=== PATIENT | male | born 1945 | race Caucasian/White ===

== ENCOUNTER 2019-01-07 19:57 | Inpatient (IN) | payer MEDICARE, OTHER | END 2019-01-10 12:30 | disposition home or self-care (01) | LOC: ER FS 19:57 → 4TH 22:39 | DX: I11.0 Hypertensive heart disease with heart failure (principal); I50.43 Acute on chronic combined systolic (congestive) and diastolic (congestive) heart failure; I21.A1 Myocardial infarction type 2; J96.01 Acute respiratory failure with hypoxia; I35.0 Nonrheumatic aortic (valve) stenosis; E78.00 Pure hypercholesterolemia, unspecified; I73.9 Peripheral vascular disease, unspecified; I87.8 Other specified disorders of veins; N40.0 Benign prostatic hyperplasia without lower urinary tract symptoms; K21.9 Gastro-esophageal reflux disease without esophagitis; M54.9 Dorsalgia, unspecified; H91.93 Unspecified hearing loss, bilateral; M15.9 Polyosteoarthritis, unspecified; Z87.891 Personal history of nicotine dependence; Z90.2 Acquired absence of lung [part of]; Z97.4 Presence of external hearing-aid ==

== ENCOUNTER 2019-01-31 22:01 | Inpatient (IN) | payer MEDICARE, OTHER ==
[~2019-01-31] VITALS: Ht 165.1 cm; Wt 103.0 kg
[~2019-01-31 22:01] MED LIST: ACET-2055 PO; ACET-2429 PO; ACET325T49 PO; AMOX875T2 PO; ASPI-999 PO; BACL10TA PO; BUME1TAB4 PO; CHOL200059 PO; CLOP75TA28 PO; FINA5TAB6 PO; FURO-124 PO; FURO40TA4 PO; HYDR-3820 PO; LOSA25TA41 PO; MELO7.5T46 PO; METO-387 PO; METO2.5T PO; OXYB10TA PO; POTA10CA43 PO; RANI-515 PO; RANI150T90 PO; SIMV40TA4 PO; SIMV80TA21 PO; SPIR25TA5 PO; TAMS0.4C98 PO; TRAZ-222 PO; TRAZ150T72 PO; Trazadone
--- OUTSIDE RECORDS SUMMARY | 2019-01-31 22:08 | XMS REPORT | Continuity of Care Document ---
Author Organization Unknown Address Unknown Allergies Active Description Code Type Severity Reaction Onset Reported/Identified Relationship to Patient Clinical Status Yes No Known Drug Allergies [id number] Drug Allergy Unknown N/A 08/02/2015 Medications There is no data. Problems Date Dx Coded Attending Type Code Diagnosis Diagnosed By 06/25/2015 CHINO MOHAN MD, Ot M50.13 CERVICAL DISC DISORDER W RADICULOPATHY, 06/25/2015 CHINO MOHAN MD Ot M96.1 POSTLAMINECTOMY SYNDROME, NOT ELSEWHERE 06/25/2015 CHINO MOHAN MD Ot Z79.899 OTHER INTERMEDIATE (CURRENT) DRUG THERAPY 07/29/2015 ALLEN DAVIS MD Ot M48.02 07/29/2015 ALLEN DAVIS MD Ot Z01.812 07/29/2015 ALLEN DAVIS MD Ot Z11.2 07/29/2015 ALLEN DAVIS MD Ot M48.02 07/29/2015 ALLEN DAVIS MD Ot Z01.812 07/29/2015 ALLEN DAVIS MD Ot Z11.2 08/03/2015 ALLEN DAVIS MD Ot M47.12 OTHER SPONDYLOSIS WITH MYELOPATHY, CERVI 08/03/2015 ALLEN DAVIS MD Ot M48.02 SPINAL STENOSIS, CERVICAL REGION 08/03/2015 ALLEN DAVIS MD Ot M54.12 RADICULOPATHY, CERVICAL REGION 08/17/2015 ALLEN DAVIS MD Ot M48.02 08/17/2015 ALLEN DAVIS MD Ot Z01.812 08/17/2015 ALLEN DAVIS MD Ot Z11.2 02/07/2016 ALLEN DAVIS MD Ot Z48.89 ENCOUNTER FOR OTHER SPECIFIED SURGICAL A 02/10/2016 ALLEN DAVIS MD Ot Z48.89 ENCOUNTER FOR OTHER SPECIFIED SURGICAL A 02/10/2016 ALLEN DAVIS MD Ot Z98.1 ARTHRODESIS STATUS 02/10/2016 ALLEN DAVIS MD Ot Z48.89 ENCOUNTER FOR OTHER SPECIFIED SURGICAL A 02/10/2016 ALLEN DAVIS MD Ot Z98.1 ARTHRODESIS STATUS 03/01/2016 ALLEN DAVIS MD Ot Z48.89 ENCOUNTER FOR OTHER SPECIFIED SURGICAL A 03/01/2016 ALLEN DAVIS MD Ot Z98.1 ARTHRODESIS STATUS 03/31/2016 ALLEN DAVIS MD Ot Z48.89 ENCOUNTER FOR OTHER SPECIFIED SURGICAL A 03/31/2016 ALLEN DAVIS MD Ot Z98.1 ARTHRODESIS STATUS 12/31/2018 ALLEN DAVIS MD Ot M48.02 SPINAL STENOSIS, CERVICAL REGION 12/31/2018 ALLEN DAVIS MD Ot Z01.812 ENCOUNTER FOR PREPROCEDURAL LABORATORY E 12/31/2018 ALLEN DAVIS MD Ot Z11.2 ENCOUNTER FOR SCREENING FOR OTHER BACTER 12/31/2018 ALLEN DAVIS MD Ot Z48.89 ENCOUNTER FOR OTHER SPECIFIED SURGICAL A 12/31/2018 ALLEN DAVIS MD Ot Z98.1 ARTHRODESIS STATUS 01/03/2019 ALLEN DAVIS MD Ot M48.02 SPINAL STENOSIS, CERVICAL REGION 01/03/2019 ALLEN DAVIS MD Ot Z01.812 ENCOUNTER FOR PREPROCEDURAL LABORATORY E 01/03/2019 ALLEN DAVIS MD Ot Z11.2 ENCOUNTER FOR SCREENING FOR OTHER BACTER 01/03/2019 ALLEN DAVIS MD Ot Z48.89 ENCOUNTER FOR OTHER SPECIFIED SURGICAL A 01/03/2019 ALLEN DAVIS MD Ot Z98.1 ARTHRODESIS STATUS 01/03/2019 ALLEN DAVIS MD Ot M48.02 SPINAL STENOSIS, CERVICAL REGION 01/03/2019 ALLEN DAVIS MD Ot Z01.812 ENCOUNTER FOR PREPROCEDURAL LABORATORY E 01/03/2019 ALLEN DAVIS MD Ot Z11.2 ENCOUNTER FOR SCREENING FOR OTHER BACTER 01/03/2019 ALLEN DAVIS MD Ot Z48.89 ENCOUNTER FOR OTHER SPECIFIED SURGICAL A 01/03/2019 ALLEN DAVIS MD Ot Z98.1 ARTHRODESIS STATUS 01/03/2019 ALLEN DAVIS MD Ot M48.02 SPINAL STENOSIS, CERVICAL REGION 01/03/2019 ALLEN DAVIS MD, Ot Z01.812 ENCOUNTER FOR PREPROCEDURAL LABORATORY E 01/03/2019 ALLEN DAVIS MD Ot Z11.2 ENCOUNTER FOR SCREENING FOR OTHER BACTER 01/03/2019 ALLEN DAVIS MD, Ot Z48.89 ENCOUNTER FOR OTHER SPECIFIED SURGICAL A 01/03/2019 ALLEN DAVIS MD, Ot Z98.1 ARTHRODESIS STATUS 01/07/2019 ALLEN DAVIS MD, Ot M48.02 SPINAL STENOSIS, CERVICAL REGION 01/07/2019 ALLEN DAVIS MD, Ot Z01.812 ENCOUNTER FOR PREPROCEDURAL LABORATORY E 01/07/2019 ALLEN DAVIS MD, Ot Z11.2 ENCOUNTER FOR SCREENING FOR OTHER BACTER 01/07/2019 ALLEN DAVIS MD, Ot Z48.89 ENCOUNTER FOR OTHER SPECIFIED SURGICAL A 01/07/2019 ALLEN DAVIS MD, Ot Z98.1 ARTHRODESIS STATUS 01/10/2019 HERMELINDA WHITLEY MD Ot E78.00 PURE HYPERCHOLESTEROLEMIA, UNSPECIFIED 01/10/2019 HERMELINDA WHITLEY MD Ot H91.93 UNSPECIFIED HEARING LOSS, BILATERAL 01/10/2019 HERMELINDA WHITLEY MD Ot I11.0 HYPERTENSIVE HEART DISEASE WITH HEART FA 01/10/2019 HERMELINDA WHITLEY MD, Ot I21.A1 MYOCARDIAL INFARCTION TYPE 2 01/10/2019 HERMELINDA WHITLEY MD, Ot I35.0 NONRHEUMATIC AORTIC (VALVE) STENOSIS 01/10/2019 HERMELINDA WHITLEY MD Ot I50.43 ACUTE ON CHRONIC COMBINED SYSTOLIC AND D 01/10/2019 HERMELINDA WHITLEY MD Ot I73.9 PERIPHERAL VASCULAR DISEASE, UNSPECIFIED 01/10/2019 HERMELINDA WHITLEY MD Ot I87.8 OTHER SPECIFIED DISORDERS OF VEINS 01/10/2019 HERMELINDA WHITLEY MD Ot J96.01 ACUTE RESPIRATORY FAILURE WITH HYPOXIA 01/10/2019 HERMELINDA WHITLEY MD Ot K21.9 GASTRO-ESOPHAGEAL REFLUX DISEASE WITHOUT 01/10/2019 HERMELINDA WHITLEY MD Ot M15.9 POLYOSTEOARTHRITIS, UNSPECIFIED 01/10/2019 HERMELINDA WHITLEY MD Ot M54.9 DORSALGIA, UNSPECIFIED 01/10/2019 GAULT MD, HERMELINDA R Ot N40.0 BENIGN PROSTATIC HYPERPLASIA WITHOUT LOW 01/10/2019 HERMELINDA WHITLEY MD, Ot Z87.891 PERSONAL HISTORY OF NICOTINE DEPENDENCE 01/10/2019 HERMELINDA WHITLEY MD Ot Z90.2 ACQUIRED ABSENCE OF LUNG [PART OF] 01/10/2019 HERMELINDA WHITLEY MD, Ot Z97.4 PRESENCE OF EXTERNAL HEARING-AID 01/10/2019 HERMELINDA WHITLEY MD Ot E78.00 PURE HYPERCHOLESTEROLEMIA, UNSPECIFIED 01/10/2019 HERMELINDA WHITLEY MD Ot H91.93 UNSPECIFIED HEARING LOSS, BILATERAL 01/10/2019 HERMELINDA WHITLEY MD Ot I11.0 HYPERTENSIVE HEART DISEASE WITH HEART FA 01/10/2019 HERMELINDA WHITLEY MD, Ot I21.A1 MYOCARDIAL INFARCTION TYPE 2 01/10/2019 HERMELINDA WHITLEY MD Ot I35.0 NONRHEUMATIC AORTIC (VALVE) STENOSIS 01/10/2019 HERMELINDA WHITLEY MD Ot I50.43 ACUTE ON CHRONIC COMBINED SYSTOLIC AND D 01/10/2019 HERMELINDA WHITLEY MD Ot I73.9 PERIPHERAL VASCULAR DISEASE, UNSPECIFIED 01/10/2019 HERMELINDA WHITLEY MD Ot I87.8 OTHER SPECIFIED DISORDERS OF VEINS 01/10/2019 HERMELINDA WHITLEY MD Ot J96.01 ACUTE RESPIRATORY FAILURE WITH HYPOXIA 01/10/2019 HERMELINDA WHITLEY MD Ot K21.9 GASTRO-ESOPHAGEAL REFLUX DISEASE WITHOUT 01/10/2019 HERMELINDA WHITLEY MD Ot M15.9 POLYOSTEOARTHRITIS, UNSPECIFIED 01/10/2019 HERMELINDA WHITLEY MD Ot M54.9 DORSALGIA, UNSPECIFIED 01/10/2019 HERMELINDA WHITLEY MD Ot N40.0 BENIGN PROSTATIC HYPERPLASIA WITHOUT LOW 01/10/2019 HERMELINDA WHITLEY MD, Ot Z87.891 PERSONAL HISTORY OF NICOTINE DEPENDENCE 01/10/2019 HERMELINDA WHITLEY MD, Ot Z90.2 ACQUIRED ABSENCE OF LUNG [PART OF] 01/10/2019 HERMELINDA WHITLEY MD Ot Z97.4 PRESENCE OF EXTERNAL HEARING-AID 01/23/2019 AMI SMITH FACBenny, ALI FACP CCDS Ot E66.9 OBESITY, UNSPECIFIED 01/23/2019 AMI SMITH FACBenny, ALI FACP CCDS Ot E78.5 HYPERLIPIDEMIA, UNSPECIFIED 01/23/2019 AMI SMITH FACC, ALI FACP CCDS Ot I10 ESSENTIAL (PRIMARY) HYPERTENSION 01/23/2019 AMI SMITH FACC, ALI FACP CCDS Ot I25.10 ATHSCL HEART DISEASE OF [place] CORONARY 01/23/2019 AMI SMITH FACC, ALI FACP CCDS Ot M79.89 OTHER SPECIFIED SOFT TISSUE DISORDERS 01/23/2019 AMI SMITH FACC, ALI FACP CCDS Ot 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 01/23/2019 AMI SMITH FACC, ALI FACP CCDS Ot Z68.35 BODY MASS INDEX (BMI) 35.0-35.9, ADULT 01/23/2019 AMI SMITH FACC, ALI FACP CCDS Ot Z79.82 TRANSIT WORKER (CURRENT) USE OF ASPIRIN 01/23/2019 AMI SMITH FACC, ALI FACP CCDS Ot Z79.899 OTHER TRANSIT WORKER (CURRENT) DRUG THERAPY 01/23/2019 AMI SMITH FACC, ALI FACP CCDS Ot Z87.891 PERSONAL HISTORY OF NICOTINE DEPENDENCE 01/27/2019 AMI SMITH FACC, ALI FACP CCDS Ot E66.9 OBESITY, UNSPECIFIED 01/27/2019 AMI SMITH FACC, ALI FACP CCDS Ot E78.5 HYPERLIPIDEMIA, UNSPECIFIED 01/27/2019 AMI SMITH FACC, ALI FACP CCDS Ot I10 ESSENTIAL (PRIMARY) HYPERTENSION 01/27/2019 AMI SMITH FACC, ALI FACP CCDS Ot I25.10 ATHSCL HEART DISEASE OF [place] CORONARY 01/27/2019 AMI SMITH FACC, ALI FACP CCDS Ot M79.89 OTHER SPECIFIED SOFT TISSUE DISORDERS 01/27/2019 AMI SMITH FACC, ALI FACP CCDS Ot 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 01/27/2019 AMI SMITH FACC, ALI FACP CCDS Ot Z68.35 BODY MASS INDEX (BMI) 35.0-35.9, ADULT 01/27/2019 AMI SMITH FACC, ALI FACP CCDS Ot Z79.82 TRANSIT WORKER (CURRENT) USE OF ASPIRIN 01/27/2019 AMI SMITH FACC, ALI FACP CCDS Ot Z79.899 OTHER INTERMEDIATE (CURRENT) DRUG THERAPY 01/27/2019 AMI SMITH FACC, ALI FACP CCDS Ot Z87.891 PERSONAL HISTORY OF NICOTINE DEPENDENCE Procedures Code Description Performed By Performed On [id number] EXCISION OF CERVICAL VERTEBRAL DISC, OPE 08/02/2015 [id number] FUSION 2-6 C JT W INTBD FUS DEV, ANT PRINCE 08/02/2015 Results Test Result Range Complete blood count (CBC) with automated white blood cell (WBC) differential - 01/07/19 20:15 Blood leukocytes automated count (number/volume) 6.1 10*3/uL 4.3-11.0 Blood erythrocytes automated count (number/volume) 3.98 10*6/uL 4.35-5.85 Venous blood hemoglobin measurement (mass/volume) 11.3 g/dL 13.3-17.7 Blood hematocrit (volume fraction) 36 % 40-54 Automated erythrocyte mean corpuscular volume 92 [foz_us] 80-99 Automated erythrocyte mean corpuscular hemoglobin (mass per erythrocyte) 28 pg 25-34 Automated erythrocyte mean corpuscular hemoglobin concentration measurement (mass/volume) 31 g/dL 32-36 Automated erythrocyte distribution width ratio 13.5 % 10.0- 14.5 Automated blood platelet count (count/volume) 236 10*3/uL 130-400 Automated blood platelet mean volume measurement 9.9 [foz_us] 7.4-10.4 Automated blood neutrophils/100 leukocytes 65 % 42-75 Automated blood lymphocytes/100 leukocytes 22 % 12-44 Blood monocytes/100 leukocytes 12 % 0-12 Automated blood eosinophils/100 leukocytes 1 % 0-10 Automated blood basophils/100 leukocytes 0 % 0-10 Blood neutrophils automated count (number/volume) 4.0 10*3 1.8-7.8 Blood lymphocytes automated count (number/volume) 1.4 10*3 1.0-4.0 Blood monocytes automated count (number/volume) 0.7 10*3 0.0- 1.0 Automated eosinophil count 0.0 10*3/uL 0.0-0.3 Automated blood basophil count (count/volume) 0.0 10*3/uL 0.0-0.1 Comprehensive metabolic panel - 01/07/19 20:15 Serum or plasma sodium measurement (moles/volume) 143 mmol/L 135-145 Serum or plasma potassium measurement (moles/volume) 4.4 mmol/L 3.6-5.0 Serum or plasma chloride measurement (moles/volume) 105 mmol/L 98-107 Carbon dioxide 20 mmol/L 21-32 Serum or plasma anion gap determination (moles/volume) 18 mmol/L 5-14 Serum or plasma urea nitrogen measurement (mass/volume) 19 mg/dL 7-18 Serum or plasma creatinine measurement (mass/volume) 0.86 mg/dL 0.60-1.30 Serum or plasma urea nitrogen/creatinine mass ratio 22 NRG Serum or plasma creatinine measurement with calculation of estimated glomerular filtration rate > NRG Serum or plasma glucose measurement (mass/volume) 117 mg/dL 70-105 Serum or plasma calcium measurement (mass/volume) 9.5 mg/dL 8.5-10.1 Serum or plasma total bilirubin measurement (mass/volume) 0.4 mg/dL 0.1-1.0 Serum or plasma alkaline phosphatase measurement (enzymatic activity/volume) 79 U/L 40-136 Serum or plasma aspartate aminotransferase measurement (enzymatic activity/volume) 17 U/L 5-34 Serum or plasma alanine aminotransferase measurement (enzymatic activity/volume) 14 U/L 0-55 Serum or plasma protein measurement (mass/volume) 6.9 g/dL 6.4-8.2 Serum or plasma albumin measurement (mass/volume) 4.2 g/dL 3.2-4.5 CALCIUM CORRECTED 9.3 mg/dL 8.5-10.1 Magnesium - 01/07/19 20:15 Magnesium 2.0 mg/dL 1.8-2.4 TROPONIN T - 01/07/19 20:15 TROPONIN T 63 % <=15 PROBNP FS - 01/07/19 20:15 PROBNP FS 1994.0 pg/mL <75.0 Serum or plasma troponin i.cardiac measurement (mass/volume) - 01/08/19 01:00 Serum or plasma troponin i.cardiac measurement (mass/volume) 0.088 ng/mL <0.028 Complete blood count (CBC) with automated white blood cell (WBC) differential - 01/09/19 05:50 Blood leukocytes automated count (number/volume) 6.2 10*3/uL 4.3-11.0 Blood erythrocytes automated count (number/volume) 4.08 10*6/uL 4.35-5.85 Venous blood hemoglobin measurement (mass/volume) 11.4 g/dL 13.3-17.7 Blood hematocrit (volume fraction) 37 % 40-54 Automated erythrocyte mean corpuscular volume 91 [foz_us] 80-99 Automated erythrocyte mean corpuscular hemoglobin (mass per erythrocyte) 28 pg 25-34 Automated erythrocyte mean corpuscular hemoglobin concentration measurement (mass/volume) 31 g/dL 32-36 Automated erythrocyte distribution width ratio 13.9 % 10.0- 14.5 Automated blood platelet count (count/volume) 234 10*3/uL 130-400 Automated blood platelet mean volume measurement 9.5 [foz_us] 7.4-10.4 Automated blood neutrophils/100 leukocytes 65 % 42-75 Automated blood lymphocytes/100 leukocytes 17 % 12-44 Blood monocytes/100 leukocytes 17 % 0-12 Automated blood eosinophils/100 leukocytes 1 % 0-10 Automated blood basophils/100 leukocytes 0 % 0-10 Blood neutrophils automated count (number/volume) 4.1 10*3 1.8-7.8 Blood lymphocytes automated count (number/volume) 1.1 10*3 1.0-4.0 Blood monocytes automated count (number/volume) 1.0 10*3 0.0- 1.0 Automated eosinophil count 0.0 10*3/uL 0.0-0.3 Automated blood basophil count (count/volume) 0.0 10*3/uL 0.0-0.1 Comprehensive metabolic panel - 01/09/19 05:50 Serum or plasma sodium measurement (moles/volume) 140 mmol/L 135-145 Serum or plasma potassium measurement (moles/volume) 4.1 mmol/L 3.6-5.0 Serum or plasma chloride measurement (moles/volume) 104 mmol/L 98-107 Carbon dioxide 25 mmol/L 21-32 Serum or plasma anion gap determination (moles/volume) 11 mmol/L 5-14 Serum or plasma urea nitrogen measurement (mass/volume) 17 mg/dL 7-18 Serum or plasma creatinine measurement (mass/volume) 0.88 mg/dL 0.60-1.30 Serum or plasma urea nitrogen/creatinine mass ratio 19 NRG Serum or plasma creatinine measurement with calculation of estimated glomerular filtration rate > NRG Serum or plasma glucose measurement (mass/volume) 101 mg/dL 70-105 Serum or plasma calcium measurement (mass/volume) 9.7 mg/dL 8.5-10.1 Serum or plasma total bilirubin measurement (mass/volume) 0.8 mg/dL 0.1-1.0 Serum or plasma alkaline phosphatase measurement (enzymatic activity/volume) 68 U/L 40-136 Serum or plasma aspartate aminotransferase measurement (enzymatic activity/volume) 15 U/L 5-34 Serum or plasma alanine aminotransferase measurement (enzymatic activity/volume) 14 U/L 0-55 Serum or plasma protein measurement (mass/volume) 6.4 g/dL 6.4-8.2 Serum or plasma albumin measurement (mass/volume) 4.0 g/dL 3.2-4.5 CALCIUM CORRECTED 9.7 mg/dL 8.5-10.1 Complete blood count (CBC) with automated white blood cell (WBC) differential - 01/10/19 05:29 Blood leukocytes automated count (number/volume) 6.2 10*3/uL 4.3-11.0 Blood erythrocytes automated count (number/volume) 4.19 10*6/uL 4.35-5.85 Venous blood hemoglobin measurement (mass/volume) 11.9 g/dL 13.3-17.7 Blood hematocrit (volume fraction) 38 % 40-54 Automated erythrocyte mean corpuscular volume 90 [foz_us] 80-99 Automated erythrocyte mean corpuscular hemoglobin (mass per erythrocyte) 28 pg 25-34 Automated erythrocyte mean corpuscular hemoglobin concentration measurement (mass/volume) 32 g/dL 32-36 Automated erythrocyte distribution width ratio 14.2 % 10.0- 14.5 Automated blood platelet count (count/volume) 251 10*3/uL 130-400 Automated blood platelet mean volume measurement 9.9 [foz_us] 7.4-10.4 Automated blood neutrophils/100 leukocytes 62 % 42-75 Automated blood lymphocytes/100 leukocytes 23 % 12-44 Blood monocytes/100 leukocytes 14 % 0-12 Automated blood eosinophils/100 leukocytes 1 % 0-10 Automated blood basophils/100 leukocytes 0 % 0-10 Blood neutrophils automated count (number/volume) 3.8 10*3 1.8-7.8 Blood lymphocytes automated count (number/volume) 1.4 10*3 1.0-4.0 Blood monocytes automated count (number/volume) 0.9 10*3 0.0- 1.0 Automated eosinophil count 0.0 10*3/uL 0.0-0.3 Automated blood basophil count (count/volume) 0.0 10*3/uL 0.0-0.1 Comprehensive metabolic panel - 01/10/19 05:29 Serum or plasma sodium measurement (moles/volume) 140 mmol/L 135-145 Serum or plasma potassium measurement (moles/volume) 4.3 mmol/L 3.6-5.0 Serum or plasma chloride measurement (moles/volume) 103 mmol/L 98-107 Carbon dioxide 26 mmol/L 21-32 Serum or plasma anion gap determination (moles/volume) 11 mmol/L 5-14 Serum or plasma urea nitrogen measurement (mass/volume) 20 mg/dL 7-18 Serum or plasma creatinine measurement (mass/volume) 0.89 mg/dL 0.60-1.30 Serum or plasma urea nitrogen/creatinine mass ratio 22 NRG Serum or plasma creatinine measurement with calculation of estimated glomerular filtration rate > NRG Serum or plasma glucose measurement (mass/volume) 97 mg/dL 70-105 Serum or plasma calcium measurement (mass/volume) 9.9 mg/dL 8.5-10.1 Serum or plasma total bilirubin measurement (mass/volume) 0.7 mg/dL 0.1-1.0 Serum or plasma alkaline phosphatase measurement (enzymatic activity/volume) 74 U/L 40-136 Serum or plasma aspartate aminotransferase measurement (enzymatic activity/volume) 17 U/L 5-34 Serum or plasma alanine aminotransferase measurement (enzymatic activity/volume) 13 U/L 0-55 Serum or plasma protein measurement (mass/volume) 6.7 g/dL 6.4-8.2 Serum or plasma albumin measurement (mass/volume) 4.1 g/dL 3.2-4.5 CALCIUM CORRECTED 9.8 mg/dL 8.5-10.1 Automated blood complete blood count (hemogram) panel - 01/21/19 08:00 Blood leukocytes automated count (number/volume) 6.1 10*3/uL 4.3-11.0 Blood erythrocytes automated count (number/volume) 5.16 10*6/uL 4.35-5.85 Venous blood hemoglobin measurement (mass/volume) 14.5 g/dL 13.3-17.7 Blood hematocrit (volume fraction) 44 % 40-54 Automated erythrocyte mean corpuscular volume 86 [foz_us] 80-99 Automated erythrocyte mean corpuscular hemoglobin (mass per erythrocyte) 28 pg 25-34 Automated erythrocyte mean corpuscular hemoglobin concentration measurement (mass/volume) 33 g/dL 32-36 Automated erythrocyte distribution width ratio 13.8 % 10.0- 14.5 Automated blood platelet count (count/volume) 181 10*3/uL 130-400 Automated blood platelet mean volume measurement 10.2 [foz_us] 7.4-10.4 PT panel in platelet poor plasma by coagulation assay - 01/21/19 08:00 Prothrombin time (PT) in platelet poor plasma by coagulation assay 13.8 s 12.2-14.7 INR in platelet poor plasma or blood by coagulation assay 1.0 0.8-1.4 Activated partial thromboplastin time (aPTT) in platelet poor plasma bycoagulation assay - 01/21/19 08:00 Activated partial thromboplastin time (aPTT) in platelet poor plasma bycoagulation assay 28 s 24-35 Comprehensive metabolic panel - 01/21/19 08:00 Serum or plasma sodium measurement (moles/volume) 138 mmol/L 135-145 Serum or plasma potassium measurement (moles/volume) 3.7 mmol/L 3.6-5.0 Serum or plasma chloride measurement (moles/volume) 103 mmol/L 98-107 Carbon dioxide 24 mmol/L 21-32 Serum or plasma anion gap determination (moles/volume) 11 mmol/L 5-14 Serum or plasma urea nitrogen measurement (mass/volume) 45 mg/dL 7-18 Serum or plasma creatinine measurement (mass/volume) 1.37 mg/dL 0.60-1.30 Serum or plasma urea nitrogen/creatinine mass ratio 33 NRG Serum or plasma creatinine measurement with calculation of estimated glomerular filtration rate 51 NRG Serum or plasma glucose measurement (mass/volume) 111 mg/dL 70-105 Serum or plasma calcium measurement (mass/volume) 10.7 mg/dL 8.5-10.1 Serum or plasma total bilirubin measurement (mass/volume) 0.9 mg/dL 0.1-1.0 Serum or plasma alkaline phosphatase measurement (enzymatic activity/volume) 85 U/L 40-136 Serum or plasma aspartate aminotransferase measurement (enzymatic activity/volume) 20 U/L 5-34 Serum or plasma alanine aminotransferase measurement (enzymatic activity/volume) 20 U/L 0-55 Serum or plasma protein measurement (mass/volume) 7.9 g/dL 6.4-8.2 Serum or plasma albumin measurement (mass/volume) 4.8 g/dL 3.2-4.5 Lipid 1996 panel - 01/21/19 08:00 Serum or plasma triglyceride measurement (mass/volume) 129 mg/dL <150 Serum or plasma cholesterol measurement (mass/volume) 152 mg/dL < 200 Serum or plasma cholesterol in HDL measurement (mass/volume) 40 mg/dL 40-60 Cholesterol in LDL [mass/volume] in serum or plasma by direct assay 78 mg/dL 1-129 Serum or plasma cholesterol in VLDL measurement (mass/volume) 26 mg/dL 5-40 Methicillin resistant Staphylococcus aureus (MRSA) screening culture - 01/21/19 08:00 Methicillin resistant Staphylococcus aureus (MRSA) screening culture NEG NRG Encounters ACCT No. Visit Date/Time Discharge Status Pt. Type Provider Facility Loc./Unit Complaint [id number] 01/27/2019 10:15:00 01/27/2019 23:59:59 [facility] [id number] 01/21/2019 08:49:00 01/21/2019 16:15:00 DIS Outpatient AMI SMITH FACC, RAYMUNDO FACP CCDS [facility] [address] CATH CARDIOMYOPATHY,LEG SWELLING [id number] 01/07/2019 22:39:00 01/10/2019 12:30:00 DIS Inpatient HERMELINDA WHITLEY MD [facility] [address] 4TH CHF EXACERBATION [id number] 02/07/2016 10:21:00 02/07/2016 23:59:59 CLS Outpatient ALLEN DAVIS MD [facility] [address] RAD S/P SPINAL FUSION Z48.89, Z98.1 [id number] 08/02/2015 10:37:00 08/03/2015 10:40:00 DIS Inpatient ALLEN DAVIS MD [facility] [address] 4TH STENOSIS [id number] 07/20/2015 09:29:00 07/20/2015 23:59:59 CLS Outpatient ALLEN DAVIS MD [facility] [address] PREOP STENOSIS [id number] 06/25/2015 08:47:00 06/25/2015 10:00:00 DIS Outpatient CHINO MOHAN MD [facility] [address] CARD DISC DISORDER W/RADICULOPATHY
--- NOTE | 2019-01-31 22:15 | ED Psychosocial ---
General Chief Complaint: Psych/Social Disorder Stated Complaint: LIGHT HEADED;DIZZY Source: patient, family, RN notes reviewed, old records Exam Limitations: no limitations History of Present Illness Date Seen by Provider: Jan 31, 2019 Time Seen by Provider: 22:15 Initial Comments Patient presents along c/ his family c/ c/o dizzy/lightheaded as well as continued dyspnea. States it has been going on now for the last 2 month. Hasn't been sleeping well. Afraid if he goes to sleep he isn't going to wake up. Denies any chest pain, or fever. Had recent heart cath @ [facility] by Dr. Santana. Timing/Duration: week (8), getting worse Associated Symptoms: denies symptoms (x/ as noted.), insomnia Allergies and Home Medications Allergies Coded Allergies: No Known Drug Allergies (Unverified , 01/31/19) Home Medications Acetaminophen 650 Mg Tablet.er, 1,300 MG PO BID, (Reported) TAKE 2 (650MG) TABS Aspirin 81 Mg Tab.chew, 81 MG PO DAILY, (Reported) Cholecalciferol (Vitamin D3) 2,000 Unit Tablet, 1,000 UNIT PO DAILY, (Reported) Clopidogrel Bisulfate 75 Mg Tablet, 75 MG PO DAILY Prescribed by: RAYMUNDO SANTANA on 01/21/19 1303 Furosemide 40 Mg Tablet, 40 MG PO DAILY Prescribed by: HERMELINDA WHITLEY on 01/10/19 1041 Losartan Potassium 25 Mg Tablet, 25 MG PO DAILY Prescribed by: HERMELINDA WHITLEY on 01/10/19 1041 Metolazone 2.5 Mg Tablet, 2.5 MG PO DAILY, (Reported) Metoprolol Succinate 25 Mg Tab.er.24h, 25 MG PO DAILY Prescribed by: HERMELINDA WHITLEY on 01/10/19 1041 Potassium Chloride 10 Meq Capsule.er, 10 MEQ PO DAILY, (Reported) Ranitidine HCl 150 Mg Tablet, 150 MG PO BID, (Reported) Simvastatin 80 Mg Tablet, 40 MG PO HS, (Reported) TAKES 1/2 OF A (80 MG) TABLET Spironolactone 25 Mg Tablet, 25 MG PO DAILY Prescribed by: HERMELINDA WHITLEY on 01/10/19 1041 Tamsulosin HCl 0.4 Mg Cap, 0.8 MG PO 1730, (Reported) TAKES 2 (0.4MG) CAPSULES Patient Home Medication List Home Medication List Reviewed: Yes Review of Systems Constitutional: see HPI, dizziness Respiratory: see HPI, dyspnea on exertion, orthopnea, short of breath All Other Systems Reviewed Negative Unless Noted: Yes (Negative excepted noted.) Past Avtkmqx-Tahsci-Nqyjke Hx Patient Social History Type Used: Cigarettes Former Smoker, Quit: Jun 30, 1975 Recent Foreign Travel: No Contact w/Someone Who Travel: No Recent Hopitalizations: No Immunizations Up To Date Tetanus Booster (TDap): Unknown Date of Pneumonia Vaccine: May 27, 2013 Date of Influenza Vaccine: May 27, 2018 Seasonal Allergies Seasonal Allergies: Yes Past Medical History Surgeries: Yes (LEFT LUNG LOBE REMOVED, 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, NECK SX X2, ) Lobectomy, Orthopedic Respiratory: Yes Chronic Bronchitis Cardiac: Yes High Cholesterol, Hypertension, Peripheral Vascular Neurological: Yes Genitourinary: Yes Benign Prostatic Hyperpl, Prostate Problems Gastrointestinal: Yes Gastroesophageal Reflux Musculoskeletal: Yes Degenerate Disk Disease, Arthritis, Chronic Back Pain Endocrine: No HEENT: Yes Hearing Impairment: Bilateral Hearing Aide Cancer: Yes Skin Psychosocial: Yes Anxiety Integumentary: Yes Psoriasis Blood Disorders: No Family Medical History Arthritis 19 FATHER 19 MOTHER G8 BROTHER G8 SISTER Diabetes mellitus 19 FATHER 19 MOTHER G8 BROTHER G8 SISTER Hypertension 19 MOTHER G8 BROTHER G8 SISTER Respiratory disorder 19 FATHER (LUNG CA) G8 SISTER (LUNG CA) Physical Exam Vital Signs - First Documented 01/31/19 22:17 Temp 97.7 Pulse 68 B/P (MAP) 125/64 (84) Pulse Ox 97 O2 Delivery Room Air Capillary Refill : Height, Weight, BMI Height: 5'5.00" Weight: 216lbs. 0.0oz. 97.155106qs; 35.9 BMI Method:Actual General Appearance: WD/WN HEENT: normal ENT inspection Neck: normal inspection Respiratory: crackles Cardiovascular: irregularly irregular Neurologic/Psychiatric: no motor/sensory deficits, alert, oriented x 3, other (seems a little anxious.) Appearance/Memory: appropriate appearance Behavior/Eye Contact: good eye contact Thoughts/Hallucinations: normal thought pattern Skin: warm/dry Progress/Results/Core Measures Results/Orders Lab Results Laboratory Tests Test 01/31/19 22:55 Range/Units White Blood Count 6.4 4.3-11.0 10^3/uL Red Blood Count 4.24 L 4.35-5.85 10^6/uL Hemoglobin 12.1 L 13.3-17.7 G/DL Hematocrit 38 L 40-54 % Mean Corpuscular Volume 90 80-99 FL Mean Corpuscular Hemoglobin 29 25-34 PG Mean Corpuscular Hemoglobin Concent 32 32-36 G/DL Red Cell Distribution Width 13.4 10.0-14.5 % Platelet Count 174 130-400 10^3/uL Mean Platelet Volume 10.1 7.4-10.4 FL Neutrophils (%) (Auto) 59 42-75 % Lymphocytes (%) (Auto) 27 12-44 % Monocytes (%) (Auto) 13 H 0-12 % Eosinophils (%) (Auto) 1 0-10 % Basophils (%) (Auto) 0 0-10 % Neutrophils # (Auto) 3.8 1.8-7.8 X 10^3 Lymphocytes # (Auto) 1.7 1.0-4.0 X 10^3 Monocytes # (Auto) 0.9 0.0-1.0 X 10^3 Eosinophils # (Auto) 0.1 0.0-0.3 10^3/uL Basophils # (Auto) 0.0 0.0-0.1 10^3/uL Sodium Level 139 135-145 MMOL/L Potassium Level 3.3 L 3.6-5.0 MMOL/L Chloride Level 96 L 98-107 MMOL/L Carbon Dioxide Level 25 21-32 MMOL/L Anion Gap 18 H 5-14 MMOL/L Blood Urea Nitrogen 43 H 7-18 MG/DL Creatinine 1.38 H 0.60-1.30 MG/DL Estimat Glomerular Filtration Rate 50 BUN/Creatinine Ratio 31 Glucose Level 143 H 70-105 MG/DL Calcium Level 9.8 8.5-10.1 MG/DL Corrected Calcium 9.6 8.5-10.1 MG/DL Magnesium Level 1.8 1.8-2.4 MG/DL Total Bilirubin 0.3 0.1-1.0 MG/DL Aspartate Amino Transf (AST/SGOT) 20 5-34 U/L Alanine Aminotransferase (ALT/SGPT) 25 0-55 U/L Alkaline Phosphatase 82 40-136 U/L Troponin T 130 *H <=15 NG/L Pro-B-Type Natriuretic Peptide 2347.0 H <75.0 PG/ML Total Protein 7.0 6.4-8.2 GM/DL Albumin 4.3 3.2-4.5 GM/DL My Orders Orders - ISABELLA GILBERT DO Ekg Tracing (01/31/19 22:26) Cbc With Automated Diff (01/31/19 22:26) Comprehensive Metabolic Panel (01/31/19 22:26) Magnesium (01/31/19 22:26) Ua Culture If Indicated (01/31/19 22:26) Probnp Fs (01/31/19 22:26) Chest 1 View Ap/Pa Only (01/31/19 22:26) Troponin T (01/31/19 23:38) Potassium Chloride (Tablet) (K Dur Table (02/01/19 00:00) Furosemide Injection (Lasix Injection) (02/01/19 00:15) Vital Signs/I&O 01/31/19 22:17 Temp 97.7 Pulse 68 B/P (MAP) 125/64 (84) Pulse Ox 97 O2 Delivery Room Air Initial ECG Rhythm: A Fib/Flutter Initial ECG Impression: Atrial Fibrillation Initial ECG Comparisson: Changed Diagnostic Imaging Diagonstic Imaging: Xray Plain Films/CT/US/NM/MRI: chest Departure Impression Primary Impression: Acute on chronic combined systolic (congestive) and diastolic (congestive) heart failure Additional Impressions: Elevated troponin Elevated brain natriuretic peptide (BNP) level Hypokalemia Suspected anxiety Disposition: XF [facility] Condition: Stable Admissions Decision to Admit Reason: Admit from ER (General) Decision to Admit/Date: Feb 01, 2019 Time/Decision to Admit Time: 00:09 Transfer Time Spoke to Accepting Phy: 00:09 Transfer Progress Notes Discussed the patient c/ both Dr. Carter and Dr. Samaniego, who has accepted the patient for transfer and admission. Transfer Facility: [facility] Method of Transfer: EMS Departure-Patient Inst. Referrals: NO,LOCAL PHYSICIAN (PCP/Family) Primary Care Physician ISABELLA GILBERT DO Jan 31, 2019 22:15
[2019-01-31 23:04] LABS: BASOPHILS % (AUTO) 0 % (0-10); EOSINOPHILS # (AUTO) 0.1 10^3/uL (0.0-0.3); EOSINOPHILS % (AUTO) 1 % (0-10); HEMATOCRIT 38 % (40-54); HEMOGLOBIN 12.1 G/DL (13.3-17.7); LYMPHOCYTES # (AUTO) 1.7 X 10^3 (1.0-4.0); LYMPHOCYTES % (AUTO) 27 % (12-44); MEAN CORPUSCULAR HEMOGLOBIN 29 PG (25-34); MEAN CORPUSCULAR HGB CONC 32 G/DL (32-36); MEAN CORPUSCULAR VOLUME 90 FL (80-99); MEAN PLATELET VOLUME 10.1 FL (7.4-10.4); MONOCYTES # (AUTO) 0.9 X 10^3 (0.0-1.0); MONOCYTES % (AUTO) 13 % (0-12); NEUTROPHILS # (AUTO) 3.8 X 10^3 (1.8-7.8); NEUTROPHILS % (AUTO) 59 % (42-75); PLATELET COUNT 174 10^3/uL (130-400); RED CELL DISTRIBUTION WIDTH 13.4 % (10.0-14.5); WHITE BLOOD COUNT 6.4 10^3/uL (4.3-11.0)
[2019-01-31 23:31] LABS: BILIRUBIN,TOTAL 0.3 MG/DL (0.1-1.0); CALCIUM 9.8 MG/DL (8.5-10.1); CREATININE SERUM 1.38 MG/DL (0.60-1.30); MAGNESIUM 1.8 MG/DL (1.8-2.4); POTASSIUM 3.3 MMOL/L (3.6-5.0)
[2019-01-31 23:32] LABS: ALBUMIN 4.3 GM/DL (3.2-4.5)
[2019-02-01] VITALS (21 sets, daily range): BP systolic 76–169; BP diastolic 40–99
[2019-02-01] MEDS ORDERED: FUROSEMIDE 40 MG/4 ML INJ (LASIX) IVP ONE (00:15)
[2019-02-01] MEDS ORDERED: FUROSEMIDE 40 MG/4 ML INJ (LASIX) ONE (00:25)
[2019-02-01] MEDS ORDERED: KCL 20 MEQ TAB (K-DUR) PO ONE ×2 (00:25)
[2019-02-01 04:20] LABS: BASOPHILS % (AUTO) 0 % (0-10); EOSINOPHILS # (AUTO) 0.1 10^3/uL (0.0-0.3); EOSINOPHILS % (AUTO) 1 % (0-10); HEMATOCRIT 39 % (40-54); HEMOGLOBIN 12.9 G/DL (13.3-17.7); LYMPHOCYTES # (AUTO) 1.6 X 10^3 (1.0-4.0); LYMPHOCYTES % (AUTO) 25 % (12-44); MEAN CORPUSCULAR HEMOGLOBIN 29 PG (25-34); MEAN CORPUSCULAR HGB CONC 33 G/DL (32-36); MEAN CORPUSCULAR VOLUME 87 FL (80-99); MEAN PLATELET VOLUME 10.4 FL (7.4-10.4); MONOCYTES # (AUTO) 0.9 X 10^3 (0.0-1.0); MONOCYTES % (AUTO) 14 % (0-12); NEUTROPHILS # (AUTO) 3.9 X 10^3 (1.8-7.8); NEUTROPHILS % (AUTO) 60 % (42-75); PLATELET COUNT 171 10^3/uL (130-400); RED CELL DISTRIBUTION WIDTH 13.5 % (10.0-14.5); WHITE BLOOD COUNT 6.4 10^3/uL (4.3-11.0)
[2019-02-01 04:46] LABS: ALBUMIN 4.5 GM/DL (3.2-4.5); BILIRUBIN,TOTAL 0.3 MG/DL (0.1-1.0); CALCIUM 10.6 MG/DL (8.5-10.1); CREATININE SERUM 1.33 MG/DL (0.60-1.30); POTASSIUM 3.2 MMOL/L (3.6-5.0); TOTAL PROTEIN 7.6 GM/DL (6.4-8.2)
[2019-02-01 07:06] LABS: BACTERIA,URINE NEGATIVE /HPF; BILIRUBIN,URINE NEGATIVE (NEGATIVE); CLARITY,URINE CLEAR; COLOR,URINE YELLOW; GLUCOSE, URINE (UA) NEGATIVE (NEGATIVE); KETONES,URINE NEGATIVE (NEGATIVE); LEUKOCYTE ESTERASE ,URINE NEGATIVE (NEGATIVE); NITRITE,URINE NEGATIVE (NEGATIVE); PH,URINE 5 (5-9); PROTEIN,URINE NEGATIVE (NEGATIVE); UROBILINOGEN,URINE NORMAL (NORMAL)
[2019-02-01 07:07] LABS: HYALINE CASTS, URINE RARE /LPF
--- NOTE | 2019-02-01 07:20 | Diagnostic Imaging Report ---
INDICATION: Shortness of breath. Comparison made with prior examination from 01/07/2019. FINDINGS: There is cardiomegaly. There is some venous congestion. There are patchy bibasal trace. There is a small left pleural effusion. There is no pneumothorax. The mediastinum is unremarkable. IMPRESSION: Patchy bibasilar infiltrates with a left pleural effusion. Cardiomegaly and mild central pulmonary venous congestion. Dictated by: Dictated on workstation # [id number]
--- NOTE | 2019-02-01 07:51 | Consultation-Cardiology ---
HPI-Cardiology Cardiology Consultation Date of Consultation 02/01/19 Date of Admission Time Seen by Provider: 07:45 Indication: atrial fibrillation HPI 73 years old gentleman with history of coronary artery disease had a cardiac catheterization December 2018 and reported to have significant disease in the small diagonal branch, mild to moderate disease otherwise. Has been anxious, afraid that if he follows sleep he will not wake up. Brought by ambulance to the emergency room in [place] and transferred for admission, has been having mild dyspnea, denied any chest pain, noted to have elevated BNP, noted to be in atrial fibrillation of unknown duration. Denied any palpitation, no syncope or near syncopal episodes. No claudications. Home Medications & Allergies Allergies: Coded Allergies: No Known Drug Allergies (Unverified , 01/31/19) Home Medication List Reviewed: Yes DZH-Bxvjfz-Psqroj Hx Patient Social History Marital Status: Employed/Student: retired Alcohol Use: Denies Use Recreational Drug Use: No Former smoker/When Quit: Apr 27, 1975 Type Used: Cigarettes Recent Foreign Travel: No Recent Infectious Disease Expo: No Recent Hopitalizations: No Immunizations Up To Date Tetanus Booster (TDap): Unknown Date of Pneumonia Vaccine: May 27, 2013 Date of Influenza Vaccine: May 27, 2018 Past Medical History noncontributory Family Medical History Family History: Arthritis 19 FATHER 19 MOTHER G8 BROTHER G8 SISTER Diabetes mellitus 19 FATHER 19 MOTHER G8 BROTHER G8 SISTER Hypertension 19 MOTHER G8 BROTHER G8 SISTER Respiratory disorder 19 FATHER (LUNG CA) G8 SISTER (LUNG CA) Review of Systems-General Review of Systems Constitutional: see HPI, dizziness, malaise, weakness EENTM: see HPI, no symptoms reported Respiratory: see HPI; No cough; dyspnea on exertion; No hemoptysis; orthopnea; No phlegm; short of breath; No stridor, No wheezing, No other Cardiovascular: see HPI; No chest pain; edema; No Hx of Intervention, No palpitations, No syncope, No vascular heart diseas, No other Gastrointestinal: no symptoms reported, see HPI Genitourinary: no symptoms reported, see HPI Musculoskeletal: no symptoms reported, see HPI Skin: no symptoms reported, see HPI Psychiatric/Neurological: See HPI, Anxiety All Other Systems Reviewed Negative Unless Noted: Yes (Negative excepted noted.) Reviewed Test Results Reviewed Test Results Lab Laboratory Tests Test 01/31/19 22:55 02/01/19 04:07 02/01/19 06:45 Range/Units White Blood Count 6.4 6.4 4.3-11.0 10^3/uL Red Blood Count 4.24 L 4.52 4.35-5.85 10^6/uL Hemoglobin 12.1 L 12.9 L 13.3-17.7 G/DL Hematocrit 38 L 39 L 40-54 % Mean Corpuscular Volume 90 87 80-99 FL Mean Corpuscular Hemoglobin 29 29 25-34 PG Mean Corpuscular Hemoglobin Concent 32 33 32-36 G/DL Red Cell Distribution Width 13.4 13.5 10.0-14.5 % Platelet Count 174 171 130-400 10^3/uL Mean Platelet Volume 10.1 10.4 7.4-10.4 FL Neutrophils (%) (Auto) 59 60 42-75 % Lymphocytes (%) (Auto) 27 25 12-44 % Monocytes (%) (Auto) 13 H 14 H 0-12 % Eosinophils (%) (Auto) 1 1 0-10 % Basophils (%) (Auto) 0 0 0-10 % Neutrophils # (Auto) 3.8 3.9 1.8-7.8 X 10^3 Lymphocytes # (Auto) 1.7 1.6 1.0-4.0 X 10^3 Monocytes # (Auto) 0.9 0.9 0.0-1.0 X 10^3 Eosinophils # (Auto) 0.1 0.1 0.0-0.3 10^3/uL Basophils # (Auto) 0.0 0.0 0.0-0.1 10^3/uL Sodium Level 139 139 135-145 MMOL/L Potassium Level 3.3 L 3.2 L 3.6-5.0 MMOL/L Chloride Level 96 L 96 L 98-107 MMOL/L Carbon Dioxide Level 25 27 21-32 MMOL/L Anion Gap 18 H 16 H 5-14 MMOL/L Blood Urea Nitrogen 43 H 44 H 7-18 MG/DL Creatinine 1.38 H 1.33 H 0.60-1.30 MG/DL Estimat Glomerular Filtration Rate 50 52 BUN/Creatinine Ratio 31 33 Glucose Level 143 H 128 H 70-105 MG/DL Calcium Level 9.8 10.6 H 8.5-10.1 MG/DL Corrected Calcium 9.6 10.2 H 8.5-10.1 MG/DL Magnesium Level 1.8 1.8-2.4 MG/DL Total Bilirubin 0.3 0.3 0.1-1.0 MG/DL Aspartate Amino Transf (AST/SGOT) 20 21 5-34 U/L Alanine Aminotransferase (ALT/SGPT) 25 30 0-55 U/L Alkaline Phosphatase 82 85 40-136 U/L Troponin T 130 *H <=15 NG/L Pro-B-Type Natriuretic Peptide 2347.0 H <75.0 PG/ML Total Protein 7.0 7.6 6.4-8.2 GM/DL Albumin 4.3 4.5 3.2-4.5 GM/DL Troponin I 0.224 H <0.028 NG/ML B-Type Natriuretic Peptide 438.3 H <100.0 PG/ML Urine Color YELLOW Urine Clarity CLEAR Urine pH 5 5-9 Urine Specific [place] 1.010 L 1.016-1.022 Urine Protein NEGATIVE NEGATIVE Urine Glucose (UA) NEGATIVE NEGATIVE Urine Ketones NEGATIVE NEGATIVE Urine Nitrite NEGATIVE NEGATIVE Urine Bilirubin NEGATIVE NEGATIVE Urine Urobilinogen NORMAL NORMAL MG/DL Urine Leukocyte Esterase NEGATIVE NEGATIVE Urine RBC (Auto) NEGATIVE NEGATIVE Urine RBC NONE /HPF Urine WBC NONE /HPF Urine Squamous Epithelial Cells NONE /HPF Urine Crystals NONE /LPF Urine Bacteria NEGATIVE /HPF Urine Casts PRESENT /LPF Urine Hyaline Casts RARE /LPF Urine Mucus NEGATIVE /LPF Urine Culture Indicated NO Physical Exam Physical Exam Vital Signs Vital Signs - First Documented 01/31/19 02/01/19 22:17 00:36 Temp 97.7 Pulse 68 Resp 18 B/P (MAP) 125/64 (84) Pulse Ox 97 O2 Delivery Room Air Capillary Refill : Less Than 3 Seconds Height, Weight, BMI Height: 5'5.00" Weight: 227lbs. 0.0oz. 102.987155po; 38.8 BMI Method:Stated General Appearance: No Apparent Distress, WD/WN Eyes: Bilateral Eye Normal Inspection, Bilateral Eye PERRL, Bilateral Eye EOMI HEENT: PERRL/EOMI, TMs Normal, Normal ENT Inspection, Pharynx Normal, Moist Mucous Membranes Neck: Full Range of Motion, Normal Inspection, Non Tender, Supple, Carotid Bruit Respiratory: Chest Non Tender, Normal Breath Sounds, No Accessory Muscle Use, No Respiratory Distress Cardiovascular: No Gallop, No JVD, Normal Peripheral Pulses, Systolic Murmur, Irregularly Irregular Gastrointestinal: Normal Bowel Sounds, No Organomegaly, No Pulsatile Mass, Non Tender, Soft Back: Normal Inspection, No CVA Tenderness, No Vertebral Tenderness Extremity: Normal Capillary Refill, Normal Inspection, Normal Range of Motion, Non Tender, No Calf Tenderness, Pedal Edema Neurologic/Psychiatric: Alert, Oriented x3, No Motor/Sensory Deficits, Normal Mood/Affect Skin: Normal Color, Warm/Dry Lymphatic: No Adenopathy A/P-Cardiology Admission Diagnosis Paroxysmal atrial fibrillation Type II AK Coronary artery disease Shortness of breath Assessment/Plan Paroxysmal atrial fibrillation, appear to be new onset, unknown duration. Unknown underlying cause. 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 Santana on January 21, 2019. Continue with medical therapy. Congestive heart failure, acute on chronic left ventricular diastolic dysfunction, history of mild left ventricular systolic dysfunction with ejection fraction 45-50 percent, chronic pedal edema, started on diuretics. Continue to monitor. Dyspnea on exertion, has been progressive for the past 2 months. High risk for sleep apnea. Will need pulmonary evaluation High risk for sleep apnea, significant anxiety, would benefit from sleep study evaluation. Hypertension, monitor blood pressure Hyperlipidemia. Monitor lipids. Clinical Quality Measures DVT/VTE Risk/Contraindication: Risk Factor Score Per Nursin RFS Level Per Nursing on Admit: 4+=Very High EDDIE MCHUGH MD Feb 01, 2019 07:51
--- NOTE | 2019-02-01 07:51 | Cardiac Procedure Note-CS/ASA ---
Pre-Procedure Note Pre-Op Procedure Note H&P Reviewed The H&P was reviewed, patient examined and no changes noted. Date H&P Reviewed: Feb 01, 2019 Time H&P Reviewed: 07:51 Conscious Sedation Pre-Proced Time 07:51 ASA Score 3 For ASA 3 and 4: Consider anesthesia and medical clearance. Also, for patients with a history of failed moderate sedation consider anesthesia. Airway Lungs Heart ASA score ASA 1: a normal healthy patient ASA 2: a patient with a mild systemic disease (mid diabetes, controlled hypertension, obesity x ASA 3: a patient with a severe systemic disease that limits activity (angina, COPD, prior Myocardial infarction) ASA 4: a patient with an incapacitating disease that is a constant threat to life (CHF, renal failure) ASA 5: a moribund patient not expected to survive 24 hrs. (ruptured aneurysm) ASA 6: a declared brain- patient whose organs are being harvested. For emergent operations, add the letter E after the classification Mallampati Classification Grade 3 Sedation Plan Analgesia, Amnesia, Plan communicated to team members, Discussed options with patient/fam, Discussed risks with patient/fam The patient is an appropriate candidate to undergo the planned procedure, sedation, and anesthesia. The patient immediately re-assessed prior to indication. EDDIE MCHUGH MD Feb 01, 2019 07:51
[2019-02-01] MEDS ORDERED: NS IV 500 ML 500 ML ONE (07:55)
[2019-02-01] MEDS ORDERED: ENOXAPARIN 100 MG/1 ML (LOVENOX) SYR SC SCH (08:00)
[2019-02-01] MEDS ORDERED: MIDAZOLAM 2 MG/2 ML (VERSED) VIAL ONE (08:22)
[2019-02-01] MEDS ORDERED: AMIODARONE (OMNICELL DRIP KIT) 150 MG/3 ML IV ONE (08:46)
--- NOTE | 2019-02-01 08:59 | Anesthesia-Procedure Note ---
Procedures/Interventions Procedure Start/Stop/Diagnosis Date of Procedure: Feb 01, 2019 Start Time: 08:35 Referring Physician: Emma Brief History CHF, AFib/flutter Stop Time: 08:57 Postprocedural Diagnosis: NSR EVGENY/Cardioversion Anesthesia Type: MAC ASA Class: 3 Medications Propofol 50mg and Versed 2mg IV total Monitors and Equipment: BP Cuff - Right, Continuous EKG, End Tidal CO2, IV (22g Left AC), Pulse Oximeter, V Lead EKG MARY LANDRY CRNA Feb 01, 2019 08:59
--- NOTE | 2019-02-01 08:59 | Cardioversion ---
Cardioversion PROCEDURE PHYSICIAN: Eddie Carter DATE OF PROCEDURE: 02/01/19 DIRECT EXTERNAL ELECTRICAL CARDIOVERSION: Indications: Atrial Fibrillation Preoperative diagnoses: Atrial Fibrillation Postoperative diagnosis: Sinus rhythm, Successful Electrical Cardioversion Anesthesia: By Anesthesia services Complications: None Specimen: None Contrast: 0 Flouroscopy: none Procedure Details: The patient was brought the cardiac catheterization technologist after informed consent was taken, all the risks and complications were explained including the risk of stroke. Electrical cardioversion was carried out with anesthesia support with propofol. 200 joules of synchronized shock was delivered through external patches which promptly res tored sinus rhythm. The patient tolerated the procedure well. Conclusions: Successful electrical cardioversion in terminating atrial fibrillation EDDIE CARTER MD Feb 01, 2019 08:58
[2019-02-01] MEDS ORDERED: ASPIRIN E.C. 81 MG (ECOTRIN) TAB PO SCH (09:00)
[2019-02-01] MEDS: AMIODARONE 200 MG (CORDARONE) TAB PO SCH ×2 (09:43→21:47)
[2019-02-01] MEDS ORDERED: PATIENT MAY USE OWN MEDS, ALL MC SCH (11:30)
--- NOTE | 2019-02-01 12:31 | History & Physical-Hospitalist ---
History of Present Illness HPI/Chief Complaint This is a 71-year-old white male who presents the emergency room in [place] with complaints of shortness of breath and being frightened of being going to sleep. He said he's felt bad for several months. He doesn't really describe any specific complaints but admits to being short of breath. Denies having chest pain. He says he feels better this morning that he did when he was presented the emergency room last night. He underwent cardioversion secondary to atrial fibrillation by Dr. Ordonez. Currently he is in sinus rhythm. Source: patient, old records Exam Limitations: no limitations Date Seen 02/01/19 Time Seen by a Provider: 12:00 Attending Physician Bethany Samaniego DO PCP No,Local Physician Referring Physician Date of Admission Feb 01, 2019 at 00:12 Home Medications & Allergies Home Medications Reviewed patient Home Medication Reconciliation performed by pharmacy medication reconciliations urinalysis technician and/or nursing. Patients Allergies have been reviewed. Allergies Allergies Coded Allergies No Known Drug Allergies (Unverified01/31/19) Past Zoqwseg-Weupwu-Bntdql Hx Past Med/Social Hx: Reviewed Nursing Past Med/Soc Hx Patient Social History Marrital Status: Employed/Student: retired Alcohol Use: Denies Use Recreational Drug Use: No Former Smoker, Quit: Jun 30, 1975 Type Used: Cigarettes Recent Foreign Travel: No Contact w/other who traveled: No Recent Hopitalizations: No Recent Infectious Disease Expo: No Immunizations Up To Date Tetanus Booster (TDap): Unknown Date of Pneumonia Vaccine: May 27, 2013 Date of Influenza Vaccine: May 27, 2018 Seasonal Allergies Seasonal Allergies: Yes Past Medical History Surgeries: Lobectomy, Orthopedic Cardiac: High Cholesterol, Hypertension, Peripheral Vascular Genitourinary: Benign Prostatic Hyperpl, Prostate Problems Gastrointestinal: Gastroesophageal Reflux Musculoskeletal: Degenerate Disk Disease, Arthritis, Chronic Back Pain Hearing Impairment: Bilateral Hearing Aide Cancer: Skin Psychosocial: Anxiety Skin/Integumentary: Psoriasis History of Blood Disorders: No Family History Reviewed Nursing Family Hx Arthritis 19 FATHER 19 MOTHER G8 BROTHER G8 SISTER Diabetes mellitus 19 FATHER 19 MOTHER G8 BROTHER G8 SISTER Hypertension 19 MOTHER G8 BROTHER G8 SISTER Respiratory disorder 19 FATHER (LUNG CA) G8 SISTER (LUNG CA) Review of Systems Constitutional: see HPI, weakness EENTM: hearing loss Respiratory: dyspnea on exertion Cardiovascular: no symptoms reported Gastrointestinal: no symptoms reported Genitourinary: no symptoms reported Musculoskeletal: no symptoms reported Skin: no symptoms reported Physical Exam Physical Exam Vital Signs Vital Signs - First Documented 01/31/19 02/01/19 22:17 00:36 Temp 97.7 Pulse 68 Resp 18 B/P (MAP) 125/64 (84) Pulse Ox 97 O2 Delivery Room Air Capillary Refill : Less Than 3 Seconds Height, Weight, BMI Height: 5'5.00" Weight: 227lbs. 0.0oz. 102.895874ra; 38.8 BMI Method:Stated General Appearance: No Apparent Distress, WD/WN HEENT: Other (Bilateral hearing aids) Neck: Limited Range of Motion Respiratory: Lungs Clear, Normal Breath Sounds, No Accessory Muscle Use, No Respiratory Distress Cardiovascular: Regular Rate, Rhythm, No Gallop, No JVD, No Murmur, Normal Peripheral Pulses Gastrointestinal: Normal Bowel Sounds, Non Tender, Soft Back: Normal Inspection Extremity: No Pedal Edema Neurologic/Psychiatric: Alert, Oriented x3, No Motor/Sensory Deficits, Normal Mood/Affect Results Results/Procedures Labs Laboratory Tests 01/31/19 22:55 02/01/19 04:07 02/02/19 03:10 Patient resulted labs reviewed. Imaging: Reviewed Imaging Report Assessment/Plan Admission Diagnosis Atrial fibrillation. Status post cardioversion-in sinus rhythm Shortness of breath with decompensated diastolic and systolic failure ejection fraction of 45-50 percent most likely secondary to the atrial fibrillation Probable sleep apnea will require outpatient sleep studies. Hypertension Coronary artery disease Hyperlipidemia Hypercalcemia will check a TSH and parathyroid level. Monocytosis of uncertain etiology Renal insufficiency Plan to set up follow-up for sleep apnea. Discharge planning per Dr. Ordonez, medication adjustment. Admission Status: Observation Clinical Quality Measures DVT/VTE Risk/Contraindication: Risk Factor Score Per Nursin RFS Level Per Nursing on Admit: 4+=Very High Copy Copies To 1: ALIDA RIDER MD, KATHLEEN M MD Feb 01, 2019 12:31
[2019-02-01] MEDS ORDERED: TAMSULOSIN 0.4 MG (FLOMAX) CAP PO SCH (17:30)
[2019-02-01] MEDS: TAMSULOSIN 0.4 MG (FLOMAX) CAP PO SCH (17:49)
[2019-02-01] MEDS ORDERED: FAMOTIDINE 20 MG (PEPCID) TABLET PO SCH (21:00)
[2019-02-01] MEDS ORDERED: NON-FORMULARY MEDICATION 1 EA EA (Simvastatin 40 MG) PO SCH (21:00)
[2019-02-01] MEDS ORDERED: ACETAMINOPHEN 1300 MG PO SCH (21:00)
[2019-02-01] MEDS: APIXABAN 5 MG (ELIQUIS) TABLET PO SCH (21:48)
[2019-02-02] VITALS (8 sets, daily range): BP systolic 121–153; BP diastolic 67–99
[2019-02-02 03:25] LABS: BASOPHILS % (AUTO) 0 % (0-10); EOSINOPHILS % (AUTO) 1 % (0-10); HEMATOCRIT 38 % (40-54); HEMOGLOBIN 12.2 G/DL (13.3-17.7); LYMPHOCYTES # (AUTO) 1.4 X 10^3 (1.0-4.0); LYMPHOCYTES % (AUTO) 20 % (12-44); MEAN CORPUSCULAR HEMOGLOBIN 28 PG (25-34); MEAN CORPUSCULAR HGB CONC 32 G/DL (32-36); MEAN CORPUSCULAR VOLUME 89 FL (80-99); MEAN PLATELET VOLUME 10.4 FL (7.4-10.4); MONOCYTES # (AUTO) 0.8 X 10^3 (0.0-1.0); MONOCYTES % (AUTO) 12 % (0-12); NEUTROPHILS # (AUTO) 4.8 X 10^3 (1.8-7.8); NEUTROPHILS % (AUTO) 68 % (42-75); PLATELET COUNT 171 10^3/uL (130-400); RED CELL DISTRIBUTION WIDTH 13.4 % (10.0-14.5)
[2019-02-02 03:45] LABS: ALBUMIN 4.3 GM/DL (3.2-4.5); BILIRUBIN,TOTAL 0.5 MG/DL (0.1-1.0); CREATININE SERUM 1.32 MG/DL (0.60-1.30); POTASSIUM 3.1 MMOL/L (3.6-5.0)
[2019-02-02] MEDS: AMIODARONE 200 MG (CORDARONE) TAB PO SCH ×2 (07:57→21:19)
[2019-02-02] MEDS: ASPIRIN E.C. 81 MG (ECOTRIN) TAB PO SCH (07:58)
[2019-02-02] MEDS: FUROSEMIDE 40 MG (LASIX) TAB PO SCH (07:59)
[2019-02-02] MEDS: KCL 10 MEQ TAB (MICRO K) PO SCH (07:59)
[2019-02-02] MEDS: SPIRONOLACTONE 25 MG (ALDACTONE) TAB PO SCH (07:59)
[2019-02-02] MEDS: LOSARTAN 25 MG (COZAAR) TAB PO SCH (08:00)
[2019-02-02] MEDS: APIXABAN 5 MG (ELIQUIS) TABLET PO SCH ×2 (08:05→21:19)
[2019-02-02] MEDS: ACETAMINOPHEN 500 MG TAB (TYLENOL) PO SCH ×2 (08:07→21:19)
[2019-02-02] MEDS ORDERED: FUROSEMIDE 40 MG (LASIX) TAB PO SCH (09:00)
[2019-02-02] MEDS ORDERED: LOSARTAN 25 MG (COZAAR) TAB PO SCH (09:00)
[2019-02-02] MEDS ORDERED: SPIRONOLACTONE 25 MG (ALDACTONE) TAB PO SCH (09:00)
[2019-02-02] MEDS ORDERED: KCL 10 MEQ TAB (MICRO K) PO SCH (09:00)
--- NOTE | 2019-02-02 09:14 | Cardiology Progress Note ---
Subjective Date Seen by Provider: Feb 02, 2019 Time Seen by Provider: 09:12 Subjective/Events-last exam Patient is in bed, feeling better, sleeping better, no new complaint Review of Systems General: No Chills, No Night Sweats, No Fatigue, No Malaise, No Appetite, No Other HEENT: No Head Aches, No Visual Changes, No Eye Pain, No Ear Pain, No Dysphasia, No Sinus Congestion, No Post Nasal Drip, No Sore Throat, No Other Pulmonary: Dyspnea; No Cough, No Pleuritic Chest Pain, No Other Cardiovascular: Edema; No: Chest Pain, Palpitations, Orthopnea, Paroxysmal Noc. Dyspnea, Lt Headedness, Other Objective-Cardiology Exam Last Set of Vital Signs Vital Signs 02/02/19 02/02/19 02/02/19 02/02/19 04:00 07:00 08:20 08:40 Temp 97.7 Pulse 69 Resp 13 B/P (MAP) 138/70 (92) Pulse Ox 95 O2 Delivery Room Air Capillary Refill : Less Than 3 Seconds I&O Intake and Output 02/02/19 00:00 Intake Total 1050 ml Output Total 3400 ml Balance -2350 ml Intake Oral 1050 ml Output Urine Total 3400 ml Daily Weight Change No General: Alert, Oriented X3, Cooperative HEENT: Atraumatic, PERRLA Neck: Supple, No JVD, No Thyromegaly Lungs: Normal Air Movement, Other (rhonchi) Heart: Regular Rate, Normal S1, Normal S2, No Murmurs Abdomen: Normal Bowel Sounds, Soft, No Tenderness, No Hepatosplenomegaly, No Masses Extremities: No Clubbing, No Cyanosis, No Edema, Normal Pulses, No Tenderness/Swelling Skin: No Rashes, No Breakdown, No Significant Lesion Neuro: Normal Gait, Normal Speech, Strength at 5/5 X4 Ext, Normal Tone, Sensation Intact Psych/Mental Status: Mental Status NL, Mood NL Results Lab Laboratory Tests 02/02/19 03:10 A/P-Cardiology Admission Diagnosis Paroxysmal atrial fibrillation Type II [place] Coronary artery disease Shortness of breath Assessment/Plan Paroxysmal atrial fibrillation, unknown duration underwent EVGENY with electrical cardioversion which has been successful in terminating atrial fibrillation, he is back to sinus rhythm. Having mild bradycardia. Continue on amiodarone. 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 Santana on January 21, 2019. Continue with medical therapy. Congestive heart failure, acute on chronic left ventricular diastolic dysfunction, history of mild left ventricular systolic dysfunction with ejection fraction 45-50 percent, chronic pedal edema, responded well to diuresis. Dyspnea on exertion, has been progressive for the past 2 months. High risk for sleep apnea. Will need pulmonary evaluation High risk for sleep apnea, significant anxiety, would benefit from sleep study evaluation. Hypertension, monitor blood pressure Hyperlipidemia. Monitor lipids. Clinical Quality Measures DVT/VTE Risk/Contraindication: Risk Factor Score Per Nursin RFS Level Per Nursing on Admit: 4+=Very High EDDIE MCHUGH MD Feb 02, 2019 09:14
[2019-02-02] MEDS ORDERED: POTASSIUM CL 10MEQ/50ML IVPB 50 ML IV SCH (09:15)
[2019-02-02] MEDS ORDERED: NS IV 500 ML 500 ML IV SCH (09:45)
--- NOTE | 2019-02-02 09:55 | Progress Note-Hospitalist ---
Subjective HPI/CC On Admission Date Seen by Provider: Feb 02, 2019 Time Seen by Provider: 09:30 This is a 71-year-old white male who presents the emergency room in [place] with complaints of shortness of breath and being frightened of being going to sleep. He said he's felt bad for several months. He doesn't really describe any specific complaints but admits to being short of breath. Denies having chest pain. He says he feels better this morning that he did when he was presented the emergency room last night. He underwent cardioversion secondary to atrial fibrillation by Dr. Ordonez. Currently he is in sinus rhythm. Subjective/Events-last exam Patient is sitting up and feels much better than he did before. He was in sinus rhythm this morning but his potassium is low. After I left he had a short burst of A. fib and Dr. Carter would like to hold him for another 24 hours to increase the amiodarone levels. Review of Systems Cardiovascular: Edema Objective Exam Vital Signs Vital Signs Date Time Temp Pulse Resp B/P (MAP) Pulse Ox O2 Delivery O2 Flow Rate FiO2 02/02/19 08:40 95 Room Air 02/02/19 08:20 97.7 02/02/19 08:15 81 13 153/99 (117) Capillary Refill : Less Than 3 Seconds General Appearance: No Apparent Distress, WD/WN HEENT: Other (Bilateral hearing aids) Neck: Limited Range of Motion Respiratory: Lungs Clear, Normal Breath Sounds, No Accessory Muscle Use, No Respiratory Distress Cardiovascular: Regular Rate, Rhythm, No Gallop, No JVD, No Murmur, Normal Peripheral Pulses Gastrointestinal: Normal Bowel Sounds, Non Tender, Soft Back: Normal Inspection Extremity: No Pedal Edema Neurologic/Psychiatric: Alert, Oriented x3, No Motor/Sensory Deficits, Normal Mood/Affect Skin: Normal Color, Warm/Dry Lymphatic: No Adenopathy Results/Procedures Lab Laboratory Tests 02/02/19 03:10 Patient resulted labs reviewed. Imaging: Reviewed Imaging Report Assessment/Plan Assessment and Plan Assess & Plan/Chief Complaint Paroxysmal atrial fibrillation currently in sinus with good rate control started on amiodarone Hypokalemia being replaced Congestive heart failure improving Probable sleep apnea we'll consult pulmonary in the morning Coronary artery disease status post ME Hypercalcemia improving-parathyroid hormone pending Renal insufficiency-stable Plan to continue monitoring Clinical Quality Measures DVT/VTE Risk/Contraindication: Risk Factor Score Per Nursin RFS Level Per Nursing on Admit: 4+=Very High JESS MALDONADO MD Feb 02, 2019 09:55
[2019-02-02] MEDS ORDERED: KCL 20 MEQ TAB (K-DUR) PO NR (10:00)
[2019-02-02] MEDS: TAMSULOSIN 0.4 MG (FLOMAX) CAP PO SCH (18:27)
[2019-02-03 00:04] VITALS: BP 107/61
[2019-02-03 03:42] LABS: BASOPHILS % (AUTO) 0 % (0-10); EOSINOPHILS # (AUTO) 0.1 10^3/uL (0.0-0.3); EOSINOPHILS % (AUTO) 1 % (0-10); HEMATOCRIT 36 % (40-54); HEMOGLOBIN 11.4 G/DL (13.3-17.7); LYMPHOCYTES # (AUTO) 1.4 X 10^3 (1.0-4.0); LYMPHOCYTES % (AUTO) 23 % (12-44); MEAN CORPUSCULAR HEMOGLOBIN 28 PG (25-34); MEAN CORPUSCULAR HGB CONC 32 G/DL (32-36); MEAN CORPUSCULAR VOLUME 88 FL (80-99); MEAN PLATELET VOLUME 9.8 FL (7.4-10.4); MONOCYTES # (AUTO) 0.8 X 10^3 (0.0-1.0); MONOCYTES % (AUTO) 13 % (0-12); NEUTROPHILS # (AUTO) 4.1 X 10^3 (1.8-7.8); NEUTROPHILS % (AUTO) 64 % (42-75); PLATELET COUNT 176 10^3/uL (130-400); RED CELL DISTRIBUTION WIDTH 13.4 % (10.0-14.5); WHITE BLOOD COUNT 6.3 10^3/uL (4.3-11.0)
[2019-02-03 04:08] LABS: ALBUMIN 4.1 GM/DL (3.2-4.5); BILIRUBIN,TOTAL 0.5 MG/DL (0.1-1.0); CALCIUM 9.7 MG/DL (8.5-10.1); CREATININE SERUM 1.24 MG/DL (0.60-1.30); POTASSIUM 3.2 MMOL/L (3.6-5.0); TOTAL PROTEIN 6.6 GM/DL (6.4-8.2)
[2019-02-03 04:46] VITALS: BP 132/72
--- NOTE | 2019-02-03 06:29 | Pulmonary Consultation ---
History of Present Illness History of Present Illness Date of Consultation 02/03/19 06:23 Time Seen by Provider: 06:23 Date of Admission Reason for Visit: atrial fibrillation History of Present Illness 71yo presented over the weekend from [place] secondary to worsening SOB over the last several months. Denies CP, no N/V. Pt was also found to have Afib and is s/p cardioversion. He is currently sinus. CXR shows bilateral patchy infiltrates with pleural effusion. I am consulted for pulmonary. Allergies and Home Medications Allergies Coded Allergies: No Known Drug Allergies (Unverified , 01/31/19) Home Medications Acetaminophen 650 Mg Tablet.er, 1,300 MG PO BID, (Reported) TAKE 2 (650MG) TABS Aspirin 81 Mg Tab.chew, 81 MG PO DAILY, (Reported) Cholecalciferol (Vitamin D3) 2,000 Unit Tablet, 1,000 UNIT PO DAILY, (Reported) Clopidogrel Bisulfate 75 Mg Tablet, 75 MG PO DAILY Prescribed by: RAYMUNDO MUELLER on 01/21/19 1303 Furosemide 40 Mg Tablet, 40 MG PO DAILY Prescribed by: HERMELINDA WHITLEY on 01/10/19 1041 Losartan Potassium 25 Mg Tablet, 25 MG PO DAILY Prescribed by: HERMELINDA WHITLEY on 01/10/19 1041 Metolazone 2.5 Mg Tablet, 2.5 MG PO DAILY, (Reported) Metoprolol Succinate 25 Mg Tab.er.24h, 25 MG PO DAILY Prescribed by: HERMELINDA WHITLEY on 01/10/19 1041 Potassium Chloride 10 Meq Capsule.er, 10 MEQ PO DAILY, (Reported) Ranitidine HCl 150 Mg Tablet, 150 MG PO BID, (Reported) Simvastatin 80 Mg Tablet, 40 MG PO HS, (Reported) TAKES 1/2 OF A (80 MG) TABLET Spironolactone 25 Mg Tablet, 25 MG PO DAILY Prescribed by: HERMELINDA WHITLEY on 01/10/19 1041 Tamsulosin HCl 0.4 Mg Cap, 0.8 MG PO 1730, (Reported) TAKES 2 (0.4MG) CAPSULES Past Dfdrfhr-Jrpyxk-Jbsktn Hx Past Med/Social Hx: Reviewed Nursing Past Med/Soc Hx Patient Social History Alcohol Use: Denies Use Recreational Drug Use: No Type Used: Cigarettes Former Smoker, Quit: Jun 30, 1975 Recent Foreign Travel: No Contact w/Someone Who Travel: No Recent Infectious Disease Expo: No Recent Hopitalizations: No Physical Abuse: No Sexual Abuse: No Mistreated: No Fear: No Immunizations Up To Date Tetanus Booster (TDap): Unknown Date of Pneumonia Vaccine: May 27, 2013 Date of Influenza Vaccine: May 27, 2018 Seasonal Allergies Seasonal Allergies: Yes Past Medical History Surgeries: Yes (LEFT LUNG LOBE REMOVED, 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, NECK SX X2, ) Lobectomy, Orthopedic Respiratory: Yes Chronic Bronchitis Cardiac: Yes High Cholesterol, Hypertension, Peripheral Vascular Neurological: Yes Genitourinary: Yes Benign Prostatic Hyperpl, Prostate Problems Gastrointestinal: Yes Gastroesophageal Reflux Musculoskeletal: Yes Degenerate Disk Disease, Arthritis, Chronic Back Pain Endocrine: No HEENT: Yes Hearing Impairment: Bilateral Hearing Aide Cancer: Yes Skin Psychosocial: Yes Anxiety Integumentary: Yes Psoriasis Blood Disorders: No Family Medical History Reviewed Nursing Family Hx Arthritis 19 FATHER 19 MOTHER G8 BROTHER G8 SISTER Diabetes mellitus 19 FATHER 19 MOTHER G8 BROTHER G8 SISTER Hypertension 19 MOTHER G8 BROTHER G8 SISTER Respiratory disorder 19 FATHER (LUNG CA) G8 SISTER (LUNG CA) Review of Systems Time Seen by Provider: 06:27 Sepsis Event Evaluation Height, Weight, BMI Height: 5'5.00" Weight: 227lbs. 0.0oz. 102.346066cl; 38.8 BMI Method:Stated Exam Exam Vital Signs Date Time Temp Pulse Resp B/P (MAP) Pulse Ox O2 Delivery O2 Flow Rate FiO2 02/03/19 04:46 97.1 63 17 132/72 (92) 96 Room Air 02/03/19 01:00 60 02/03/19 00:04 97.9 61 18 107/61 (76) 98 Room Air 02/02/19 21:00 98 Room Air 02/02/19 20:00 97.4 67 133/71 (91) 98 Room Air 02/02/19 19:00 68 02/02/19 19:00 97.4 67 17 133/71 (91) 98 Room Air 02/02/19 16:00 97.2 64 16 123/67 (85) 98 Room Air 02/02/19 13:00 76 02/02/19 12:00 98.3 66 21 121/76 (91) 90 Room Air 02/02/19 08:40 95 Room Air 02/02/19 08:20 97.7 02/02/19 08:15 81 13 153/99 (117) 96 Room Air 02/02/19 07:00 69 I & O 02/03/19 07:00 Intake Total 930 ml Output Total 1475 ml Balance -545 ml Height & Weight Height: 5'5.00" Weight: 227lbs. 0.0oz. 102.958781eq; 38.8 BMI Method:Stated General Appearance: No Apparent Distress, WD/WN HEENT: Other (Bilateral hearing aids) Neck: Limited Range of Motion Respiratory: Lungs Clear, Normal Breath Sounds, No Accessory Muscle Use, No Respiratory Distress Cardiovascular: Regular Rate, Rhythm, No Gallop, No JVD, No Murmur, Normal Peripheral Pulses Capillary Refill: Less Than 3 Seconds Extremity: No Pedal Edema Neurologic/Psychiatric: Alert, Oriented x3, No Motor/Sensory Deficits, Normal Mood/Affect Skin: Normal Color, Warm/Dry Lymphatic: No Adenopathy Results Lab Laboratory Tests 02/02/19 03:10 02/03/19 03:35 Assessment/Plan Assessment/Plan Paroxysmal atrial fibrillation currently in sinus Hypokalemia -replace CHFAE -Lasix -Repeat CXR Probable sleep apnea -out pt testing Coronary artery disease Hypercalcemia Renal insufficiency-stable FIONA ZAMORA DO Feb 03, 2019 06:29
--- NOTE | 2019-02-03 07:12 | Diagnostic Imaging Report ---
INDICATION: Infiltrates. COMPARISON: 01/31/2019. FINDINGS: Single view of the chest demonstrate persistent but decreasing infiltrate in the left base. Right lung is clear. The heart is prominent without pulmonary edema. There is no pneumothorax or large effusion. Osseous structures are stable. IMPRESSION: Persistent but decreasing infiltrate left base. Continued followup recommended. Dictated by: Dictated on workstation # [id number]
[2019-02-03 08:00] VITALS: BP 119/82
[2019-02-03] MEDS: AMIODARONE 200 MG (CORDARONE) TAB PO SCH ×3 (08:46→20:30)
[2019-02-03] MEDS: APIXABAN 5 MG (ELIQUIS) TABLET PO SCH ×2 (08:47→20:30)
[2019-02-03] MEDS: ACETAMINOPHEN 500 MG TAB (TYLENOL) PO SCH ×2 (08:47→20:31)
[2019-02-03] MEDS: FUROSEMIDE 40 MG (LASIX) TAB PO SCH (08:48)
[2019-02-03] MEDS: KCL 10 MEQ TAB (MICRO K) PO SCH (08:49)
[2019-02-03] MEDS: SPIRONOLACTONE 25 MG (ALDACTONE) TAB PO SCH (08:51)
[2019-02-03] MEDS: ASPIRIN E.C. 81 MG (ECOTRIN) TAB PO SCH (08:51)
[2019-02-03] MEDS: LOSARTAN 25 MG (COZAAR) TAB PO SCH (08:51)
--- NOTE | 2019-02-03 08:56 | Cardiology Progress Note ---
Subjective Date Seen by Provider: Feb 03, 2019 Time Seen by Provider: 08:54 Subjective/Events-last exam patient is laying down in bed, feeling better, had multiple episode of 221 AV block and short wide complex tachycardia, nonsustained ventricular tachycardia Review of Systems General: No Chills, No Night Sweats, No Fatigue, No Malaise, No Appetite, No Other HEENT: No Head Aches, No Visual Changes, No Eye Pain, No Ear Pain, No Dysphasia, No Sinus Congestion, No Post Nasal Drip, No Sore Throat, No Other Pulmonary: Dyspnea; No Cough, No Pleuritic Chest Pain, No Other Cardiovascular: No: Chest Pain, Palpitations, Orthopnea, Paroxysmal Noc. Dyspnea, Edema, Lt Headedness, Other Objective-Cardiology Exam Last Set of Vital Signs Vital Signs 02/03/19 08:00 Temp 99.5 Pulse 60 Resp 23 B/P (MAP) 119/82 (94) Pulse Ox 95 O2 Delivery Room Air Capillary Refill : Less Than 3 Seconds I&O Intake and Output 02/03/19 00:00 Intake Total 1230 ml Output Total 1800 ml Balance -570 ml Intake Oral 1230 ml Output Urine Total 1800 ml # Voids 1 General: Alert, Oriented X3, Cooperative HEENT: Atraumatic, PERRLA Neck: Supple, No JVD, No Thyromegaly Lungs: Clear to Auscultation, Normal Air Movement Heart: Regular Rate, Normal S1, Normal S2, No Murmurs Abdomen: Normal Bowel Sounds, Soft, No Tenderness, No Hepatosplenomegaly, No Masses Extremities: No Clubbing, No Cyanosis, No Edema, Normal Pulses, No Tenderness /Swelling Skin: No Rashes, No Breakdown, No Significant Lesion Neuro: Normal Gait, Normal Speech, Strength at 5/5 X4 Ext, Normal Tone, Sensation Intact Psych/Mental Status: Mental Status NL, Mood NL Results Lab Laboratory Tests 02/03/19 03:35 A/P-Cardiology Admission Diagnosis Paroxysmal atrial fibrillation Type II [place] Coronary artery disease Shortness of breath Assessment/Plan Paroxysmal atrial fibrillation, unknown duration underwent EVGENY with electrical cardioversion which has been successful in terminating atrial fibrillation, he is back to sinus rhythm, continue on amiodarone with decreasing the dose. Multiple episode of 2-1 AV block, I will decrease amiodarone to 200 mg twice daily and tinea on low-dose beta blockers and monitor, planning to proceed with implantation of loop recorder Transient short wide complex tachycardia, nonsustained ventricular tachycardia, could be secondary to electrolyte abnormality. Hypokalemia is being replaced, planning to proceed with loop recorder implantation. 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 Santana on January 21, 2019. Continue with medical therapy. Congestive heart failure, acute on chronic left ventricular diastolic dysfunction, history of mild left ventricular systolic dysfunction with ejection fraction 45-50 percent, chronic pedal edema, responded well to diuresis. Dyspnea on exertion, has been progressive for the past 2 months. High risk for sleep apnea, Dr. Reyes consulted High risk for sleep apnea, significant anxiety, would benefit from sleep study evaluation. Hypertension, monitor blood pressure Hyperlipidemia. Monitor lipids. Clinical Quality Measures DVT/VTE Risk/Contraindication: Risk Factor Score Per Nursin RFS Level Per Nursing on Admit: 4+=Very High EDDIE MCHUGH MD Feb 03, 2019 08:56
[2019-02-03] MEDS ORDERED: LIDOCAINE 1% INJ 20 ML 20 ML VIAL ONE (08:57)
[2019-02-03] MEDS ORDERED: KCL 20 MEQ TAB (K-DUR) PO NR (09:00)
--- NOTE | 2019-02-03 09:12 | Implantation of Loop Monitor ---
Implant of Loop Monitior IMPLANTATION OF LOOP MONITOR REPORT DATE OF PROCEDURE: 02/03/19 PREOP DIAGNOSIS: paroxysmal atrial fibrillation Ventricular tachycardia 2:1 AV block POSTOP DIAGNOSIS: paroxysmal atrial fibrillation Ventricular tachycardia 2:1 AV block PROCEDURE DETAILS: The patient is a 73 male with history of paroxysmal atrial fibrillation requiring long-term surveillance. Therefore implantable loop recorder was discussed and agreed with the patient. Informed consent was taken. All risks and complications were discussed at length. The patient was draped and prepped in the usual sterile fashion. Local anesthesia was lidocaine, which was given in the substernal area close to the 4th intercostal space. Loop monitor [employer] View serial number [id number] was implanted according to the protocol. Steri-Strips were placed at the end of the procedure. There were no complications and the patient tolerated the procedure well. The device was interrogated with a voltage of. ANESTHESIA: Local anesthesia with lidocaine. COMPLICATIONS: None CONTRAST/FLUOROSCOPY: None CONCLUSION: 1. Successful implantation of loop recorder with no complication EDDIE MCHUGH MD Feb 03, 2019 09:12
[2019-02-03 12:00] VITALS: BP 126/89
[2019-02-03 16:00] VITALS: BP 144/84
--- NOTE | 2019-02-03 18:22 | Progress Note (SOAP) ---
Subjective Subjective/Events-last exam Patient feeling much better. Tolerating PO diet and ambulation Review of Systems Date Seen by Provider: Feb 03, 2019 Time Seen by Provider: 09:55 Pulmonary: Dyspnea, Cough Cardiovascular: No: Chest Pain, Palpitations Objective Exam Last Set of Vital Signs Vital Signs Date Time Temp Pulse Resp B/P (MAP) Pulse Ox O2 Delivery O2 Flow Rate FiO2 02/03/19 16:00 97.6 58 17 144/84 (104) 99 Room Air Capillary Refill : Less Than 3 Seconds I&O Intake and Output 02/03/19 00:00 Intake Total 1230 ml Output Total 1800 ml Balance -570 ml Intake Oral 1230 ml Output Urine Total 1800 ml # Voids 1 General: Alert, Oriented X3, Cooperative, No Acute Distress HEENT: Mucous Memb Moist/[place] Lungs: Clear to Auscultation, Normal Air Movement Heart: Regular Rate, No Murmurs Abdomen: Normal Bowel Sounds, Soft, No Tenderness, No Masses Neuro: Normal Speech, Strength at 5/5 X4 Ext, Cranial Nerves 3-12 NL Psych/Mental Status: Mental Status NL, Mood NL Results/Procedures Lab Laboratory Tests 02/03/19 03:35: White Blood Count 6.3, Red Blood Count 4.02L, Hemoglobin 11.4L, Hematocrit 36L, Mean Corpuscular Volume 88, Mean Corpuscular Hemoglobin 28, Mean Corpuscular Hemoglobin Concent 32, Red Cell Distribution Width 13.4, Platelet Count 176, Mean Platelet Volume 9.8, Neutrophils (%) (Auto) 64, Lymphocytes (%) (Auto) 23, Monocytes (%) (Auto) 13H, Eosinophils (%) (Auto) 1, Basophils (%) (Auto) 0, Neutrophils # (Auto) 4.1, Lymphocytes # (Auto) 1.4, Monocytes # (Auto) 0.8, Eosinophils # (Auto) 0.1, Basophils # (Auto) 0.0, Sodium Level 139, Potassium Level 3.2L, Chloride Level 97L, Carbon Dioxide Level 29, Anion Gap 13, Blood Urea Nitrogen 36H, Creatinine 1.24, Estimat Glomerular Filtration Rate 57, BUN/Creatinine Ratio 29, Glucose Level 114H, Calcium Level 9.7, Corrected Calcium 9.6, Total Bilirubin 0.5, Aspartate Amino Transf (AST/SGOT) 17, Alanine Aminotransferase (ALT/SGPT) 21, Alkaline Phosphatase 70, Troponin I 0.193H, B- Type Natriuretic Peptide 232.5H, Total Protein 6.6, Albumin 4.1 Assessment/Plan Assessment/Plan (1) Arrhythmia Status: Acute Assessment & Plan: 02/03: Loop recorder placed today, Cardiology consulted and decreased Amiodarone 200 mg BID Qualifiers: Qualified Codes: I49.9 - Cardiac arrhythmia, unspecified (2) Acute on chronic combined systolic (congestive) and diastolic (congestive) heart failure Status: Acute (3) Elevated troponin Status: Acute (4) Hypokalemia Status: Acute Assessment & Plan: 02/03: Replace, repeat BMP in AM Clinical Quality Measures DVT/VTE Risk/Contraindication: Risk Factor Score Per Nursin RFS Level Per Nursing on Admit: 4+=Very High HERMELINDA WHITLEY MD Feb 03, 2019 18:22
[2019-02-03] MEDS: TAMSULOSIN 0.4 MG (FLOMAX) CAP PO SCH (19:03)
[2019-02-03 20:00] VITALS: BP 129/72
[2019-02-04 00:53] VITALS: BP 130/64
[2019-02-04 04:03] LABS: BASOPHILS % (AUTO) 0 % (0-10); EOSINOPHILS % (AUTO) 1 % (0-10); HEMATOCRIT 35 % (40-54); HEMOGLOBIN 11.2 G/DL (13.3-17.7); LYMPHOCYTES # (AUTO) 1.4 X 10^3 (1.0-4.0); LYMPHOCYTES % (AUTO) 25 % (12-44); MEAN CORPUSCULAR HEMOGLOBIN 28 PG (25-34); MEAN CORPUSCULAR HGB CONC 32 G/DL (32-36); MEAN CORPUSCULAR VOLUME 89 FL (80-99); MEAN PLATELET VOLUME 10.5 FL (7.4-10.4); MONOCYTES # (AUTO) 0.8 X 10^3 (0.0-1.0); MONOCYTES % (AUTO) 14 % (0-12); NEUTROPHILS # (AUTO) 3.5 X 10^3 (1.8-7.8); NEUTROPHILS % (AUTO) 61 % (42-75); PLATELET COUNT 171 10^3/uL (130-400); RED CELL DISTRIBUTION WIDTH 13.2 % (10.0-14.5); WHITE BLOOD COUNT 5.7 10^3/uL (4.3-11.0)
[2019-02-04 04:08] VITALS: BP 121/67
[2019-02-04 04:22] LABS: BILIRUBIN,TOTAL 0.4 MG/DL (0.1-1.0); CALCIUM 9.8 MG/DL (8.5-10.1); CREATININE SERUM 1.22 MG/DL (0.60-1.30); POTASSIUM 3.5 MMOL/L (3.6-5.0); TOTAL PROTEIN 6.3 GM/DL (6.4-8.2)
--- NOTE | 2019-02-04 07:43 | Cardiology Progress Note ---
Subjective Date Seen by Provider: Feb 04, 2019 Time Seen by Provider: 07:42 Subjective/Events-last exam patient is laying down in bed, feeling better, ready to go home. Denied any chest pain. No palpitation. Review of Systems General: No Chills, No Night Sweats, No Fatigue, No Malaise, No Appetite, No Other HEENT: No Head Aches, No Visual Changes, No Eye Pain, No Ear Pain, No Dysphasia, No Sinus Congestion, No Post Nasal Drip, No Sore Throat, No Other Pulmonary: No Dyspnea, No Cough, No Pleuritic Chest Pain, No Other Cardiovascular: No: Chest Pain, Palpitations, Orthopnea, Paroxysmal Noc. Dyspnea, Edema, Lt Headedness, Other Objective-Cardiology Exam Last Set of Vital Signs Vital Signs 02/04/19 02/04/19 00:53 04:08 Temp 97.3 Pulse 62 Resp 21 B/P (MAP) 121/67 (85) Pulse Ox 97 O2 Delivery Room Air Capillary Refill : Less Than 3 Seconds I&O Intake and Output 02/04/19 00:00 Intake Total 1110 ml Output Total 1200 ml Balance -90 ml Intake Oral 1110 ml Output Urine Total 1200 ml # Voids 2 # Bowel Movements 1 General: Alert, Oriented X3, Cooperative, No Acute Distress HEENT: Atraumatic, Mucous Memb Moist/[place] Neck: Supple, No JVD, No Thyromegaly Lungs: Clear to Auscultation, Normal Air Movement Heart: Regular Rate, Normal S1, Normal S2, No Murmurs Abdomen: Normal Bowel Sounds, Soft, No Tenderness, No Masses Extremities: No Clubbing, No Cyanosis, No Edema, Normal Pulses, No Tende rness/Swelling Skin: No Rashes, No Breakdown, No Significant Lesion Neuro: Normal Speech, Strength at 5/5 X4 Ext, Cranial Nerves 3-12 NL Psych/Mental Status: Mental Status NL, Mood NL Results Lab Laboratory Tests 02/04/19 03:15 A/P-Cardiology Admission Diagnosis Paroxysmal atrial fibrillation Type II [place] Coronary artery disease Shortness of breath Assessment/Plan Paroxysmal atrial fibrillation, underwent EVGENY with electrical cardioversion wh ich has been successful in terminating atrial fibrillation, he is back to sinus rhythm, continue on amiodarone at 200 mg twice daily for 2 weeks then decrease the dose to 200 mg daily Multiple episode of 2-1 AV block, transient [place] 1 AV block, currently back to sinus rhythm. Continue to monitor Transient short wide complex tachycardia, nonsustained ventricular tachycardia, could be secondary to electrolyte abnormality. had a loop recorder implanted. 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 Santana on January 21, 2019. Continue with medical therapy. Congestive heart failure, acute on chronic left ventricular diastolic dysfunction, history of mild left ventricular systolic dysfunction with ejection fraction 45-50 percent, chronic pedal edema, responded well to diuresis. Dyspnea on exertion, has been progressive for the past 2 months. High risk for sleep apnea, Dr. Reyes consulted High risk for sleep apnea, significant anxiety, would benefit from sleep study evaluation. Hypertension, monitor blood pressure Hyperlipidemia. Monitor lipids. Okay for discharge from cardiology standpoint, follow-up with Dr. Santana Clinical Quality Measures DVT/VTE Risk/Contraindication: Risk Factor Score Per Nursin RFS Level Per Nursing on Admit: 4+=Very High EDDIE MCHUGH MD Feb 04, 2019 07:43
[2019-02-04] MEDS ORDERED: METO2.5T PO (07:47)
[2019-02-04] MEDS ORDERED: AMIO200T4 PO (07:47)
[2019-02-04] MEDS ORDERED: APIX5TAB PO (07:47)
[2019-02-04 08:00] VITALS: BP 130/77
--- NOTE | 2019-02-04 08:14 | Diagnostic Imaging Report ---
INDICATION: Infiltrates. COMPARISON: 02/03/2019. TECHNIQUE: Single radiograph of the chest dated 02/04/2019. FINDINGS: Interval placement of a loop recorder overlying the left chest. Postsurgical changes within the spine are again seen. The cardiac silhouette is enlarged, though stable. Central pulmonary vascular congestion is present, similar to the prior examination. Patchy opacities within the left lung base appear stable. No significant right pleural effusion. Tiny left pleural effusion. No pneumothorax. No acute osseous abnormality. IMPRESSION: Interval placement of a loop recorder overlying the left chest. Stable left basilar infiltrate with associated trace left pleural effusion. Stable cardiomegaly with mild central pulmonary vascular congestion. Dictated by: Dictated on workstation # [id number]
[2019-02-04] MEDS: AMIODARONE 200 MG (CORDARONE) TAB PO SCH (08:56)
[2019-02-04] MEDS: APIXABAN 5 MG (ELIQUIS) TABLET PO SCH (08:56)
[2019-02-04] MEDS: SPIRONOLACTONE 25 MG (ALDACTONE) TAB PO SCH (08:57)
[2019-02-04] MEDS: FUROSEMIDE 40 MG (LASIX) TAB PO SCH (08:58)
[2019-02-04] MEDS: LOSARTAN 25 MG (COZAAR) TAB PO SCH (08:58)
[2019-02-04] MEDS: KCL 10 MEQ TAB (MICRO K) PO SCH (08:59)
[2019-02-04] MEDS: ASPIRIN E.C. 81 MG (ECOTRIN) TAB PO SCH (08:59)
--- NOTE | 2019-02-04 10:59 | Discharge Summary ---
Diagnosis/Chief Complaint Date of Admission Feb 01, 2019 at 12:04 Date of Discharge Feb 04, 2019 at 10:30 Admission Diagnosis Admission Diagnosis See problem list Discharge Diagnosis See below Problems/Diagnosis: (1) Arrhythmia Assessment & Plan: 02/03: Loop recorder placed today, Cardiology consulted and decreased Amiodarone 200 mg BID 02/04: Will have f.u with cardiology next week to look at loop Qualifiers: Qualified Codes: I49.9 - Cardiac arrhythmia, unspecified Status: Acute (2) Acute on chronic combined systolic (congestive) and diastolic (congestive) heart failure Status: Acute (3) Elevated troponin Status: Acute (4) Hypokalemia Assessment & Plan: 02/03: Replace, repeat BMP in AM Status: Acute Discharge Summary-Simple/Stand Procedures 02/03: Loop Recorder placed Consultations DR Carter: Cardiology Discharge Physical Examination Allergies: Coded Allergies: No Known Drug Allergies (Unverified , 01/31/19) Vitals & I&Os Vital Sign - Last 12Hours Date Time Temp Pulse Resp B/P (MAP) Pulse Ox O2 Delivery O2 Flow Rate FiO2 02/04/19 08:00 63 23 Room Air 02/04/19 08:00 96 02/04/19 08:00 97.6 Intake and Output 02/04/19 00:00 Intake Total 1110 ml Output Total 900 ml Balance 210 ml General Appearance: Alert, Oriented X3, Cooperative, No Acute Distress HEENT: Mucous Memb Moist/[place] Respiratory: Clear to Auscultation, Normal Air Movement Cardiovascular: Regular Rate, No Murmurs Abdominal: Normal Bowel Sounds, Soft, No Tenderness, No Masses Extremities: Other (1+ pitting edema bilaterally) Skin: No Rashes, No Breakdown Neuro: Normal Speech, Strength at 5/5 X4 Ext, Cranial Nerves 3-12 NL Psych/Mental Status: Mental Status NL, Mood NL Hospital Course Was the Problem List Reviewed?: Yes See final discharge diagnosis. Discussion & Recommendations 73 yo M that presented with weakness and shortness of breath, found to have arrhythmia. Dr Carter consulted and concerned about possible V tach vs Type II AV block episodes. Loop Recorder was placed during admission. If patient is having episodes of V tach will need defibrillator placed. Will have close f.u with Dr Santana. Discharge Condition at discharge stable Instructions to patient/family Please see electronic discharge instructions given to patient. Discharge Medications Reviewed and agree with Discharge Medication list on patient's Discharge Instruction sheet Clinical Quality Measures DVT/VTE Risk/Contraindication: Risk Factor Score Per Nursin RFS Level Per Nursing on Admit: 4+=Very High HERMELINDA WHITLEY MD Feb 04, 2019 10:59
--- OUTSIDE RECORDS SUMMARY | 2019-02-05 10:11 | XMS REPORT | Continuity of Care Document ---
Author Organization Unknown Address Unknown Allergies Active Description Code Type Severity Reaction Onset Reported/Identified Relationship to Patient Clinical Status Yes No Known Drug Allergies [id number] Drug Allergy Unknown N/A 01/31/2019 Medications There is no data. 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 01/21/2019 AMI SMITH FACBenny, ALI FACP CCDS Ot E66.9 OBESITY, UNSPECIFIED 01/21/2019 AMI SMITH FACBenny, ALI FACP CCDS Ot E78.5 HYPERLIPIDEMIA, UNSPECIFIED 01/21/2019 AMI SMITH FACC, ALI FACP CCDS Ot I10 ESSENTIAL (PRIMARY) HYPERTENSION 01/21/2019 AMI SMITH FACC, ALI FACP CCDS Ot I25.10 ATHSCL HEART DISEASE OF [place] CORONARY 01/21/2019 AMI SMITH FACC, ALI FACP CCDS Ot M79.89 OTHER SPECIFIED SOFT TISSUE DISORDERS 01/21/2019 AMI SMITH FACC, ALI FACP CCDS Ot 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 01/21/2019 AMI SMITH FACC, ALI FACP CCDS Ot Z68.35 BODY MASS INDEX (BMI) 35.0-35.9, ADULT 01/21/2019 AMI SMITH FACBenny, ALI FACP CCDS Ot Z79.82 POULTRY HANGER (CURRENT) USE OF ASPIRIN 01/21/2019 AMI SMITH FACC, ALI FACP CCDS Ot Z79.899 OTHER POULTRY HANGER (CURRENT) DRUG THERAPY 01/21/2019 AMI SMITH FACC, ALI FACP CCDS Ot Z87.891 PERSONAL HISTORY OF NICOTINE DEPENDENCE 01/23/2019 AMI SMITH FACC, ALI FACP CCDS Ot E66.9 OBESITY, UNSPECIFIED 01/23/2019 AMI SMITH FACC, ALI FACP CCDS Ot E78.5 HYPERLIPIDEMIA, UNSPECIFIED 01/23/2019 AMI SMITH FACC, ALI FACP CCDS Ot I10 ESSENTIAL (PRIMARY) HYPERTENSION 01/23/2019 AMI SMITH FACC, ALI FACP CCDS Ot I25.10 ATHSCL HEART DISEASE OF [place] CORONARY 01/23/2019 AMI SMITH FACC, ALI FACP CCDS Ot M79.89 OTHER SPECIFIED SOFT TISSUE DISORDERS 01/23/2019 AMI SMITH FACC, ALI FACP CCDS Ot 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 01/23/2019 AMI SMITH FACC, ALI FACP CCDS Ot Z68.35 BODY MASS INDEX (BMI) 35.0-35.9, ADULT 01/23/2019 AMI SMITH FACC, ALI FACP CCDS Ot Z79.82 POULTRY HANGER (CURRENT) USE OF ASPIRIN 01/23/2019 AMI SMITH FACC, ALI FACP CCDS Ot Z79.899 OTHER SNF (CURRENT) DRUG THERAPY 01/23/2019 AMI SMITH FACC, ALI FACP CCDS Ot Z87.891 PERSONAL HISTORY OF NICOTINE DEPENDENCE 01/27/2019 AIM SMITH [facility], ALI FACP CCDS Ot E66.9 OBESITY, UNSPECIFIED 01/27/2019 AMI SMITH [facility], ALI FACP CCDS Ot E78.5 HYPERLIPIDEMIA, UNSPECIFIED 01/27/2019 AMI SMITH [facility], ALI FACP CCDS Ot I10 ESSENTIAL (PRIMARY) HYPERTENSION 01/27/2019 AMI SMITH [facility], ALI FACP CCDS Ot I25.10 ATHSCL HEART DISEASE OF [place] CORONARY 01/27/2019 AMI SMITH [facility], ALI FACP CCDS Ot M79.89 OTHER SPECIFIED SOFT TISSUE DISORDERS 01/27/2019 AMI SMITH [facility], ALI FACP CCDS Ot 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 01/27/2019 AMI CARREON, ALI FACP CCDS Ot Z68.35 BODY MASS INDEX (BMI) 35.0-35.9, ADULT 01/27/2019 AMI CARREON, ALI FACP CCDS Ot Z79.82 SNF (CURRENT) USE OF ASPIRIN 01/27/2019 AMI MSITH [facility], ALI FACP CCDS Ot Z79.899 OTHER SNF (CURRENT) DRUG THERAPY 01/27/2019 AMI SMITH [facility], ALI FACP CCDS Ot Z87.891 PERSONAL HISTORY OF NICOTINE DEPENDENCE 02/01/2019 ALLEN DAVIS MD Ot M48.02 SPINAL STENOSIS, CERVICAL REGION 02/01/2019 ALLEN DAVIS MD Ot Z01.812 ENCOUNTER FOR PREPROCEDURAL LABORATORY E 02/01/2019 ALLEN DAVIS MD Ot Z11.2 ENCOUNTER FOR SCREENING FOR OTHER BACTER 02/01/2019 ALLEN DAVIS MD Ot Z48.89 ENCOUNTER FOR OTHER SPECIFIED SURGICAL A 02/01/2019 ALLEN DAVIS MD Ot Z98.1 ARTHRODESIS STATUS Procedures Code Description Performed By Performed On [id number] EXCISION OF CERVICAL VERTEBRAL DISC, OPE 08/02/2015 [id number] FUSION 2-6 C JT W INTBD FUS [...] resistant Staphylococcus aureus (MRSA) screening culture NEG [facility] Complete blood count (CBC) with automated white blood cell (WBC) differential - 01/31/19 22:55 Blood leukocytes automated count (number/volume) 6.4 10*3/uL 4.3-11.0 Blood erythrocytes automated count (number/volume) 4.24 10*6/uL 4.35-5.85 Venous blood hemoglobin measurement (mass/volume) 12.1 g/dL 13.3-17.7 Blood hematocrit (volume fraction) 38 % 40-54 Automated erythrocyte mean corpuscular volume 90 [foz_us] 80-99 Automated erythrocyte mean corpuscular hemoglobin (mass per erythrocyte) 29 pg 25-34 Automated erythrocyte mean corpuscular hemoglobin concentration measurement (mass/volume) 32 g/dL 32-36 Automated erythrocyte distribution width ratio 13.4 % 10.0- 14.5 Automated blood platelet count (count/volume) 174 10*3/uL 130-400 Automated blood platelet mean volume measurement 10.1 [foz_us] 7.4-10.4 Automated blood neutrophils/100 leukocytes 59 % 42-75 Automated blood lymphocytes/100 leukocytes 27 % 12-44 Blood monocytes/100 leukocytes 13 % 0-12 Automated blood eosinophils/100 leukocytes 1 % 0-10 Automated blood basophils/100 leukocytes 0 % 0-10 Blood neutrophils automated count (number/volume) 3.8 10*3 1.8-7.8 Blood lymphocytes automated count (number/volume) 1.7 10*3 1.0-4.0 Blood monocytes automated count (number/volume) 0.9 10*3 0.0- 1.0 Automated eosinophil count 0.1 10*3/uL 0.0-0.3 Automated blood basophil count (count/volume) 0.0 10*3/uL 0.0-0.1 Comprehensive metabolic panel - 01/31/19 22:55 Serum or plasma sodium measurement (moles/volume) 139 mmol/L 135-145 Serum or plasma potassium measurement (moles/volume) 3.3 mmol/L 3.6-5.0 Serum or plasma chloride measurement (moles/volume) 96 mmol/L 98-107 Carbon dioxide 25 mmol/L 21-32 Serum or plasma anion gap determination (moles/volume) 18 mmol/L 5-14 Serum or plasma urea nitrogen measurement (mass/volume) 43 mg/dL 7-18 Serum or plasma creatinine measurement (mass/volume) 1.38 mg/dL 0.60-1.30 Serum or plasma urea nitrogen/creatinine mass ratio 31 NRG Serum or plasma creatinine measurement with calculation of estimated glomerular filtration rate 50 NRG Serum or plasma glucose measurement (mass/volume) 143 mg/dL 70-105 Serum or plasma calcium measurement (mass/volume) 9.8 mg/dL 8.5-10.1 Serum or plasma total bilirubin measurement (mass/volume) 0.3 mg/dL 0.1-1.0 Serum or plasma alkaline phosphatase measurement (enzymatic activity/volume) 82 U/L 40-136 Serum or plasma aspartate aminotransferase measurement (enzymatic activity/volume) 20 U/L 5-34 Serum or plasma alanine aminotransferase measurement (enzymatic activity/volume) 25 U/L 0-55 Serum or plasma protein measurement (mass/volume) 7.0 g/dL 6.4-8.2 Serum or plasma albumin measurement (mass/volume) 4.3 g/dL 3.2-4.5 CALCIUM CORRECTED 9.6 mg/dL 8.5-10.1 Magnesium - 01/31/19 22:55 Magnesium 1.8 mg/dL 1.8-2.4 PROBNP FS - 01/31/19 22:55 PROBNP FS 2347.0 pg/mL <75.0 TROPONIN T - 01/31/19 22:55 TROPONIN T 130 % <=15 Complete blood count (CBC) with automated white blood cell (WBC) differential - 02/01/19 04:07 Blood leukocytes automated count (number/volume) 6.4 10*3/uL 4.3-11.0 Blood erythrocytes automated count (number/volume) 4.52 10*6/uL 4.35-5.85 Venous blood hemoglobin measurement (mass/volume) 12.9 g/dL 13.3-17.7 Blood hematocrit (volume fraction) 39 % 40-54 Automated erythrocyte mean corpuscular volume 87 [foz_us] 80-99 Automated erythrocyte mean corpuscular hemoglobin (mass per erythrocyte) 29 pg 25-34 Automated erythrocyte mean corpuscular hemoglobin concentration measurement (mass/volume) 33 g/dL 32-36 Automated erythrocyte distribution width ratio 13.5 % 10.0- 14.5 Automated blood platelet count (count/volume) 171 10*3/uL 130-400 Automated blood platelet mean volume measurement 10.4 [foz_us] 7.4-10.4 Automated blood neutrophils/100 leukocytes 60 % 42-75 Automated blood lymphocytes/100 leukocytes 25 % 12-44 Blood monocytes/100 leukocytes 14 % 0-12 Automated blood eosinophils/100 leukocytes 1 % 0-10 Automated blood basophils/100 leukocytes 0 % 0-10 Blood neutrophils automated count (number/volume) 3.9 10*3 1.8-7.8 Blood lymphocytes automated count (number/volume) 1.6 10*3 1.0-4.0 Blood monocytes automated count (number/volume) 0.9 10*3 0.0- 1.0 Automated eosinophil count 0.1 10*3/uL 0.0-0.3 Automated blood basophil count (count/volume) 0.0 10*3/uL 0.0-0.1 Comprehensive metabolic panel - 02/01/19 04:07 Serum or plasma sodium measurement (moles/volume) 139 mmol/L 135-145 Serum or plasma potassium measurement (moles/volume) 3.2 mmol/L 3.6-5.0 Serum or plasma chloride measurement (moles/volume) 96 mmol/L 98-107 Carbon dioxide 27 mmol/L 21-32 Serum or plasma anion gap determination (moles/volume) 16 mmol/L 5-14 Serum or plasma urea nitrogen measurement (mass/volume) 44 mg/dL 7-18 Serum or plasma creatinine measurement (mass/volume) 1.33 mg/dL 0.60-1.30 Serum or plasma urea nitrogen/creatinine mass ratio 33 NRG Serum or plasma creatinine measurement with calculation of estimated glomerular filtration rate 52 NRG Serum or plasma glucose measurement (mass/volume) 128 mg/dL 70-105 Serum or plasma calcium measurement (mass/volume) 10.6 mg/dL 8.5-10.1 Serum or plasma total bilirubin measurement (mass/volume) 0.3 mg/dL 0.1-1.0 Serum or plasma alkaline phosphatase measurement (enzymatic activity/volume) 85 U/L 40-136 Serum or plasma aspartate aminotransferase measurement (enzymatic activity/volume) 21 U/L 5-34 Serum or plasma alanine aminotransferase measurement (enzymatic activity/volume) 30 U/L 0-55 Serum or plasma protein measurement (mass/volume) 7.6 g/dL 6.4-8.2 Serum or plasma albumin measurement (mass/volume) 4.5 g/dL 3.2-4.5 CALCIUM CORRECTED 10.2 mg/dL 8.5-10.1 Serum or plasma lithium measurement (moles/volume) - 02/01/19 04:07 BNP level 438.3 pg/mL <100.0 Serum or plasma troponin i.cardiac measurement (mass/volume) - 02/01/19 04:07 Serum or plasma troponin i.cardiac measurement (mass/volume) 0.224 ng/mL <0.028 THYROID STIMULATING HORMONE - 02/01/19 04:07 THYROID STIMULATING HORMONE 1.55 u[iU]/mL 0.35-4.94 Complete urinalysis with reflex to culture - 02/01/19 06:45 Urine color determination YELLOW NRG Urine clarity determination CLEAR NRG Urine pH measurement by test strip 5 5-9 Specific gravity of urine by test strip 1.010 1.016-1.022 Urine protein assay by test strip, semi-quantitative NEGATIVE NEGATIVE Urine glucose detection by automated test strip NEGATIVE NEGATIVE Erythrocytes detection in urine sediment by light microscopy NEGATIVE NEGATIVE Urine ketones detection by automated test strip NEGATIVE NEGATIVE Urine nitrite detection by test strip NEGATIVE NEGATIVE Urine total bilirubin detection by test strip NEGATIVE NEGATIVE Urine urobilinogen measurement by automated test strip (mass/volume) NORMAL NORMAL Urine leukocyte esterase detection by dipstick NEGATIVE NEGATIVE Automated urine sediment erythrocyte count by microscopy (number/high power field) NONE NRG Automated urine sediment leukocyte count by microscopy (number/high power field) NONE NRG Bacteria detection in urine sediment by light microscopy NEGATIVE NRG Squamous epithelial cells detection in urine sediment by light microscopy NONE NRG Crystals detection in urine sediment by light microscopy NONE NRG Casts detection in urine sediment by light microscopy PRESENT NRG Mucus detection in urine sediment by light microscopy NEGATIVE NRG Complete urinalysis with reflex to culture NO NRG Hyaline casts detection in urine sediment by light microscopy RARE NRG Serum protein electrophoresis - 02/01/19 12:55 Serum or plasma protein measurement (mass/volume) 6.5 % 6.4- 8.1 Serum or plasma intact pararthyroid hormone measurement (mass/volume) - 02/01/19 12:55 Serum or plasma intact parathyroid hormone measurement (mass/volume) 33.4 pg/mL 9.0-77.0 Bio-intact parathyroid hormone (PTH) measurement with calcium 9.8 % 8.5-10.5 Complete blood count (CBC) with automated white blood cell (WBC) differential - 02/02/19 03:10 Blood leukocytes automated count (number/volume) 7.0 10*3/uL 4.3-11.0 Blood erythrocytes automated count (number/volume) 4.32 10*6/uL 4.35-5.85 Venous blood hemoglobin measurement (mass/volume) 12.2 g/dL 13.3-17.7 Blood hematocrit (volume fraction) 38 % 40-54 Automated erythrocyte mean corpuscular volume 89 [foz_us] 80-99 Automated erythrocyte mean corpuscular hemoglobin (mass per erythrocyte) 28 pg 25-34 Automated erythrocyte mean corpuscular hemoglobin concentration measurement (mass/volume) 32 g/dL 32-36 Automated erythrocyte distribution width ratio 13.4 % 10.0- 14.5 Automated blood platelet count (count/volume) 171 10*3/uL 130-400 Automated blood platelet mean volume measurement 10.4 [foz_us] 7.4-10.4 Automated blood neutrophils/100 leukocytes 68 % 42-75 Automated blood lymphocytes/100 leukocytes 20 % 12-44 Blood monocytes/100 leukocytes 12 % 0-12 Automated blood eosinophils/100 leukocytes 1 % 0-10 Automated blood basophils/100 leukocytes 0 % 0-10 Blood neutrophils automated count (number/volume) 4.8 10*3 1.8-7.8 Blood lymphocytes automated count (number/volume) 1.4 10*3 1.0-4.0 Blood monocytes automated count (number/volume) 0.8 10*3 0.0- 1.0 Automated eosinophil count 0.0 10*3/uL 0.0-0.3 Automated blood basophil count (count/volume) 0.0 10*3/uL 0.0-0.1 Comprehensive metabolic panel - 02/02/19 03:10 Serum or plasma sodium measurement (moles/volume) 139 mmol/L 135-145 Serum or plasma potassium measurement (moles/volume) 3.1 mmol/L 3.6-5.0 Serum or plasma chloride measurement (moles/volume) 96 mmol/L 98-107 Carbon dioxide 29 mmol/L 21-32 Serum or plasma anion gap determination (moles/volume) 14 mmol/L 5-14 Serum or plasma urea nitrogen measurement (mass/volume) 40 mg/dL 7-18 Serum or plasma creatinine measurement (mass/volume) 1.32 mg/dL 0.60-1.30 Serum or plasma urea nitrogen/creatinine mass ratio 30 NRG Serum or plasma creatinine measurement with calculation of estimated glomerular filtration rate 53 NRG Serum or plasma glucose measurement (mass/volume) 107 mg/dL 70-105 Serum or plasma calcium measurement (mass/volume) 10.0 mg/dL 8.5-10.1 Serum or plasma total bilirubin measurement (mass/volume) 0.5 mg/dL 0.1-1.0 Serum or plasma alkaline phosphatase measurement (enzymatic activity/volume) 74 U/L 40-136 Serum or plasma aspartate aminotransferase measurement (enzymatic activity/volume) 20 U/L 5-34 Serum or plasma alanine aminotransferase measurement (enzymatic activity/volume) 23 U/L 0-55 Serum or plasma protein measurement (mass/volume) 7.0 g/dL 6.4-8.2 Serum or plasma albumin measurement (mass/volume) 4.3 g/dL 3.2-4.5 CALCIUM CORRECTED 9.8 mg/dL 8.5-10.1 Serum or plasma troponin i.cardiac measurement (mass/volume) - 02/02/19 03:10 Serum or plasma troponin i.cardiac measurement (mass/volume) 0.289 ng/mL <0.028 Serum or plasma lithium measurement (moles/volume) - 02/02/19 03:10 BNP level 230.4 pg/mL <100.0 Complete blood count (CBC) with automated white blood cell (WBC) differential - 02/03/19 03:35 Blood leukocytes automated count (number/volume) 6.3 10*3/uL 4.3-11.0 Blood erythrocytes automated count (number/volume) 4.02 10*6/uL 4.35-5.85 Venous blood hemoglobin measurement (mass/volume) 11.4 g/dL 13.3-17.7 Blood hematocrit (volume fraction) 36 % 40-54 Automated erythrocyte mean corpuscular volume 88 [foz_us] 80-99 Automated erythrocyte mean corpuscular hemoglobin (mass per erythrocyte) 28 pg 25-34 Automated erythrocyte mean corpuscular hemoglobin concentration measurement (mass/volume) 32 g/dL 32-36 Automated erythrocyte distribution width ratio 13.4 % 10.0- 14.5 Automated blood platelet count (count/volume) 176 10*3/uL 130-400 Automated blood platelet mean volume measurement 9.8 [foz_us] 7.4-10.4 Automated blood neutrophils/100 leukocytes 64 % 42-75 Automated blood lymphocytes/100 leukocytes 23 % 12-44 Blood monocytes/100 leukocytes 13 % 0-12 Automated blood eosinophils/100 leukocytes 1 % 0-10 Automated blood basophils/100 leukocytes 0 % 0-10 Blood neutrophils automated count (number/volume) 4.1 10*3 1.8-7.8 Blood lymphocytes automated count (number/volume) 1.4 10*3 1.0-4.0 Blood monocytes automated count (number/volume) 0.8 10*3 0.0- 1.0 Automated eosinophil count 0.1 10*3/uL 0.0-0.3 Automated blood basophil count (count/volume) 0.0 10*3/uL 0.0-0.1 Comprehensive metabolic panel - 02/03/19 03:35 Serum or plasma sodium measurement (moles/volume) 139 mmol/L 135-145 Serum or plasma potassium measurement (moles/volume) 3.2 mmol/L 3.6-5.0 Serum or plasma chloride measurement (moles/volume) 97 mmol/L 98-107 Carbon dioxide 29 mmol/L 21-32 Serum or plasma anion gap determination (moles/volume) 13 mmol/L 5-14 Serum or plasma urea nitrogen measurement (mass/volume) 36 mg/dL 7-18 Serum or plasma creatinine measurement (mass/volume) 1.24 mg/dL 0.60-1.30 Serum or plasma urea nitrogen/creatinine mass ratio 29 NRG Serum or plasma creatinine measurement with calculation of estimated glomerular filtration rate 57 NRG Serum or plasma glucose measurement (mass/volume) 114 mg/dL 70-105 Serum or plasma calcium measurement (mass/volume) 9.7 mg/dL 8.5-10.1 Serum or plasma total bilirubin measurement (mass/volume) 0.5 mg/dL 0.1-1.0 Serum or plasma alkaline phosphatase measurement (enzymatic activity/volume) 70 U/L 40-136 Serum or plasma aspartate aminotransferase measurement (enzymatic activity/volume) 17 U/L 5-34 Serum or plasma alanine aminotransferase measurement (enzymatic activity/volume) 21 U/L 0-55 Serum or plasma protein measurement (mass/volume) 6.6 g/dL 6.4-8.2 Serum or plasma albumin measurement (mass/volume) 4.1 g/dL 3.2-4.5 CALCIUM CORRECTED 9.6 mg/dL 8.5-10.1 Serum or plasma lithium measurement (moles/volume) - 02/03/19 03:35 BNP level 232.5 pg/mL <100.0 Serum or plasma troponin i.cardiac measurement (mass/volume) - 02/03/19 03:35 Serum or plasma troponin i.cardiac measurement (mass/volume) 0.193 ng/mL <0.028 Complete blood count (CBC) with automated white blood cell (WBC) differential - 02/04/19 03:15 Blood leukocytes automated count (number/volume) 5.7 10*3/uL 4.3-11.0 Blood erythrocytes automated count (number/volume) 3.98 10*6/uL 4.35-5.85 Venous blood hemoglobin measurement (mass/volume) 11.2 g/dL 13.3-17.7 Blood hematocrit (volume fraction) 35 % 40-54 Automated erythrocyte mean corpuscular volume 89 [foz_us] 80-99 Automated erythrocyte mean corpuscular hemoglobin (mass per erythrocyte) 28 pg 25-34 Automated erythrocyte mean corpuscular hemoglobin concentration measurement (mass/volume) 32 g/dL 32-36 Automated erythrocyte distribution width ratio 13.2 % 10.0- 14.5 Automated blood platelet count (count/volume) 171 10*3/uL 130-400 Automated blood platelet mean volume measurement 10.5 [foz_us] 7.4-10.4 Automated blood neutrophils/100 leukocytes 61 % 42-75 Automated blood lymphocytes/100 leukocytes 25 % 12-44 Blood monocytes/100 leukocytes 14 % 0-12 Automated blood eosinophils/100 leukocytes 1 % 0-10 Automated blood basophils/100 leukocytes 0 % 0-10 Blood neutrophils automated count (number/volume) 3.5 10*3 1.8-7.8 Blood lymphocytes automated count (number/volume) 1.4 10*3 1.0-4.0 Blood monocytes automated count (number/volume) 0.8 10*3 0.0- 1.0 Automated eosinophil count 0.0 10*3/uL 0.0-0.3 Automated blood basophil count (count/volume) 0.0 10*3/uL 0.0-0.1 Comprehensive metabolic panel - 02/04/19 03:15 Serum or plasma sodium measurement (moles/volume) 140 mmol/L 135-145 Serum or plasma potassium measurement (moles/volume) 3.5 mmol/L 3.6-5.0 Serum or plasma chloride measurement (moles/volume) 100 mmol/L 98-107 Carbon dioxide 27 mmol/L 21-32 Serum or plasma anion gap determination (moles/volume) 13 mmol/L 5-14 Serum or plasma urea nitrogen measurement (mass/volume) 36 mg/dL 7-18 Serum or plasma creatinine measurement (mass/volume) 1.22 mg/dL 0.60-1.30 Serum or plasma urea nitrogen/creatinine mass ratio 30 NRG Serum or plasma creatinine measurement with calculation of estimated glomerular filtration rate 58 NRG Serum or plasma glucose measurement (mass/volume) 102 mg/dL 70-105 Serum or plasma calcium measurement (mass/volume) 9.8 mg/dL 8.5-10.1 Serum or plasma total bilirubin measurement (mass/volume) 0.4 mg/dL 0.1-1.0 Serum or plasma alkaline phosphatase measurement (enzymatic activity/volume) 72 U/L 40-136 Serum or plasma aspartate aminotransferase measurement (enzymatic activity/volume) 18 U/L 5-34 Serum or plasma alanine aminotransferase measurement (enzymatic activity/volume) 18 U/L 0-55 Serum or plasma protein measurement (mass/volume) 6.3 g/dL 6.4-8.2 Serum or plasma albumin measurement (mass/volume) 4.0 g/dL 3.2-4.5 CALCIUM CORRECTED 9.8 mg/dL 8.5-10.1 Magnesium - 02/04/19 03:15 Magnesium 2.0 mg/dL 1.8-2.4 Serum or plasma troponin i.cardiac measurement (mass/volume) - 02/04/19 03:15 Serum or plasma troponin i.cardiac measurement (mass/volume) 0.181 ng/mL <0.028 Serum or plasma lithium measurement (moles/volume) - 02/04/19 03:15 BNP level 257.7 pg/mL <100.0 Encounters ACCT No. Visit Date/Time Discharge Status Pt. Type Provider Facility Loc./Unit Complaint [id number] 01/27/2019 10:15:00 01/27/2019 23:59:59 [facility] [id number] 01/21/2019 08:49:00 01/21/2019 16:15:00 DIS Outpatient AMI SMITH FACC, RAYMUNDO PEREIRA CCDS [facility] CATH CARDIOMYOPATHY,LEG SWELLING [id number] 01/07/2019 22:39:00 01/10/2019 12:30:00 DIS Inpatient HERMELINDA WHITLEY MD [facility] 4TH CHF EXACERBATION [id number] 02/07/2016 10:21:00 02/07/2016 23:59:59 CLS Outpatient ALLEN DAVIS MD [facility] RAD S/P SPINAL FUSION Z48.89, Z98.1 [id number] 08/02/2015 10:37:00 08/03/2015 10:40:00 DIS Inpatient ALLEN DAVIS MD [facility] 4TH STENOSIS [id number] 07/20/2015 09:29:00 07/20/2015 23:59:59 CLS Outpatient ALLEN DAVIS MD [facility] PREOP STENOSIS [id number] 06/25/2015 08:47:00 06/25/2015 10:00:00 DIS Outpatient CHINO MOHAN MD [facility] CARD DISC DISORDER W/RADICULOPATHY [id number] 02/01/2019 00:12:00 ACT Inpatient HERMELINDA WHITLEY MD [facility] ICU CHF;ACUTE EXACERBATION
== END 2019-02-04 10:30 | disposition home or self-care (01) | DRG 260 ==
LOC: EDUNIT# 22:01 → ER FS 22:05 → ICU 22:06 → UNDOADMOB 02-01 00:12 → INTOOBSV 02-01 12:04 → OBSVTOIN 02-01 12:04 → UNDODISIN 02-04 10:30
PROVIDERS: ADMIT Internal Medicine; ATTEND Family Medicine
PROC: 5A2204Z Restoration of Cardiac Rhythm, Single (ICD-10-PCS; 2019-02-01)
PROC: 0JH602Z Insertion of Monitoring Device into Chest Subcutaneous Tissue and Fascia, Open Approach (ICD-10-PCS; principal; 2019-02-03)
DX: I48.0 Paroxysmal atrial fibrillation (principal); I47.2 Ventricular tachycardia; I44.1 Atrioventricular block, second degree; I11.0 Hypertensive heart disease with heart failure; I50.43 Acute on chronic combined systolic (congestive) and diastolic (congestive) heart failure; I21.A1 Myocardial infarction type 2; E87.6 Hypokalemia; I25.10 Atherosclerotic heart disease of native coronary artery without angina pectoris; F41.9 Anxiety disorder, unspecified; E78.5 Hyperlipidemia, unspecified; E78.00 Pure hypercholesterolemia, unspecified; I73.9 Peripheral vascular disease, unspecified; K21.9 Gastro-esophageal reflux disease without esophagitis; L40.9 Psoriasis, unspecified; G47.30 Sleep apnea, unspecified; N28.9 Disorder of kidney and ureter, unspecified; E83.52 Hypercalcemia; D72.821 Monocytosis (symptomatic); G47.00 Insomnia, unspecified; Z87.891 Personal history of nicotine dependence; Z85.828 Personal history of other malignant neoplasm of skin
CPT/HCPCS: 33285; 36415; 71045; 80053; 81000; 83735; 83880; 83970; 84155; 84165; 84443; 84484; 85025; 93005; 96374

== ENCOUNTER 2019-10-12 15:28 | Emergency (ER) | payer MEDICARE, OTHER ==
[~2019-10-12] VITALS: Ht 165.1 cm; Wt 105.0 kg
[~2019-10-12 15:28] MED LIST changes: -ACET-2429 PO; +ACET650T41 PO; +AMIO200T4 PO; +APIX5TAB PO; -BUME1TAB4 PO; +BUME1TAB8 PO; -METO-387 PO; +MTP25TSR PO; -OXYB10TA PO; +OXYB10TA2 PO; -RANI-515 PO; +RANI-609 PO; +SIMV40TA25 PO; -SIMV40TA4 PO; -TAMS0.4C98 PO; +TMSL.4C PO; -TRAZ-222 PO; +TRZ50T PO
[2019-10-12 16:52] LABS: HEMOGLOBIN 10.4 G/DL (13.3-17.7); MEAN CORPUSCULAR HEMOGLOBIN 29 PG (25-34); WHITE BLOOD COUNT 4.6 10^3/uL (4.3-11.0)
[2019-10-12 16:53] LABS: BASOPHILS % (AUTO) 0 % (0-10); EOSINOPHILS % (AUTO) 0 % (0-10); HEMATOCRIT 34 % (40-54); LYMPHOCYTES # (AUTO) 1.2 X 10^3 (1.0-4.0); LYMPHOCYTES % (AUTO) 27 % (12-44); MEAN CORPUSCULAR HGB CONC 31 G/DL (32-36); MEAN CORPUSCULAR VOLUME 93 FL (80-99); MEAN PLATELET VOLUME 10.1 FL (7.4-10.4); MONOCYTES # (AUTO) 0.7 X 10^3 (0.0-1.0); MONOCYTES % (AUTO) 14 % (0-12); NEUTROPHILS # (AUTO) 2.7 X 10^3 (1.8-7.8); NEUTROPHILS % (AUTO) 58 % (42-75); PLATELET COUNT 165 10^3/uL (130-400)
[2019-10-12 17:14] LABS: CHLORIDE 100 MMOL/L (98-107); POTASSIUM 3.6 MMOL/L (3.6-5.0); SODIUM 142 MMOL/L (135-145)
[2019-10-12 17:15] LABS: BUN/CREATININE RATIO 26; CALCIUM 9.3 MG/DL (8.5-10.1); CARBON DIOXIDE 30 MMOL/L (21-32); GFR ESTIMATED 42; GLUCOSE 110 MG/DL (70-105)
[2019-10-12] MEDS ORDERED: morphine INJ 10 MG/ML 1ML (SYR OR VIAL) IVP STA ×2 (18:05→20:12)
--- NOTE | 2019-10-12 18:28 | Diagnostic Imaging Report ---
INDICATION: Nausea and malaise. EXAMINATION: Frontal chest was obtained at 6:13 p.m. COMPARISON: 02/04/2019. FINDINGS: There is cardiomegaly. There is mild central vascular prominence. There is chronic blunting of the left costophrenic angle with chronic left inferior lateral pleural thickening. There is no new infiltrate, pneumothorax or pleural fluid. IMPRESSION: Cardiomegaly and central vascular prominence appear similar to the prior study. There are chronic changes in the left costophrenic angle and left inferior pleural space. There is no new abnormality compared to the previous study. Dictated by: Dictated on workstation # [id number]
--- NOTE | 2019-10-12 19:16 | ED General ---
General Chief Complaint: General Problems/Pain Stated Complaint: VOMITING,BODY ACHES Nursing Triage Note: Patient presents to the ED with c/o nausea and general feeling of malaise. States that his "whole body feels funny" but unable to describe the sensation any differently he also reports feeling nauseated since this morning. Nursing Sepsis Screen: No Definite Risk Source of Information: Patient History of Present Illness Date Seen by Provider: Oct 12, 2019 Time Seen by Provider: 17:30 Initial Comments Patient is a 74-year-old male with past medical history significant for neuropathy and treated with gabapentin. He comes to the ER today complaining of worsening burning and tingling sensation in the upper extremities. He normally has these symptoms primarily in the distal portion of his arms but states today he began having symptoms across both of the upper arms as well. He also has general malaise and myalgias. Patient denies respiratory symptoms. He does have known history of congestive heart failure but he has no worsening orthopnea, lower extremity edema worse than normal. He has not had a fever, chills, cough. He has been eating and drinking normally. He does not complain of chest pain or palpitations. His symptoms are relatively vague but primarily complaining of diffuse myalgias and worsening numbness and tingling symptoms in the upper extremities. He did not have any trauma. Patient was recently started on gabapentin and has not titrated his dose upwards yet. Allergies and Home Medications Allergies Coded Allergies: No Known Drug Allergies (Unverified , 01/31/19) Home Medications Acetaminophen 650 Mg Tablet.er, 1,300 MG PO BID, (Reported) TAKE 2 (650MG) TABS Amiodarone HCl 200 Mg Tablet, 200 MG PO BID take 200 mg twice daily for 2 weeks then take 200 mg daily Prescribed by: EDDIE MCHUGH on 02/04/19 0747 Apixaban 5 Mg Tablet, 5 MG PO BID Prescribed by: EDDIE MCUHGH on 02/04/19 0747 Aspirin 81 Mg Tab.chew, 81 MG PO DAILY, (Reported) Cholecalciferol (Vitamin D3) 2,000 Unit Tablet, 1,000 UNIT PO DAILY, (Reported) Clopidogrel Bisulfate 75 Mg Tablet, 75 MG PO DAILY Prescribed by: RAYMUNDO MUELLER on 01/21/19 1303 Furosemide 40 Mg Tablet, 40 MG PO DAILY Prescribed by: HERMELINDA WHITLEY on 01/10/19 1041 Losartan Potassium 25 Mg Tablet, 25 MG PO DAILY Prescribed by: HERMELINDA WHITLEY on 01/10/19 104 Metolazone 2.5 Mg Tablet, 2.5 MG PO UD take 1 tablet on Sunday, Sunday and Sunday Prescribed by: EDDIE MCHUGH on 02/04/19 0747 Metoprolol Succinate 25 Mg Tab.er.24h, 25 MG PO DAILY Prescribed by: HERMELINDA WHITLEY on 01/10/19 104 Potassium Chloride 10 Meq Capsule.er, 10 MEQ PO DAILY, (Reported) Ranitidine HCl 150 Mg Tablet, 150 MG PO BID, (Reported) Simvastatin 80 Mg Tablet, 40 MG PO HS, (Reported) TAKES 1/2 OF A (80 MG) TABLET Spironolactone 25 Mg Tablet, 25 MG PO DAILY Prescribed by: HERMELINDA WHITLEY on 01/10/19 104 Tamsulosin HCl 0.4 Mg Cap, 0.8 MG PO 1730, (Reported) TAKES 2 (0.4MG) CAPSULES Tramadol HCl 50 Mg Tablet, 50 MG PO BID PRN for PAIN Prescribed by: ALLEN MAHAN on 10/12/192044 Patient Home Medication List Home Medication List Reviewed: Yes Review of Systems Review of Systems Constitutional: see HPI EENTM: no symptoms reported Respiratory: no symptoms reported Cardiovascular: no symptoms reported Gastrointestinal: no symptoms reported Musculoskeletal: see HPI Skin: no symptoms reported Psychiatric/Neurological: See HPI All Other Systems Reviewed Negative Unless Noted: Yes Past Smexhbf-Wnaycq-Jopywg Hx Patient Social History Alcohol Use: Denies Use Recreational Drug Use: No Type Used: Cigarettes Former Smoker, Quit: Jun 30, 1975 Recent Foreign Travel: No Contact w/Someone Who Travel: No Recent Infectious Disease Expo: No Recent Hopitalizations: No Physical Abuse: No Sexual Abuse: No Mistreated: No Fear: No Immunizations Up To Date Tetanus Booster (TDap): Unknown Date of Pneumonia Vaccine: May 27, 2013 Date of Influenza Vaccine: May 27, 2018 Seasonal Allergies Seasonal Allergies: No Past Medical History Surgeries: Yes (LEFT LUNG LOBE REMOVED, 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, NECK SX X2, ) Lobectomy, Orthopedic Respiratory: Yes Chronic Bronchitis Cardiac: Yes High Cholesterol, Hypertension, Peripheral Vascular Neurological: Yes Genitourinary: Yes Benign Prostatic Hyperpl, Prostate Problems Gastrointestinal: Yes Gastroesophageal Reflux Musculoskeletal: Yes Degenerate Disk Disease, Arthritis, Chronic Back Pain Endocrine: No HEENT: Yes Hearing Impairment: Bilateral Hearing Aide Cancer: Yes Skin Psychosocial: Yes Anxiety Integumentary: Yes Psoriasis Blood Disorders: No Family Medical History Arthritis 19 FATHER 19 MOTHER G8 BROTHER G8 SISTER Diabetes mellitus 19 FATHER 19 MOTHER G8 BROTHER G8 SISTER Hypertension 19 MOTHER G8 BROTHER G8 SISTER Respiratory disorder 19 FATHER (LUNG CA) G8 SISTER (LUNG CA) Physical Exam Vital Signs Vital Signs - First Documented 10/12/19 16:30 Temp 36.5 Pulse 68 Resp 20 B/P (MAP) 139/65 (89) Pulse Ox 97 O2 Delivery Room Air Capillary Refill : Less Than 3 Seconds Height, Weight, BMI Height: 5'5.00" Weight: 227lbs. 0.0oz. [id number]; 38.00 BMI Method:Stated General Appearance: No Apparent Distress, WD/WN HEENT: PERRL/EOMI, Normal ENT Inspection Neck: Full Range of Motion, Non Tender Respiratory: Lungs Clear Cardiovascular: Regular Rate, Rhythm Gastrointestinal: Non Tender, Soft Extremity: Normal Capillary Refill, Non Tender, Pedal Edema Neurologic/Psychiatric: Alert, Oriented x3, manager operations research II-XII Norm as Tested Skin: Normal Color, Warm/Dry Progress/Results/Core Measures Suspected Sepsis Recent Fever Within 48 Hours: No Infection Criteria Present: Suspected New Infection New/Unexplained Altered Menta: No Sepsis Screen: No Definite Risk SIRS Temperature: Pulse: 68 Respiratory Rate: 20 Laboratory Tests 10/12/19 16:30: White Blood Count 4.6 Blood Pressure 139 /65 Mean: 89 Laboratory Tests 10/12/19 16:30: Creatinine 1.60H, Platelet Count 165 Results/Orders Lab Results Laboratory Tests Test 10/12/19 16:30 10/12/19 19:40 Range/Units White Blood Count 4.6 4.3-11.0 10^3/uL Red Blood Count 3.61 L 4.35-5.85 10^6/uL Hemoglobin 10.4 L 13.3-17.7 G/DL Hematocrit 34 L 40-54 % Mean Corpuscular Volume 93 80-99 FL Mean Corpuscular Hemoglobin 29 25-34 PG Mean Corpuscular Hemoglobin Concent 31 L 32-36 G/DL Red Cell Distribution Width 13.0 10.0-14.5 % Platelet Count 165 130-400 10^3/uL Mean Platelet Volume 10.1 7.4-10.4 FL Neutrophils (%) (Auto) 58 42-75 % Lymphocytes (%) (Auto) 27 12-44 % Monocytes (%) (Auto) 14 H 0-12 % Eosinophils (%) (Auto) 0 0-10 % Basophils (%) (Auto) 0 0-10 % Neutrophils # (Auto) 2.7 1.8-7.8 X 10^3 Lymphocytes # (Auto) 1.2 1.0-4.0 X 10^3 Monocytes # (Auto) 0.7 0.0-1.0 X 10^3 Eosinophils # (Auto) 0.0 0.0-0.3 10^3/uL Basophils # (Auto) 0.0 0.0-0.1 10^3/uL Sodium Level 142 135-145 MMOL/L Potassium Level 3.6 3.6-5.0 MMOL/L Chloride Level 100 98-107 MMOL/L Carbon Dioxide Level 30 21-32 MMOL/L Anion Gap 12 5-14 MMOL/L Blood Urea Nitrogen 41 H 7-18 MG/DL Creatinine 1.60 H 0.60-1.30 MG/DL Estimat Glomerular Filtration Rate 42 BUN/Creatinine Ratio 26 Glucose Level 110 H 70-105 MG/DL Calcium Level 9.3 8.5-10.1 MG/DL Troponin I < 0.30 < 0.30 <0.30 NG/ML Pro-B-Type Natriuretic Peptide 1230.0 H <75.0 PG/ML Micro Results Microbiology 10/12/19 Influenza Types A,B Antigen ([facility]) - Final, Complete My Orders Orders - ALLEN MAHAN DO Ed Iv/Invasive Line Start (10/12/19 16:15) Cbc With Automated Diff (10/12/19 16:15) Basic Metabolic Panel (10/12/19 16:15) Probnp Fs (10/12/19 16:15) Troponin I Fs (10/12/19 16:15) Ekg Tracing (10/12/19 16:15) Influenza A And B Antigens (10/12/19 16:15) Morphine Injection (Morphine Injection (10/12/19 18:05) Chest 1 View Ap/Pa Only (10/12/19 18:05) Troponin I Fs (10/12/19 19:18) Troponin I Fs (10/12/19 19:39) Morphine Injection (Morphine Injection (10/12/19 20:12) Vital Signs/I&O 10/12/19 16:30 Temp 36.5 Pulse 68 Resp 20 B/P (MAP) 139/65 (89) Pulse Ox 97 O2 Delivery Room Air Capillary Refill : Less Than 3 Seconds Blood Pressure Mean: 89 Progress Note : Progress Note Patient is evaluated shortly after arriving to his room. The patient is a difficult historian. He does not have chest pain or shortness of breath. He does take diuretic pills at home and has been compliant. He does endorse some weight gain. Although he has edema in the bilateral lower extremities, it is not worse compared to baseline. He has no worsening orthopnea. In the ER, we will check labs including influenza and reevaluate. 18:30: Patient complains of ongoing numbness and tingling. His labs are reviewed. His creatinine is mildly elevated. We will give a dose of morphine for his pain symptoms. Plan is to recheck a second troponin. His initial EKG does not reveal any acute findings suspicious for ischemia. 20:45: All results are reviewed and discussed with the patient. Chest x-ray does not reveal worsening fluid overload. He is feeling improved after a dose of morphine. His pain seems most suspicious for neuropathy which he did recently begin gabapentin 4. He is uncertain of the exact dose. I suspect he needs to titrate this medicine up and I recommended he contact his primary care doctor for directions on doing this. His workup this evening did not reveal any acute cause or indication for admission to the hospital. He was given some tramadol to use at home and opiate precautions were discussed. ECG Initial ECG Impression Date: Oct 12, 2019 Initial ECG Impression Time: 16:25 Initial ECG Rate: 65 Initial ECG Rhythm: Normal Sinus Initial ECG Impression: Normal Departure Impression Primary Impression: Neuropathy Disposition: 01 HOME, SELF-CARE Condition: Improved Departure-Patient Inst. Referrals: NO,LOCAL PHYSICIAN (PCP/Family) Primary Care Physician Scripts Tramadol HCl (Tramadol HCl) 50 Mg Tablet 50 MG PO BID PRN for PAIN for 5 Days, #10 TAB 0 Refills Prov: ALLEN MAHAN DO 10/12/19 ALLEN MAHAN DO Oct 12, 2019 19:16
[2019-10-12] MEDS ORDERED: TRM50T PO ×2 (20:45→20:52)
[2019-10-12 20:54] VITALS: BP 142/76
== END 2019-10-12 20:54 | disposition home or self-care (01) ==
LOC: EDUNIT# 15:28 → ER FS 15:29
DX: G62.9 Polyneuropathy, unspecified (principal); I10 Essential (primary) hypertension; E78.00 Pure hypercholesterolemia, unspecified; K21.9 Gastro-esophageal reflux disease without esophagitis; F41.9 Anxiety disorder, unspecified; Z85.828 Personal history of other malignant neoplasm of skin; Z79.01 Long term (current) use of anticoagulants; Z79.82 Long term (current) use of aspirin; Z79.02 Long term (current) use of antithrombotics/antiplatelets; Z87.891 Personal history of nicotine dependence; Z82.49 Family history of ischemic heart disease and other diseases of the circulatory system
CPT/HCPCS: 36415; 71045; 80048; 83880; 84484; 85025; 87804; 93005; 96374; 96376

== ENCOUNTER 2019-11-18 12:25 | Emergency (ER) | payer MEDICARE, OTHER ==
[~2019-11-18] VITALS: Ht 170 cm; Wt 107.2 kg
[~2019-11-18 12:25] MED LIST changes: -ACET-2055 PO; +ACET650T13 PO; +ACHYD1T PO; -HYDR-3820 PO; -OXYB10TA2 PO; +OXYB10TA29 PO; +TRM50T PO
--- NOTE | 2019-11-18 13:03 | ED Chest Pain ---
General Chief Complaint: Respiratory Problems Stated Complaint: SOB Nursing Triage Note: shortness of breath, worsening lately. patient states cough. Nursing Sepsis Screen: No Definite Risk Source: patient Exam Limitations: no limitations History of Present Illness Date Seen by Provider: Nov 18, 2019 Time Seen by Provider: 12:40 Initial Comments The patient is a 74-year-old male presents for evaluation of progressively worsening dyspnea, lower extremity edema, and chest pain. He states that he most recently had chest pain on Sunday, 3 days ago. He takes his medications including aspirin every morning and took his aspirin today. He denies any chest pain currently. He is alert and oriented 4, calm, and appears to be in no distress at this time. He denies fevers or chills, current chest pain, nausea or vomiting, diaphoresis, abdominal or back pain, palpitations, dizziness or syncope. He is alert and oriented 4, calm, and appears to be in no distress at this time. Timing/Duration: 2-3 days Severity/Quality: mild, moderate Location: substernal Radiation: no radiation Activities at Onset: none ASA po SALES AND LEASING AGENT: Yes NTG SL SALES AND LEASING AGENT: No Associated Symptoms: denies symptoms Allergies and Home Medications Allergies Coded Allergies: No Known Drug Allergies (Unverified , 01/31/19) Home Medications Acetaminophen 650 Mg Tablet.er, 1,300 MG PO BID, (Reported) TAKE 2 (650MG) TABS Amiodarone HCl 200 Mg Tablet, 200 MG PO BID take 200 mg twice daily for 2 weeks then take 200 mg daily Prescribed by: EDDIE MCHGUH on 02/04/19 0747 Apixaban 5 Mg Tablet, 5 MG PO BID Prescribed by: EDDIE MCHUGH on 02/04/19 0747 Aspirin 81 Mg Tab.chew, 81 MG PO DAILY, (Reported) Cholecalciferol (Vitamin D3) 2,000 Unit Tablet, 1,000 UNIT PO DAILY, (Reported) Clopidogrel Bisulfate 75 Mg Tablet, 75 MG PO DAILY Prescribed by: RAYMUNDO MUELLER on 01/21/19 1303 Furosemide 40 Mg Tablet, 40 MG PO DAILY Prescribed by: HERMELINDA WHITLEY on 01/10/19 1041 Losartan Potassium 25 Mg Tablet, 25 MG PO DAILY Prescribed by: HERMELINDA WHITLEY on 01/10/19 1041 Metolazone 2.5 Mg Tablet, 2.5 MG PO UD take 1 tablet on Sunday, Sunday and Sunday Prescribed by: EDDIE MCHUGH on 02/04/19 0747 Metoprolol Succinate 25 Mg Tab.er.24h, 25 MG PO DAILY Prescribed by: HERMELINDA WHITLEY on 01/10/19 1041 Potassium Chloride 10 Meq Capsule.er, 10 MEQ PO DAILY, (Reported) Ranitidine HCl 150 Mg Tablet, 150 MG PO BID, (Reported) Simvastatin 80 Mg Tablet, 40 MG PO HS, (Reported) TAKES 1/2 OF A (80 MG) TABLET Spironolactone 25 Mg Tablet, 25 MG PO DAILY Prescribed by: HERMELINDA WHITLEY on 01/10/19 1041 Tamsulosin HCl 0.4 Mg Cap, 0.8 MG PO 1730, (Reported) TAKES 2 (0.4MG) CAPSULES Tramadol HCl 50 Mg Tablet, 50 MG PO BID PRN for PAIN Prescribed by: ALLEN MAHAN on 10/12/192051 Patient Home Medication List Home Medication List Reviewed: Yes Review of Systems Review of Systems Constitutional: no symptoms reported EENTM: No Symptoms Reported Respiratory: Shortness of Air, SOA With Exertion Cardiovascular: Chest Pain Gastrointestinal: No Symptoms Reported Genitourinary: No Symptoms Reported Musculoskeletal: no symptoms reported Skin: no symptoms reported Psychiatric/Neurological: No Symptoms Reported Endocrine: No Symptoms Reported Hematologic/Lymphatic: No Symptoms Reported All Other Systems Reviewed Negative Unless Noted: Yes Past Mpqkpci-Ehacpy-Aytqhd Hx Past Med/Social Hx: Reviewed Nursing Past Med/Soc Hx Patient Social History Alcohol Use: Denies Use Recreational Drug Use: No Smoking Status: Former Smoker Type Used: Cigarettes Former Smoker, Quit: Jun 30, 1975 2nd Hand Smoke Exposure: No Recent Foreign Travel: No Contact w/Someone Who Travel: No Recent Infectious Disease Expo: No Recent Hopitalizations: No Physical Abuse: No Sexual Abuse: No Mistreated: No Fear: No Immunizations Up To Date Tetanus Booster (TDap): Unknown Date of Pneumonia Vaccine: May 27, 2013 Date of Influenza Vaccine: May 27, 2019 Seasonal Allergies Seasonal Allergies: No Past Medical History Surgeries: Yes (LEFT LUNG LOBE REMOVED, 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, NECK SX X2, ) Lobectomy, Orthopedic Respiratory: Yes Chronic Bronchitis Cardiac: Yes High Cholesterol, Hypertension, Peripheral Vascular Neurological: Yes Genitourinary: Yes Benign Prostatic Hyperpl, Prostate Problems Gastrointestinal: Yes Gastroesophageal Reflux Musculoskeletal: Yes Degenerate Disk Disease, Arthritis, Chronic Back Pain Endocrine: No HEENT: Yes Hearing Impairment: Bilateral Hearing Aide Cancer: Yes Skin Psychosocial: Yes Anxiety Integumentary: Yes Psoriasis Blood Disorders: No Family Medical History Arthritis 19 FATHER 19 MOTHER G8 BROTHER G8 SISTER Diabetes mellitus 19 FATHER 19 MOTHER G8 BROTHER G8 SISTER Hypertension 19 MOTHER G8 BROTHER G8 SISTER Respiratory disorder 19 FATHER (LUNG CA) G8 SISTER (LUNG CA) Physical Exam Vital Signs Vital Signs - First Documented 11/18/19 12:37 Temp 37.2 Pulse 75 Resp 22 B/P (MAP) 148/75 (99) Pulse Ox 95 O2 Delivery Room Air Capillary Refill : Less Than 3 Seconds Height, Weight, BMI Height: 5'5.00" Weight: 227lbs. 0.0oz. 102.207790aj; 37.00 BMI Method:Stated General Appearance: No Apparent Distress, WD/WN HEENT: PERRL/EOMI, TMs Normal Neck: Full Range of Motion, Non Tender, Supple Respiratory: Chest Non Tender, Lungs Clear, Normal Breath Sounds, No Accessory Muscle Use, No Respiratory Distress Cardiovascular: Regular Rate, Rhythm, No Murmur, Other (3+ pitting edema b/l) Gastrointestinal: Normal Bowel Sounds, Non Tender, Soft Extremity: Normal Capillary Refill, Non Tender, No Calf Tenderness, Pedal Edema (3+ pitting b/l) Neurologic/Psychiatric: Alert, Oriented x3, No Motor/Sensory Deficits, Normal Mood/Affect Skin: Normal Color, Warm/Dry Progress/Results/Core Measures Results/Orders Lab Results Laboratory Tests Test 11/18/19 13:09 Range/Units White Blood Count 4.9 4.3-11.0 10^3/uL Red Blood Count 3.59 L 4.35-5.85 10^6/uL Hemoglobin 10.3 L 13.3-17.7 G/DL Hematocrit 33 L 40-54 % Mean Corpuscular Volume 92 80-99 FL Mean Corpuscular Hemoglobin 29 25-34 PG Mean Corpuscular Hemoglobin Concent 31 L 32-36 G/DL Red Cell Distribution Width 13.4 10.0-14.5 % Platelet Count 188 130-400 10^3/uL Mean Platelet Volume 9.9 7.4-10.4 FL Neutrophils (%) (Auto) 67 42-75 % Lymphocytes (%) (Auto) 19 12-44 % Monocytes (%) (Auto) 13 H 0-12 % Eosinophils (%) (Auto) 0 0-10 % Basophils (%) (Auto) 0 0-10 % Neutrophils # (Auto) 3.2 1.8-7.8 X 10^3 Lymphocytes # (Auto) 0.9 L 1.0-4.0 X 10^3 Monocytes # (Auto) 0.6 0.0-1.0 X 10^3 Eosinophils # (Auto) 0.0 0.0-0.3 10^3/uL Basophils # (Auto) 0.0 0.0-0.1 10^3/uL Prothrombin Time 17.1 H 12.2-14.7 SEC INR Comment 1.3 0.8-1.4 Activated Partial Thromboplast Time 29 24-35 SEC Sodium Level 142 135-145 MMOL/L Potassium Level 3.9 3.6-5.0 MMOL/L Chloride Level 102 98-107 MMOL/L Carbon Dioxide Level 29 21-32 MMOL/L Anion Gap 11 5-14 MMOL/L Blood Urea Nitrogen 37 H 7-18 MG/DL Creatinine 1.60 H 0.60-1.30 MG/DL Estimat Glomerular Filtration Rate 42 BUN/Creatinine Ratio 23 Glucose Level 108 H 70-105 MG/DL Calcium Level 9.8 8.5-10.1 MG/DL Corrected Calcium 9.6 8.5-10.1 MG/DL Total Bilirubin 0.4 0.1-1.0 MG/DL Aspartate Amino Transf (AST/SGOT) 16 5-34 U/L Alanine Aminotransferase (ALT/SGPT) 12 0-55 U/L Alkaline Phosphatase 70 40-136 U/L Troponin I < 0.30 <0.30 NG/ML Pro-B-Type Natriuretic Peptide 2857.0 H <75.0 PG/ML Total Protein 7.0 6.4-8.2 GM/DL Albumin 4.2 3.2-4.5 GM/DL My Orders Orders - JAI GARCIA DO Cbc With Automated Diff (11/18/19 12:50) Chest 1 View Ap/Pa Only (11/18/19 12:50) Ekg Tracing (11/18/19 12:50) Comprehensive Metabolic Panel (11/18/19 12:50) Protime With Inr (11/18/19 12:50) Partial Thromboplastin Time (11/18/19 12:50) O2 (11/18/19 12:50) Monitor-Rhythm Ecg Trace Only (11/18/19 12:50) Ed Iv/Invasive Line Start (11/18/19 12:50) Troponin I Fs (11/18/19 12:50) Probnp Fs (11/18/19 12:50) Furosemide Injection (Lasix Injection) (11/18/19 14:30) Vital Signs/I&O 11/18/19 12:37 Temp 37.2 Pulse 75 Resp 22 B/P (MAP) 148/75 (99) Pulse Ox 95 O2 Delivery Room Air Blood Pressure Mean: 99 Progress Progress Note : Progress Note @1435 - patient updated on lab and imaging results. Offer to admit the patient however he declines. He states he is now feeling better. He'll be given Lasix prior to discharge. Advised the patient to prop up his legs above the level of his heart, where his compression stockings, continues to decrease the salt in his diet, and to follow-up with his primary care doctor in the next 1-2 days. He expresses verbal understanding and agreement with the plan and is stable for discharge at this time. Comment @1315 - atrial fibrillation, rate of 73, no acute ischemic findings noted, no STEMI, reviewed and interpreted by myself Departure Impression Primary Impression: CHF exacerbation Disposition: 01 HOME, SELF-CARE Condition: Stable Departure-Patient Inst. Decision time for Depature: 14:42 Referrals: SELF,VALORIE SMITH (PCP/Family) Primary Care Physician Patient Instructions: Heart Failure, Adult (DC) Add. Discharge Instructions: Follow-up with your doctor in the next 1-2 days. Return to the emergency Department immediately for new or worsening symptoms. Continue to take your home medications. Continue to limit your salt intake and to keep your legs elevated above the level of her heart at home. JAI GARCIA DO Nov 18, 2019 13:03
--- NOTE | 2019-11-18 13:17 | Diagnostic Imaging Report ---
INDICATION: Shortness of breath. TIME OF EXAMINATION: 1:00 PM. COMPARISON: Correlation is made with the prior chest from 10/12/2019. FINDINGS: The heart is enlarged. There are congestive changes noted. There is central vascularity prominence. Interstitial markings are also prominent, consistent with some mild interstitial edema. No significant effusion is seen. There is no pneumothorax. There are postop changes in the lower cervical spine. IMPRESSION: Findings are consistent with mild congestive failure, increased since the prior examination of 1 month earlier. Dictated by: Dictated on workstation # [id number]
[2019-11-18 13:20] LABS: BASOPHILS % (AUTO) 0 % (0-10); EOSINOPHILS % (AUTO) 0 % (0-10); HEMATOCRIT 33 % (40-54); HEMOGLOBIN 10.3 G/DL (13.3-17.7); LYMPHOCYTES # (AUTO) 0.9 X 10^3 (1.0-4.0); LYMPHOCYTES % (AUTO) 19 % (12-44); MEAN CORPUSCULAR HEMOGLOBIN 29 PG (25-34); MEAN CORPUSCULAR HGB CONC 31 G/DL (32-36); MEAN CORPUSCULAR VOLUME 92 FL (80-99); MEAN PLATELET VOLUME 9.9 FL (7.4-10.4); MONOCYTES # (AUTO) 0.6 X 10^3 (0.0-1.0); MONOCYTES % (AUTO) 13 % (0-12); NEUTROPHILS # (AUTO) 3.2 X 10^3 (1.8-7.8); NEUTROPHILS % (AUTO) 67 % (42-75); PLATELET COUNT 188 10^3/uL (130-400); RED CELL DISTRIBUTION WIDTH 13.4 % (10.0-14.5); WHITE BLOOD COUNT 4.9 10^3/uL (4.3-11.0)
[2019-11-18 13:48] LABS: ALBUMIN 4.2 GM/DL (3.2-4.5); BILIRUBIN,TOTAL 0.4 MG/DL (0.1-1.0); CALCIUM 9.8 MG/DL (8.5-10.1); CREATININE SERUM 1.6 MG/DL (0.60-1.30); POTASSIUM 3.9 MMOL/L (3.6-5.0)
[2019-11-18 13:50] LABS: INR 1.3 (0.8-1.4); PROTHROMBIN TIME PATIENT 17.1 SEC (12.2-14.7)
--- OUTSIDE RECORDS SUMMARY | 2019-11-18 13:52 | XMS REPORT | CCD ---
Author Author DoD Organization DoD Address Unknown Phone Unavailable Care Team Providers Care Process Development Technician Name Role Phone Unavailable Unavailable Allergies and Adverse Reactions (C-CDA) Substance Reaction Effective Time Source No Known Allergies [id number] [place], [place] History Of Immunizations (C-CDA) Vaccine Series # Dosage Date Administered By Drug Counter Caser Lot Number CVX Code Refusal Reason This section is an empty immunization se ction. There are multiple immunizations systems within the [facility] ([facility]). All immunizations and exemptions/refusals for this patient that are stored in the [facility]'s Clinical Data Repository (CDR) are included here, but this list is empty. Medications (C-CDA) Product Name RouteOfAdministra tion Timing Qty Order Date Order Qty Status Start Date Expiration Date Last Dispensed Date Discontinued Date Source Dosage TRAMADOL HCL (TRAMADOL HCL), 50 MG, TABL ET, ORAL, [facility], 1000 ea. BOTTLE [id number] 56 Active [id number] [facility] [address] Formulary Units TRAMADOL HCL (TRAMADOL HCL), 50MG, TABLET, ORAL, [employer], 500 ea. BOTTLE [id number] 10 Active [id number] [facility] [address] Formulary Units POTASSIUM CHLORIDE (potassium chloride), 10 MEQ, CAPSULE ER, ORAL, GLENMARK [employer]ARMA, 500 ea. BOTTLE [id number] 360 Active [id number] Pharmacy Data Transaction Se ice [address] Formulary Units POTASSIUM CHLORIDE (POTASSIUM CHLORIDE), 10 MEQ, CAPSULE ER, ORAL, AMNEAL PHARMACE, 1000 ea. BOTTLE [id number] 60 Acti ve [id number] Pharmacy Data Transaction Se ice [address] Formulary Units SPIRONOLACTONE (SPIRONOLACTONE), 25 MG, TABLET, ORAL, [employer] [facility], 100 ea. BOTTLE [id number] 90 Active [id number] [facility] ty [address] Formulary Units LOSARTAN POTASSIUM (LOSARTAN POTASSIUM), 25 MG, TABLET, ORAL, A[employer]OB[employer] [facility]ARM, 90 ea. BOTTLE [id number] 90 Active [id number] [facility] Data [facility] Fac[facility] ty [address] [place] [address] Formulary Units METOPROLOL SUCCINATE (METOPROLOL SUCCINA TE), 25MG, TAB.SR 24H, ORAL, [facility], 1000 ea. BOTTLE [id number] 90 Active [id number] Pharmacy Data Transaction Serv[facility] e Facility [address] [place] [address] Formulary Units FUROSEMIDE (furosemide), 40 MG, TABLET, ORAL, [employer], 1000 ea. BOTTLE [id number] 90 Active [id number] [facility] Data Transaction [facility] Facility [address] [place] [address] Formulary Units METOPROLOL SUCCINATE (METOPROLOL SUCCINA TE), 25MG, TAB.SR 24H, ORAL, [facility], 1000 ea. BOTTLE [id number] 90 Active [id number] [facility] [address] [place] [address] Formulary Units LOSARTAN POTASSIUM (LOSARTAN POTASSIUM), 25 MG, TABLET, ORAL, [employer] [facility], 90 ea. BOTTLE [id number] 90 Active [id number] [facility] Data Transaction [facility] ty [address] [place] [address] Formulary Units ELIQUIS (APIXABAN), 5 MG, TABLET, ORAL, [facility], 60 ea. BOTTLE [id number] 60 Active [id number] [facility] Data Transaction [facility] Facility [address] [place] [address] Formulary Units METOLAZONE (metolazone), 2.5 MG, TABLET, ORAL, [employer], 100 ea. BOTTLE [id number] 30 Active [id number] Pharmacy Data Transaction [facility] Facility [address] [place] [address] Formulary Units CLOPIDOGREL (CLOPIDOGREL BISULFATE), 75 MG, TABLET, ORAL, [employer] [facility], 500 ea. BOTTLE [id number] 90 Active [id number] [facility] Data Transaction Service Fac[facility] ty [address] [place] [address] Formulary Units POTASSIUM CHLORIDE (potassium chloride), 10 MEQ, CAPSULE ER, ORAL, [employer] [facility]ARMA, 500 ea. BOTTLE [id number] 60 Active [id number] Pharmacy Data Transaction Se [facility] Facility [address] [place] [address] Formulary Units LOSARTAN POTASSIUM (LOSARTAN POTASSIUM), 25 MG, TABLET, ORAL, [employer] [facility], 90 ea. BOTTLE [id number] 30 Active [id number] [facility] Data Transaction Service Facili ty [address] [place] [address] Formulary Units METOPROLOL SUCCINATE (METOPROLOL SUCCINA TE), 25MG, TAB.SR 24H, ORAL, [facility], 1000 ea. BOTTLE [id number] 30 Active [id number] Pharmacy Data Transaction Servic e [facility] [address] Formulary Units This section includes all outpatient medications ordered within the last 15 months. Problem List (C-CDA) Name Status Onset Date Chronicity Code Source This section is an empty problems section. Procedures (C-CDA) Date/Time Procedure Type Provider Procedure Comment This section is an empty procedures section. Diagnostic tests and laboratory results (C-CDA) Collection Date/Time Order/Maguire el Test Result Ref Range Interpretation Source Order Comment Result Comment Result Interpretation Comment Specimen This section is an empty lab results sec tion. This section includes all laboratory results (except microbiology and pathology) for the past 15 months up to a maximum of 50 results panels. Vitals (C-CDA) Collection Date/Time Test Result Site Method Source This section is an empty vitals section This section is an empty vitals section. This section includes information documenting the patient's vital signs for the past 15 months up to a maximum of 50 sets. Height and weight values may have been measured or stated by the patient. History of encounters (C-CDA) Date/Time Encounter Type Reason for Visit Provider Disposition Source This section is an empty appointments/ad missions. This section is an empty appointments/admissions. This section includes appointments/admissions for the past 280 months. Insurance providers (C-CDA) Plan Type Plan Name Group No Source Relation to Subscriber This section is an empty insurance secti on. This section contains current third-democrat (non-) insurance information as known by the [employer] of [employer]. This information is empty. Social History (C-CDA) Tobacco Table Date/Time Provider Tobacco Use What type of tobacco product? Would you like to quit? Amount of tobacco used per day/duration? This section is an empty social history section. No Information Plan of Care (C-CDA) This section is an empty plan of care section. No Information Instructions (C-CDA) This section is an empty Instructions section. No Information Functional Status (C-CDA) This section is an empty functional status section. No Information
--- OUTSIDE RECORDS SUMMARY | 2019-11-18 13:53 | XMS REPORT | Continuity of Care Document ---
Author Organization Unknown Address Unknown Phone Unavailable Allergies Active Description Code Type Severity Reaction Onset Reported/Identified Relationship to Patient Clinical Status Yes No Known Drug Allergies [id number] Drug Allergy Unknown N/A 01/31/2019 Medications There is no data. 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, CERVI 08/03/2015 ALLEN DAVIS MD Ot M48.0 2 SPINAL STENOSIS, CERVICAL REGION 08/03/2015 ALLEN DAVIS MD Ot M54.1 2 RADICULOPATHY, CERVICAL REGION 08/17/2015 ALLEN DAVIS MD Ot M48.0 2 08/17/2015 ALLEN DAVIS MD Ot Z01.8 12 08/17/2015 ALLEN DAVIS MD Ot Z11.2 02/07/2016 ALLEN DAVIS MD Ot Z48.8 9 ENCOUNTER FOR OTHER SPECIFIED SURGICAL A 02/10/2016 ALLEN DAVIS MD Ot Z48.8 9 ENCOUNTER FOR OTHER SPECIFIED SURGICAL A 02/10/2016 ALLEN DAVIS MD Ot Z98.1 ARTHRODESIS STATUS 02/10/2016 ALLEN DAVIS MD Ot Z48.8 9 ENCOUNTER FOR OTHER SPECIFIED SURGICAL A 02/10/2016 ALLEN DAVIS MD Ot Z98.1 ARTHRODESIS STATUS 03/01/2016 ALLEN DAVIS MD Ot Z48.8 9 ENCOUNTER FOR OTHER SPECIFIED SURGICAL A 03/01/2016 ALLEN DAVIS MD Ot Z98.1 ARTHRODESIS STATUS 03/31/2016 ALLEN DAVIS MD Ot Z48.8 9 ENCOUNTER FOR OTHER SPECIFIED SURGICAL A 03/31/2016 ALLEN DAVIS MD Ot Z98.1 ARTHRODESIS STATUS 12/31/2018 ALLEN DAVIS MD Ot M48.0 2 SPINAL STENOSIS, CERVICAL REGION 12/31/2018 ALLEN DAVIS MD Ot Z01.8 12 ENCOUNTER FOR PREPROCEDURAL LABORATORY E 12/31/2018 ALLEN DAVIS MD Ot Z11.2 ENCOUNTER FOR SCREENING FOR OTHER BACTER 12/31/2018 ALLEN DAVIS MD Ot Z48.8 9 ENCOUNTER FOR OTHER SPECIFIED SURGICAL A 12/31/2018 ALLEN DAVIS MD Ot Z98.1 ARTHRODESIS STATUS 01/03/2019 ALLEN DAVIS MD Ot M48.0 2 SPINAL STENOSIS, CERVICAL REGION 01/03/2019 ALLEN DAVIS MD Ot Z01.8 12 ENCOUNTER FOR PREPROCEDURAL LABORATORY E 01/03/2019 ALLEN DAVIS MD Ot Z11.2 ENCOUNTER FOR SCREENING FOR OTHER BACTER 01/03/2019 ALLEN DAVIS MD Ot Z48.8 9 ENCOUNTER FOR OTHER SPECIFIED SURGICAL A 01/03/2019 ALLEN DAVIS MD Ot Z98.1 ARTHRODESIS STATUS 01/03/2019 ALLEN DAVIS MD Ot M48.0 2 SPINAL STENOSIS, CERVICAL REGION 01/03/2019 ALLEN DAVIS MD Ot Z01.8 12 ENCOUNTER FOR PREPROCEDURAL LABORATORY E 01/03/2019 ALLEN DAVIS MD Ot Z11.2 ENCOUNTER FOR SCREENING FOR OTHER BACTER 01/03/2019 ALLEN DAVIS MD Ot Z48.8 9 ENCOUNTER FOR OTHER SPECIFIED SURGICAL A 01/03/2019 ALLEN DAVIS MD Ot Z98.1 ARTHRODESIS STATUS 01/03/2019 ALLEN DAVIS MD, Ot M48.0 2 SPINAL STENOSIS, CERVICAL REGION 01/03/2019 ALLEN DAVIS MD, Ot Z01.8 12 ENCOUNTER FOR PREPROCEDURAL LABORATORY E 01/03/2019 ALLEN DAVIS MD Ot Z11.2 ENCOUNTER FOR SCREENING FOR OTHER BACTER 01/03/2019 ALLEN DAVIS MD Ot Z48.8 9 ENCOUNTER FOR OTHER SPECIFIED SURGICAL A 01/03/2019 ALLEN DAVIS MD Ot Z98.1 ARTHRODESIS STATUS 01/07/2019 ALLEN DAVIS MD, Ot M48.0 2 SPINAL STENOSIS, CERVICAL REGION 01/07/2019 ALLEN DAVIS MD, Ot Z01.8 12 ENCOUNTER FOR PREPROCEDURAL LABORATORY E 01/07/2019 ALLEN DAVIS MD, Ot Z11.2 ENCOUNTER FOR SCREENING FOR OTHER BACTER 01/07/2019 ALLEN DAVIS MD, Ot Z48.8 9 ENCOUNTER FOR OTHER SPECIFIED SURGICAL A 01/07/2019 ALLEN DAVIS MD Ot Z98.1 ARTHRODESIS STATUS 01/10/2019 HERMELINDA WHITLEY MD Ot E78.0 0 PURE HYPERCHOLESTEROLEMIA, UNSPECIFIED 01/10/2019 HERMELINDA WHITLEY MD Ot H91.9 3 UNSPECIFIED HEARING LOSS, BILATERAL 01/10/2019 HERMELINDA WHITLEY MD Ot I11.0 HYPERTENSIVE HEART DISEASE WITH HEART FA 01/10/2019 HERMELINDA WHITLEY MD, Ot I21.A 1 MYOCARDIAL INFARCTION TYPE 2 01/10/2019 HERMELINDA WHITLEY MD Ot I35.0 NONRHEUMATIC AORTIC (VALVE) STENOSIS 01/10/2019 HERMELINDA WHITLEY MD Ot I50.4 3 ACUTE ON CHRONIC COMBINED SYSTOLIC AND D 01/10/2019 HERMELINDA WHITLEY MD Ot I73.9 PERIPHERAL VASCULAR DISEASE, UNSPECIFIED 01/10/2019 HERMELINDA WHITLEY MD Ot I87.8 OTHER SPECIFIED DISORDERS OF VEINS 01/10/2019 HERMELINDA WHITLEY MD Ot J96.0 1 ACUTE RESPIRATORY FAILURE WITH HYPOXIA 01/10/2019 HERMELINDA WHITLEY MD Ot K21.9 GASTRO-ESOPHAGEAL REFLUX DISEASE WITHOUT 01/10/2019 HERMELINDA WHITLEY MD Ot M15.9 POLYOSTEOARTHRITIS, UNSPECIFIED 01/10/2019 GAULT MD, HERMELINDA R Ot M54.9 DORSALGIA, UNSPECIFIED 01/10/2019 HERMELINDA WHITLEY MD Ot N40.0 BENIGN PROSTATIC HYPERPLASIA WITHOUT LOW 01/10/2019 HERMELINDA WHITLEY MD Ot Z87.8 91 PERSONAL HISTORY OF NICOTINE DEPENDENCE 01/10/2019 HERMELINDA WHITLEY MD Ot Z90.2 ACQUIRED ABSENCE OF LUNG [PART OF] 01/10/2019 HERMELINDA WHITLEY MD Ot Z97.4 PRESENCE OF EXTERNAL HEARING-AID 01/10/2019 HERMELINDA WHITLEY MD Ot E78.0 0 PURE HYPERCHOLESTEROLEMIA, UNSPECIFIED 01/10/2019 HERMELINDA WHITLEY MD Ot H91.9 3 UNSPECIFIED HEARING LOSS, BILATERAL 01/10/2019 HERMELINDA WHITLEY MD Ot I11.0 HYPERTENSIVE HEART DISEASE WITH HEART FA 01/10/2019 HERMELINDA WHITLEY MD Ot I21.A 1 MYOCARDIAL INFARCTION TYPE 2 01/10/2019 HERMELINDA WHITLEY MD Ot I35.0 NONRHEUMATIC AORTIC (VALVE) STENOSIS 01/10/2019 HERMELINDA WHITLEY MD Ot I50.4 3 ACUTE ON CHRONIC COMBINED SYSTOLIC AND D 01/10/2019 HERMELINDA WHITLEY MD Ot I73.9 PERIPHERAL VASCULAR DISEASE, UNSPECIFIED 01/10/2019 HERMELINDA WHITLEY MD Ot I87.8 OTHER SPECIFIED DISORDERS OF VEINS 01/10/2019 HERMELINDA WHITLEY MD Ot J96.0 1 ACUTE RESPIRATORY FAILURE WITH HYPOXIA 01/10/2019 HERMELINDA WHITLEY MD Ot K21.9 GASTRO-ESOPHAGEAL REFLUX DISEASE WITHOUT 01/10/2019 HERMELINDA WHITLEY MD Ot M15.9 POLYOSTEOARTHRITIS, UNSPECIFIED 01/10/2019 HERMELINDA WHITLEY MD Ot M54.9 DORSALGIA, UNSPECIFIED 01/10/2019 HERMELINDA WHITLEY MD Ot N40.0 BENIGN PROSTATIC HYPERPLASIA WITHOUT LOW 01/10/2019 HERMELINDA WHITLEY MD Ot Z87.8 91 PERSONAL HISTORY OF NICOTINE DEPENDENCE 01/10/2019 HERMELINDA WHITLEY MD Ot Z90.2 ACQUIRED ABSENCE OF LUNG [PART OF] 01/10/2019 HERMELINDA WHITLEY MD Ot Z97.4 PRESENCE OF EXTERNAL HEARING-AID 01/21/2019 AMI SMITH FACC, RAYMUNDO CARREONP CCDS Ot E66.9 OBESITY, UNSPECIFIED 01/21/2019 AMI SMITH FACC, ALI FACP CCDS Ot E78.5 HYPERLIPIDEMIA, UNSPECIFIED 01/21/2019 AMI SMITH FACC, ALI FACP CCDS Ot I10 ESSENTIAL (PRIMARY) HYPERTENSION 01/21/2019 AMI SMITH FACC, ALI FACP CCDS Ot I25.10 ATHSCL HEART DISEASE OF [place] CORONARY 01/21/2019 AMI SMITH FACC, ALI FACP CCDS Ot M79.89 OTHER SPECIFIED SOFT TISSUE DISORDERS 01/21/2019 AMI SMITH FACC, ALI FACP CCDS Ot 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 01/21/2019 AMI SMITH FACC, ALI FACP CCDS Ot Z68.35 BODY MASS INDEX (BMI) 35.0-35.9, ADULT 01/21/2019 AMI SMITH FACC, ALI FACP CCDS Ot Z79.82 HALF-WAY (CURRENT) USE OF ASPIRIN 01/21/2019 AMI SMITH FACC, ALI FACP CCDS Ot Z79.899 OTHER HALF-WAY (CURRENT) DRUG THERAPY 01/21/2019 AMI SMITH FACC, ALI FACP CCDS Ot Z87.891 PERSONAL HISTORY OF NICOTINE DEPENDENCE 01/23/2019 AMI SMITH FACC, ALI FACP CCDS Ot E66.9 OBESITY, UNSPECIFIED 01/23/2019 AMI SMITH FACC, ALI FACP CCDS Ot E78.5 HYPERLIPIDEMIA, UNSPECIFIED 01/23/2019 AMI SMITH FACC, ALI FACP CCDS Ot I10 ESSENTIAL (PRIMARY) HYPERTENSION 01/23/2019 AMI SMITH FACC, RAYMUNDO FACP CCDS Ot I25.10 ATHSCL HEART DISEASE OF [place] CORONARY 01/23/2019 AMI SMITH FACC, ALI FACP CCDS Ot M79.89 OTHER SPECIFIED SOFT TISSUE DISORDERS 01/23/2019 AMI SMITH FACC, ALI FACP CCDS Ot 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 01/23/2019 AMI SMITH FACC, ALI FACP CCDS Ot Z68.35 BODY MASS INDEX (BMI) 35.0-35.9, ADULT 01/23/2019 AMI SMITH FACC, ALI FACP CCDS Ot Z79.82 HALF-WAY (CURRENT) USE OF ASPIRIN 01/23/2019 AMI SMITH FACC, ALI FACP CCDS Ot Z79.899 OTHER REGULATORY AFFAIRS CONSULTANT (CURRENT) DRUG THERAPY 01/23/2019 [facility], ALI FACP CCDS Ot Z87.891 PERSONAL HISTORY OF NICOTINE DEPENDENCE 01/27/2019 AMI CARREON, ALI FACP CCDS Ot E66.9 OBESITY, UNSPECIFIED 01/27/2019 AMI SMITH FACC, ALI FACP CCDS Ot E78.5 HYPERLIPIDEMIA, UNSPECIFIED 01/27/2019 [facility], ALI FACP CCDS Ot I10 ESSENTIAL (PRIMARY) HYPERTENSION 01/27/2019 [facility], ALI FACP CCDS Ot I25.10 ATHSCL HEART DISEASE OF [place] CORONARY 01/27/2019 [facility], ALI FACP CCDS Ot M79.89 OTHER SPECIFIED SOFT TISSUE DISORDERS 01/27/2019 AMI SMITH FACC, ALI FACP CCDS Ot 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 01/27/2019 AMI SMITH FACC, ALI FACP CCDS Ot Z68.35 BODY MASS INDEX (BMI) 35.0-35.9, ADULT 01/27/2019 AMI CARREON, ALI FACP CCDS Ot Z79.82 REGULATORY AFFAIRS CONSULTANT (CURRENT) USE OF ASPIRIN 01/27/2019 AMI CARREON, ALI FACP CCDS Ot Z79.899 OTHER REGULATORY AFFAIRS CONSULTANT (CURRENT) DRUG THERAPY 01/27/2019 [facility], ALI FACP CCDS Ot Z87.891 PERSONAL HISTORY OF NICOTINE DEPENDENCE 02/01/2019 ALLEN DAVIS MD Ot M48.0 2 SPINAL STENOSIS, CERVICAL REGION 02/01/2019 ALLEN DAVIS MD Ot Z01.8 12 ENCOUNTER FOR PREPROCEDURAL LABORATORY E 02/01/2019 ALLEN DAVIS MD Ot Z11.2 ENCOUNTER FOR SCREENING FOR OTHER BACTER 02/01/2019 ALLEN DAVIS MD Ot Z48.8 9 ENCOUNTER FOR OTHER SPECIFIED SURGICAL A 02/01/2019 ALLEN DAVIS MD Ot Z98.1 ARTHRODESIS STATUS 02/04/2019 HERMELINDA WHITLEY MD Ot D72.8 21 MONOCYTOSIS (SYMPTOMATIC) 02/04/2019 HERMELINDA WHITLEY MD, Ot E78.0 0 PURE HYPERCHOLESTEROLEMIA, UNSPECIFIED 02/04/2019 HERMELINDA WHITLEY MD, Ot E78.5 HYPERLIPIDEMIA, UNSPECIFIED 02/04/2019 GAULT MD, HERMELINDA R Ot E83.5 2 HYPERCALCEMIA 02/04/2019 HERMELINDA WHITLEY MD Ot E87.6 HYPOKALEMIA 02/04/2019 HERMELINDA WHITLEY MD Ot F41.9 ANXIETY DISORDER, UNSPECIFIED 02/04/2019 HERMELINDA WHITLEY MD Ot G47.0 0 INSOMNIA, UNSPECIFIED 02/04/2019 HERMELINDA WHITLEY MD Ot G47.3 0 SLEEP APNEA, UNSPECIFIED 02/04/2019 HERMELINDA WHITLEY MD Ot I11.0 HYPERTENSIVE HEART DISEASE WITH HEART FA 02/04/2019 HERMELINDA WHITLEY MD Ot I21.A 1 MYOCARDIAL INFARCTION TYPE 2 02/04/2019 HERMELINDA WHITLEY MD Ot I25.1 0 ATHSCL HEART DISEASE OF [place] CORONARY 02/04/2019 HERMELINDA WHITLEY MD Ot I44.1 ATRIOVENTRICULAR BLOCK, SECOND DEGREE 02/04/2019 HERMELINDA WHITLEY MD Ot 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 02/04/2019 HERMELINDA WHITLEY MD Ot I48.0 PAROXYSMAL ATRIAL FIBRILLATION 02/04/2019 HERMELINDA WHITLEY MD Ot I50.4 3 ACUTE ON CHRONIC COMBINED SYSTOLIC AND D 02/04/2019 HERMELINDA WHITLEY MD Ot I73.9 PERIPHERAL VASCULAR DISEASE, UNSPECIFIED 02/04/2019 HERMELINDA WHITLEY MD Ot K21.9 GASTRO-ESOPHAGEAL REFLUX DISEASE WITHOUT 02/04/2019 HERMELINDA WHITLEY MD Ot L40.9 PSORIASIS, UNSPECIFIED 02/04/2019 HERMELINDA WHITLEY MD Ot N28.9 DISORDER OF KIDNEY AND URETER, UNSPECIFI 02/04/2019 HERMELINDA WHITLEY MD Ot Z85.8 28 PERSONAL HISTORY OF OTHER MALIGNANT NEOP 02/04/2019 HERMELINDA WHITLEY MD Ot Z87.8 91 PERSONAL HISTORY OF NICOTINE DEPENDENCE 04/02/2019 ALLEN DAVSI MD Ot M48.0 2 SPINAL STENOSIS, CERVICAL REGION 04/02/2019 ALLEN DAVIS MD Ot Z01.8 12 ENCOUNTER FOR PREPROCEDURAL LABORATORY E 04/02/2019 ALLEN DAVIS MD Ot Z11.2 ENCOUNTER FOR SCREENING FOR OTHER BACTER 04/02/2019 ALLEN DAVIS MD Ot Z48.8 9 ENCOUNTER FOR OTHER SPECIFIED SURGICAL A 04/02/2019 ALLEN DAVIS MD Ot Z98.1 ARTHRODESIS STATUS 10/12/2019 ALLEN DAVIS MD Ot M48.0 2 SPINAL STENOSIS, CERVICAL REGION 10/12/2019 ALLEN DAVIS MD Ot Z01.8 12 ENCOUNTER FOR PREPROCEDURAL LABORATORY E 10/12/2019 ALLEN DAVIS MD Ot Z11.2 ENCOUNTER FOR SCREENING FOR OTHER BACTER 10/12/2019 ALLEN DAVIS MD Ot Z48.8 9 ENCOUNTER FOR OTHER SPECIFIED SURGICAL A 10/12/2019 ALLEN DAVIS MD Ot Z98.1 ARTHRODESIS STATUS 10/12/2019 MAHAN ALLEN GONZALEZ Ot E78.00 PURE HYPERCHOLESTEROLEMIA, UNSPECIFIED 10/12/2019 MAHANALLEN ALMONTE DO Ot F41 .9 ANXIETY DISORDER, UNSPECIFIED 10/12/2019 MAHAN ALLEN GONZALEZ Ot G62 .9 POLYNEUROPATHY, UNSPECIFIED 10/12/2019 MAHAN ALLEN GONZALEZ Ot I10 ESSENTIAL (PRIMARY) HYPERTENSION 10/12/2019 MAHAN ALLEN GONZALEZ Ot K21 .9 GASTRO-ESOPHAGEAL REFLUX DISEASE WITHOUT [facility] PAIN, UNSPECIFIED 10/12/2019 [facility] Z79.01 HALF-WAY (CURRENT) USE OF ANTICOAGULANT 10/12/2019 MAHANALLEN ALMONTE DO Ot Z79.02 HALF-WAY (CURRENT) USE OF ANTITHROMBOTI 10/12/2019 MAHAN ALLEN GONZALEZ Ot Z79.82 HALF-WAY (CURRENT) USE OF ASPIRIN 10/12/2019 MAHAN ALLEN GONZALEZ Ot Z82.49 FAMILY HX OF ISCHE[place] HEART DIS AND OTH DI 10/12/2019 MAHANALLEN ALMONTE DO Ot Z85.828 PERSONAL HISTORY OF OTHER MALIGNANT NEOP 10/12/2019 MAHAN ALLEN GONZALEZ Ot Z87.891 PERSONAL HISTORY OF NICOTINE DEPENDENCE 10/19/2019 ALLEN MAHAN DO Ot E78.00 PURE HYPERCHOLESTEROLEMIA, UNSPECIFIED 10/19/2019 MAHAN ALLEN GONZALEZ Ot F41 .9 ANXIETY DISORDER, UNSPECIFIED 10/19/2019 MAHAN ALLEN GONZALEZ Ot G62 .9 POLYNEUROPATHY, UNSPECIFIED 10/19/2019 MAHANALLEN ALMONTE DO Ot I10 ESSENTIAL (PRIMARY) HYPERTENSION 10/19/2019 KALLI ALLEN GONZALEZ Ot K21 .9 GASTRO-ESOPHAGEAL REFLUX DISEASE WITHOUT 10/19/2019 KALLI ALLEN GONZALEZ Ot R52 PAIN, UNSPECIFIED 10/19/2019 KALLI ALLEN GONZALEZ Ot Z79.01 HALF-WAY (CURRENT) USE OF ANTICOAGULANT 10/19/2019 KALLI ALLEN GONZALEZ Ot Z79.02 REGULATORY AFFAIRS CONSULTANT (CURRENT) USE OF ANTITHROMBOTI 10/19/2019 KALLI ALLEN GONZALEZ Ot Z79.82 REGULATORY AFFAIRS CONSULTANT (CURRENT) USE OF ASPIRIN 10/19/2019 KALLI GNOZALEZALLEN Ot Z82.49 FAMILY HX OF ISCHEM HEART DIS AND OTH DI 10/19/2019 KALLI ALLEN GONZALEZ Ot Z85.828 PERSONAL HISTORY OF OTHER MALIGNANT NEOP 10/19/2019 KALLI GONZALEZALLEN Ot Z87.891 PERSONAL HISTORY OF NICOTINE DEPENDENCE 10/20/2019 ALLEN DAVIS MD Ot M48.0 2 SPINAL STENOSIS, CERVICAL REGION 10/20/2019 ALLEN DAVIS MD Ot Z01.8 12 ENCOUNTER FOR PREPROCEDURAL LABORATORY E 10/20/2019 ALLEN DAVIS MD Ot Z11.2 ENCOUNTER FOR SCREENING FOR OTHER BACTER 10/20/2019 ALLEN DAVIS MD Ot Z48.8 9 ENCOUNTER FOR OTHER SPECIFIED SURGICAL A 10/20/2019 ALLEN DAVIS MD Ot Z98.1 ARTHRODESIS STATUS 10/28/2019 ALLEN DAVIS MD Ot M48.0 2 SPINAL STENOSIS, CERVICAL REGION 10/28/2019 ALLEN DAVIS MD Ot Z01.8 12 ENCOUNTER FOR PREPROCEDURAL LABORATORY E 10/28/2019 ALLEN DAVIS MD Ot Z11.2 ENCOUNTER FOR SCREENING FOR OTHER BACTER 10/28/2019 ALLEN DAVIS MD Ot Z48.8 9 ENCOUNTER FOR OTHER SPECIFIED SURGICAL A 10/28/2019 ALLEN DAVIS MD Ot Z98.1 ARTHRODESIS STATUS 11/05/2019 ALLEN DAVIS MD Ot M48.0 2 SPINAL STENOSIS, CERVICAL REGION 11/05/2019 ALLEN DAVIS MD Ot Z01.8 12 ENCOUNTER FOR PREPROCEDURAL LABORATORY E 11/05/2019 ALLEN DAVIS MD Ot Z11.2 ENCOUNTER FOR SCREENING FOR OTHER BACTER 11/05/2019 SUSAN SMITH, ALLEN Hall Ot Z48.8 9 ENCOUNTER FOR OTHER SPECIFIED SURGICAL A 11/05/2019 SUSAN SMITH, ALLEN Hall Ot Z98.1 ARTHRODESIS STATUS Procedures Code Description Performed By Per formed On [id number] EX CISION OF CERVICAL VERTEBRAL DISC, OPE 08/02/2015 [id number] FU RICARDO 2-6 C JT W INTBD FUS DEV, ANT PRINCE 08/02/2015 [id number] RE STORATION OF CARDIAC RHYTHM, SINGLE 02/01/2019 [id number] IN SERT OF MONITOR DEV INTO CHEST SUBCU/F 02/03/2019 Results Test Result Range Complete blood count (CBC) with automate d white blood cell (WBC) differential - 01/07/19 20:15 Blood leukocytes automated count (number/volume) 6.1 10*3/uL 4.3-11.0 Blood erythrocytes automated count (number/volume) 3.98 10*6/uL 4.35-5.85 Venous blood hemoglobin measurement (mass/volume) 11.3 g/dL 13.3-17.7 Blood hematocrit (volume fraction) 36 % 40-54 Automated erythrocyte mean corpuscular volume 92 [ foz_us] 80-99 Automated erythrocyte mean corpuscular h emoglobin (mass per erythrocyte) 28 pg 25-34 Automated erythrocyte mean corpuscular h emoglobin concentration measurement (mass/volume) 31 g/dL 32-36 Automated erythrocyte distribution width ratio 13. 5 % 10.0- 14.5 Automated blood platelet count [...] 10*3 1.0-4.0 Blood monocytes automated count (number/volume) 0. 7 10*3 0.0-1.0 Automated eosinophil count 0.0 10*3/uL 0 .0-0.3 Automated blood basophil count (count/volume) 0.0 10*3/uL 0.0-0.1 Comprehensive metabolic panel - 01/07/19 20:15 Serum or plasma sodium measurement (moles/volume) 143 mmol/L 135-145 Serum or plasma potassium measurement (moles/volume) 4.4 mmol/L 3.6-5.0 Serum or plasma chloride measurement (moles/volume) 105 mmol/L 98-107 Carbon dioxide 20 mmol/L 21-32 Serum or plasma anion gap determination (moles/volume) 18 mmol/L 5-14 Serum or plasma urea nitrogen measurement (mass/volume ) 19 mg/dL 7-18 Serum or plasma creatinine measurement (mass/volume) 0.86 mg/dL 0.60-1.30 Serum or plasma urea nitrogen/creatinine mass ratio 22 NRG Serum or plasma creatinine measurement w ith calculation of estimated glomerular filtration rate > NRG Serum or plasma glucose measurement (mass/volume) 117 mg/dL 70-105 Serum or plasma calcium measurement (mass/volume) 9.5 mg/dL 8.5-10.1 Serum or plasma total bilirubin measurement (mass/volu me) 0.4 mg/dL 0.1-1.0 Serum or plasma alkaline phosphatase smith surement (enzymatic activity/volume) 79 U/L 40-136 Serum or plasma aspartate aminotransfera se measurement (enzymatic activity/volume) 17 U/L 5-34 Serum [...] pg/mL <75.0 Serum or plasma troponin i.cardiac measu rement (mass/volume) - 01/08/19 01:00 Serum or plasma troponin i.cardiac measurement (mass/v olume) 0.088 ng/mL <0.028 Complete blood count (CBC) with automate d white blood cell (WBC) differential - 01/09/19 05:50 Blood leukocytes automated count (number/volume) 6.2 10*3/uL 4.3-11.0 Blood erythrocytes automated count (number/volume) 4.08 10*6/uL 4.35-5.85 Venous blood hemoglobin measurement (mass/volume) 11.4 g/dL 13.3-17.7 Blood hematocrit (volume fraction) 37 % 40-54 Automated erythrocyte mean corpuscular volume 91 [ foz_us] 80-99 Automated erythrocyte mean corpuscular h emoglobin (mass per erythrocyte) 28 pg 25-34 Automated erythrocyte mean corpuscular h emoglobin concentration measurement (mass/volume) 31 g/dL 32-36 Automated erythrocyte distribution width ratio 13. 9 % 10.0- 14.5 Automated blood platelet count [...] 10*3 1.0-4.0 Blood monocytes automated count (number/volume) 1. 0 10*3 0.0-1.0 Automated eosinophil count 0.0 10*3/uL 0 .0-0.3 Automated blood basophil count (count/volume) 0.0 10*3/uL 0.0-0.1 Comprehensive metabolic panel - 01/09/19 05:50 Serum or plasma sodium measurement (moles/volume) 140 mmol/L 135-145 Serum or plasma potassium measurement (moles/volume) 4.1 mmol/L 3.6-5.0 Serum or plasma chloride measurement (moles/volume) 104 mmol/L 98-107 Carbon dioxide 25 mmol/L 21-32 Serum or plasma anion gap determination (moles/volume) 11 mmol/L 5-14 Serum or plasma urea nitrogen measurement (mass/volume ) 17 mg/dL 7-18 Serum or plasma creatinine measurement (mass/volume) 0.88 mg/dL 0.60-1.30 Serum or plasma urea nitrogen/creatinine mass ratio 19 NRG Serum or plasma creatinine measurement w ith calculation of estimated glomerular filtration rate > NRG Serum or plasma glucose measurement (mass/volume) 101 mg/dL 70-105 Serum or plasma calcium measurement (mass/volume) 9.7 mg/dL 8.5-10.1 Serum or plasma total bilirubin measurement (mass/volu me) 0.8 mg/dL 0.1-1.0 Serum or plasma alkaline phosphatase smith surement (enzymatic activity/volume) 68 U/L 40-136 Serum or plasma aspartate aminotransfera se measurement (enzymatic activity/volume) 15 U/L 5-34 Serum or plasma alanine aminotransferase measurement (enzymatic activity/volume) 14 U/L 0-55 Serum or plasma protein measurement (mass/volume) 6.4 g/dL 6.4-8.2 Serum or plasma albumin measurement (mass/volume) 4.0 g/dL 3.2-4.5 CALCIUM CORRECTED 9.7 mg/dL 8.5-10.1 Complete blood count (CBC) with automate d white blood cell (WBC) differential - 01/10/19 05:29 Blood leukocytes automated count (number/volume) 6.2 10*3/uL 4.3-11.0 Blood erythrocytes automated count (number/volume) 4.19 10*6/uL 4.35-5.85 Venous blood hemoglobin measurement (mass/volume) 11.9 g/dL 13.3-17.7 Blood hematocrit (volume fraction) 38 % 40-54 Automated erythrocyte mean corpuscular volume 90 [ foz_us] 80-99 Automated erythrocyte mean corpuscular h emoglobin (mass per erythrocyte) 28 pg 25-34 Automated erythrocyte mean corpuscular h emoglobin concentration measurement (mass/volume) 32 g/dL 32-36 Automated erythrocyte distribution width ratio 14. 2 % 10.0- 14.5 Automated blood platelet count [...] 10*3 1.0-4.0 Blood monocytes automated count (number/volume) 0. 9 10*3 0.0-1.0 Automated eosinophil count 0.0 10*3/uL 0 .0-0.3 Automated blood basophil count (count/volume) 0.0 10*3/uL 0.0-0.1 Comprehensive metabolic panel - 01/10/19 05:29 Serum or plasma sodium measurement (moles/volume) 140 mmol/L 135-145 Serum or plasma potassium measurement (moles/volume) 4.3 mmol/L 3.6-5.0 Serum or plasma chloride measurement (moles/volume) 103 mmol/L 98-107 Carbon dioxide 26 mmol/L 21-32 Serum or plasma anion gap determination (moles/volume) 11 mmol/L 5-14 Serum or plasma urea nitrogen measurement (mass/volume ) 20 mg/dL 7-18 Serum or plasma creatinine measurement (mass/volume) 0.89 mg/dL 0.60-1.30 Serum or plasma urea nitrogen/creatinine mass ratio 22 NRG Serum or plasma creatinine measurement w ith calculation of estimated glomerular filtration rate > NRG Serum or plasma glucose measurement (mass/volume) 97 mg/dL 70-105 Serum or plasma calcium measurement (mass/volume) 9.9 mg/dL 8.5-10.1 Serum or plasma total bilirubin measurement (mass/volu me) 0.7 mg/dL 0.1-1.0 Serum or plasma alkaline phosphatase smith surement (enzymatic activity/volume) 74 U/L 40-136 Serum or plasma aspartate aminotransfera se measurement (enzymatic activity/volume) 17 U/L 5-34 Serum or plasma alanine aminotransferase measurement (enzymatic activity/volume) 13 U/L 0-55 Serum or plasma protein measurement (mass/volume) 6.7 g/dL 6.4-8.2 Serum or plasma albumin measurement (mass/volume) 4.1 g/dL 3.2-4.5 CALCIUM CORRECTED 9.8 mg/dL 8.5-10.1 Automated blood complete blood count (he mogram) panel - 01/21/19 08:00 Blood leukocytes automated count (number/volume) 6.1 10*3/uL 4.3-11.0 Blood erythrocytes automated count (number/volume) 5.16 10*6/uL 4.35-5.85 Venous blood hemoglobin measurement (mass/volume) 14.5 g/dL 13.3-17.7 Blood hematocrit (volume fraction) 44 % 40-54 Automated erythrocyte mean corpuscular volume 86 [ foz_us] 80-99 Automated erythrocyte mean corpuscular h emoglobin (mass per erythrocyte) 28 pg 25-34 Automated erythrocyte mean corpuscular h emoglobin concentration measurement (mass/volume) 33 g/dL 32-36 Automated erythrocyte distribution width ratio 13. 8 % 10.0- 14.5 Automated blood platelet count (count/volume) 181 10*3/uL 130-400 Automated blood platelet mean volume measurement 10.2 [foz_us] 7.4-10.4 PT panel in platelet poor plasma by coag ulation assay - 01/21/19 08:00 Prothrombin time (PT) in platelet poor plasma by coagu lation assay 13.8 s 12.2-14.7 INR in platelet poor plasma or blood by coagulation as say 1.0 0.8-1.4 Activated partial thromboplastin time (a PTT) in platelet poor plasma bycoagulation assay - 01/21/19 08:00 Activated partial thromboplastin time (a PTT) in platelet poor plasma bycoagulation assay 28 s 24-35 Comprehensive metabolic panel - 01/21/19 08:00 Serum or plasma sodium measurement (moles/volume) 138 mmol/L 135-145 Serum or plasma potassium measurement (moles/volume) 3.7 mmol/L 3.6-5.0 Serum or plasma chloride measurement (moles/volume) 103 mmol/L 98-107 Carbon dioxide 24 mmol/L 21-32 Serum or plasma anion gap determination (moles/volume) 11 mmol/L 5-14 Serum or plasma urea nitrogen measurement (mass/volume ) 45 mg/dL 7-18 Serum or plasma creatinine measurement (mass/volume) 1.37 mg/dL 0.60-1.30 Serum or plasma urea nitrogen/creatinine mass ratio 33 NRG Serum or plasma creatinine measurement w ith calculation of estimated glomerular filtration rate 51 NRG Serum or plasma glucose measurement (mass/volume) 111 mg/dL 70-105 Serum or plasma calcium measurement (mass/volume) 10.7 mg/dL 8.5-10.1 Serum or plasma total bilirubin measurement (mass/volu me) 0.9 mg/dL 0.1-1.0 Serum or plasma alkaline phosphatase smith surement (enzymatic activity/volume) 85 U/L 40-136 Serum or plasma aspartate aminotransfera se measurement (enzymatic activity/volume) 20 U/L 5-34 Serum [...] Serum or plasma cholesterol in HDL measurement (mass/v olume) 40 mg/dL 40-60 Cholesterol in LDL [mass/volume] in serum or plasma by direct assay 78 mg/dL 1-129 Serum or plasma cholesterol in VLDL measurement (mass/ volume) 26 mg/dL 5-40 Methicillin resistant Staphylococcus aur eus (MRSA) screening culture - 01/21/19 08:00 Methicillin resistant Staphylococcus aureus (MRSA) scr eening culture NEG NRG Complete blood count (CBC) with automate d white blood cell (WBC) differential - 01/31/19 22:55 Blood leukocytes automated count (number/volume) 6.4 10*3/uL 4.3-11.0 Blood erythrocytes automated count (number/volume) 4.24 10*6/uL 4.35-5.85 Venous blood hemoglobin measurement (mass/volume) 12.1 g/dL 13.3-17.7 Blood hematocrit (volume fraction) 38 % 40-54 Automated erythrocyte mean corpuscular volume 90 [ foz_us] 80-99 Automated erythrocyte mean corpuscular h emoglobin (mass per erythrocyte) 29 pg 25-34 Automated erythrocyte mean corpuscular h emoglobin concentration measurement (mass/volume) 32 g/dL 32-36 Automated erythrocyte distribution width ratio 13. 4 % 10.0- 14.5 Automated blood platelet count [...] 10*3 1.0-4.0 Blood monocytes automated count (number/volume) 0. 9 10*3 0.0-1.0 Automated eosinophil count 0.1 10*3/uL 0 .0-0.3 Automated blood basophil count (count/volume) 0.0 10*3/uL 0.0-0.1 Comprehensive metabolic panel - 01/31/19 22:55 Serum or plasma sodium measurement (moles/volume) 139 mmol/L 135-145 Serum or plasma potassium measurement (moles/volume) 3.3 mmol/L 3.6-5.0 Serum or plasma chloride measurement (moles/volume) 96 mmol/L 98-107 Carbon dioxide 25 mmol/L 21-32 Serum or plasma anion gap determination (moles/volume) 18 mmol/L 5-14 Serum or plasma urea nitrogen measurement (mass/volume ) 43 mg/dL 7-18 Serum or plasma creatinine measurement (mass/volume) 1.38 mg/dL 0.60-1.30 Serum or plasma urea nitrogen/creatinine mass ratio 31 NRG Serum or plasma creatinine measurement w ith calculation of estimated glomerular filtration rate 50 NRG Serum or plasma glucose measurement (mass/volume) 143 mg/dL 70-105 Serum or plasma calcium measurement (mass/volume) 9.8 mg/dL 8.5-10.1 Serum or plasma total bilirubin measurement (mass/volu me) 0.3 mg/dL 0.1-1.0 Serum or plasma alkaline phosphatase smith surement (enzymatic activity/volume) 82 U/L 40-136 Serum or plasma aspartate aminotransfera se measurement (enzymatic activity/volume) 20 U/L 5-34 Serum [...] % <=15 Complete blood count (CBC) with automate d white blood cell (WBC) differential - 02/01/19 04:07 Blood leukocytes automated count (number/volume) 6.4 10*3/uL 4.3-11.0 Blood erythrocytes automated count (number/volume) 4.52 10*6/uL 4.35-5.85 Venous blood hemoglobin measurement (mass/volume) 12.9 g/dL 13.3-17.7 Blood hematocrit (volume fraction) 39 % 40-54 Automated erythrocyte mean corpuscular volume 87 [ foz_us] 80-99 Automated erythrocyte mean corpuscular h emoglobin (mass per erythrocyte) 29 pg 25-34 Automated erythrocyte mean corpuscular h emoglobin concentration measurement (mass/volume) 33 g/dL 32-36 Automated erythrocyte distribution width ratio 13. 5 % 10.0- 14.5 Automated blood platelet count [...] 10*3 1.0-4.0 Blood monocytes automated count (number/volume) 0. 9 10*3 0.0-1.0 Automated eosinophil count 0.1 10*3/uL 0 .0-0.3 Automated blood basophil count (count/volume) 0.0 10*3/uL 0.0-0.1 Comprehensive metabolic panel - 02/01/19 04:07 Serum or plasma sodium measurement (moles/volume) 139 mmol/L 135-145 Serum or plasma potassium measurement (moles/volume) 3.2 mmol/L 3.6-5.0 Serum or plasma chloride measurement (moles/volume) 96 mmol/L 98-107 Carbon dioxide 27 mmol/L 21-32 Serum or plasma anion gap determination (moles/volume) 16 mmol/L 5-14 Serum or plasma urea nitrogen measurement (mass/volume ) 44 mg/dL 7-18 Serum or plasma creatinine measurement (mass/volume) 1.33 mg/dL 0.60-1.30 Serum or plasma urea nitrogen/creatinine mass ratio 33 NRG Serum or plasma creatinine measurement w ith calculation of estimated glomerular filtration rate 52 NRG Serum or plasma glucose measurement (mass/volume) 128 mg/dL 70-105 Serum or plasma calcium measurement (mass/volume) 10.6 mg/dL 8.5-10.1 Serum or plasma total bilirubin measurement (mass/volu me) 0.3 mg/dL 0.1-1.0 Serum or plasma alkaline phosphatase smith surement (enzymatic activity/volume) 85 U/L 40-136 Serum or plasma aspartate aminotransfera se measurement (enzymatic activity/volume) 21 U/L 5-34 Serum or plasma alanine aminotransferase measurement (enzymatic activity/volume) 30 U/L 0-55 Serum or plasma protein measurement (mass/volume) 7.6 g/dL 6.4-8.2 Serum or plasma albumin measurement (mass/volume) 4.5 g/dL 3.2-4.5 CALCIUM CORRECTED 10.2 mg/dL 8.5-10.1 Serum or plasma lithium measurement (mol es/volume) - 02/01/19 04:07 BNP level 438.3 pg/mL <100.0 Serum or plasma troponin i.cardiac measu rement (mass/volume) - 02/01/19 04:07 Serum or plasma troponin i.cardiac measurement (mass/v olume) 0.224 ng/mL <0.028 THYROID STIMULATING HORMONE - 02/01/19 0 4:07 THYROID STIMULATING HORMONE 1.55 u[iU]/mL 0.35-4.94 Complete urinalysis with reflex to cultu re - 02/01/19 06:45 Urine color determination YELLOW NRG Urine clarity determination CLEAR NR G Urine pH measurement by test strip 5 5-9 Specific gravity of urine by test strip 1.010 1.016-1.022 Urine protein assay by test strip, semi-quantitative NEGATIVE NEGATIVE Urine glucose detection by automated test strip NE GATIVE NEGATIVE Erythrocytes detection in urine sediment by light micr oscopy NEGATIVE NEGATIVE Urine ketones detection by automated test strip NE GATIVE NEGATIVE Urine nitrite detection by test strip NEGATIVE NEGATIVE Urine total bilirubin detection by test strip NEGA TIVE NEGATIVE Urine urobilinogen measurement by automated test strip (mass/volume) NORMAL NORMAL Urine leukocyte esterase detection by dipstick NEG ATIVE NEGATIVE Automated urine sediment erythrocyte cou nt by microscopy (number/high power field) NONE NRG Automated urine sediment leukocyte count by microscopy (number/high power field) NONE NRG Bacteria detection in urine sediment by light microsco py NEGATIVE NRG Squamous epithelial cells detection in u rine sediment by light microscopy NONE NRG Crystals detection in urine sediment by light microsco py NONE NRG Casts detection in urine sediment by light microscopy PRESENT NRG Mucus detection in urine sediment by light microscopy NEGATIVE NRG Complete urinalysis with reflex to culture NO NRG Hyaline casts detection in urine sediment by light gm roscopy RARE NRG Serum protein electrophoresis - 02/01/19 12:55 Serum or plasma protein measurement (mass/volume) 6.5 % 6.4- 8.1 Pathology consultation and report SEE PATH REPORT NRG Serum or plasma intact pararthyroid horm one measurement (mass/volume) - 02/01/19 12:55 Serum or plasma intact parathyroid hormone measurement (mass/volume) 33.4 pg/mL 9.0-77.0 Bio-intact parathyroid hormone (PTH) measurement with calcium 9.8 % 8.5-10.5 Complete blood count (CBC) with automate d white blood cell (WBC) differential - 02/02/19 03:10 Blood leukocytes automated count (number/volume) 7.0 10*3/uL 4.3-11.0 Blood erythrocytes automated count (number/volume) 4.32 10*6/uL 4.35-5.85 Venous blood hemoglobin measurement (mass/volume) 12.2 g/dL 13.3-17.7 Blood hematocrit (volume fraction) 38 % 40-54 Automated erythrocyte mean corpuscular volume 89 [ foz_us] 80-99 Automated erythrocyte mean corpuscular h emoglobin (mass per erythrocyte) 28 pg 25-34 Automated erythrocyte mean corpuscular h emoglobin concentration measurement (mass/volume) 32 g/dL 32-36 Automated erythrocyte distribution width ratio 13. 4 % 10.0- 14.5 Automated blood platelet count [...] 10*3 1.0-4.0 Blood monocytes automated count (number/volume) 0. 8 10*3 0.0-1.0 Automated eosinophil count 0.0 10*3/uL 0 .0-0.3 Automated blood basophil count (count/volume) 0.0 10*3/uL 0.0-0.1 Comprehensive metabolic panel - 02/02/19 03:10 Serum or plasma sodium measurement (moles/volume) 139 mmol/L 135-145 Serum or plasma potassium measurement (moles/volume) 3.1 mmol/L 3.6-5.0 Serum or plasma chloride measurement (moles/volume) 96 mmol/L 98-107 Carbon dioxide 29 mmol/L 21-32 Serum or plasma anion gap determination (moles/volume) 14 mmol/L 5-14 Serum or plasma urea nitrogen measurement (mass/volume ) 40 mg/dL 7-18 Serum or plasma creatinine measurement (mass/volume) 1.32 mg/dL 0.60-1.30 Serum or plasma urea nitrogen/creatinine mass ratio 30 NRG Serum or plasma creatinine measurement w ith calculation of estimated glomerular filtration rate 53 NRG Serum or plasma glucose measurement (mass/volume) 107 mg/dL 70-105 Serum or plasma calcium measurement (mass/volume) 10.0 mg/dL 8.5-10.1 Serum or plasma total bilirubin measurement (mass/volu me) 0.5 mg/dL 0.1-1.0 Serum or plasma alkaline phosphatase smith surement (enzymatic activity/volume) 74 U/L 40-136 Serum or plasma aspartate aminotransfera se measurement (enzymatic activity/volume) 20 U/L 5-34 Serum or plasma alanine aminotransferase measurement (enzymatic activity/volume) 23 U/L 0-55 Serum or plasma protein measurement (mass/volume) 7.0 g/dL 6.4-8.2 Serum or plasma albumin measurement (mass/volume) 4.3 g/dL 3.2-4.5 CALCIUM CORRECTED 9.8 mg/dL 8.5-10.1 Serum or plasma troponin i.cardiac measu rement (mass/volume) - 02/02/19 03:10 Serum or plasma troponin i.cardiac measurement (mass/v olume) 0.289 ng/mL <0.028 Serum or plasma lithium measurement (mol es/volume) - 02/02/19 03:10 BNP level 230.4 pg/mL <100.0 Complete blood count (CBC) with automate d white blood cell (WBC) differential - 02/03/19 03:35 Blood leukocytes automated count (number/volume) 6.3 10*3/uL 4.3-11.0 Blood erythrocytes automated count (number/volume) 4.02 10*6/uL 4.35-5.85 Venous blood hemoglobin measurement (mass/volume) 11.4 g/dL 13.3-17.7 Blood hematocrit (volume fraction) 36 % 40-54 Automated erythrocyte mean corpuscular volume 88 [ foz_us] 80-99 Automated erythrocyte mean corpuscular h emoglobin (mass per erythrocyte) 28 pg 25-34 Automated erythrocyte mean corpuscular h emoglobin concentration measurement (mass/volume) 32 g/dL 32-36 Automated erythrocyte distribution width ratio 13. 4 % 10.0- 14.5 Automated blood platelet count [...] 10*3 1.0-4.0 Blood monocytes automated count (number/volume) 0. 8 10*3 0.0-1.0 Automated eosinophil count 0.1 10*3/uL 0 .0-0.3 Automated blood basophil count (count/volume) 0.0 10*3/uL 0.0-0.1 Comprehensive metabolic panel - 02/03/19 03:35 Serum or plasma sodium measurement (moles/volume) 139 mmol/L 135-145 Serum or plasma potassium measurement (moles/volume) 3.2 mmol/L 3.6-5.0 Serum or plasma chloride measurement (moles/volume) 97 mmol/L 98-107 Carbon dioxide 29 mmol/L 21-32 Serum or plasma anion gap determination (moles/volume) 13 mmol/L 5-14 Serum or plasma urea nitrogen measurement (mass/volume ) 36 mg/dL 7-18 Serum or plasma creatinine measurement (mass/volume) 1.24 mg/dL 0.60-1.30 Serum or plasma urea nitrogen/creatinine mass ratio 29 NRG Serum or plasma creatinine measurement w ith calculation of estimated glomerular filtration rate 57 NRG Serum or plasma glucose measurement (mass/volume) 114 mg/dL 70-105 Serum or plasma calcium measurement (mass/volume) 9.7 mg/dL 8.5-10.1 Serum or plasma total bilirubin measurement (mass/volu me) 0.5 mg/dL 0.1-1.0 Serum or plasma alkaline phosphatase smith surement (enzymatic activity/volume) 70 U/L 40-136 Serum or plasma aspartate aminotransfera se measurement (enzymatic activity/volume) 17 U/L 5-34 Serum or plasma alanine aminotransferase measurement (enzymatic activity/volume) 21 U/L 0-55 Serum or plasma protein measurement (mass/volume) 6.6 g/dL 6.4-8.2 Serum or plasma albumin measurement (mass/volume) 4.1 g/dL 3.2-4.5 CALCIUM CORRECTED 9.6 mg/dL 8.5-10.1 Serum or plasma lithium measurement (mol es/volume) - 02/03/19 03:35 BNP level 232.5 pg/mL <100.0 Serum or plasma troponin i.cardiac measu rement (mass/volume) - 02/03/19 03:35 Serum or plasma troponin i.cardiac measurement (mass/v olume) 0.193 ng/mL <0.028 Complete blood count (CBC) with automate d white blood cell (WBC) differential - 02/04/19 03:15 Blood leukocytes automated count (number/volume) 5.7 10*3/uL 4.3-11.0 Blood erythrocytes automated count (number/volume) 3.98 10*6/uL 4.35-5.85 Venous blood hemoglobin measurement (mass/volume) 11.2 g/dL 13.3-17.7 Blood hematocrit (volume fraction) 35 % 40-54 Automated erythrocyte mean corpuscular volume 89 [ foz_us] 80-99 Automated erythrocyte mean corpuscular h emoglobin (mass per erythrocyte) 28 pg 25-34 Automated erythrocyte mean corpuscular h emoglobin concentration measurement (mass/volume) 32 g/dL 32-36 Automated erythrocyte distribution width ratio 13. 2 % 10.0- 14.5 Automated blood platelet count [...] 10*3 1.0-4.0 Blood monocytes automated count (number/volume) 0. 8 10*3 0.0-1.0 Automated eosinophil count 0.0 10*3/uL 0 .0-0.3 Automated blood basophil count (count/volume) 0.0 10*3/uL 0.0-0.1 Comprehensive metabolic panel - 02/04/19 03:15 Serum or plasma sodium measurement (moles/volume) 140 mmol/L 135-145 Serum or plasma potassium measurement (moles/volume) 3.5 mmol/L 3.6-5.0 Serum or plasma chloride measurement (moles/volume) 100 mmol/L 98-107 Carbon dioxide 27 mmol/L 21-32 Serum or plasma anion gap determination (moles/volume) 13 mmol/L 5-14 Serum or plasma urea nitrogen measurement (mass/volume ) 36 mg/dL 7-18 Serum or plasma creatinine measurement (mass/volume) 1.22 mg/dL 0.60-1.30 Serum or plasma urea nitrogen/creatinine mass ratio 30 NRG Serum or plasma creatinine measurement w ith calculation of estimated glomerular filtration rate 58 NRG Serum or plasma glucose measurement (mass/volume) 102 mg/dL 70-105 Serum or plasma calcium measurement (mass/volume) 9.8 mg/dL 8.5-10.1 Serum or plasma total bilirubin measurement (mass/volu me) 0.4 mg/dL 0.1-1.0 Serum or plasma alkaline phosphatase smith surement (enzymatic activity/volume) 72 U/L 40-136 Serum or plasma aspartate aminotransfera se measurement (enzymatic activity/volume) 18 U/L 5-34 Serum or plasma alanine aminotransferase measurement (enzymatic activity/volume) 18 U/L 0-55 Serum or plasma protein measurement (mass/volume) 6.3 g/dL 6.4-8.2 Serum or plasma albumin measurement (mass/volume) 4.0 g/dL 3.2-4.5 CALCIUM CORRECTED 9.8 mg/dL 8.5-10.1 Magnesium - 02/04/19 03:15 Magnesium 2.0 mg/dL 1.8-2.4 Serum or plasma troponin i.cardiac measu rement (mass/volume) - 02/04/19 03:15 Serum or plasma troponin i.cardiac measurement (mass/v olume) 0.181 ng/mL <0.028 Serum or plasma lithium measurement (mol es/volume) - 02/04/19 03:15 BNP level 257.7 pg/mL <100.0 CMP - 10/10/19 09:42 GLUCOSE 110 mg/dL 65-99 UREA NITROGEN (BUN) 31 mg/dL 7-25 CREATININE 1.34 mg/dL 0.70-1.18 eGFR NON-AFR. BRAZILIAN 51 mL/min/1.73m2 > OR = 60 eGFR 59 mL/min/1.73m2 > OR = 60 BUN/CREATININE RATIO 23 (calc) 6-22 SODIUM 144 mmol/L 135-146 POTASSIUM 3.6 mmol/L 3.5-5.3 CHLORIDE 102 mmol/L 98-110 CARBON DIOXIDE 31 mmol/L 20-32 CALCIUM 9.5 mg/dL 8.6-10.3 PROTEIN, TOTAL 6.5 g/dL 6.1-8.1 ALBUMIN 4.1 g/dL 3.6-5.1 GLOBULIN 2.4 g/dL (calc) 1.9-3.7 ALBUMIN/GLOBULIN RATIO 1.7 (calc) 1.0-2. 5 BILIRUBIN, TOTAL 0.6 mg/dL 0.2-1.2 ALKALINE PHOSPHATASE 66 U/L 35-144 AST 13 U/L 10-35 ALT 15 U/L 9-46 Influenza virus A and B antigen detectio n - 10/12/19 16:25 FLU RESULT NEGATIVE FOR INFLUENZA A AND B ANTIGENS BY [facility] Complete blood count (CBC) with automate d white blood cell (WBC) differential - 10/12/19 16:30 Blood leukocytes automated count (number/volume) 4.6 10*3/uL 4.3-11.0 Blood erythrocytes automated count (number/volume) 3.61 10*6/uL 4.35-5.85 Venous blood hemoglobin measurement (mass/volume) 10.4 g/dL 13.3-17.7 Blood hematocrit (volume fraction) 34 % 40-54 Automated erythrocyte mean corpuscular volume 93 [ foz_us] 80-99 Automated erythrocyte mean corpuscular h emoglobin (mass per erythrocyte) 29 pg 25-34 Automated erythrocyte mean corpuscular h emoglobin concentration measurement (mass/volume) 31 g/dL 32-36 Automated erythrocyte distribution width ratio 13. 0 % 10.0- 14.5 Automated blood platelet count (count/volume) 165 10*3/uL 130-400 Automated blood platelet mean volume measurement 10.1 [foz_us] 7.4-10.4 Automated blood neutrophils/100 leukocytes 58 % 42-75 Automated blood lymphocytes/100 leukocytes 27 % 12-44 Blood monocytes/100 leukocytes 14 % 0-12 Automated blood eosinophils/100 leukocytes 0 % 0-10 Automated blood basophils/100 leukocytes 0 % 0-10 Blood neutrophils automated count (number/volume) 2.7 10*3 1.8-7.8 Blood lymphocytes automated count (number/volume) 1.2 10*3 1.0-4.0 Blood monocytes automated count (number/volume) 0. 7 10*3 0.0-1.0 Automated eosinophil count 0.0 10*3/uL 0 .0-0.3 Automated blood basophil count (count/volume) 0.0 10*3/uL 0.0-0.1 Whole blood basic metabolic panel - 09/27 02/13 16:30 Serum or plasma sodium measurement (moles/volume) 142 mmol/L 135-145 Serum or plasma potassium measurement (moles/volume) 3.6 mmol/L 3.6-5.0 Serum or plasma chloride measurement (moles/volume) 100 mmol/L 98-107 Carbon dioxide 30 mmol/L 21-32 Serum or plasma anion gap determination (moles/volume) 12 mmol/L 5-14 Serum or plasma urea nitrogen measurement (mass/volume ) 41 mg/dL 7-18 Serum or plasma creatinine measurement (mass/volume) 1.60 mg/dL 0.60-1.30 Serum or plasma urea nitrogen/creatinine mass ratio 26 NRG Serum or plasma creatinine measurement w ith calculation of estimated glomerular filtration rate 42 NRG Serum or plasma glucose measurement (mass/volume) 110 mg/dL 70-105 Serum or plasma calcium measurement (mass/volume) 9.3 mg/dL 8.5-10.1 TROPONIN I FS - 10/12/19 16:30 TROPONIN I FS < 0.30 <0.30 PROBNP FS - 10/12/19 16:30 PROBNP FS 1230.0 pg/mL <75.0 TROPONIN I FS - 10/12/19 19:40 TROPONIN I FS < 0.30 <0.30 VITAMIN B12 - 10/15/19 11:16 VITAMIN B12 349 pg/mL 200-1100 Complete blood count (CBC) with automate d white blood cell (WBC) differential - 11/18/19 13:09 Blood leukocytes automated count (number/volume) 4.9 10*3/uL 4.3-11.0 Blood erythrocytes automated count (number/volume) 3.59 10*6/uL 4.35-5.85 Venous blood hemoglobin measurement (mass/volume) 10.3 g/dL 13.3-17.7 Blood hematocrit (volume fraction) 33 % 40-54 Automated erythrocyte mean corpuscular volume 92 [ foz_us] 80-99 Automated erythrocyte mean corpuscular h emoglobin (mass per erythrocyte) 29 pg 25-34 Automated erythrocyte mean corpuscular h emoglobin concentration measurement (mass/volume) 31 g/dL 32-36 Automated erythrocyte distribution width ratio 13. 4 % 10.0- 14.5 Automated blood platelet count (count/volume) 188 10*3/uL 130-400 Automated blood platelet mean volume measurement 9.9 [foz_us] 7.4-10.4 Automated blood neutrophils/100 leukocytes 67 % 42-75 Automated blood lymphocytes/100 leukocytes 19 % 12-44 Blood monocytes/100 leukocytes 13 % 0-12 Automated blood eosinophils/100 leukocytes 0 % 0-10 Automated blood basophils/100 leukocytes 0 % 0-10 Blood neutrophils automated count (number/volume) 3.2 10*3 1.8-7.8 Blood lymphocytes automated count (number/volume) 0.9 10*3 1.0-4.0 Blood monocytes automated count (number/volume) 0. 6 10*3 0.0-1.0 Automated eosinophil count 0.0 10*3/uL 0 .0-0.3 Automated blood basophil count (count/volume) 0.0 10*3/uL 0.0-0.1 TROPONIN I FS - 11/18/19 13:09 TROPONIN I FS < 0.30 <0.30 PROBNP FS - 11/18/19 13:09 PROBNP FS 2857.0 pg/mL <75.0 Encounters ACCT No. Visit Date/Time Discharge Status Pt. Type Provider Facility Loc./Unit Complaint [id number] 10/24/2019 13:30:00 10/24/2019 23:59: 59 [facility] Outpatient [facility] [id number] 10/15/2019 09:45:00 Document Registration [id number] 10/10/2019 09:15:00 Document Registration [id number] 10/12/2019 15:29:00 020 20:54:00 DIS Emergency ALLEN MAHAN DO [facility] ER FS VOMITING,BODY ACHES [id number] 02/01/2019 12:04:00 019 10:30:00 DIS Inpatient HERMELINDA WHITLEY MD [facility] ICU CHF;ACUTE EXACERBATION [id number] 01/21/2019 08:49:00 019 16:15:00 DIS Outpatient AMI SMITH FACC, RAYMUNDO PEREIRA CC DS [facility] CATH CARDIOMYOPA THY,LEG SWELLING [id number] 01/07/2019 22:39:00 019 12:30:00 DIS Inpatient HERMELINDA WHITLEY MD [facility] 4TH CHF EXACERBATION [id number] 02/07/2016 10:21:00 016 23:59:59 CLS Outpatient ALLEN DAVIS MD [facility] RAD S/P SPINAL FUSION Z48.8 9, Z98.1 [id number] 08/02/2015 10:37:00 015 10:40:00 DIS Inpatient ALLEN DAVIS MD [facility] 4TH STENOSIS [id number] 07/20/2015 09:29:00 23:59:59 CLS Outpatient ALLEN DAVIS MD [facility] PREOP STENOSIS [id number] 06/25/2015 08:47:00 015 10:00:00 DIS Outpatient CHINO MOHAN MD [facility] CARD DISC DISORDER W/RADICUL OPATHY [id number] 11/18/2019 13:21:00 Document Registration
[2019-11-18] MEDS ORDERED: FUROSEMIDE 40 MG/4 ML INJ (LASIX) IVP ONE (14:30)
[2019-11-18 15:15] VITALS: BP 137/73
== END 2019-11-18 15:17 | disposition home or self-care (01) ==
LOC: EDUNIT# 12:25 → ER FS 12:28
DX: I11.0 Hypertensive heart disease with heart failure (principal); I50.9 Heart failure, unspecified; E78.00 Pure hypercholesterolemia, unspecified; I73.9 Peripheral vascular disease, unspecified; N40.0 Benign prostatic hyperplasia without lower urinary tract symptoms; K21.9 Gastro-esophageal reflux disease without esophagitis; F41.9 Anxiety disorder, unspecified; L40.9 Psoriasis, unspecified; Z85.828 Personal history of other malignant neoplasm of skin; Z79.82 Long term (current) use of aspirin; Z79.899 Other long term (current) drug therapy
CPT/HCPCS: 36415; 71045; 80053; 83880; 84484; 85025; 85610; 85730; 93041

== ENCOUNTER 2020-07-27 09:51 | Inpatient (IN) | payer MEDICARE, OTHER ==
[~2020-07-27] VITALS: Ht 165.1 cm; Wt 102.0 kg
[~2020-07-27 09:51] MED LIST changes: +ACET-2055 PO; -ACET650T13 PO; -AMIO200T4 PO; +AMIO200T6 PO
[2020-07-27 10:34] LABS: BASOPHILS % (AUTO) 0 % (0-10); EOSINOPHILS % (AUTO) 0 % (0-10); HEMATOCRIT 32 % (40-54); HEMOGLOBIN 9.8 G/DL (13.3-17.7); LYMPHOCYTES # (AUTO) 1.3 X 10^3 (1.0-4.0); LYMPHOCYTES % (AUTO) 12 % (12-44); MEAN CORPUSCULAR HEMOGLOBIN 28 PG (25-34); MEAN CORPUSCULAR HGB CONC 31 G/DL (32-36); MEAN CORPUSCULAR VOLUME 92 FL (80-99); MEAN PLATELET VOLUME 9.5 FL (7.4-10.4); MONOCYTES # (AUTO) 1.4 X 10^3 (0.0-1.0); MONOCYTES % (AUTO) 13 % (0-12); NEUTROPHILS # (AUTO) 7.6 X 10^3 (1.8-7.8); NEUTROPHILS % (AUTO) 74 % (42-75); PLATELET COUNT 208 10^3/uL (130-400); WHITE BLOOD COUNT 10.3 10^3/uL (4.3-11.0)
[2020-07-27 10:55] LABS: ALANINE AMINOTRANSFERASE 13 U/L (0-55); ALKALINE PHOSPHATASE 111 U/L (40-136); BILIRUBIN,TOTAL 1.3 MG/DL (0.1-1.0); BUN/CREATININE RATIO 22; CALCIUM 9.4 MG/DL (8.5-10.1); CARBON DIOXIDE 25 MMOL/L (21-32); CHLORIDE 103 MMOL/L (98-107); GFR ESTIMATED 49; GLUCOSE 125 MG/DL (70-105); POTASSIUM 4.3 MMOL/L (3.6-5.0); SODIUM 140 MMOL/L (135-145)
[2020-07-27 10:56] LABS: TOTAL PROTEIN 6.7 GM/DL (6.4-8.2)
[2020-07-27] MEDS ORDERED: FUROSEMIDE 40 MG/4 ML INJ (LASIX) IVP ONE (11:15)
--- NOTE | 2020-07-27 11:17 | Diagnostic Imaging Report ---
INDICATION: Shortness of breath, atrial fibrillation. COMPARISON: 11/18/2019. FINDINGS: The heart is enlarged. There is prominence of the vascularity. There are somewhat nodular pulmonary opacities bilaterally, greater right. While there is an element of hypervolemia or failure present, superimposition of pneumonia in the appropriate clinical scenario could not be excluded. Blunting of the left costophrenic angle is unchanged. No pneumothorax. IMPRESSION: Redemonstration of cardiomegaly and vascular congestion. There is likely at least some degree of pulmonary edema present; however, pneumonia superimposed, particularly in the right lung, could not be excluded in the appropriate clinical scenario. Dictated by: Dictated on workstation # [id number]
--- NOTE | 2020-07-27 11:33 | ED Dyspnea ---
General Chief Complaint: Respiratory Problems Stated Complaint: SOB Nursing Triage Note: Patient reports he has a history of atrial fibrillation and CHF, states he has been getting gradually more short of breath for 3 weeks. He reports intermittent, brief chest pains, no chest pain on arrival to the ED. He reports chronic drainage and cough, states his cough has been productive for 5 days with bloody sputum. He denies any sick contacts, denies any fever or chills. He reports the edema in his legs and feet is better than usual. He states he came to the ED today for activity intolerance d/t his shortness of breath. Source of Information: Patient Exam Limitations: No Limitations History of Present Illness Date Seen by Provider: Jul 27, 2020 Time Seen by Provider: 10:45 Initial Comments Patient is a 74-year-old male with history of congestive heart failure who presents with progressive shortness breath over the past several weeks. Patient states he is unable to walk up a 42 [address] into his house without having to stop to catch his breath long term. He reports significant shortness of breath the past several days with blood-tinged sputum and increased leg swelling. He denies fever, chills, nausea vomiting sweats, chest pain chest tightness. Denies leg pain. No history of DVT or PE. Patient is compliant with his cardiac medications including water pills. No other acute symptoms or complaints. Timing/Duration: 4-6 Hours Severity: Moderate Activities at Onset: Activity Prior Episodes/Possible Cause: No Prior Episodes Modifying Factors: Improves With Activity, Improves With Lying Down, Improves With Rest Associated Symptoms: Edema Allergies and Home Medications Allergies Coded Allergies: No Known Drug Allergies (Unverified , 01/31/19) Home Medications Acetaminophen 650 Mg Tablet.er, 1,300 MG PO BID, (Reported) TAKE 2 (650MG) TABS Amiodarone HCl 200 Mg Tablet, 200 MG PO BID take 200 mg twice daily for 2 weeks then take 200 mg daily Prescribed by: EDDIE MCHUGH on 02/04/19 0747 Apixaban 5 Mg Tablet, 5 MG PO BID Prescribed by: EDDIE MCHUGH on 02/04/19 0747 Aspirin 81 Mg Tab.chew, 81 MG PO DAILY, (Reported) Cholecalciferol (Vitamin D3) 2,000 Unit Tablet, 1,000 UNIT PO DAILY, (Reported) Clopidogrel Bisulfate 75 Mg Tablet, 75 MG PO DAILY Prescribed by: RAYMUNDO MUELLER on 01/21/19 1303 Furosemide 40 Mg Tablet, 40 MG PO DAILY Prescribed by: HERMELINDA WHITLEY on 01/10/19 1041 Losartan Potassium 25 Mg Tablet, 25 MG PO DAILY Prescribed by: HERMELINDA WHITLEY on 01/10/19 1041 Metolazone 2.5 Mg Tablet, 2.5 MG PO UD take 1 tablet on Sunday, Sunday and Sunday Prescribed by: EDDIE MCHUGH on 02/04/19 0747 Metoprolol Succinate 25 Mg Tab.er.24h, 25 MG PO DAILY Prescribed by: HERMELINDA WHITLEY on 01/10/19 1041 Potassium Chloride 10 Meq Capsule.er, 10 MEQ PO DAILY, (Reported) Ranitidine HCl 150 Mg Tablet, 150 MG PO BID, (Reported) Simvastatin 80 Mg Tablet, 40 MG PO HS, (Reported) TAKES 1/2 OF A (80 MG) TABLET Spironolactone 25 Mg Tablet, 25 MG PO DAILY Prescribed by: HERMELINDA WHITLEY on 01/10/19 1041 Tamsulosin HCl 0.4 Mg Cap, 0.8 MG PO 1730, (Reported) TAKES 2 (0.4MG) CAPSULES Tramadol HCl 50 Mg Tablet, 50 MG PO BID PRN for PAIN Prescribed by: ALLEN MAHAN on 10/12/192051 Patient Home Medication List Home Medication List Reviewed: Yes Review of Systems Review of Systems Constitutional: see HPI EENTM: see HPI Respiratory: see HPI Cardiovascular: see HPI Gastrointestinal: see HPI Genitourinary: see HPI Musculoskeletal: see HPI Skin: see HPI Psychiatric/Neurological: See HPI Endocrine: See HPI Hematologic/Lymphatic: See HPI All Other Systems Reviewed Negative Unless Noted: Yes Past Wzngdsu-Ofblmh-Pszxvs Hx Past Med/Social Hx: Reviewed Nursing Past Med/Soc Hx Patient Social History Alcohol Use: Denies Use Recreational Drug Use: No Smoking Status: Former Smoker Type Used: Cigarettes Former Smoker, Quit: Jun 30, 1975 2nd Hand Smoke Exposure: No Recent Foreign Travel: No Contact w/Someone Who Travel: No Recent Infectious Disease Expo: No Recent Hopitalizations: No Physical Abuse: No Sexual Abuse: No Mistreated: No Fear: No Immunizations Up To Date Tetanus Booster (TDap): Unknown Date of Pneumonia Vaccine: May 27, 2013 Date of Influenza Vaccine: May 27, 2019 Seasonal Allergies Seasonal Allergies: No Past Medical History Surgeries: Yes (LEFT LUNG LOBE REMOVED, 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, NECK SX X2, ) Lobectomy, Orthopedic Respiratory: Yes Chronic Bronchitis Cardiac: Yes (CHF) Atrial Fibrillation, Chronic Edema/Swelling, High Cholesterol, Hypertension, Peripheral Vascular Neurological: No Genitourinary: Yes Benign Prostatic Hyperpl, Prostate Problems Gastrointestinal: Yes Gastroesophageal Reflux Musculoskeletal: Yes Degenerate Disk Disease, Arthritis, Chronic Back Pain Endocrine: No HEENT: Yes Hearing Impairment: Bilateral Hearing Aide Cancer: Yes Skin Psychosocial: Yes Anxiety Integumentary: Yes Psoriasis Blood Disorders: No Family Medical History Arthritis 19 FATHER 19 MOTHER G8 BROTHER G8 SISTER Diabetes mellitus 19 FATHER 19 MOTHER G8 BROTHER G8 SISTER Hypertension 19 MOTHER G8 BROTHER G8 SISTER Respiratory disorder 19 FATHER (LUNG CA) G8 SISTER (LUNG CA) Physical Exam Vital Signs Vital Signs - First Documented 07/27/20 10:08 Temp 37.1 Pulse 74 Resp 20 B/P (MAP) 126/56 (79) Pulse Ox 96 O2 Delivery Room Air Capillary Refill : Less Than 3 Seconds Height, Weight, BMI Height: 5'5.00" Weight: 227lbs. 0.0oz. [id number]; 36.00 BMI Method:Stated General Appearance: No Apparent Distress (diminished breath sounds bilaterally.), WD/WN, Anxious HEENT: PERRL/EOMI, Normal ENT Inspection, Pharynx Normal Neck: Supple, JVD, Other Respiratory: Decreased Breath Sounds, Rales, Other Cardiovascular: No Murmur, Other (2+ symmetric peripheral edema) Gastrointestinal: Normal Bowel Sounds, Non Tender, Soft Extremity: Normal Capillary Refill, Normal Inspection Neurologic/Psychiatric: Alert, Oriented x3 Skin: Normal Color Lymphatic: No Adenopathy Focused Exam Sepsis Stage: Ruled Out Progress/Results/Core Measures Results/Orders Lab Results Laboratory Tests Test 07/27/20 10:15 07/27/20 11:30 Range/Units White Blood Count 10.3 4.3-11.0 10^3/uL Red Blood Count 3.49 L 4.35-5.85 10^6/uL Hemoglobin 9.8 L 13.3-17.7 G/DL Hematocrit 32 L 40-54 % Mean Corpuscular Volume 92 80-99 FL Mean Corpuscular Hemoglobin 28 25-34 PG Mean Corpuscular Hemoglobin Concent 31 L 32-36 G/DL Red Cell Distribution Width 15.2 H 10.0-14.5 % Platelet Count 208 130-400 10^3/uL Mean Platelet Volume 9.5 7.4-10.4 FL Immature Granulocyte % (Auto) 0 % Neutrophils (%) (Auto) 74 42-75 % Lymphocytes (%) (Auto) 12 12-44 % Monocytes (%) (Auto) 13 H 0-12 % Eosinophils (%) (Auto) 0 0-10 % Basophils (%) (Auto) 0 0-10 % Neutrophils # (Auto) 7.6 1.8-7.8 X 10^3 Lymphocytes # (Auto) 1.3 1.0-4.0 X 10^3 Monocytes # (Auto) 1.4 H 0.0-1.0 X 10^3 Eosinophils # (Auto) 0.0 0.0-0.3 10^3/uL Basophils # (Auto) 0.0 0.0-0.1 10^3/uL Immature Granulocyte # (Auto) 0.0 0.0-0.1 10^3/uL Sodium Level 140 135-145 MMOL/L Potassium Level 4.3 3.6-5.0 MMOL/L Chloride Level 103 98-107 MMOL/L Carbon Dioxide Level 25 21-32 MMOL/L Anion Gap 12 5-14 MMOL/L Blood Urea Nitrogen 31 H 7-18 MG/DL Creatinine 1.40 H 0.60-1.30 MG/DL Estimat Glomerular Filtration Rate 49 BUN/Creatinine Ratio 22 Glucose Level 125 H 70-105 MG/DL Calcium Level 9.4 8.5-10.1 MG/DL Corrected Calcium 9.4 8.5-10.1 MG/DL Total Bilirubin 1.3 H 0.1-1.0 MG/DL Aspartate Amino Transf (AST/SGOT) 25 5-34 U/L Alanine Aminotransferase (ALT/SGPT) 13 0-55 U/L Alkaline Phosphatase 111 40-136 U/L Troponin I < 0.30 <0.30 NG/ML Pro-B-Type Natriuretic Peptide 6071.0 H <75.0 PG/ML Total Protein 6.7 6.4-8.2 GM/DL Albumin 4.0 3.2-4.5 GM/DL JONAH Boss DO Cbc With Automated Diff (07/27/20 10:12) Comprehensive Metabolic Panel (07/27/20 10:12) Chest 1 View Ap/Pa Only (07/27/20 10:12) Troponin I Fs (07/27/20 10:12) Probnp Fs (07/27/20 10:12) Ekg Tracing (07/27/20 10:21) Coronavirus Sars-Cov-2 So 2018 (07/27/20 10:32) Furosemide Injection (Lasix Injection) (07/27/20 11:15) Bipap (Bilevel) Set Up (07/27/20 11:18) Medications Given in ED Current Medications Medications Dose Ordered Sig/Fay Route Start Time Stop Time Status Last Admin Dose Admin Furosemide 40 mg ONCE ONCE IVP 07/27/20 11:15 07/27/20 11:16 DC 07/27/20 11:40 40 MG Vital Signs/I&O 07/27/20 10:08 Temp 37.1 Pulse 74 Resp 20 B/P (MAP) 126/56 (79) Pulse Ox 96 O2 Delivery Room Air Blood Pressure Mean: 79 Departure Communication (Admissions) Patient with acute congestive heart failure with respiratory compromise and blood-tinged pulmonary edema. Patient given Lasix placed on BiPAP. Blood pressure stable. Will admit to [place] cardiac unit with cardiology consult. HCAP with risk for mulit-drug: Other Patient allergy/sensitivity/re: Other Impression Primary Impression: Acute on chronic combined systolic (congestive) and diastolic (congestive) heart failure Additional Impression: Acute respiratory failure with hypoxia Disposition: ADMITTED INPATIENT Condition: Stable Admissions Decision to Admit Reason: Admit from ER (General) Decision to Admit/Date: Jul 27, 2020 Time/Decision to Admit Time: 11:34 (Dr. Saamniego) Transfer Transfer Reason: Exceeds level of care Departure-Patient Inst. Decision time for Depature: 11:34 Referrals: VALORIE MACKAY MD (PCP/Family) Primary Care Physician JONAH KINNEY DO Jul 27, 2020 11:33
[2020-07-27 13:53] LABS: BILIRUBIN,URINE NEGATIVE (NEGATIVE); CLARITY,URINE CLEAR; COLOR,URINE YELLOW; GLUCOSE, URINE (UA) NEGATIVE (NEGATIVE); KETONES,URINE NEGATIVE (NEGATIVE); LEUKOCYTE ESTERASE ,URINE NEGATIVE (NEGATIVE); NITRITE,URINE NEGATIVE (NEGATIVE); PH,URINE 6.5 (5-9); PROTEIN,URINE NEGATIVE (NEGATIVE); SQUAMOUS EPITHELIAL CELL,UR RARE /HPF
--- NOTE | 2020-07-27 14:10 | NUR ---
Attempted to call report to CINTHYA Lyon. She states she is changing a colostomy bag and will call back when she is able.
--- NOTE | 2020-07-27 14:40 | NUR ---
Call received from CINTHYA Lyon for patient report.
[2020-07-27 15:45] VITALS: BP 128/78
[2020-07-27 15:55] VITALS: BP 144/88
[2020-07-27 16:00] VITALS: BP 131/67
[2020-07-27] MEDS ORDERED: CATHETER FLUSH 10 ML SYR IV PRN (16:15)
[2020-07-27] MEDS: FUROSEMIDE 40 MG/4 ML INJ (LASIX) IVP SCH (16:28)
[2020-07-27] MEDS: KCL 10 MEQ TAB (MICRO K) PO SCH (16:28)
[2020-07-27] MEDS ORDERED: DOCUSATE SODIUM 100 MG (COLACE) CAP PO PRN (19:45)
[2020-07-27] MEDS ORDERED: guaiFENesin/CODEINE (ROBITUSSIN AC) 10ML UDC PO PRN (19:45)
[2020-07-27] MEDS ORDERED: ALPRAZolam 0.25 MG (XANAX) TAB PO PRN (19:45)
[2020-07-27] MEDS ORDERED: diphenhydrAMINE 25 MG TAB (BENADRYL) PO PRN (19:45)
[2020-07-27] MEDS ORDERED: MELATONIN 3 MG TABLET PO PRN (19:45)
[2020-07-27] MEDS ORDERED: ONDANSETRON 4 MG/2 ML (SDV) Z0FRAN IVP PRN (19:45)
[2020-07-27] MEDS ORDERED: HYDROcodone/APAP 5 MG/325 MG (LORTAB) TAB PO PRN (19:45)
[2020-07-27] MEDS ORDERED: LOPERAMIDE 2 MG (IMODIUM) TABLET PO PRN (19:45)
[2020-07-27] MEDS ORDERED: ACETAMINOPHEN 500 MG TAB (TYLENOL) PO PRN (19:45)
[2020-07-27] MEDS ORDERED: morphine INJ 10 MG/ML 1ML (SYR OR VIAL) IVP PRN (19:45)
[2020-07-27] MEDS ORDERED: ENOXAPARIN 40 MG/0.4 ML (LOVENOX) SYR SC SCH (19:45)
[2020-07-27] MEDS ORDERED: CALCIUM CARBONATE 500 MG (TUMS) TAB.CHEW PO PRN (19:45)
[2020-07-27] MEDS ORDERED: morphine INJ 4 MG/ML 1 ML (VIAL/SYRINGE) IV PRN (20:00)
[2020-07-27 20:09] VITALS: BP 149/69
[2020-07-27] MEDS: SENNA W/DOCUSATE (SENOKOT S) TABLET PO SCH (20:41)
[2020-07-27] MEDS: APIXABAN 5 MG (ELIQUIS) TABLET PO SCH (20:41)
[2020-07-27] MEDS: CATHETER FLUSH 10 ML SYR IV SCH (20:42)
[2020-07-28 00:42] VITALS: BP 131/69
[2020-07-28 03:46] LABS: BASOPHILS % (AUTO) 0 % (0-10); EOSINOPHILS % (AUTO) 0 % (0-10); HEMATOCRIT 32 % (40-54); HEMOGLOBIN 9.5 g/dL (13.3-17.7); LYMPHOCYTES # (AUTO) 1.8 10^3/uL (1.0-4.0); LYMPHOCYTES % (AUTO) 18 % (12-44); MEAN CORPUSCULAR HEMOGLOBIN 28 pg (25-34); MEAN CORPUSCULAR HGB CONC 30 g/dL (32-36); MEAN CORPUSCULAR VOLUME 96 fL (80-99); MEAN PLATELET VOLUME 9.4 fL (9.0-12.2); MONOCYTES # (AUTO) 1.5 10^3/uL (0.0-1.0); MONOCYTES % (AUTO) 15 % (0-12); NEUTROPHILS # (AUTO) 6.4 10^3/uL (1.8-7.8); NEUTROPHILS % (AUTO) 66 % (42-75); PLATELET COUNT 205 10^3/uL (130-400); WHITE BLOOD COUNT 9.7 10^3/uL (4.3-11.0)
[2020-07-28 04:02] LABS: ALBUMIN 3.7 GM/DL (3.2-4.5); POTASSIUM 4.3 MMOL/L (3.6-5.0)
[2020-07-28 04:05] LABS: TOTAL PROTEIN 6.4 GM/DL (6.4-8.2)
[2020-07-28 04:07] LABS: BILIRUBIN,TOTAL 1.2 MG/DL (0.1-1.0)
[2020-07-28 04:09] LABS: CREATININE SERUM 1.54 MG/DL (0.60-1.30)
[2020-07-28 04:11] LABS: MAGNESIUM 2.3 MG/DL (1.6-2.4)
[2020-07-28 04:13] VITALS: BP 120/56
--- NOTE | 2020-07-28 05:39 | History & Physical-Hospitalist ---
History of Present Illness HPI/Chief Complaint CC: SOB HPI: This is a 75yoWM who receives his care at the [facility] and Dr. Colón who has a PMH of CHF who was monitored by the [facility], told him to go to the ER because of significant hypoxia and SOB, who was found to have significant exacerbation of CHF and unable to really ambulated without SOB, Pt was given IV Lasix, Dr. Seng chaudhary was consulted and at this current time he is having a bloody nose because of the dryness and the oxygen and requested to be in humidified. Apparently I took care of his Lizett Grant back this past year but she had liver cancer and multiple other medical problems and she required a transfer up to where she ultimately , I did review those records but daughter does not want me to take care of Wade Grant so I will transfer his care to Dr. Frazier and Dr. Schmidt will take care of him starting in the morning. Source: patient Exam Limitations: no limitations Date Seen 07/28/20 Time Seen by a Provider: 10:00 Attending Physician Bethany Garcia Maxwell MD Referring Physician Date of Admission Jul 27, 2020 at 15:08 Home Medications & Allergies Home Medications Reviewed patient Home Medication Reconciliation performed by pharmacy medication reconciliations centrifugal chiller technician and/or nursing. Patients Allergies have been reviewed. Allergies Allergies Coded Allergies No Known Drug Allergies (Unverified01/31/19) Past Hvqshxh-Sbdcyu-Kaezqp Hx Past Med/Social Hx: Reviewed Nursing Past Med/Soc Hx, Reviewed and Corrections made Patient Social History Marrital Status: Employed/Student: retired Alcohol Use: Denies Use Recreational Drug Use: No Smoking Status: Former Smoker Former Smoker, Quit: Jun 30, 1975 Type Used: Cigarettes 2nd Hand Smoke Exposure: No Recent Foreign Travel: No Contact w/other who traveled: No Recent Hopitalizations: No Recent Infectious Disease Expo: No Immunizations Up To Date Tetanus Booster (TDap): Unknown Date of Pneumonia Vaccine: May 27, 2013 Date of Influenza Vaccine: May 27, 2020 Seasonal Allergies Seasonal Allergies: No Past Medical History Surgeries: Lobectomy, Orthopedic Cardiac: Atrial Fibrillation, Chronic Edema/Swelling, High Cholesterol, Hypertension, Peripheral Vascular Genitourinary: Benign Prostatic Hyperpl, Prostate Problems Gastrointestinal: Gastroesophageal Reflux Musculoskeletal: Degenerate Disk Disease, Arthritis, Chronic Back Pain Hearing Impairment: Bilateral Hearing Aide Cancer: Skin Psychosocial: Anxiety Skin/Integumentary: Psoriasis History of Blood Disorders: No Family History Arthritis 19 FATHER 19 MOTHER G8 BROTHER G8 SISTER Diabetes mellitus 19 FATHER 19 MOTHER G8 BROTHER G8 SISTER Hypertension 19 MOTHER G8 BROTHER G8 SISTER Respiratory disorder 19 FATHER (LUNG CA) G8 SISTER (LUNG CA) Review of Systems Constitutional: see HPI Respiratory: dyspnea on exertion, short of breath Physical Exam Physical Exam Vital Signs Vital Signs - First Documented 07/27/20 07/27/20 07/27/20 10:08 15:45 15:55 Temp 37.1 Pulse 74 Resp 20 B/P (MAP) 126/56 (79) Pulse Ox 96 O2 Delivery Room Air O2 Flow Rate 40.00 FiO2 40 Capillary Refill : Less Than 3 Seconds Height, Weight, BMI Height: 5'5.00" Weight: 227lbs. 0.0oz. 102.536346kl; 36.79 BMI Method:Stated General Appearance: No Apparent Distress, Chronically ill Eyes: Right Eye Normal Inspection, Right Eye PERRL HEENT: PERRL/EOMI, Normal ENT Inspection, Pharynx Normal, Moist Mucous Membranes Neck: Full Range of Motion, Normal Inspection, Non Tender Respiratory: Chest Non Tender, No Accessory Muscle Use, No Respiratory Distress, Decreased Breath Sounds, Wheezing Cardiovascular: Regular Rate, Rhythm, No Gallop, No JVD, No Murmur, Normal Peripheral Pulses Gastrointestinal: Normal Bowel Sounds, No Organomegaly, No Pulsatile Mass, Non Tender, Soft Back: Normal Inspection, No CVA Tenderness, No Vertebral Tenderness Extremity: Normal Capillary Refill, Normal Inspection, Normal Range of Motion, Non Tender, No Calf Tenderness, Pedal Edema Neurologic/Psychiatric: Alert, Oriented x3, No Motor/Sensory Deficits, Normal Mood/Affect Skin: Normal Color, Warm/Dry Lymphatic: No Adenopathy Results Results/Procedures Labs Laboratory Tests 07/27/20 10:15 07/28/20 03:34 Patient resulted labs reviewed. Assessment/Plan Admission Diagnosis Assessment: AECHF Hypoxia COVID negative Plan: Cardiology Lasix O2 Transfer care to Dr Frazier and DR Schmidt per daughter request Admission Status: Inpatient Order (span 2 midnights) Reason for Inpatient Admission: CHF Diagnosis/Problems Diagnosis/Problems (1) Acute on chronic combined systolic (congestive) and diastolic (congestive) heart failure Status: Acute (2) Acute respiratory failure with hypoxia Status: Acute Clinical Quality Measures DVT/VTE Risk/Contraindication: Risk Factor Score Per Nursin RFS Level Per Nursing on Admit: 4+=Very High Pneumonia: HCAP with risk for mulit-drug: Other BETHANY GARCIA DO Jul 28, 2020 05:39
[2020-07-28] MEDS: FUROSEMIDE 40 MG/4 ML INJ (LASIX) IVP SCH ×2 (05:51→17:46)
[2020-07-28] MEDS: CATHETER FLUSH 10 ML SYR IV SCH ×3 (05:52→22:00)
--- NOTE | 2020-07-28 07:52 | Consultation-Cardiology ---
HPI-Cardiology Cardiology Consultation: Date of Consultation 07/28/20 Time Seen by a Provider: 09:00 Date of Admission 07-27-2020 Attending Physician Bethany Samaniego DO Admitting Physician Morgan Colón MD Consulting Physician Enedelia Santana MD HPI: Chief Complaint: CHF Mr. Grant is a 75 yr old male admitted to [facility] from [facility] ED. He reports he has home monitoring of his HR, [facility] He states yesterday he received a call from home microelectronics technician who directed him to the ED in [facility]. He reports some increasing SOB at home. He denies any c/o CP, palpitations, syncope, near syncope or LE swelling. He reports he has been compliant with his medications. He denies any n/v/d. He denies any fever or chills. Review of Systems-Cardiology Review of Systems Constitutional: No chills, No fever, No malaise, No weight gain Eyes: No vision change Ears/Nose/Throat: No epistaxis, No recent hearing loss Respiratory: As described under HPI Cardiovascular: As described under HPI Gastrointestinal: No diarrhea, No nausea, No vomiting Genitourinary: No dysuria Musculoskeletal: no symptoms reported Skin: No rash on exposed areas, No ulcerations on exposed areas Psychiatric/Neurological: No anxiety, No depression, No seizure, No focal weakness, No syncope Hematologic: No bleeding abnormalities All Other Systems Reviewed Negative Unless Noted: Yes LDJ-Vwxsbx-Wzvxpo Hx Patient Social History Alcohol Use: Denies Use Recreational Drug Use: No Smoking Status: Former Smoker Former smoker/When Quit: Apr 27, 1975 Type Used: Cigarettes 2nd Hand Smoke Exposure: No Recent Foreign Travel: No Recent Infectious Disease Expo: No Hospitalization with Isolation: Denies Immunizations Up To Date Tetanus Booster (TDap): Unknown Date of Pneumonia Vaccine: May 27, 2013 Date of Influenza Vaccine: May 27, 2020 Past Medical History PMH As described under Assessment. Family Medical History Family Medical History: He reports his mother and father both had WI's in their 80's. No family h/o premature CAD. Family History: Arthritis 19 FATHER 19 MOTHER G8 BROTHER G8 SISTER Diabetes mellitus 19 FATHER 19 MOTHER G8 BROTHER G8 SISTER Hypertension 19 MOTHER G8 BROTHER G8 SISTER Respiratory disorder 19 FATHER (LUNG CA) G8 SISTER (LUNG CA) Allergies and Home Medications Allergies Coded Allergies: No Known Drug Allergies (Unverified , 01/31/19) Home Medications Acetaminophen 325 Mg Tablet, 650 MG PO TID, (Reported) TAKES 2 (325MG) TABLETS Amiodarone HCl 200 Mg Tablet, 200 MG PO DAILY, (Reported) Apixaban 5 Mg Tablet, 5 MG PO BID, (Reported) Aspirin 81 Mg Tablet.dr, 81 MG PO DAILY, (Reported) Calcium Carbonate 500 Mg Tablet, 1,000 MG PO DAILY, (Reported) TAKES 2 (500MG) TABLETS Cetirizine HCl 10 Mg Tablet, 10 MG PO DAILY PRN for ALLERGIES, (Reported) Cholecalciferol (Vitamin D3) 25 Mcg Capsule, 25 MCG PO DAILY, (Reported) Famotidine 20 Mg Tablet, 20 MG PO BID, (Reported) Furosemide 40 Mg Tablet, 40 MG PO BID, (Reported) Gabapentin 600 Mg Tablet, 600 MG PO BID, (Reported) Losartan Potassium 50 Mg Tablet, 25 MG PO DAILY, (Reported) TALES 1/2 (50MG) TABLET Methimazole 10 Mg Tab, 5 MG PO DAILY, (Reported) TAKES 1/2 (10MG) TABLET Metolazone 2.5 Mg Tablet, 2.5 MG PO MON,WED,FRI, (Reported) Metoprolol Succinate 50 Mg Tab.er.24h, 25 MG PO DAILY, (Reported) TAKES 1/2 (50MG) TABLET Potassium Chloride 20 Meq Tablet.er, 10 MEQ PO DAILY, (Reported) TAKES 1/2 (20MEQ) TABLET Simvastatin 40 Mg Tablet, 20 MG PO DAILY, (Reported) TAKES 1/2 (40MG) TABLET Spironolactone 25 Mg Tablet, 25 MG PO DAILY, (Reported) Tamsulosin HCl 0.4 Mg Cap, 0.4 MG PO HS, (Reported) Physical Exam-Cardiology Physical Exam Vital Signs/I&O 07/28/20 07/29/20 07/29/20 07/29/20 21:00 00:00 00:00 01:00 Temp 37.2 Pulse 80 99 Resp 16 B/P (MAP) 121/66 (84) Pulse Ox 98 94 O2 Delivery High Flow N/C High Flow N/C Nasal Cannula O2 Flow Rate 3.00 3.00 3.00 07/29/20 07/29/20 04:00 04:00 Temp 37.0 Pulse 65 Resp 20 B/P (MAP) 129/83 (98) Pulse Ox 98 94 O2 Delivery High Flow N/C Nasal Cannula O2 Flow Rate 3.00 3.00 07/29/20 00:00 Intake Total 1750 ml Output Total 2325 ml Balance -575 ml Capillary Refill : Less Than 3 Seconds Constitutional: AAO x 3, well-developed, well-nourished HEENT: PERRL, hearing is well preserved, oral hygience is good Neck: No carotid bruit; carotid pulses are 2 + bilaterally Respiratory: No accessory muscle use, No respiratory distress; chest expansion is symmetric, chest is bilaterally symmetric, crackles (bi-basilar) Cardiovascular: irregularly irregular; No JVD; S1 and S2 Gastrointestinal: No tender; soft, round, audible bowel sounds Extremities: no lower extremity edema bilateral Neurologic/Psychiatric: grossly intact (moves all ) Skin: No rash on exposed areas, No ulcerations on exposed areas Data Review Labs Laboratory Tests 07/28/20 10:44: Glucometer 102 07/29/20 02:35: White Blood Count 9.4, Red Blood Count 3.27L, Hemoglobin 9.3L, Hematocrit 31L, Mean Corpuscular Volume 94, Mean Corpuscular Hemoglobin 28, Mean Corpuscular Hemoglobin Concent 30L, Red Cell Distribution Width 15.0H, Platelet Count 210, Mean Platelet Volume 9.6, Immature Granulocyte % (Auto) 0, Neutrophils (%) (Auto) 69, Lymphocytes (%) (Auto) 14, Monocytes (%) (Auto) 16H, Eosinophils (%) (Auto) 0, Basophils (%) (Auto) 0, Neutrophils # (Auto) 6.5, Lymphocytes # (Auto) 1.3, Monocytes # (Auto) 1.5H, Eosinophils # (Auto) 0.0, Basophils # (Auto) 0.0, Immature Granulocyte # (Auto) 0.0 07/29/20 08:20: Radiology NAME: PATRICIO GRANT [facility] REC#: [id number] PT STATUS: REG ER : 1945 PHYSICIAN: JONAH KINNEY DO ADMIT DATE: 07/27/20/ER FS Signed Date of Exam:07/27/20 CHEST 1 VIEW AP/PA ONLY INDICATION: Shortness of breath, atrial fibrillation. COMPARISON: 11/18/2019. FINDINGS: The heart is enlarged. There is prominence of the vascularity. There are somewhat nodular pulmonary opacities bilaterally, greater right. While there is an element of hypervolemia or failure present, superimposition of pneumonia in the appropriate clinical scenario could not be excluded. Blunting of the left costophrenic angle is unchanged. No pneumothorax. IMPRESSION: Redemonstration of cardiomegaly and vascular congestion. There is likely at least some degree of pulmonary edema present; however, pneumonia superimposed, particularly in the right lung, could not be excluded in the appropriate clinical scenario. Dictated by: Dictated on workstation # [id number] Dict: 07/27/20 1107 Trans: 07/27/20 1151 [id number] Interpreted by: SELENE COHEN Electronically signed by: SELENE COHEN 07/27/20 1151 ECG Impression ECG Initial ECG Impression: Atrial Fibrillation A/P-Cardiology Assessment/Admission Diagnosis Acute on chronic systolic CHF Probable pneumonia - management per medical services NICM with LVEF 40-50% on various modes of evaluation as noted below Paroxysmal atrial fibrillation (first diagnosed on EKG during ED eval on February 02, 2019), underwent EVGENY with successful electrical cardioversion and ILR implant by Dr. Carter on February 03, 2019. However, on tele strips today (Jul 28, 2020) he has converted bay to a-fib with controlled rate H/O episodes of 2-1 AV block and transient Mobitz 1 AV block following ca rdioversion by Dr. Carter. ILR has not shown any significant bradycardia in the recent past. Some transmissions have been labelled "pause" by the device but are due to undersensing of R waves (also pt does not report any symptoms) Episode of transient short wide complex tachycardia, nonsustained ventricular tachycardia seen on tele during hospitalization of January 2019 (rhythm strip reviewed, no further documented episodes seen on ILR interrogation), Amiodarone started at this time OAC with Eliquis CAD. 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 Echo of 01/08/19: LVEF 45-50%, grade 2 palomino dysfunction of LV, mod concentric LVH, biatrial enlargement, very mild H/o Type-2 WI (minimally elevated troponin, likely due to decomp CHF) - during hospitalization of January 07, 2019 HTN CKD stage 3-4 HLD - statin tx Quit smoking in 1974 Surgeries: H/o bilat knee surgery; H/o cervical spine surgery; H/o left lobectom y in 1968 in [place] - post [place] war tour - d/t a lung mass - exact details unknown Discussion and Recomendations Acute on chronic systolic/diastolic CHF - treat with diuretics H/O PAF with previous cardioversion - however he is now back in a-fib with controlled rate Echocardiogram to eval structure Possible pneumonia - management per medical services Monitor lab closely and replace diuretics as indicated Further recs will be based on his hospital course We would like to thank medical services for this consult Clinical Quality Measures DVT/VTE Risk/Contraindication: Risk Factor Score Per Nursin RFS Level Per Nursing on Admit: 4+=Very High Pneumonia: HCAP with risk for mulit-drug: Other NATHAN ELLINGTON [facility] Jul 28, 2020 07:52
[2020-07-28] MEDS: AMIODARONE 200 MG (CORDARONE) TAB PO SCH (08:24)
[2020-07-28] MEDS: KCL 10 MEQ TAB (MICRO K) PO SCH ×2 (08:24→17:46)
[2020-07-28] MEDS: ASPIRIN 81 MG CHEW (CHILDREN'S ASA) PO SCH (08:24)
[2020-07-28] MEDS: APIXABAN 5 MG (ELIQUIS) TABLET PO SCH ×2 (08:24→20:12)
[2020-07-28 08:25] VITALS: BP 166/84
[2020-07-28] MEDS: SENNA W/DOCUSATE (SENOKOT S) TABLET PO SCH ×2 (08:25→20:12)
[2020-07-28] MEDS: LOSARTAN 50 MG (COZAAR) TAB PO SCH (08:25)
--- NOTE | 2020-07-28 09:01 | Physical Therapy Evaluation ---
PT Evaluation-General Medical Diagnosis Admission Date Jul 27, 2020 at 15:08 Medical Diagnosis: CHF Onset Date: Jul 27, 2020 Therapy Diagnosis Therapy Diagnosis: impaired mobility, strength, endurance Height/Weight Height (Feet): 5 Height (Inches): 5.00 Weight (Pounds): 227 Weight (Ounces): 0.0 Precautions Precautions/Isolations: Airborne Isolation Referral Physician: Bethany Samaniego DO Reason for Referral: Evaluation/Treatment Medical History Pertinent Medical History: HTN, [place] Additional Medical History Past Medical History Surgeries: Lobectomy, Orthopedic Cardiac: Atrial Fibrillation, Chronic Edema/Swelling, High Cholesterol, Hypertension, Peripheral Vascular Genitourinary: Benign Prostatic Hyperpl, Prostate Problems Gastrointestinal: Gastroesophageal Reflux Musculoskeletal: Degenerate Disk Disease, Arthritis, Chronic Back Pain Hearing Impairment: Bilateral Hearing Aide Cancer: Skin Psychosocial: Anxiety Skin/Integumentary: Psoriasis Reviewed History: Yes Social History Home: Single Level Entry Into Home: Ramp Prior Prior Level of Function SCALE: Activities may be completed with or without assistive devices. 1-Hqmklhbvuu-trpfahv completes the activity by him/herself with no assistance from a helper. 5-Set-up or Clean-up Assistance-helper sets up or cleans up; patient completes activity. [place] assists only prior to or following the activity. 4-Supervision or Touching Assistance-helper provides verbal cues and/or touching/steadying and/or contact guard assistance as patient completes activity. Assistance may be provided throughout the activity or intermittently. 3-Partial/Moderate Assistance-helper does LESS THAN HALF the effort. [place] lifts, holds or supports trunk or limbs, but provides less than half the effort. 2-Substantial/Maximal Assistance-helper does MORE THAN HALF the effort. [place] lifts or holds trunk or limbs and provides more than half the effort. 0-Jpfkuiezz-tydkna does ALL the effort. Patient does none of the effort to complete the activity. Or, the assistance of 2 or more helpers is required for the patient to complete the activity. If activity was not attempted, code reason: 7-Patient Refused. 9-Not Applicable-not attempted and the patient did not perform the activity before the current illness, exacerbation or injury. 10-Not Attempted due to Environmental Limitations-(lack of equipment, weather restraints, etc.). 88-Not Attempted due to Medical Conditions or Safety Concerns. Bed Mobility: 6 Transfers (B,C,W/C): 6 Gait: 6 Indoor Mobility (Ambulation): Independent Prior Devices Use: Walker Prior Device Use: SPC PT Evaluation-Current Subjective Patient in bed pre tx, agrees to PT, has no complaints of pain but states he often has significant low back pain. Pt/Family Goals "to go home" Objective Patient Orientation: Person, Place, Situation Attachments: Oxygen ROM/Strength ROM Lower Extremities WNL Strength Lower Extremities 5/5 gross BLE Sensory Hearing: Impaired Sensation Right Lower Extremit: Intact Sensation Left Lower Extremity: Intact Transfers Roll Left to Right (QC): 6 Sit to Lying (QC): 6 Lying to Sitting/Side of Bed(Q: 6 Sit to Stand (QC): 6 Gait Does the Patient Walk?: Yes Mode of Locomotion: Walk Anticipated Mode of Locomotion: Walk Walk 10 feet (QC): 4 Distance: 30' Gait Assistive Device: Cane Single Point Comments/Gait Description Steady ambulation, no LOB, no obvious SOB Balance Sitting Static: Normal Sitting Dynamic: Normal Standing Static: Normal Standing Dynamic: Good Treatment supine BLE exercises x20 (AP, HS) Assessment/Needs Patient has impaired mobility, uses SPC for ambulation, SBA no LOB Rehab Potential: Fair PT Care Home Goals Tail End Rider Goals PT Care Home Goals Time Frame: Aug 04, 2020 Roll Left & Right (QC): 6 Sit to Lying (QC): 6 Lying-Sitting on Side/Bed(QC): 6 Sit to Stand (QC): 6 Chair/Rpp-np-Izmse Xfer(QC): 6 Walk 10 feet (QC): 6 Walk 50ft with 2 Turns (QC): 6 Walk 150 ft (QC): 6 PT Plan Problem List Problem List: Activity Tolerance, Functional Strength, Safety, Balance, Gait, Transfer Treatment/Plan Treatment Plan: Continue Plan of Care Treatment Plan: Education, Functional Activity Fredy, Functional Strength, Gait, Safety, Therapeutic Exercise, Transfers Treatment Duration: Aug 04, 2020 Frequency: 6 times per week Estimated Hrs Per Day: .25 hour per day Patient and/or Family Agrees t: Yes Safety Risks/Education Patient Education: Gait Training, Transfer Techniques, Correct Positioning, Safety Issues Teaching Recipient: Patient Teaching Methods: Demonstration, Discussion Response to Teaching: Reinforcement Needed Discharge Recommendations Plan Patient will perform bed mobility and transfer training, balance and endurance training, functional strengthening, stair training, gait training, and education, to improve functional mobility and independence at home. Therapy Discharge Recommendati: Scheduled Assistance, Home & Family, Post Acute PT Time/GCodes Time In: 831 Time Out: 844 Total Billed Treatment Time: 13 Total Billed Treatment 1 visit CHERYL Hoyt' TODD PENA PT Jul 28, 2020 09:01
[2020-07-28] MEDS ORDERED: SALINE NASAL SPRAY (OCEAN) 45 ML BTL PRN (09:30)
[2020-07-28] MEDS ORDERED: FUROSEMIDE 40 MG/4 ML INJ (LASIX) IVP NR (09:45)
--- NOTE | 2020-07-28 10:32 | Occupational Therapy Eval ---
OT Evaluation-General/PLF Medical Diagnosis Admission Date Jul 27, 2020 at 15:08 Medical Diagnosis: CHF Onset Date: Jul 27, 2020 Therapy Diagnosis Therapy Diagnosis: Decreased ADL status Height/Weight Height (Feet): 5 Height (Inches): 5.00 Weight (Pounds): 227 Weight (Ounces): 0.0 Precautions Precautions/Isolations: Fall Prevention, Standard Precautions Referral Physician: Bethany Samaniego DO Referral Reason: Activity Tolerance, Self Care, Evaluation/Treatment, Strengthening/ROM Medical History Pertinent Medical History: HTN, [place] Additional Medical History CHF, HTN, PVD, DDD, arthritis, anxiety, psoriasis Current History increased SOB and LE swelling. Reviewed History: Yes Social History Home: Single Level Current Living Status: Alone Entry Into Home: Ramp Pt's daughter lives 2 blocks away and checks in on pt at night. ADL-Prior Level of Function SCALE: Activities may be completed with or without assistive devices. 9-Eselranomt-nbpkhdl completes the activity by him/herself with no assistance from a helper. 5-Set-up or Clean-up Assistance-helper sets up or cleans up; patient completes activity. [place] assists only prior to or following the activity. 4-Supervision or Touching Assistance-helper provides verbal cues and/or touching/steadying and/or contact guard assistance as patient completes activity. Assistance may be provided throughout the activity or intermittently. 3-Partial/Moderate Assistance-helper does LESS THAN HALF the effort. [place] lifts, holds or supports trunk or limbs, but provides less than half the effort. 2-Substantial/Maximal Assistance-helper does MORE THAN HALF the effort. [place] lifts or holds trunk or limbs and provides more than half the effort. 5-Blejejlvp-vffbvd does ALL the effort. Patient does none of the effort to com plete the activity. Or, the assistance of 2 or more helpers is required for the patient to complete the activity. If activity was not attempted, code reason: 7-Patient Refused. 9-Not Applicable-not attempted and the patient did not perform the activity before the current illness, exacerbation or injury. 10-Not Attempted due to Environmental Limitations-(lack of equipment, weather restraints, etc.). 88-Not Attempted due to Medical Conditions or Safety Concerns. ADL PLOF Comments IND with ADLs with use of walker/ cane, drives, take out meals Self Care: Independent Functional Cognition: Independent Occupation: retired. Drive Self: Yes OT Current Status Subjective Pt up on side of bed upon entry. AxO. Pt agrees to tx. Pt denies pain. Visibly swollen LEs Mental Status/Objective Patient Orientation: Person, Place, Situation, Normal For Age Attachments: Oxygen, Telemetry Current Glasses/Contacts: Yes Hearing Aids: Yes Dentures/Partials: No Hand Dominance: Right Upper Extremity ROM WLF BUE Upper Extremity Coordination WLF BUE Upper Extremity Sensation WLF BUE Upper Extremity Strength WLF BUE Edema: BLE (toes to knees); CHF, owns compression socks. ADL-Treatment Eating (QC): 6 Oral Hygiene (QC): 6 On/Off Footwear (QC): 6 Other Treatments Pt states has been up in room, ambulated to bathroom, requires assist with toilet hygiene (though has toilet tongs/ is IND at home). Completes MMT/ ROM, sock doff/ donning- cues for breath in bending. Sit to stand from EOB with SBA and completes balance task in stance with no LOB. Pt returns to sit. Pt's 02 slips from nose intermittently and pt requires cues to correct. Pt's 02 ranges from 84-low 90's during session with 02 being manipulated. Pt states plans to d/c tomorrow. Pt does not require skilled OT at this time, is at [facility]. D/c OT. Pt notified, left EOB with all needs met. Education OT Patient Education: Correct positioning, Progress toward Goal/Update tx plan, Purpose of tx/functional activities, Safety issues Teaching Recipient: Patient Teaching Methods: Demonstration, Discussion Response to Teaching: Verbalize Understanding, Return Demonstration OT Halfway Goals Montessori Lead Teacher Goals 1=Demonstrate adherence to instructed precautions during ADL tasks. 2=Patient will verbalize/demonstrate understanding of assistive devices/modific ations for ADL. 3=Patient will improve strength/tolerance for activity to enable patient to perform ADL's. OT Education/Plan Problem List/Assessment Assessment: No Skilled OT Needs ID'd Discharge Recommendations Plan/Recommendations: Discharge/Goals Met Therapy Discharge Recommendati: Home & Family Treatment Plan/Plan of Care Patient would benefit from OT for education, treatment and training to promote independence in ADL's, mobility, safety and/or upper extremity function for ADL's. Plan of Care: OTHER (eval and d/c.) Treatment Duration: Jul 28, 2020 Frequency: 1 time per week (eval and d/c.) Rehab Potential: Fair Time/GCodes Start Time: 09:39 Stop Time: 09:49 Total Time Billed (hr/min): 10 Billed Treatment Time 1, EVM d/c. JOVANY SCHNEIDER OTIker Jul 28, 2020 10:32
[2020-07-28 12:00] VITALS: BP 115/70
[2020-07-28] MEDS ORDERED: SIMV40TA25 PO ×2 (12:45)
[2020-07-28] MEDS ORDERED: CALC-823 PO (12:45)
[2020-07-28] MEDS ORDERED: GBPN600T PO (12:45)
[2020-07-28] MEDS ORDERED: CETI10TA17 PO (12:45)
[2020-07-28] MEDS ORDERED: TMSL.4C PO (12:45)
[2020-07-28] MEDS ORDERED: LOSA50TA63 PO (12:45)
[2020-07-28] MEDS ORDERED: NF-METHI10 PO (12:45)
[2020-07-28] MEDS ORDERED: FURO40TA4 PO (12:45)
[2020-07-28] MEDS ORDERED: APIX5TAB PO (12:45)
[2020-07-28] MEDS ORDERED: CHOL100048 PO (12:45)
[2020-07-28] MEDS ORDERED: FAMO20TA3 PO (12:45)
[2020-07-28] MEDS ORDERED: METO2.5T PO (12:45)
[2020-07-28] MEDS ORDERED: ASPI-1238 PO (12:45)
[2020-07-28] MEDS ORDERED: METO50TA7 PO (12:45)
[2020-07-28] MEDS ORDERED: AMIO200T6 PO (12:45)
[2020-07-28] MEDS ORDERED: SPIR25TA5 PO (12:45)
[2020-07-28] MEDS ORDERED: POTA-51 PO (12:48)
--- NOTE | 2020-07-28 13:31 | NUR ---
Update called to Patient's daughter, Erica.
--- NOTE | 2020-07-28 13:49 | NUR ---
I SPOKE WITH THE PATIENT AND WENT THROUGH THE MED LIST BROUGHT FROM HOME TO COMPLETE THIS MED REC. CALLED PHARMACY TO VERIFY THE PRESCRIPTIONS FROM PATIENT'S LIST, WENT BACK AND TALKED TO THE PATIENT AND HE STATED THAT HE TAKES SOME MEDS DIFFERENTLY THAT ON THE LIST GIVEN. PATIENT'S HOME MED LIST IS PUT ON HIS CHART, BUT I UPDATED THE MED REC TO HOW HE NOW TAKES IT. 01/19/20 METOLAZONE 2.5MG #90 -DIRECTIONS FROM PHARMACY SAY TO TAKE DAILY, BUT PT ONLY TAKES MON,SUN,Sun01/29/20 POTASSIUM 20MEQ #90 -DIRECTIONS FROM PHARMACY SAY TO TAKE DAILY, BUT PT TAKES 1/2 TAB DAILY 05/05/20 TAMSULOSIN 0.4MG #90 05/27/20 SPIRONOLACTONE 25MG #90 06/03/20 FUROSEMIDE 40MG #180 06/08/20 GABAPENTIN 300MG #180 06/17/20 SIMVASTATIN 40MG #90 -DIRECTIONS FROM PHARMACY SAY TO TAKE 1 DAILY, PT TAKES 1/2 TAB DAILY 06/17/20 METHIMAZOLE 10MG #90 -DIRECTIONS SAY TO TAKE 1 DAILY, PT TAKES 1/2 TAB DAILY 07/01/20 LOSARTAN 50MG #30 -DIRECTIONS SAY TO TAKE 1 DAILY, PT TAKES 1/2 TAB DAILY 07/13/20 APIXABAN 5MG #180 07/15/20 METOPROLOL SUCC 50MG #45 OTC: CALCIUM CARBONATE ASPIRIN VITAMIN D3 FAMOTIDINE TYLENOL CETIRIZINE
[2020-07-28] MEDS ORDERED: ACET325T49 PO (14:04)
--- NOTE | 2020-07-28 17:13 | Consultation-Cardiology ---
HPI-Cardiology Cardiology Consultation: Date of Consultation 07/28/20 Time Seen by a Provider: 09:15 Date of Admission Attending Physician Bethany Samaniego DO Admitting Physician Morgan Colón MD Consulting Physician RAYMUNDO MUELLER MD, MA, FACP, FACC, FSCAI, CCDS HPI: Chief Complaint: CHF Mr. Grant is a 75 yr old male admitted to [facility] from [facility] ED. He reports he has home monitoring of his HR, [facility] He states yesterday he received a call from home [employer] who directed him to the ED in [facility]. He reports some increasing SOB at home. He denies any c/o CP, palpitations, syncope, near syncope or LE swelling. He reports he has been compliant with his medications. He denies any n/v/d. He denies any fever or chills. Review of Systems-Cardiology Review of Systems Constitutional: No chills, No fever, No malaise, No weight gain Eyes: No vision change Ears/Nose/Throat: No epistaxis, No recent hearing loss Respiratory: As described under HPI Cardiovascular: As described under HPI Gastrointestinal: No diarrhea, No nausea, No vomiting Genitourinary: No dysuria Musculoskeletal: no symptoms reported Skin: No rash on exposed areas, No ulcerations on exposed areas Psychiatric/Neurological: No anxiety, No depression, No seizure, No focal weakness, No syncope Hematologic: No bleeding abnormalities All Other Systems Reviewed Negative Unless Noted: Yes HHP-Oommco-Uptmge Hx Patient Social History Alcohol Use: Denies Use Recreational Drug Use: No Smoking Status: Former Smoker Former smoker/When Quit: Apr 27, 1975 Type Used: Cigarettes 2nd Hand Smoke Exposure: No Recent Foreign Travel: No Recent Infectious Disease Expo: No Hospitalization with Isolation: Denies Immunizations Up To Date Tetanus Booster (TDap): Unknown Date of Pneumonia Vaccine: May 27, 2013 Date of Influenza Vaccine: May 27, 2020 Past Medical History PMH As described under Assessment. Family Medical History Family Medical History: He reports his mother and father both had KY's in their 80's. No family h/o premature CAD. Family History: Arthritis 19 FATHER 19 MOTHER G8 BROTHER G8 SISTER Diabetes mellitus 19 FATHER 19 MOTHER G8 BROTHER G8 SISTER Hypertension 19 MOTHER G8 BROTHER G8 SISTER Respiratory disorder 19 FATHER (LUNG CA) G8 SISTER (LUNG CA) Allergies and Home Medications Allergies Coded Allergies: No Known Drug Allergies (Unverified , 01/31/19) Home Medications Acetaminophen 325 Mg Tablet, 650 MG PO TID, (Reported) TAKES 2 (325MG) TABLETS Amiodarone HCl 200 Mg Tablet, 200 MG PO DAILY, (Reported) Apixaban 5 Mg Tablet, 5 MG PO BID, (Reported) Aspirin 81 Mg Tablet.dr, 81 MG PO DAILY, (Reported) Calcium Carbonate 500 Mg Tablet, 1,000 MG PO DAILY, (Reported) TAKES 2 (500MG) TABLETS Cetirizine HCl 10 Mg Tablet, 10 MG PO DAILY PRN for ALLERGIES, (Reported) Cholecalciferol (Vitamin D3) 25 Mcg Capsule, 25 MCG PO DAILY, (Reported) Famotidine 20 Mg Tablet, 20 MG PO BID, (Reported) Furosemide 40 Mg Tablet, 40 MG PO BID, (Reported) Gabapentin 600 Mg Tablet, 600 MG PO BID, (Reported) Losartan Potassium 50 Mg Tablet, 25 MG PO DAILY, (Reported) TALES 1/2 (50MG) TABLET Methimazole 10 Mg Tab, 5 MG PO DAILY, (Reported) TAKES 1/2 (10MG) TABLET Metolazone 2.5 Mg Tablet, 2.5 MG PO MON,WED,FRI, (Reported) Metoprolol Succinate 50 Mg Tab.er.24h, 25 MG PO DAILY, (Reported) TAKES 1/2 (50MG) TABLET Potassium Chloride 20 Meq Tablet.er, 10 MEQ PO DAILY, (Reported) TAKES 1/2 (20MEQ) TABLET Simvastatin 40 Mg Tablet, 20 MG PO DAILY, (Reported) TAKES 1/2 (40MG) TABLET Spironolactone 25 Mg Tablet, 25 MG PO DAILY, (Reported) Tamsulosin HCl 0.4 Mg Cap, 0.4 MG PO HS, (Reported) Patient Home Medication List Home Medication List Reviewed: Yes Physical Exam-Cardiology Physical Exam Vital Signs/I&O 07/28/20 07/28/20 07/28/20 07/28/20 06:47 08:00 08:00 08:25 Temp 36.9 Pulse 75 96 B/P (MAP) 166/84 (111) Pulse Ox 98 97 O2 Delivery High Flow N/C High Flow N/C Nasal Cannula O2 Flow Rate 3.00 3.00 3.00 12/2/20 12/2/20 12/2/20 12:00 12:00 12:48 Temp 37.0 Pulse 90 109 B/P (MAP) 115/70 (85) Pulse Ox 98 98 O2 Delivery High Flow N/C Nasal Cannula O2 Flow Rate 3.00 3.00 07/28/20 00:00 Intake Total 840 ml Output Total 850 ml Balance -10 ml Capillary Refill : Less Than 3 Seconds Constitutional: AAO x 3, well-developed, well-nourished HEENT: PERRL, hearing is well preserved, oral hygience is good Neck: No carotid bruit; carotid pulses are 2 + bilaterally Respiratory: No accessory muscle use, No respiratory distress; chest expansion is symmetric, chest is bilaterally symmetric, crackles (bi-basilar) Cardiovascular: irregularly irregular; No JVD; S1 and S2 Gastrointestinal: No tender; soft, round, audible bowel sounds Extremities: no lower extremity edema bilateral Neurologic/Psychiatric: grossly intact (moves all ) Skin: No rash on exposed areas, No ulcerations on exposed areas Data Review Labs Laboratory Tests 07/28/20 03:34: White Blood Count 9.7, Red Blood Count 3.34L, Hemoglobin 9.5L, Hematocrit 32L, Mean Corpuscular Volume 96, Mean Corpuscular Hemoglobin 28, Mean Corpuscular Hemoglobin Concent 30L, Red Cell Distribution Width 15.1H, Platelet Count 205, Mean Platelet Volume 9.4, Immature Granulocyte % (Auto) 0, Neutrophils (%) (Auto) 66, Lymphocytes (%) (Auto) 18, Monocytes (%) (Auto) 15H, Eosinophils (%) (Auto) 0, Basophils (%) (Auto) 0, Neutrophils # (Auto) 6.4, Lymphocytes # (Auto) 1.8, Monocytes # (Auto) 1.5H, Eosinophils # (Auto) 0.0, Basophils # (Auto) 0.0, Immature Granulocyte # (Auto) 0.0, Sodium Level 139, Potassium Level 4.3, Chloride Level 103, Carbon Dioxide Level 22, Anion Gap 14, Blood Urea Nitrogen 33H, Creatinine 1.54H, Estimat Glomerular Filtration Rate 44, BUN/Creatinine Ratio 21, Glucose Level 116H, Calcium Level 9.0, Corrected Calcium 9.2, Magnesium Level 2.3, Total Bilirubin 1.2H, Aspartate Amino Transf (AST/SGOT) 24, Alanine Aminotransferase (ALT/SGPT) 15, Alkaline Phosphatase 91, Total Protein 6.4, Albumin 3.7, Thyroid Stimulating Hormone (TSH) 5.33H 07/28/20 10:44: Glucometer 102 A/P-Cardiology Assessment/Admission Diagnosis Acute on chronic systolic CHF Probable pneumonia - management per medical services NICM with LVEF 40-50% on various modes of evaluation as noted below Paroxysmal atrial fibrillation (first diagnosed on EKG during ED eval on February 02, 2019), underwent EVGENY with successful electrical cardioversion and ILR implant by Dr. Carter on February 03, 2019. However, on tele strips today (Jul 28, 2020) he has converted bay to a-fib with controlled rate H/O episodes of 2-1 AV block and transient Mobitz 1 AV block following cardioversion by Dr. Carter. ILR has not shown any significant bradycardia in the recent past. Some transmissions have been labelled "pause" by the device but are due to undersensing of R waves (also pt does not report any symptoms) Episode of transient short wide complex tachycardia, nonsustained ventricular tachycardia seen on tele during hospitalization of January 2019 (rhythm strip reviewed, no further documented episodes seen on ILR interrogation), Amiodarone started at this time OAC with Eliquis CAD. 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 Echo of 01/08/19: LVEF 45-50%, grade 2 palomino dysfunction of LV, mod concentric LVH, biatrial enlargement, very mild H/o Type-2 KY (minimally elevated troponin, likely due to decomp CHF) - during hospitalization of January 07, 2019 HTN CKD stage 3-4 HLD - statin tx Quit smoking in 1974 Surgeries: H/o bilat knee surgery; H/o cervical spine surgery; H/o left lobectomy in 1968 in [place] - post [place] war tour - d/t a lung mass - exact details unknown Discussion and Recomendations Acute on chronic systolic/diastolic CHF - treat with diuretics Echocardiogram to eval structure Possible pneumonia - management per Medical services Monitor lab closely and replace lytes as indicated Further recs will be based on his hospital course We would like to thank Medical services for this consult Clinical Quality Measures DVT/VTE Risk/Contraindication: Risk Factor Score Per Nursin RFS Level Per Nursing on Admit: 4+=Very High Pneumonia: HCAP with risk for mulit-drug: Other RAYMUNDO MUELLER MD FACP FAC CCDS Jul 28, 2020 17:13
[2020-07-28 17:45] VITALS: BP 110/86
[2020-07-28 19:30] VITALS: BP 126/92
[2020-07-29] VITALS (7 sets, daily range): BP systolic 100–138; BP diastolic 57–83
[2020-07-29] MEDS: CATHETER FLUSH 10 ML SYR IV SCH ×3 (06:05→23:07)
[2020-07-29] MEDS: FUROSEMIDE 40 MG/4 ML INJ (LASIX) IVP SCH ×2 (06:05→17:24)
[2020-07-29 07:07] LABS: BASOPHILS % (AUTO) 0 % (0-10); EOSINOPHILS % (AUTO) 0 % (0-10); HEMATOCRIT 31 % (40-54); HEMOGLOBIN 9.3 g/dL (13.3-17.7); LYMPHOCYTES # (AUTO) 1.3 10^3/uL (1.0-4.0); LYMPHOCYTES % (AUTO) 14 % (12-44); MEAN CORPUSCULAR HEMOGLOBIN 28 pg (25-34); MEAN CORPUSCULAR HGB CONC 30 g/dL (32-36); MEAN CORPUSCULAR VOLUME 94 fL (80-99); MEAN PLATELET VOLUME 9.6 fL (9.0-12.2); MONOCYTES # (AUTO) 1.5 10^3/uL (0.0-1.0); MONOCYTES % (AUTO) 16 % (0-12); NEUTROPHILS # (AUTO) 6.5 10^3/uL (1.8-7.8); NEUTROPHILS % (AUTO) 69 % (42-75); PLATELET COUNT 210 10^3/uL (130-400); WHITE BLOOD COUNT 9.4 10^3/uL (4.3-11.0)
[2020-07-29] MEDS: SENNA W/DOCUSATE (SENOKOT S) TABLET PO SCH ×2 (07:20→20:00)
--- NOTE | 2020-07-29 08:32 | Progress Note - Cardiology ---
Cardiology SOAP Progress Note Subjective: Lying in bed. States he feels his breathing is better than yesterday. No c/o CP, palpitations, syncope or near syncope. He feels his swelling is better today. Objective: I&O/Vital Signs 07/29/20 07/29/20 07/29/20 07/29/20 20:00 20:00 21:00 22:46 Temp 36.9 Pulse 81 Resp 18 B/P (MAP) 110/65 (80) Pulse Ox 94 93 O2 Delivery Nasal Cannula High Flow N/C Nasal Cannula Nasal Cannula O2 Flow Rate 1.00 3.00 1.00 1.00 07/29/20 07/30/20 07/30/20 07/30/20 23:11 00:00 01:00 04:00 Temp 36.9 36.2 Pulse 75 75 77 Resp 21 19 B/P (MAP) 138/77 (97) 121/71 (88) Pulse Ox 94 94 95 O2 Delivery Nasal Cannula Nasal Cannula O2 Flow Rate 2.00 1.00 2.00 07/30/20 07/30/20 04:00 07:25 Temp 36.4 Pulse 95 Resp 19 B/P (MAP) 121/71 (88) Pulse Ox 94 91 O2 Delivery Nasal Cannula O2 Flow Rate 1.00 0.50 07/30/20 00:00 Intake Total 1100 ml Output Total 850 ml Balance 250 ml Weight (Pounds): 227 Weight (Ounces): 0.0 Weight (Calculated Kilograms): 102.224520 Constitutional: AAO x 3, well-developed, well-nourished Respiratory: No accessory muscle use, No respiratory distress; chest expansion is symmetric, chest is bilaterally symmetric, lungs clear to auscultation Cardiovascular: irregularly irregular; No JVD; S1 and S2 Gastrointestional: No tender; soft, round, audible bowel sounds Extremities: no lower extremity edema bilateral Neurologic/Psychiatric: grossly intact (moves all ) Skin: No rash on exposed areas, No ulcerations on exposed areas Results/Procedures: Labs Laboratory Tests 07/29/20 08:20: Sodium Level 135, Potassium Level 4.1, Chloride Level 98, Carbon Dioxide Level 2 4, Anion Gap 13, Blood Urea Nitrogen 35H, Creatinine 1.45H, Estimat Glomerular Filtration Rate 47, BUN/Creatinine Ratio 24, Glucose Level 164H, Calcium Level 8.9, Magnesium Level 2.3 07/30/20 05:49: Sodium Level 136, Potassium Level 3.8, Chloride Level 101, Carbon Dioxide Level 23, Anion Gap 12, Blood Urea Nitrogen 36H, Creatinine 1.36H, Estimat Glomerular Filtration Rate 51, BUN/Creatinine Ratio 26, Glucose Level 119H, Calcium Level 8.8, White Blood Count 8.2, Red Blood Count 3.21L, Hemoglobin 9.2L, Hematocrit 30L, Mean Corpuscular Volume 94, Mean Corpuscular Hemoglobin 29, Mean Corpuscular Hemoglobin Concent 31L, Red Cell Distribution Width 14.9H, Platelet Count 222, Mean Platelet Volume 9.3, Immature Granulocyte % (Auto) 0, Neutrophils (%) (Auto) 68, Lymphocytes (%) (Auto) 16, Monocytes (%) (Auto) 15H, Eosinophils (%) (Auto) 0, Basophils (%) (Auto) 0, Neutrophils # (Auto) 5.6, Lymphocytes # (Auto) 1.3, Monocytes # (Auto) 1.2H, Eosinophils # (Auto) 0.0, Basophils # (Auto) 0.0, Immature Granulocyte # (Auto) 0.0, Corrected Calcium 9.0, Total Bilirubin 1.6H, Aspartate Amino Transf (AST/SGOT) 28, Alanine Aminotransferase (ALT/SGPT) 22, Alkaline Phosphatase 91, Total Protein 6.7, Albumin 3.7 A/P: Assessment: Acute on chronic systolic CHF - clinically improved Probable pneumonia - management per medical services NICM with LVEF 40-50% on various modes of evaluation as noted below Paroxysmal atrial fibrillation (first diagnosed on EKG during ED eval on February 02, 2019), underwent EVGENY with successful electrical cardioversion and ILR implant by Dr. Carter on February 03, 2019. However, on tele strips today (Jul 28, 2020) he has converted bay to a-fib with controlled rate H/O episodes of 2-1 AV block and transient Mobitz 1 AV block following cardioversion by Dr. Carter. ILR has not shown any significant bradycardia in the recent past. Some transmissions have been labelled "pause" by the device but are due to undersensing of R waves (also pt does not report any symptoms) Episode of transient short wide complex tachycardia, nonsustained ventricular tachycardia seen on tele during hospitalization of January 2019 (rhythm strip reviewed, no further documented episodes seen on ILR interrogation), Amiodarone started at this time OAC with Eliquis CAD. 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 Echo of 01/08/19: LVEF 45-50%, grade 2 palomino dysfunction of LV, mod concentric LVH, biatrial enlargement, very mild H/o Type-2 DE (minimally elevated troponin, likely due to decomp CHF) - during hospitalization of January 07, 2019 HTN CKD stage 3-4 HLD - statin tx Quit smoking in 1974 Surgeries: H/o bilat knee surgery; H/o cervical spine surgery; H/o left lobectomy in 1968 in [place] - post [place] war tour - d/t a lung mass - exact details unknown Plan: Acute on chronic systolic/diastolic CHF - clinically improved Echocardiogram to eval structure Possible pneumonia - management per Medical services Monitor lab closely and replace lytes as indicated Continue current regimen Clinical Quality Measures Pneumonia: HCAP with risk for mulit-drug: Other [facility] Jul 29, 2020 08:32
[2020-07-29] MEDS: AMIODARONE 200 MG (CORDARONE) TAB PO SCH (08:34)
[2020-07-29] MEDS: KCL 10 MEQ TAB (MICRO K) PO SCH ×2 (08:34→17:24)
[2020-07-29] MEDS: LOSARTAN 50 MG (COZAAR) TAB PO SCH (08:34)
[2020-07-29] MEDS: ASPIRIN 81 MG CHEW (CHILDREN'S ASA) PO SCH (08:34)
[2020-07-29] MEDS: APIXABAN 5 MG (ELIQUIS) TABLET PO SCH ×2 (08:34→20:00)
[2020-07-29 08:36] LABS: ALBUMIN 3.8 GM/DL (3.2-4.5); POTASSIUM 4.1 MMOL/L (3.6-5.0)
[2020-07-29 08:37] LABS: CALCIUM 8.9 MG/DL (8.5-10.1)
[2020-07-29 08:38] LABS: POTASSIUM 4.1 MMOL/L (3.6-5.0)
[2020-07-29 08:38] LABS: TOTAL PROTEIN 6.7 GM/DL (6.4-8.2)
[2020-07-29 08:39] LABS: CALCIUM 8.9 MG/DL (8.5-10.1)
[2020-07-29 08:40] LABS: BILIRUBIN,TOTAL 1.5 MG/DL (0.1-1.0)
[2020-07-29 08:42] LABS: CREATININE SERUM 1.52 MG/DL (0.60-1.30)
[2020-07-29 08:43] LABS: CREATININE SERUM 1.45 MG/DL (0.60-1.30)
[2020-07-29 08:45] LABS: MAGNESIUM 2.3 MG/DL (1.6-2.4)
[2020-07-29] MEDS ORDERED: POTA-51 PO (10:10)
[2020-07-29] MEDS ORDERED: FURO80TA83 PO (10:10)
[2020-07-29] MEDS ORDERED: LOSA50TA63 PO (10:10)
--- NOTE | 2020-07-29 10:17 | Physical Therapy Daily Note ---
PT Daily Note-Current Subjective Pt sitting EOB, no c/o except "I am always cold". Pt anxious to discharge home. Mental Status Patient Orientation: Person, Place, Time, Situation Attachments: Oxygen Multiple monitor lines Transfers SCALE: Activities may be completed with or without assistive devices. 8-Omudwebodc-cctrpaa completes the activity by him/herself with no assistance from a helper. 5-Set-up or Clean-up Assistance-helper sets up or cleans up; patient completes activity. [place] assists only prior to or following the activity. 4-Supervision or Touching Assistance-helper provides verbal cues and/or touching/steadying and/or contact guard assistance as patient completes activity. Assistance may be provided throughout the activity or intermittently. 3-Partial/Moderate Assistance-helper does LESS THAN HALF the effort. [place] lifts, holds or supports trunk or limbs, but provides less than half the effort. 2-Substantial/Maximal Assistance-helper does MORE THAN HALF the effort. [place] lifts or holds trunk or limbs and provides more than half the effort. 5-Fpztlxavn-tfoegf does ALL the effort. Patient does none of the effort to complete the activity. Or, the assistance of 2 or more helpers is required for the patient to complete the activity. If activity was not attempted, code reason: 7-Patient Refused. 9-Not Applicable-not attempted and the patient did not perform the activity before the current illness, exacerbation or injury. 10-Not Attempted due to Environmental Limitations-(lack of equipment, weather restraints, etc.). 88-Not Attempted due to Medical Conditions or Safety Concerns. Sit to Lying (QC): 6 Sit to Stand (QC): 6 Weight Bearing Right Lower Extremity: Right Full Weight Bearing Left Lower Extremity: Left Full Weight Bearing Gait Training Does the Patient Walk?: Yes Distance: 20 Walk 10 feet (QC): 5 Gait Persons Needed: 1 Gait Assistive Device: Cane Single Point Pt ambulated forward and backward beside the bed with SPC, SBA (limited by monitor lines). No LOB. Exercises Seated Therapy Exercises: Ankle pumps, Hip flexion Seated Reps: 15 Treatments Limited ambulation with SPC beside bed, seated LE strengthening. Returned to bed with O2 in situ, needs met. Assessment Current Status: Good Progress Pt demonstrated safe transfers and limited gait within limits of monitor lines. PT Fur Vault Attendant Goals Fur Vault Attendant Goals PT Shelter Goals Time Frame: Aug 04, 2020 Roll Left & Right (QC): 6 Sit to Lying (QC): 6 Lying-Sitting on Side/Bed(QC): 6 Sit to Stand (QC): 6 Chair/Kzk-rp-Xsgil Xfer(QC): 6 Walk 10 feet (QC): 6 Walk 50ft with 2 Turns (QC): 6 Walk 150 ft (QC): 6 PT Plan Problem List Problem List: Activity Tolerance, Functional Strength, Balance, Gait Treatment/Plan Treatment Plan: Continue Plan of Care Treatment Plan: Education, Functional Activity Fredy, Functional Strength, Gait, Safety, Therapeutic Exercise, Transfers Treatment Duration: Aug 04, 2020 Frequency: 6 times per week Estimated Hrs Per Day: .25 hour per day Patient and/or Family Agrees t: Yes Time/GCodes Time In: 925 Time Out: 940 Total Billed Treatment Time: 15 Total Billed Treatment 1, FA x 15' CRISTINE HEAD DPPapi Jul 29, 2020 10:17
--- NOTE | 2020-07-29 12:55 | Progress Note - Cardiology ---
Cardiology SOAP Progress Note Subjective: Gen malaise and weakness, somewhat better than yesterday Shortness of breath improved Leg swelling improved No cp or palp or syncope No n/v/d Objective: I&O/Vital Signs 07/29/20 07/29/20 07/29/20 07/29/20 01:00 04:00 04:00 06:35 Temp 37.0 Pulse 99 65 76 Resp 20 B/P (MAP) 129/83 (98) Pulse Ox 98 94 O2 Delivery High Flow N/C Nasal Cannula O2 Flow Rate 3.00 3.00 07/29/20 07/29/20 07/29/20 07/29/20 08:35 08:36 09:00 12:00 Temp 37.0 Pulse 79 Resp 20 B/P (MAP) 110/57 (74) Pulse Ox 92 92 98 O2 Delivery High Flow N/C High Flow N/C High Flow N/C High Flow N/C O2 Flow Rate 3.00 3.00 3.00 3.00 3.00 07/29/20 00:00 Intake Total 1750 ml Output Total 2325 ml Balance -575 ml Weight (Pounds): 227 Weight (Ounces): 0.0 Weight (Calculated Kilograms): 102.527371 Constitutional: AAO x 3, well-developed, well-nourished Respiratory: No accessory muscle use, No respiratory distress; chest expansion is symmetric, chest is bilaterally symmetric, lungs clear to auscultation Cardiovascular: irregularly irregular; No JVD; S1 and S2 Gastrointestional: No tender; soft, round, audible bowel sounds Extremities: no lower extremity edema bilateral Neurologic/Psychiatric: grossly intact (moves all ) Skin: No rash on exposed areas, No ulcerations on exposed areas Results/Procedures: Labs Laboratory Tests 07/29/20 02:35: White Blood Count 9.4, Red Blood Count 3.27L, Hemoglobin 9.3L, Hematocrit 31L, Mean Corpuscular Volume 94, Mean Corpuscular Hemoglobin 28, Mean Corpuscular Hemoglobin Concent 30L, Red Cell Distribution Width 15.0H, Platelet Count 210, Mean Platelet Volume 9.6, Immature Granulocyte % (Auto) 0, Neutrophils (%) (Auto) 69, Lymphocytes (%) (Auto) 14, Monocytes (%) (Auto) 16H, Eosinophils (%) (Auto) 0, Basophils (%) (Auto) 0, Neutrophils # (Auto) 6.5, Lymphocytes # (Auto) 1.3, Monocytes # (Auto) 1.5H, Eosinophils # (Auto) 0.0, Basophils # (Auto) 0.0, Immature Granulocyte # (Auto) 0.0, Sodium Level 137, Potassium Level 4.1, Chloride Level 99, Carbon Dioxide Level 23, Anion Gap 15H, Blood Urea Nitrogen 34H, Creatinine 1.52H, Estimat Glomerular Filtration Rate 45, BUN/Creatinine Ratio 22, Glucose Level 116H, Calcium Level 8.9, Corrected Calcium 9.1, Total Bilirubin 1.5H, Aspartate Amino Transf (AST/SGOT) 26, Alanine Aminotransferase (ALT/SGPT) 19, Alkaline Phosphatase 88, Total Protein 6.7, Albumin 3.8 07/29/20 08:20: Sodium Level 135, Potassium Level 4.1, Chloride Level 98, Carbon Dioxide Level 24, Anion Gap 13, Blood Urea Nitrogen 35H, Creatinine 1.45H, Estimat Glomerular Filtration Rate 47, BUN/Creatinine Ratio 24, Glucose Level 164H, Calcium Level 8.9, Magnesium Level 2.3 Laboratory Tests 07/28/20 03:34 07/29/20 02:35 07/29/20 08:20 A/P: Assessment: Acute on chronic systolic CHF - clinically improved ?pneumonia - management per Medical services Anemia of undetermined etiology, managed by the [facility] with LVEF 40-50% on various modes of evaluation as noted below Paroxysmal atrial fibrillation (first diagnosed on EKG during ED eval on February 02, 2019), underwent EVGENY with successful electrical cardioversion and ILR implant by Dr. Carter on February 03, 2019. Recurrent A Fib with controlled rate during hospitalization of Jul 2020 H/O episodes of 2-1 AV block and transient Mobitz 1 AV block following cardioversion by Dr. Carter. ILR has not shown any significant bradycardia in the recent past. Some transmissions have been labelled "pause" by the device but are due to undersensing of R waves (also pt does not report any symptoms) OAC with Eliquis CAD. 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 Echo of 07/29/20: LVEF 45-50%, mild to mod concentric LVH, biatrial enlargement, very mild , PASP 55-60 mmHg HTN CKD stage 3-4 HLD - statin tx Quit smoking in 1974 Surgeries: H/o bilat knee surgery; H/o cervical spine surgery; H/o left lobectomy in 1968 in [place] - post [place] war tour - d/t a lung mass - exact details unknown Plan: Acute on chronic systolic/diastolic CHF - clinically improved Echocardiogram to eval structure Possible pneumonia - management per Medical services Monitor lab closely and replace lytes as indicated Continue current regimen Clinical Quality Measures Pneumonia: HCAP with risk for mulit-drug: Other RAYMUNDO MUELLER MD FACP FAC CCDS Jul 29, 2020 12:55
--- NOTE | 2020-07-29 16:09 | Progress Note ---
DIANA ANGUIANO MED STUDENT 07/29/20 1609: Subjective Subjective/Events-last exam HPI: Mr. Wade Grant is a 75 y/o M who presented to the [facility] on 07/27 for signs of hypoxia and SOB. He was having a CHF exacerbation with inability to ambulated without SOB. He was was given IV Lasix, supplemental oxygen, and cardiology was consulted. Today he is feeling much better. his SOB has improved and he is on 2L NC of supplemental oxygen. Review of Systems General: No Chills, No Fatigue HEENT: No Head Aches, No Visual Changes, No Sinus Congestion, No Sore Throat Pulmonary: Dyspnea; No Cough, No Pleuritic Chest Pain Cardiovascular: Edema, Lt Headedness; No: Chest Pain, Palpitations Gastrointestinal: No: Nausea, Vomiting, Abdominal Pain, Diarrhea, Constipation, Melena, Hematochezia Genitourinary: No Dysuria, No Hematuria, No Retention Neurological: No: Weakness Focused Exam Respiratory: Chest Non Tender, Lungs Clear, Normal Breath Sounds, No Accessory Muscle Use, No Respiratory Distress Cardiovascular: No Gallop, No Murmur; No Diastolic Murmur, No Systolic Murmur; Irregularly Irregular Capillary Refill: Less Than 3 Seconds Peripheral Pulses: 1+ Radial Pulses (R), 1+ Radial Pulses (L) Skin: normal color, warm/dry Objective Exam Last Set of Vital Signs Vital Signs Date Time Temp Pulse Resp B/P (MAP) Pulse Ox O2 Delivery O2 Flow Rate FiO2 07/29/20 12:52 37.0 66 20 100/70 (80) 95 High Flow N/C 3.00 3.00 07/27/20 16:00 40 Capillary Refill : Less Than 3 Seconds I&O Intake and Output 07/29/20 00:00 Intake Total 2650 ml Output Total 3000 ml Balance -350 ml Intake Oral 2650 ml Output Urine Total 3000 ml # Urine Diapers 2 # Bowel Movements 3 General: Alert, Oriented X3, Cooperative, No Acute Distress HEENT: Atraumatic, EOMI Lungs: Clear to Auscultation, Normal Air Movement Heart: Other Abdomen: Normal Bowel Sounds Extremities: No Clubbing, No Cyanosis Skin: No Rashes Psych/Mental Status: Mental Status NL Other physical findings Heart: Irregularly irregular Extremities: 1+ pretibial edema Results/Procedures Lab Laboratory Tests 07/29/20 02:35: White Blood Count 9.4, Red Blood Count 3.27L, Hemoglobin 9.3L, Hematocrit 31L, Mean Corpuscular Volume 94, Mean Corpuscular Hemoglobin 28, Mean Corpuscular Hemoglobin Concent 30L, Red Cell Distribution Width 15.0H, Platelet Count 210, Mean Platelet Volume 9.6, Immature Granulocyte % (Auto) 0, Neutrophils (%) (Auto) 69, Lymphocytes (%) (Auto) 14, Monocytes (%) (Auto) 16H, Eosinophils (%) (Auto) 0, Basophils (%) (Auto) 0, Neutrophils # (Auto) 6.5, Lymphocytes # (Auto) 1.3, Monocytes # (Auto) 1.5H, Eosinophils # (Auto) 0.0, Basophils # (Auto) 0.0, Immature Granulocyte # (Auto) 0.0, Sodium Level 137, Potassium Level 4.1, Chloride Level 99, Carbon Dioxide Level 23, Anion Gap 15H, Blood Urea Nitrogen 34H, Creatinine 1.52H, Estimat Glomerular Filtration Rate 45, BUN/Creatinine Ratio 22, Glucose Level 116H, Calcium Level 8.9, Corrected Calcium 9.1, Total Bilirubin 1.5H, Aspartate Amino Transf (AST/SGOT) 26, Alanine Aminotransferase (ALT/SGPT) 19, Alkaline Phosphatase 88, Total Protein 6.7, Albumin 3.8 07/29/20 08:20: Sodium Level 135, Potassium Level 4.1, Chloride Level 98, Carbon Dioxide Level 24, Anion Gap 13, Blood Urea Nitrogen 35H, Creatinine 1.45H, Estimat Glomerular Filtration Rate 47, BUN/Creatinine Ratio 24, Glucose Level 164H, Calcium Level 8.9, Magnesium Level 2.3 Radiology NAME: WADE GRANT [facility] REC#: [id number] PT STATUS: REG ER : 1945 PHYSICIAN: JONAH KINNEY DO ADMIT DATE: 07/27/20/ER FS Signed Date of Exam:07/27/20 CHEST 1 VIEW AP/PA ONLY INDICATION: Shortness of breath, atrial fibrillation. COMPARISON: 11/18/2019. FINDINGS: The heart is enlarged. There is prominence of the vascularity. There are somewhat nodular pulmonary opacities bilaterally, greater right. While there is an element of hypervolemia or failure present, superimposition of pneumonia in the appropriate clinical scenario could not be excluded. Blunting of the left costophrenic angle is unchanged. No pneumothorax. IMPRESSION: Redemonstration of cardiomegaly and vascular congestion. There is likely at least some degree of pulmonary edema present; however, pneumonia superimposed, particularly in the right lung, could not be excluded in the appropriate clinical scenario. Dictated by: Dictated on workstation # [id number] Dict: 07/27/20 1107 Trans: 07/27/20 1151 [id number] Interpreted by: SELENE COHEN Electronically signed by: SELENE COHEN 07/27/20 1151 Assessment/Plan Assessment/Plan Admission Dx Mr. Grant is a 75 y/o M with a past medical history significant for A.fib, HTN, HLD, chronic edema, and periferal vascular disease who presented to the ED on 07/27 for SOB and hypoxia due to an acute CHF exacerbation. # Acute CHF exacerbation - secondary to volume overload - Pro BNP 6071 on presentation - continue IV Lasix - Patient not on oxygen at home - O2 trial to see if patient is ok to go home without oxygen (1) Acute on chronic combined systolic (congestive) and diastolic (congestive) heart failure Status: Acute (2) Acute respiratory failure with hypoxia Status: Acute (3) Arrhythmia Status: Acute Qualifiers: Qualified Codes: I48.11 - Longstanding persistent atrial fibrillation Clinical Quality Measures DVT/VTE Risk/Contraindication: Risk Factor Score Per Nursin RFS Level Per Nursing on Admit: 4+=Very High Pneumonia: HCAP with risk for mulit-drug: Other DIANN VARGAS MD 07/29/20 1826: Supervisory-Addendum Brief Verification & Attestation Participated in pt care: history, MDM, physical Personally performed: exam, history, MDM Care discussed with: Medical Student Procedures: n/a I personally examined this patient and did my own history and exam and agree with student documentation. I directed the plan of care as documented by the medical student. DIANA ANGUIANO MED STUDENT Jul 29, 2020 16:09 DIANN VARGAS MD Jul 29, 2020 18:26
--- NOTE | 2020-07-29 17:52 | NUR ---
pt does fine on RA while at rest but desated 2 minutes into walking and was placed on 2LNC with adequate SpO2. Addendum: 07/29/20 at 1753 by CATRINA ARAGON RT Amended: Links added.
[2020-07-30 04:00] VITALS: BP 121/71
[2020-07-30 05:55] LABS: BASOPHILS % (AUTO) 0 % (0-10); EOSINOPHILS % (AUTO) 0 % (0-10); HEMATOCRIT 30 % (40-54); HEMOGLOBIN 9.2 g/dL (13.3-17.7); LYMPHOCYTES # (AUTO) 1.3 10^3/uL (1.0-4.0); LYMPHOCYTES % (AUTO) 16 % (12-44); MEAN CORPUSCULAR HEMOGLOBIN 29 pg (25-34); MEAN CORPUSCULAR HGB CONC 31 g/dL (32-36); MEAN CORPUSCULAR VOLUME 94 fL (80-99); MEAN PLATELET VOLUME 9.3 fL (9.0-12.2); MONOCYTES # (AUTO) 1.2 10^3/uL (0.0-1.0); MONOCYTES % (AUTO) 15 % (0-12); NEUTROPHILS # (AUTO) 5.6 10^3/uL (1.8-7.8); NEUTROPHILS % (AUTO) 68 % (42-75); PLATELET COUNT 222 10^3/uL (130-400); WHITE BLOOD COUNT 8.2 10^3/uL (4.3-11.0)
[2020-07-30 06:15] LABS: ALBUMIN 3.7 GM/DL (3.2-4.5)
[2020-07-30 06:16] LABS: POTASSIUM 3.8 MMOL/L (3.6-5.0)
[2020-07-30 06:17] LABS: CALCIUM 8.8 MG/DL (8.5-10.1)
[2020-07-30 06:18] LABS: TOTAL PROTEIN 6.7 GM/DL (6.4-8.2)
[2020-07-30 06:20] LABS: BILIRUBIN,TOTAL 1.6 MG/DL (0.1-1.0)
[2020-07-30 06:22] LABS: CREATININE SERUM 1.36 MG/DL (0.60-1.30)
[2020-07-30] MEDS: FUROSEMIDE 40 MG/4 ML INJ (LASIX) IVP SCH (06:54)
[2020-07-30] MEDS: CATHETER FLUSH 10 ML SYR IV SCH ×2 (06:55→14:53)
[2020-07-30 07:25] VITALS: BP 121/71
[2020-07-30] MEDS: KCL 10 MEQ TAB (MICRO K) PO SCH (09:00)
[2020-07-30] MEDS: ASPIRIN 81 MG CHEW (CHILDREN'S ASA) PO SCH (09:00)
[2020-07-30] MEDS: AMIODARONE 200 MG (CORDARONE) TAB PO SCH (09:00)
[2020-07-30] MEDS: SENNA W/DOCUSATE (SENOKOT S) TABLET PO SCH (09:00)
[2020-07-30] MEDS: APIXABAN 5 MG (ELIQUIS) TABLET PO SCH (09:00)
[2020-07-30] MEDS: LOSARTAN 50 MG (COZAAR) TAB PO SCH (09:01)
--- NOTE | 2020-07-30 09:01 | Progress Note - Cardiology ---
Cardiology SOAP Progress Note Subjective: Sitting up on the side of the bed. He states he feels better today. He feels his SOB is better today. No c/o CP or palpitations. Feels LE swelling is much improved. Objective: I&O/Vital Signs 07/29/20 07/29/20 07/29/20 07/30/20 21:00 22:46 23:11 00:00 Temp 36.9 Pulse 75 Resp 21 B/P (MAP) 138/77 (97) Pulse Ox 94 94 O2 Delivery Nasal Cannula Nasal Cannula Nasal Cannula Nasal Cannula O2 Flow Rate 1.00 1.00 2.00 1.00 07/30/20 07/30/20 07/30/20 07/30/20 01:00 04:00 04:00 07:00 Temp 36.2 Pulse 75 77 87 Resp 19 B/P (MAP) 121/71 (88) Pulse Ox 95 94 O2 Delivery Nasal Cannula O2 Flow Rate 2.00 1.00 07/30/20 07:25 Temp 36.4 Pulse 95 Resp 19 B/P (MAP) 121/71 (88) Pulse Ox 91 O2 Flow Rate 0.50 07/30/20 00:00 Intake Total 1100 ml Output Total 850 ml Balance 250 ml Weight (Pounds): 227 Weight (Ounces): 0.0 Weight (Calculated Kilograms): 102.586534 Constitutional: AAO x 3, well-developed, well-nourished Respiratory: No accessory muscle use, No respiratory distress; chest expansion is symmetric, chest is bilaterally symmetric, lungs clear to auscultation Cardiovascular: irregularly irregular; No JVD; S1 and S2 Gastrointestional: No tender; soft, round, audible bowel sounds Extremities: no lower extremity edema bilateral Neurologic/Psychiatric: grossly intact (moves all ) Skin: No rash on exposed areas, No ulcerations on exposed areas Results/Procedures: Labs Laboratory Tests 07/30/20 05:49: White Blood Count 8.2, Red Blood Count 3.21L, Hemoglobin 9.2L, Hematocrit 30L, Mean Corpuscular Volume 94, Mean Corpuscular Hemoglobin 29, Mean Corpuscular Hemoglobin Concent 31L, Red Cell Distribution Width 14.9H, Platelet Count 222, Mean Platelet Volume 9.3, Immature Granulocyte % (Auto) 0, Neutrophils (%) (Auto) 68, Lymphocytes (%) (Auto) 16, Monocytes (%) (Auto) 15H, Eosinophils (%) (Auto) 0, Basophils (%) (Auto) 0, Neutrophils # (Auto) 5.6, Lymphocytes # (Auto) 1.3, Monocytes # (Auto) 1.2H, Eosinophils # (Auto) 0.0, Basophils # (Auto) 0.0, Immature Granulocyte # (Auto) 0.0, Sodium Level 136, Potassium Level 3.8, Chloride Level 101, Carbon Dioxide Level 23, Anion Gap 12, Blood Urea Nitrogen 36H, Creatinine 1.36H, Estimat Glomerular Filtration Rate 51, BUN/Creatinine Ratio 26, Glucose Level 119H, Calcium Level 8.8, Corrected Calcium 9.0, Total Bilirubin 1.6H, Aspartate Amino Transf (AST/SGOT) 28, Alanine Aminotransferase (ALT/SGPT) 22, Alkaline Phosphatase 91, Total Protein 6.7, Albumin 3.7 Laboratory Tests 07/29/20 02:35 07/29/20 08:20 07/30/20 05:49 A/P: Assessment: Acute on chronic systolic CHF - clinically improved ?pneumonia - management per Medical services Anemia of undetermined etiology, managed by the [facility] with LVEF 40-50% on various modes of evaluation as noted below Paroxysmal atrial fibrillation (first diagnosed on EKG during ED eval on February 02, 2019), underwent EVGENY with successful electrical cardioversion and ILR implant by Dr. Carter on February 03, 2019. Recurrent A Fib with controlled rate during hospitalization of Jul 2020 H/O episodes of 2-1 AV block and transient Mobitz 1 AV block following cardioversion by Dr. Carter. ILR has not shown any significant bradycardia in the recent past. Some transmissions have been labelled "pause" by the device but are due to undersensing of R waves (also pt does not report any symptoms) OAC with Eliquis CAD. 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 Echo of 07/29/20: LVEF 45-50%, mild to mod concentric LVH, biatrial enlargement, very mild , PASP 55-60 mmHg HTN CKD stage 3-4 HLD - statin tx Quit smoking in 1974 Surgeries: H/o bilat knee surgery; H/o cervical spine surgery; H/o left lobectomy in 1968 in [place] - post [place] war tour - d/t a lung mass - exact details unknown Plan: Acute on chronic systolic/diastolic CHF - clinically improved OK to discharge home today from cardiac stand point Continue increased diuretics per discharge med list Lab in a week F/U at our office in 1-2 weeks Clinical Quality Measures Pneumonia: HCAP with risk for mulit-drug: Other [facility]INGTON [facility] Jul 30, 2020 09:01
--- NOTE | 2020-07-30 09:34 | Physical Therapy Daily Note ---
PT Daily Note-Current Subjective Pt sitting EOB. Anxious to discharge home; "I was ready to go 20 minutes after I got here. They're talking again about me going today". Pain Numeric Pain Scale: 0-No Pain Mental Status Patient Orientation: Person, Place, Time, Situation Attachments: Oxygen Multiple monitor lines Transfers SCALE: Activities may be completed with or without assistive devices. 1-Opebkbsduz-pyezscr completes the activity by him/herself with no assistance from a helper. 5-Set-up or Clean-up Assistance-helper sets up or cleans up; patient completes activity. [place] assists only prior to or following the activity. 4-Supervision or Touching Assistance-helper provides verbal cues and/or touching/steadying and/or contact guard assistance as patient completes activity. Assistance may be provided throughout the activity or intermittently. 3-Partial/Moderate Assistance-helper does LESS THAN HALF the effort. [place] lifts, holds or supports trunk or limbs, but provides less than half the effort. 2-Substantial/Maximal Assistance-helper does MORE THAN HALF the effort. [place] lifts or holds trunk or limbs and provides more than half the effort. 2-Wheqdyarr-ohzgpn does ALL the effort. Patient does none of the effort to complete the activity. Or, the assistance of 2 or more helpers is required for the patient to complete the activity. If activity was not attempted, code reason: 7-Patient Refused. 9-Not Applicable-not attempted and the patient did not perform the activity before the current illness, exacerbation or injury. 10-Not Attempted due to Environmental Limitations-(lack of equipment, weather restraints, etc.). 88-Not Attempted due to Medical Conditions or Safety Concerns. Sit to Lying (QC): 6 Sit to Stand (QC): 6 Weight Bearing Right Lower Extremity: Right Full Weight Bearing Left Lower Extremity: Left Full Weight Bearing Gait Training Does the Patient Walk?: Yes Distance: 10 Walk 10 feet (QC): 5 Gait Persons Needed: 1 Gait Assistive Device: Cane Single Point Pt walked forward and back beside his bed with SPC, SBA x 1. Ambulation distances limited by multiple monitor lines. Exercises Seated Therapy Exercises: Ankle pumps, Long arc quads, Hip flexion Seated Reps: 15 Standing: Sit to Stand (x5) Treatments Seated LE exercises, functional LE strengthening, limited gait with SPC. Pt returned to bed with O2 in situ, needs met. Assessment Current Status: Good Progress Pt tolerated well. Ambulation distance limited by multiple lines. At [facility], Pt utilizes FWW for community ambulation due to back pain. PT Prison Goals Tub Mender Goals PT Tub Mender Goals Time Frame: Aug 04, 2020 Roll Left & Right (QC): 6 Sit to Lying (QC): 6 Lying-Sitting on Side/Bed(QC): 6 Sit to Stand (QC): 6 Chair/Nqc-cy-Fulea Xfer(QC): 6 Walk 10 feet (QC): 6 Walk 50ft with 2 Turns (QC): 6 Walk 150 ft (QC): 6 PT Plan Problem List Problem List: Activity Tolerance, Functional Strength, Balance, Gait, Transfer Treatment/Plan Treatment Plan: Continue Plan of Care Treatment Plan: Education, Functional Activity Fredy, Functional Strength, Gait, Safety, Therapeutic Exercise, Transfers Treatment Duration: Aug 04, 2020 Frequency: 6 times per week Estimated Hrs Per Day: .25 hour per day Patient and/or Family Agrees t: Yes Time/GCodes Time In: 908 Time Out: 924 Total Billed Treatment Time: 16 Total Billed Treatment 1, EX x 16' CRISTINE HEAD DPT Jul 30, 2020 09:34
--- NOTE | 2020-07-30 11:13 | Progress Note - Cardiology ---
Cardiology SOAP Progress Note Subjective: Gen malaise, but improving No cp or shortness of breath at rest or palp or syncope No n/v/d Swelling improving Objective: I&O/Vital Signs 07/30/20 07/30/20 07/30/20 07/30/20 00:00 01:00 04:00 04:00 Temp 36.2 Pulse 75 77 Resp 19 B/P (MAP) 121/71 (88) Pulse Ox 94 95 94 O2 Delivery Nasal Cannula Nasal Cannula O2 Flow Rate 1.00 2.00 1.00 07/30/20 07/30/20 07/30/20 07/30/20 07:00 07:25 08:00 09:00 Temp 36.4 Pulse 87 95 Resp 19 B/P (MAP) 121/71 (88) Pulse Ox 91 94 O2 Delivery Nasal Cannula Nasal Cannula O2 Flow Rate 0.50 1.00 1.00 07/30/20 00:00 Intake Total 1100 ml Output Total 850 ml Balance 250 ml Weight (Pounds): 227 Weight (Ounces): 0.0 Weight (Calculated Kilograms): 102.498737 Constitutional: AAO x 3, well-developed, well-nourished Respiratory: No accessory muscle use, No respiratory distress; chest expansion is symmetric, chest is bilaterally symmetric, lungs clear to auscultation Cardiovascular: irregularly irregular; No JVD; S1 and S2 Gastrointestional: No tender; soft, round, audible bowel sounds Extremities: no lower extremity edema bilateral Neurologic/Psychiatric: grossly intact (moves all ) Skin: No rash on exposed areas, No ulcerations on exposed areas Results/Procedures: Labs Laboratory Tests 07/30/20 05:49: White Blood Count 8.2, Red Blood Count 3.21L, Hemoglobin 9.2L, Hematocrit 30L, Mean Corpuscular Volume 94, Mean Corpuscular Hemoglobin 29, Mean Corpuscular Hemoglobin Concent 31L, Red Cell Distribution Width 14.9H, Platelet Count 222, Mean Platelet Volume 9.3, Immature Granulocyte % (Auto) 0, Neutrophils (%) (Auto) 68, Lymphocytes (%) (Auto) 16, Monocytes (%) (Auto) 15H, Eosinophils (%) (Auto) 0, Basophils (%) (Auto) 0, Neutrophils # (Auto) 5.6, Lymphocytes # (Auto) 1.3, Monocytes # (Auto) 1.2H, Eosinophils # (Auto) 0.0, Basophils # (Auto) 0.0, Immature Granulocyte # (Auto) 0.0, Sodium Level 136, Potassium Level 3.8, Chloride Level 101, Carbon Dioxide Level 23, Anion Gap 12, Blood Urea Nitrogen 36H, Creatinine 1.36H, Estimat Glomerular Filtration Rate 51, BUN/Creatinine Ratio 26, Glucose Level 119H, Calcium Level 8.8, Corrected Calcium 9.0, Total Bilirubin 1.6H, Aspartate Amino Transf (AST/SGOT) 28, Alanine Aminotransferase (ALT/SGPT) 22, Alkaline Phosphatase 91, Total Protein 6.7, Albumin 3.7 A/P: Assessment: Acute on chronic systolic CHF - clinically improved ?pneumonia - management per Medical services Anemia of undetermined etiology, managed by the [facility] with LVEF 40-50% on various modes of evaluation as noted below Paroxysmal atrial fibrillation (first diagnosed on EKG during ED eval on February 02, 2019), underwent EVGENY with successful electrical cardioversion and ILR implant by Dr. Carter on February 03, 2019. Recurrent A Fib with controlled rate during hospitalization of Jul 2020 H/O episodes of 2-1 AV block and transient Mobitz 1 AV block following cardioversion by Dr. Carter. ILR has not shown any significant bradycardia in the recent past. Some transmissions have been labelled "pause" by the device but are due to undersensing of R waves (also pt does not report any symptoms) OAC with Eliquis CAD. 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 Echo of 07/29/20: LVEF 45-50%, mild to mod concentric LVH, biatrial enlargement, very mild , PASP 55-60 mmHg HTN CKD stage 3-4 HLD - statin tx Quit smoking in 1974 Surgeries: H/o bilat knee surgery; H/o cervical spine surgery; H/o left lobectomy in 1968 in [place] - post [place] war tour - d/t a lung mass - exact details unknown Plan: Acute on chronic systolic/diastolic CHF - clinically improved OK to discharge home today from cardiac stand point Continue increased diuretics per discharge med list Lab in a week F/U at our office in 1-2 weeks No cardiology coverage at this hosp over the weekend. All care is by the primary attending Clinical Quality Measures Pneumonia: HCAP with risk for mulit-drug: Other RAYMUNDO MUELLER MD FACP MERGED WITH [facility] Jul 30, 2020 11:13
--- NOTE | 2020-07-30 11:34 | NUR ---
PT WAS PLACED ON ROOM AIR. PT DESATURATED TO 84% AFTER 5 MINUTES ON ROOM AIR. PT WAS PLACED ON 1L NC. O2 SATURATION CAME UP TO 95%. PT WILL NEED 1L CONTINUOUSLY. Addendum: 07/30/20 at 1136 by NICHOLE CAMPBELL RT Amended: Links added.
[2020-07-30 12:00] VITALS: BP 129/58
--- NOTE | 2020-07-30 12:56 | Discharge Summary ---
Discharge Summary Hospital Course Was the Problem List Reviewed?: Yes Problems/Dx: (1) Acute on chronic combined systolic (congestive) and diastolic (congestive) heart failure Status: Acute (2) Acute respiratory failure with hypoxia Status: Acute Hospital Course Date of Admission: Jul 27, 2020 at 15:08 Admission Diagnosis : Exacerbation of CHF Family Physician/Provider: Morgan Colón MD Date of Discharge: 07/30/20 Discharge Diagnosis: [Acute on chronic combined systolic and diastolic congestive heart failure Acute respiratory failure with hypoxia secondary to congestive heart failure Coronary artery disease Chronic kidney disease stage III-IV] Hospital Course: [ ] Patient was admitted in respiratory distress secondary to an exacerbation of congestive heart failure. He was seen in consultation by the engineering librarian who adjusted his medications with excellent diuresis. The patient improved and it was found that he would require 1 L of oxygen by nasal cannula to be able to successfully transition back to home. Labs and Pending Lab Test: Laboratory Tests 07/30/20 05:49: White Blood Count 8.2, Red Blood Count 3.21L, Hemoglobin 9.2L, Hematocrit 30L, Mean Corpuscular Volume 94, Mean Corpuscular Hemoglobin 29, Mean Corpuscular Hemoglobin Concent 31L, Red Cell Distribution Width 14.9H, Platelet Count 222, Mean Platelet Volume 9.3, Immature Granulocyte % (Auto) 0, Neutrophils (%) (Auto) 68, Lymphocytes (%) (Auto) 16, Monocytes (%) (Auto) 15H, Eosinophils (%) (Auto) 0, Basophils (%) (Auto) 0, Neutrophils # (Auto) 5.6, Lymphocytes # (Auto) 1.3, Monocytes # (Auto) 1.2H, Eosinophils # (Auto) 0.0, Basophils # (Auto) 0.0, Immature Granulocyte # (Auto) 0.0, Sodium Level 136, Potassium Level 3.8, Chloride Level 101, Carbon Dioxide Level 23, Anion Gap 12, Blood Urea Nitrogen 36H, Creatinine 1.36H, Estimat Glomerular Filtration Rate 51, BUN/Creatinine Ratio 26, Glucose Level 119H, Calcium Level 8.8, Corrected Calcium 9.0, Total Bilirubin 1.6H, Aspartate Amino Transf (AST/SGOT) 28, Alanine Aminotransferase (ALT/SGPT) 22, Alkaline Phosphatase 91, Total Protein 6.7, Albumin 3.7 Home Meds Active Potassium Chloride 20 Meq Tablet.er 20 Meq PO BID Lasix (Furosemide) 80 Mg Tablet 80 Mg PO BID Losartan Potassium 50 Mg Tablet 50 Mg PO DAILY Reported Acetaminophen 325 Mg Tablet 650 Mg PO TID TAKES 2 (325MG) TABLETS Potassium Chloride 20 Meq Tablet.er 10 Meq PO DAILY TAKES 1/2 (20MEQ) TABLET Vitamin D3 (Cholecalciferol (Vitamin D3)) 25 Mcg Capsule 25 Mcg PO DAILY Metolazone 2.5 Mg Tablet 2.5 Mg PO MON,WED,FRI Calcium (Calcium Carbonate) 500 Mg Tablet 1,000 Mg PO DAILY TAKES 2 (500MG) TABLETS Metoprolol Succinate 50 Mg Tab.er.24h 25 Mg PO DAILY TAKES 1/2 (50MG) TABLET Aspirin EC (Aspirin) 81 Mg Tablet.dr 81 Mg PO DAILY Amiodarone HCl 200 Mg Tablet 200 Mg PO DAILY Furosemide 40 Mg Tablet 40 Mg PO BID Losartan Potassium 50 Mg Tablet 25 Mg PO DAILY TALES 1/2 (50MG) TABLET Methimazole 10 Mg Tab 5 Mg PO DAILY TAKES 1/2 (10MG) TABLET Spironolactone 25 Mg Tablet 25 Mg PO DAILY Acid Transcribing Machine Mechanic (FAMOTIDINE) (Famotidine) 20 Mg Tablet 20 Mg PO BID Eliquis (Apixaban) 5 Mg Tablet 5 Mg PO BID Flomax (Tamsulosin HCl) 0.4 Mg Cap 0.4 Mg PO HS Simvastatin 40 Mg Tablet 20 Mg PO DAILY TAKES 1/2 (40MG) TABLET Cetirizine HCl 10 Mg Tablet 10 Mg PO DAILY PRN Gabapentin 600 Mg Tablet 600 Mg PO BID Assessment/Pt Instructions Congestive heart failure Hypoxia secondary to #1 Coronary artery disease Hypertension Hyperlipidemia Chronic kidney disease stage III-IV Discharge Planning: >30 minutes discharge planning Discharge Instructions Discharge Diet: Low Sodium Diet Consultations Dr. Santana Discharge Physical Examination Vital Signs Vital Signs Date Time Temp Pulse Resp B/P (MAP) Pulse Ox O2 Delivery O2 Flow Rate FiO2 07/30/20 12:00 36.6 69 20 129/58 (81) 98 Nasal Cannula 2.00 1.00 07/27/20 16:00 40 General Appearance: No Apparent Distress HEENT: Normal ENT Inspection (Of hearing) Respiratory: Lungs Clear, Normal Breath Sounds, No Accessory Muscle Use, No Respiratory Distress Cardiovascular: Regular Rate, Rhythm, No Gallop Gastrointestinal: Non Tender, Soft Extremity: Non Tender, No Calf Tenderness Skin: Normal Color Neurologic/Psychiatric: Alert, Oriented x3, No Motor/Sensory Deficits, Normal Mood/Affect Allergies: Coded Allergies: No Known Drug Allergies (Unverified , 01/31/19) Copy Copies To 1: MORGAN COLÓN MD Discharge Summary Date of Admission Jul 27, 2020 at 15:08 Date of Discharge Discharge Date: Jul 30, 2020 Discharge Time: 1300 Admission Diagnosis Assessment: AECHF Hypoxia COVID negative Plan: Cardiology Lasix O2 Transfer care to Dr Frazier and DR Schmidt per daughter request Discharge Diagnosis (1) Acute on chronic combined systolic (congestive) and diastolic (congestive) heart failure Status: Acute (2) Acute respiratory failure with hypoxia Status: Acute Clinical Quality Measures DVT/VTE Risk/Contraindication: Risk Factor Score Per Nursin RFS Level Per Nursing on Admit: 4+=Very High Pneumonia: HCAP with risk for mulit-drug: Other JESS MALDONADO MD Jul 30, 2020 12:56
--- NOTE | 2020-07-30 13:18 | NUR ---
CM/SS: Visited with pt as physician request for any needs prior to discharge. Pt will also have another oxygen study to determine if he will need oxygen at discharge. Plan: Pt to be discharge to home - pending oxygen study, pt may have oxygen. Summary: Pt if from [place]. Pt does not use oxygen on a regular basis. Pt would like to use [facility] for oxygen as it is in [place]. Pt reports his daughter Erica [phone] will pick him up or granddaughter. Pt is ok for this worker to call his daughter for additional information. Telephone call to daughter - Erica - she is ok if she will need to peanut picker oxygen on her way to peanut picker pt. Telephone call to [facility] - Leanne - informed her about the need for oxygen - Information is faxed to [facility]. [phone].
[2020-07-30 15:49] VITALS: BP 129/73
[2020-07-30 17:30] VITALS: BP 129/73
== END 2020-07-30 17:49 | disposition home or self-care (01) | DRG 291 ==
LOC: EDUNIT# 09:51 → ER FS 09:52 → ICU 15:08 → CSD 16:47
PROVIDERS: ADMIT Internal Medicine; ATTEND Family Medicine
DX: I13.0 Hypertensive heart and chronic kidney disease with heart failure and stage 1 through stage 4 chronic kidney disease, or unspecified chronic kidney disease (principal); J96.01 Acute respiratory failure with hypoxia; I50.43 Acute on chronic combined systolic (congestive) and diastolic (congestive) heart failure; J18.9 Pneumonia, unspecified organism; N18.4 Chronic kidney disease, stage 4 (severe); I73.9 Peripheral vascular disease, unspecified; E78.00 Pure hypercholesterolemia, unspecified; N40.0 Benign prostatic hyperplasia without lower urinary tract symptoms; K21.9 Gastro-esophageal reflux disease without esophagitis; M19.90 Unspecified osteoarthritis, unspecified site; G89.29 Other chronic pain; M54.9 Dorsalgia, unspecified; F41.9 Anxiety disorder, unspecified; L40.9 Psoriasis, unspecified; Z20.828 Contact with and (suspected) exposure to other viral communicable diseases; I49.9 Cardiac arrhythmia, unspecified; I25.10 Atherosclerotic heart disease of native coronary artery without angina pectoris; I42.8 Other cardiomyopathies; I48.0 Paroxysmal atrial fibrillation; Z79.01 Long term (current) use of anticoagulants; Z87.891 Personal history of nicotine dependence
CPT/HCPCS: 36415; 71045; 80048; 80053; 81000; 82962; 83735; 83880; 84443; 84484; 85025; 87635; 93005; 93306; 94660; 94761

== ENCOUNTER → 2020-08-02 | Outpatient (CLI) | payer MEDICARE, OTHER ==
[~2020-08-02] MED LIST changes: +ASPI-1238 PO; +CALC-823 PO; +CETI10TA17 PO; +CHOL100048 PO; +FAMO20TA3 PO; +FURO80TA83 PO; +GBPN600T PO; +LOSA50TA63 PO; +METO50TA7 PO; +NF-METHI10 PO; +POTA-51 PO
[2020-08-02 10:32] LABS: CREATININE SERUM 2.08 MG/DL (0.60-1.30); POTASSIUM 4.7 MMOL/L (3.6-5.0)
[2020-08-02 10:33] LABS: CALCIUM 9.8 MG/DL (8.5-10.1)
== END ==
LOC: LAB FS 09:43
PROVIDERS: ATTEND Nurse Practitioner Family
DX: I50.43 Acute on chronic combined systolic (congestive) and diastolic (congestive) heart failure (principal)
CPT/HCPCS: 80048

== ENCOUNTER → 2020-09-21 | Outpatient (CLI) | payer MEDICARE, OTHER ==
[~2020-09-21] MED LIST changes: +APIX2.5T PO; +POTA20TA15 PO
[2020-09-21 18:02] LABS: HEMOGLOBIN 8.9 G/DL (13.3-17.7); WHITE BLOOD COUNT 5.6 10^3/uL (4.3-11.0)
[2020-09-21 18:03] LABS: MEAN PLATELET VOLUME 10.9 FL (7.4-10.4)
== END ==
LOC: LAB FS 17:20
PROVIDERS: ATTEND Family Medicine
DX: Z01.89 Encounter for other specified special examinations (principal)
CPT/HCPCS: 36415; 85027

== ENCOUNTER 2020-09-27 17:20 | Emergency (ER) | payer MEDICARE, OTHER ==
[2020-09-27 17:45] LABS: HEMATOCRIT 28 % (40-54); HEMOGLOBIN 8.6 G/DL (13.3-17.7); MEAN CORPUSCULAR HEMOGLOBIN 28 PG (25-34); MEAN CORPUSCULAR HGB CONC 31 G/DL (32-36); MEAN CORPUSCULAR VOLUME 90 FL (80-99); MEAN PLATELET VOLUME 10.2 FL (7.4-10.4); PLATELET COUNT 187 10^3/uL (130-400); WHITE BLOOD COUNT 5.6 10^3/uL (4.3-11.0)
[2020-09-27 17:46] LABS: BASOPHILS % (AUTO) 0 % (0-10); EOSINOPHILS % (AUTO) 1 % (0-10); LYMPHOCYTES # (AUTO) 1.1 X 10^3 (1.0-4.0); LYMPHOCYTES % (AUTO) 19 % (12-44); MONOCYTES # (AUTO) 0.8 X 10^3 (0.0-1.0); MONOCYTES % (AUTO) 14 % (0-12); NEUTROPHILS # (AUTO) 3.7 X 10^3 (1.8-7.8); NEUTROPHILS % (AUTO) 66 % (42-75)
--- NOTE | 2020-09-27 18:01 | Diagnostic Imaging Report ---
INDICATION: Shortness of air. TECHNIQUE: Single view chest 5:35 PM. CORRELATION STUDY: 09/09/2020 FINDINGS: Heart size enlarged. Vasculature within normal limits. Loop recorder device remains present. A definitive consolidating infiltrate is not demonstrated. However, there is question of slight faint nodularity about the lung parenchyma. Chronic deformity left 5th rib. Likely associated chronic pleural thickening about the left chest wall. IMPRESSION: 1. Cardiac enlargement without overt failure. 2. Slight faint nodular appearance about the lung parenchyma. Short-term follow-up two-view chest and/or CT imaging would be recommended. Dictated by: Dictated on workstation # [id number]
[2020-09-27] MEDS ORDERED: ATROPINE INJ 0.4 MG/ML SDV ONE (18:04)
[2020-09-27] MEDS ORDERED: ATROPINE INJECTION 1 MG/1 ML SDV IJ ONE (18:15)
[2020-09-27 18:27] LABS: CARBON DIOXIDE 23 MMOL/L (21-32); CHLORIDE 95 MMOL/L (98-107); POTASSIUM 4.8 MMOL/L (3.6-5.0); SODIUM 133 MMOL/L (135-145)
[2020-09-27 18:29] LABS: ALANINE AMINOTRANSFERASE 17 U/L (0-55); ALKALINE PHOSPHATASE 106 U/L (40-136); BILIRUBIN,TOTAL 0.4 MG/DL (0.1-1.0); BUN/CREATININE RATIO 20; CALCIUM 9.3 MG/DL (8.5-10.1); CREATININE SERUM 5.19 MG/DL (0.60-1.30); GFR ESTIMATED 11; GLUCOSE 115 MG/DL (70-105); TOTAL PROTEIN 6.5 GM/DL (6.4-8.2)
[2020-09-27 18:30] LABS: ALBUMIN 4.1 GM/DL (3.2-4.5)
--- NOTE | 2020-09-27 19:20 | ED General ---
General Chief Complaint: General Problems/Pain Stated Complaint: KIDNEY PROBLEMS Nursing Triage Note: Brought in by EMS from [facility] for renal failure. Labs were drawn for Dr Toussaint office this morning and creatinine was elevated to 4. Was in the hospital for CHF exacerbation. Meds were changed from lasix to metolzaone and torsemide on 09/22. [facility] reports a 20 lb weight gain in 10 days. Patient reports weakness and generalized joint pain that is chronic. Has increased lower leg edema. Nursing Sepsis Screen: No Definite Risk Source of Information: Patient, Other History of Present Illness Date Seen by Provider: Sep 27, 2020 Time Seen by Provider: 17:20 Initial Comments Patient is a 75-year-old Mahad patient with history of congestive heart failure chronic kidney disease who presents with increased weight gain with shortness of breath. Patient was recently discharged from [facility] to [facility] in [facility]. During that time he had his torsemide increased to 40 mg twice daily for 7 days then return to 20 mg twice daily due to excessive weight gain. Despite these recent changes, the patient has had worsening renal failure with 8 pound weight gain in the past 3 days with an overall 20 pound weight gain in the past 3 weeks. He does report shortness of breath on exertion but is saturating 99% on room air and generalized weakness. He Complains of increased B leg swelling and girth, but denies unilateral leg pain or chest pain. He is currently anticoagulated on Eliquis and does have a history of paroxysmal atrial fibrillation. Patient had outpatient showing a deterioration of kidney function with baseline creatinine of 2 increasing to greater than 4 during time of stay at rehab facility. No other acute symptoms or complaints. Additional history obtained from [facility] medical record. Timing/Duration: Getting Worse Severity: Moderate Modifying Factors: improves with Medication, improves with Other Associated Systoms: Shortness of Air, Weakness Allergies and Home Medications Allergies Coded Allergies: No Known Drug Allergies (Unverified , 01/31/19) Home Medications Acetaminophen 325 Mg Tablet, 650 MG PO TID, (Reported) TAKES 2 (325MG) TABLETS Amiodarone HCl 200 Mg Tablet, 200 MG PO DAILY, (Reported) Apixaban 2.5 Mg Tablet, 2.5 MG PO BID Prescribed by: HERMELINDA WHITLEY on 09/16/20 1144 Aspirin 81 Mg Tablet., 81 MG PO DAILY, (Reported) Calcium Carbonate 500 Mg Tablet, 1,000 MG PO DAILY, (Reported) TAKES 2 (500MG) TABLETS Cetirizine HCl 10 Mg Tablet, 10 MG PO DAILY PRN for ALLERGIES, (Reported) Cholecalciferol (Vitamin D3) 25 Mcg Capsule, 25 MCG PO DAILY, (Reported) Famotidine 20 Mg Tablet, 20 MG PO BID, (Reported) Furosemide 80 Mg Tablet, 80 MG PO DAILY Prescribed by: NATHAN ELLINGTON on 09/16/20 1124 Gabapentin 600 Mg Tablet, 600 MG PO BID, (Reported) Losartan Potassium 50 Mg Tablet, 50 MG PO DAILY, (Reported) Methimazole 10 Mg Tab, 5 MG PO DAILY, (Reported) TAKES 1/2 (10MG) TABLET Metolazone 2.5 Mg Tablet, 2.5 MG PO DAILY Prescribed by: NATHAN ELLINGTON on 09/16/20 112 Metoprolol Succinate 50 Mg Tab.er.24h, 25 MG PO DAILY, (Reported) TAKES 1/2 (50MG) TABLET Potassium Chloride 20 Meq Tab.er.prt, 20 MEQ PO BID, (Reported) Simvastatin 40 Mg Tablet, 20 MG PO DAILY, (Reported) TAKES 1/2 (40MG) TABLET Tamsulosin HCl 0.4 Mg Cap, 0.4 MG PO HS, (Reported) Patient Home Medication List Home Medication List Reviewed: Yes Review of Systems Review of Systems Constitutional: see HPI EENTM: see HPI Respiratory: see HPI Cardiovascular: see HPI Gastrointestinal: no symptoms reported Genitourinary: no symptoms reported Musculoskeletal: no symptoms reported Skin: no symptoms reported Psychiatric/Neurological: See HPI Hematologic/Lymphatic: See HPI Immunological/Allergic: see HPI All Other Systems Reviewed Negative Unless Noted: Yes Past Ctgheyz-Kiutyf-Xvjysp Hx Past Med/Social Hx: Reviewed Nursing Past Med/Soc Hx Patient Social History Alcohol Use: Denies Use Smoking Status: Former Smoker Type Used: Cigarettes Former Smoker, Quit: Jun 30, 1975 2nd Hand Smoke Exposure: No Recent Infectious Disease Expo: No Recent Hopitalizations: No Immunizations Up To Date Tetanus Booster (TDap): Unknown Date of Pneumonia Vaccine: May 27, 2013 Date of Influenza Vaccine: Jun 09, 2020 Seasonal Allergies Seasonal Allergies: No Past Medical History Surgeries: Yes (LEFT LUNG LOBE REMOVED, 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, NECK SX X2, ) Lobectomy, Orthopedic Respiratory: Yes Chronic Bronchitis Cardiac: Yes (CHF) Atrial Fibrillation, Chronic Edema/Swelling, High Cholesterol, Hypertension, Peripheral Vascular Neurological: No Genitourinary: Yes Benign Prostatic Hyperpl, Prostate Problems Gastrointestinal: Yes Gastroesophageal Reflux Musculoskeletal: Yes Degenerate Disk Disease, Arthritis, Chronic Back Pain Endocrine: No HEENT: Yes Hearing Impairment: Bilateral Hearing Aide Cancer: Yes Skin Psychosocial: Yes Anxiety Integumentary: Yes Psoriasis Blood Disorders: No Family Medical History Arthritis 19 FATHER 19 MOTHER G8 BROTHER G8 SISTER Diabetes mellitus 19 FATHER 19 MOTHER G8 BROTHER G8 SISTER Hypertension 19 MOTHER G8 BROTHER G8 SISTER Respiratory disorder 19 FATHER (LUNG CA) G8 SISTER (LUNG CA) No Pertinent Family Hx Physical Exam Vital Signs Vital Signs - First Documented 09/27/20 09/27/20 17:30 20:15 Temp 36.2 Pulse 53 Resp 20 B/P (MAP) 103/46 (65) Pulse Ox 99 O2 Delivery Room Air Capillary Refill : Less Than 3 Seconds Height, Weight, BMI Height: 5'5.00" Weight: 227lbs. 0.0oz. [id number]; 38.56 BMI Method:Stated General Appearance: No Apparent Distress Eyes: Bilateral Eye Normal Inspection, Bilateral Eye PERRL, Bilateral Eye EOMI HEENT: PERRL/EOMI, Normal ENT Inspection, Pharynx Normal Neck: Full Range of Motion, Non Tender, Supple Respiratory: Chest Non Tender, Lungs Clear, Decreased Breath Sounds, Other Cardiovascular: Other (3+ pitting edema extending from feet to distal thighs) Gastrointestinal: Normal Bowel Sounds, Non Tender, Soft, Other (Obesity compromising exam) Back: Normal Inspection Extremity: No Calf Tenderness, Swelling Neurologic/Psychiatric: Alert, Oriented x3 Skin: Normal Color, Warm/Dry Focused Exam Sepsis Stage: Ruled Out Progress/Results/Core Measures Suspected Sepsis Recent Fever Within 48 Hours: No Infection Criteria Present: None New/Unexplained Altered Menta: No Sepsis Screen: No Definite Risk SIRS Temperature: Pulse: 53 Respiratory Rate: 20 Laboratory Tests 09/27/20 17:25: White Blood Count 5.6 Blood Pressure 103 /46 Mean: 65 Laboratory Tests 09/27/20 17:25: Creatinine 5.19H, Platelet Count 187, Total Bilirubin 0.4 Results/Orders Lab Results Laboratory Tests Test 09/27/20 17:25 Range/Units White Blood Count 5.6 4.3-11.0 10^3/uL Red Blood Count 3.10 L 4.35-5.85 10^6/uL Hemoglobin 8.6 L 13.3-17.7 G/DL Hematocrit 28 L 40-54 % Mean Corpuscular Volume 90 80-99 FL Mean Corpuscular Hemoglobin 28 25-34 PG Mean Corpuscular Hemoglobin Concent 31 L 32-36 G/DL Red Cell Distribution Width 15.2 H 10.0-14.5 % Platelet Count 187 130-400 10^3/uL Mean Platelet Volume 10.2 7.4-10.4 FL Immature Granulocyte % (Auto) 0 % Neutrophils (%) (Auto) 66 42-75 % Lymphocytes (%) (Auto) 19 12-44 % Monocytes (%) (Auto) 14 H 0-12 % Eosinophils (%) (Auto) 1 0-10 % Basophils (%) (Auto) 0 0-10 % Neutrophils # (Auto) 3.7 1.8-7.8 X 10^3 Lymphocytes # (Auto) 1.1 1.0-4.0 X 10^3 Monocytes # (Auto) 0.8 0.0-1.0 X 10^3 Eosinophils # (Auto) 0.0 0.0-0.3 10^3/uL Basophils # (Auto) 0.0 0.0-0.1 10^3/uL Immature Granulocyte # (Auto) 0.0 0.0-0.1 10^3/uL Sodium Level 133 L 135-145 MMOL/L Potassium Level 4.8 3.6-5.0 MMOL/L Chloride Level 95 L 98-107 MMOL/L Carbon Dioxide Level 23 21-32 MMOL/L Anion Gap 15 H 5-14 MMOL/L Blood Urea Nitrogen 106 *H 7-18 MG/DL Creatinine 5.19 H 0.60-1.30 MG/DL Estimat Glomerular Filtration Rate 11 BUN/Creatinine Ratio 20 Glucose Level 115 H 70-105 MG/DL Calcium Level 9.3 8.5-10.1 MG/DL Corrected Calcium 9.2 8.5-10.1 MG/DL Total Bilirubin 0.4 0.1-1.0 MG/DL Aspartate Amino Transf (AST/SGOT) 13 5-34 U/L Alanine Aminotransferase (ALT/SGPT) 17 0-55 U/L Alkaline Phosphatase 106 40-136 U/L Troponin I < 0.30 <0.30 NG/ML Pro-B-Type Natriuretic Peptide 3986.0 H <75.0 PG/ML Total Protein 6.5 6.4-8.2 GM/DL Albumin 4.1 3.2-4.5 GM/DL My Orders Orders - JONAH KINNEY DO Cbc With Automated Diff (09/27/20 17:33) Comprehensive Metabolic Panel (09/27/20 17:33) Troponin I Fs (09/27/20 17:33) Probnp Fs (09/27/20 17:33) Chest 1 View Ap/Pa Only (09/27/20 17:33) Continuous Ekg Monitoring (09/27/20 17:33) Atropine Injection (Atropine Injection) (09/27/20 18:04) Atropine Injection (Atropine Injection) (09/27/20 18:15) Medications Given in ED Vital Signs/I&O 09/27/20 20:15 Pulse 70 Resp 18 B/P (MAP) 103/54 Pulse Ox 100 O2 Delivery Room Air Capillary Refill : Less Than 3 Seconds Blood Pressure Mean: 65 Departure Communication (Admissions) Chest x-ray: Pulmonary vascular congestion. EKG: Sinus arrhythmia, no acute ST-T wave changes. Patient with acute on chronic kidney failure with resultant congestive heart failure not amenable to outpatient treatment resulting in a 20 pound weight gain. Vital signs initially stable. However, while in the emergency department the patient had a single episode of bradycardia which was treated successfully with 0.4 mg of atropine. Patient's blood pressure remained stable throughout the encounter and heart rate recovered to the mid 50s. Patient denies chest pain. Family members request the patient be transferred to a facility with nephrology capability. Patient accepted to [facility] per Dr. Andrews. Impression Primary Impression: Acute on chronic combined systolic (congestive) and diastolic (congestive) heart failure Additional Impression: Acute on chronic kidney failure Disposition: SHT-TRM HOSP Condition: Stable Departure-Patient Inst. Referrals: SELF,VALORIE SMITH (PCP/Family) Primary Care Physician JONAH KINNEY DO Sep 27, 2020 19:20
[2020-09-27 20:15] VITALS: BP 103/54
== END 2020-09-27 20:40 | disposition short-term general hospital (02) ==
LOC: EDUNIT# 17:20 → ER FS 17:21
DX: I11.0 Hypertensive heart disease with heart failure (principal); I50.9 Heart failure, unspecified; N17.9 Acute kidney failure, unspecified; I48.91 Unspecified atrial fibrillation; E78.00 Pure hypercholesterolemia, unspecified; N40.0 Benign prostatic hyperplasia without lower urinary tract symptoms; K21.9 Gastro-esophageal reflux disease without esophagitis; E66.9 Obesity, unspecified; Z68.38 Body mass index [BMI] 38.0-38.9, adult; Z85.828 Personal history of other malignant neoplasm of skin; Z87.891 Personal history of nicotine dependence; Z82.49 Family history of ischemic heart disease and other diseases of the circulatory system; Z82.61 Family history of arthritis; Z83.3 Family history of diabetes mellitus; Z79.01 Long term (current) use of anticoagulants; Z79.82 Long term (current) use of aspirin
CPT/HCPCS: 36415; 71045; 80053; 83880; 84484; 85025

== ENCOUNTER 2020-11-05 15:33 | Emergency (ER) | payer MEDICARE, OTHER ==
[~2020-11-05] VITALS: Ht 165.1 cm; Wt 116.5 kg
[2020-11-05 16:04] LABS: WHITE BLOOD COUNT 6.2 10^3/uL (4.3-11.0)
[2020-11-05 16:05] LABS: BASOPHILS % (AUTO) 0 % (0-10); EOSINOPHILS % (AUTO) 0 % (0-10); HEMATOCRIT 31 % (40-54); HEMOGLOBIN 9.4 G/DL (13.3-17.7); LYMPHOCYTES # (AUTO) 1.2 X 10^3 (1.0-4.0); LYMPHOCYTES % (AUTO) 19 % (12-44); MEAN CORPUSCULAR HEMOGLOBIN 29 PG (25-34); MEAN CORPUSCULAR HGB CONC 30 G/DL (32-36); MEAN CORPUSCULAR VOLUME 96 FL (80-99); MEAN PLATELET VOLUME 9.2 FL (7.4-10.4); MONOCYTES # (AUTO) 0.8 X 10^3 (0.0-1.0); MONOCYTES % (AUTO) 13 % (0-12); NEUTROPHILS # (AUTO) 4.2 X 10^3 (1.8-7.8); NEUTROPHILS % (AUTO) 68 % (42-75); PLATELET COUNT 187 10^3/uL (130-400)
--- NOTE | 2020-11-05 16:12 | ED General ---
General Chief Complaint: Respiratory Problems Stated Complaint: FLUID BUILDUP Nursing Triage Note: Patient presents to the ED from his PCPs office with c/o of shortness of breath with exersion and weight gain. His family member states that he has gained 41lbs over the past 4 weeks. He started off at 216lb and is 257lbs today. Nursing Sepsis Screen: No Definite Risk Source of Information: Patient History of Present Illness Date Seen by Provider: Nov 05, 2020 Time Seen by Provider: 15:33 Initial Comments 75-year-old male presenting with increased weight gain and edema. He has chronic shortness of breath from heart failure. He has had 2 recent admissions to the hospital in mid August and again in mid September for fluid overload and shortness of breath. After his August admission he was discharged to a longterm facility. From there he developed increasing edema and worsening renal failure. He was admitted to [facility] in mid September for treatment of this. He was diuresed aggressively during the admission at [facility] and improved. He was discharged to residential in [place], [place]. He weighed 216 pounds on admit to [facility] and today was up to 257 pounds per family member with him. He has increased swelling and edema with pitting to his legs. He has increased shortness of breath with exertion despite being on oxygen at 2 Lpm. He denies any fever, chills, cough, chest pains. He has been getting IV lasix at the [facility] in the last several days but still been gaining weight so was seen in clinic today and sent to ED to be transferred to [facility] for aggressive diuresis. Timing/Duration: Getting Worse Severity: Moderate Modifying Factors: worse with Medication (Laxi) Associated Systoms: No Chest Pain, No Cough, No Diaphoresis, No Fever/Chills, No Headaches, No Loss of Appetite; Malaise; No Nausea/Vomiting, No Rash, No Seizure; Shortness of Air (chronic) Allergies and Home Medications Allergies Coded Allergies: No Known Drug Allergies (Unverified , 01/31/19) Home Medications Acetaminophen 325 Mg Tablet, 650 MG PO TID, (Reported) TAKES 2 (325MG) TABLETS Amiodarone HCl 200 Mg Tablet, 200 MG PO DAILY, (Reported) Apixaban 2.5 Mg Tablet, 2.5 MG PO BID Prescribed by: HERMELINDA WHITLEY on 09/16/20 1144 Aspirin 81 Mg Tablet.dr, 81 MG PO DAILY, (Reported) Calcium Carbonate 500 Mg Tablet, 1,000 MG PO DAILY, (Reported) TAKES 2 (500MG) TABLETS Cetirizine HCl 10 Mg Tablet, 10 MG PO DAILY PRN for ALLERGIES, (Reported) Cholecalciferol (Vitamin D3) 25 Mcg Capsule, 25 MCG PO DAILY, (Reported) Famotidine 20 Mg Tablet, 20 MG PO BID, (Reported) Furosemide 80 Mg Tablet, 80 MG PO DAILY Prescribed by: NATHAN ELLINGTON on 09/16/20 1124 Gabapentin 600 Mg Tablet, 600 MG PO BID, (Reported) Losartan Potassium 50 Mg Tablet, 50 MG PO DAILY, (Reported) Methimazole 10 Mg Tab, 5 MG PO DAILY, (Reported) TAKES 1/2 (10MG) TABLET Metolazone 2.5 Mg Tablet, 2.5 MG PO DAILY Prescribed by: NATHAN ELLINGTON on 09/16/20 1124 Metoprolol Succinate 50 Mg Tab.er.24h, 25 MG PO DAILY, (Reported) TAKES 1/2 (50MG) TABLET Potassium Chloride 20 Meq Tab.er.prt, 20 MEQ PO BID, (Reported) Simvastatin 40 Mg Tablet, 20 MG PO DAILY, (Reported) TAKES 1/2 (40MG) TABLET Tamsulosin HCl 0.4 Mg Cap, 0.4 MG PO HS, (Reported) Patient Home Medication List Home Medication List Reviewed: Yes Review of Systems Review of Systems Constitutional: No chills, No fever EENTM: no symptoms reported Respiratory: see HPI, dyspnea on exertion Cardiovascular: No chest pain Gastrointestinal: no symptoms reported Genitourinary: no symptoms reported Musculoskeletal: no symptoms reported Skin: no symptoms reported Psychiatric/Neurological: Denies Headache Past Kpszfpz-Unzurf-Zgvbon Hx Past Med/Social Hx: Reviewed Nursing Past Med/Soc Hx Patient Social History Alcohol Use: Denies Use Smoking Status: Former Smoker Type Used: Cigarettes Former Smoker, Quit: Jun 30, 1975 2nd Hand Smoke Exposure: No Recent Infectious Disease Expo: No Recent Hopitalizations: No Immunizations Up To Date Tetanus Booster (TDap): Unknown Date of Pneumonia Vaccine: May 27, 2013 Date of Influenza Vaccine: Jun 09, 2020 Seasonal Allergies Seasonal Allergies: No Past Medical History Surgeries: Yes (LEFT LUNG LOBE REMOVED, 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, NECK SX X2, ) Lobectomy, Orthopedic Respiratory: Yes Chronic Bronchitis Cardiac: Yes (CHF) Atrial Fibrillation, Chronic Edema/Swelling, High Cholesterol, Hypertension, Peripheral Vascular Neurological: No Genitourinary: Yes Benign Prostatic Hyperpl, Prostate Problems Gastrointestinal: Yes Gastroesophageal Reflux Musculoskeletal: Yes Degenerate Disk Disease, Arthritis, Chronic Back Pain Endocrine: No HEENT: Yes Hearing Impairment: Bilateral Hearing Aide Cancer: Yes Skin Psychosocial: Yes Anxiety Integumentary: Yes Psoriasis Blood Disorders: No Family Medical History Arthritis 19 FATHER 19 MOTHER G8 BROTHER G8 SISTER Diabetes mellitus 19 FATHER 19 MOTHER G8 BROTHER G8 SISTER Hypertension 19 MOTHER G8 BROTHER G8 SISTER Respiratory disorder 19 FATHER (LUNG CA) G8 SISTER (LUNG CA) No Pertinent Family Hx Physical Exam Vital Signs Vital Signs - First Documented 11/05/20 11/05/20 15:33 15:44 Temp 36.2 Pulse 72 Resp 22 B/P (MAP) 128/67 (87) Pulse Ox 98 O2 Delivery Nasal Cannula O2 Flow Rate 2.00 FiO2 98 Capillary Refill : Less Than 3 Seconds Height, Weight, BMI Height: 5'5.00" Weight: 227lbs. 0.0oz. 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 Norm as Tested Skin: Warm/Dry Progress/Results/Core Measures Suspected Sepsis Recent Fever Within 48 Hours: No Infection Criteria Present: None New/Unexplained Altered Menta: No Sepsis Screen: No Definite Risk SIRS Temperature: Pulse: 72 Respiratory Rate: 22 Laboratory Tests 11/05/20 16:00: White Blood Count 6.2 Blood Pressure 128 /67 Mean: 87 Laboratory Tests 11/05/20 16:00: Creatinine 1.60H, Platelet Count 187, Total Bilirubin 0.6 Results/Orders Lab Results Laboratory Tests Test 11/05/20 16:00 Range/Units White Blood Count 6.2 4.3-11.0 10^3/uL Red Blood Count 3.23 L 4.35-5.85 10^6/uL Hemoglobin 9.4 L 13.3-17.7 G/DL Hematocrit 31 L 40-54 % Mean Corpuscular Volume 96 80-99 FL Mean Corpuscular Hemoglobin 29 25-34 PG Mean Corpuscular Hemoglobin Concent 30 L 32-36 G/DL Red Cell Distribution Width 16.2 H 10.0-14.5 % Platelet Count 187 130-400 10^3/uL Mean Platelet Volume 9.2 7.4-10.4 FL Immature Granulocyte % (Auto) 0 % Neutrophils (%) (Auto) 68 42-75 % Lymphocytes (%) (Auto) 19 12-44 % Monocytes (%) (Auto) 13 H 0-12 % Eosinophils (%) (Auto) 0 0-10 % Basophils (%) (Auto) 0 0-10 % Neutrophils # (Auto) 4.2 1.8-7.8 X 10^3 Lymphocytes # (Auto) 1.2 1.0-4.0 X 10^3 Monocytes # (Auto) 0.8 0.0-1.0 X 10^3 Eosinophils # (Auto) 0.0 0.0-0.3 10^3/uL Basophils # (Auto) 0.0 0.0-0.1 10^3/uL Immature Granulocyte # (Auto) 0.0 0.0-0.1 10^3/uL Sodium Level 141 135-145 MMOL/L Potassium Level 4.1 3.6-5.0 MMOL/L Chloride Level 101 98-107 MMOL/L Carbon Dioxide Level 30 21-32 MMOL/L Anion Gap 10 5-14 MMOL/L Blood Urea Nitrogen 28 H 7-18 MG/DL Creatinine 1.60 H 0.60-1.30 MG/DL Estimat Glomerular Filtration Rate 42 BUN/Creatinine Ratio 18 Glucose Level 95 70-105 MG/DL Calcium Level 9.4 8.5-10.1 MG/DL Corrected Calcium 9.3 8.5-10.1 MG/DL Magnesium Level 2.3 1.6-2.4 MG/DL Total Bilirubin 0.6 0.1-1.0 MG/DL Aspartate Amino Transf (AST/SGOT) 17 5-34 U/L Alanine Aminotransferase (ALT/SGPT) 12 0-55 U/L Alkaline Phosphatase 136 40-136 U/L Pro-B-Type Natriuretic Peptide 3537.0 H <75.0 PG/ML Total Protein 6.6 6.4-8.2 GM/DL Albumin 4.1 3.2-4.5 GM/DL My Orders Orders - SHANNA STEVENS MD Cbc With Automated Diff (11/05/20 15:54) Comprehensive Metabolic Panel (11/05/20 15:54) Chest 1 View Ap/Pa Only (11/05/20 15:54) Magnesium (11/05/20 15:54) Ekg Tracing (11/05/20 15:54) O2 (11/05/20 15:54) Ed Iv/Invasive Line Start (11/05/20 15:54) Monitor-Rhythm Ecg Trace Only (11/05/20 15:54) Probnp Fs (11/05/20 15:54) Vital Signs/I&O 11/05/20 11/05/20 15:33 15:44 Temp 36.2 Pulse 72 Resp 22 B/P (MAP) 128/67 (87) Pulse Ox 98 100 O2 Delivery Nasal Cannula Room Air O2 Flow Rate 2.00 FiO2 98 Capillary Refill : Less Than 3 Seconds Blood Pressure Mean: 87 Progress Note #1: Progress Note Check basic labs as well as electrocardiogram, chest x-ray, cardiac BNP. Placed on cardiac site monitor since he is here for fluid overload and acute on chronic heart failure as well as increased peripheral edema despite having IV Lasix twice a day 80 mg for the last several days. Currently his telemetry monitoring is showing atrial fibrillation with heart rate controlled in the 70s. At 1558 a call was placed to [facility] to initiate the process for transfer since the patient has already been attempted on outpatient treatme nt for his 41 pound weight gain in the last 3 to 4 weeks. Since he is not responding to the outpatient IV Lasix will attempt admission for IV diuresis and treatment. Progress Note #2: Time: 16:14 Progress Note Chest x-ray shows pulmonary vascular congestion. He has CBC without acute significant abnormality. He has chronic anemia with stable hemoglobin at 9.4. His electrocardiogram shows atrial fibrillation without ST elevation. Discussed with Dr. Otto from the [facility] and he provisionally accepted pending the chemistry and cardiac testing to know if patient needed ICU or telemetry monitoring. Will call back with that information once that is back from the lab Progress Note #3: Time: 16:32 Progress Note Called transfer center back at [facility] and spoke with CINTHYA Acosta, and given lab results for chemistry. She will pass the information on to Dr. Otto. If any questions will call back, otherwise once a room is available at [facility] will call with bed assignment. Potassium stable. Cr 1.6. 1800 EMS here to transport pt to [facility] ECG Initial ECG Impression Date: Nov 05, 2020 Initial ECG Impression Time: 16:00 Initial ECG Rate: 77 Initial ECG Rhythm: A Fib/Flutter Initial ECG Comparisson: Unchanged Comment Atrial fibrillation with a heart rate of 77 bpm. Left anterior fascicular block. No acute ST elevation. QT interval 407 ms with a QTc interval 461 ms. Appears similar to prior tracing in the system. Diagnostic Imaging Diagonstic Imaging: Xray Plain Films/CT/US/NM/MRI: chest Comments [facility]. [place], [place] NAME: PATRICIO CACERES [facility] REC#: [id number] PT STATUS: REG ER : 1945 PHYSICIAN: SHANNA STEVENS MD ADMIT DATE: 11/05/20/ER FS Draft Date of Exam:11/05/20 CHEST 1 VIEW AP/PA ONLY INDICATION: Shortness of breath. EXAMINATION: Portable chest at 4:01 p.m. FINDINGS: There is a loop recorder projecting over the left lower chest. There is cardiomegaly with pulmonary vascular congestion. Lungs are clear. IMPRESSION: Cardiomegaly with pulmonary venous hypertension. Dictated on workstation # [id number] Dict: 11/05/20 1614 Trans: 11/05/20 1615 [facility] [id number] Interpreted by: CASSIE QUINTERO MD Electronically signed by: Departure Impression Primary Impression: Acute on chronic combined systolic (congestive) and diastolic (congestive) heart failure Additional Impressions: Fluid overload Qualified Codes: E87.79 - Other fluid overload Pulmonary vascular congestion Peripheral edema Weight gain with edema Disposition: SHT-TRM HOSP Condition: Stable Transfer Transfer Reason: Patient preference Time Spoke to Accepting Phy: 16:14 Transfer Progress Notes d/w Dr. Perez with [facility] center about pt coming back to [facility] to be diuresed and treated for 41 pound weight gain over last 3-4 weeks. Will call back once the chemistry panel comes back with his potassium, renal function and BNP. Updated at 1632 about lab results. Awaiting bed assignment at [facility]. Transfer Facility: [facility] Method of Transfer: EMS Departure-Patient Inst. Referrals: SELFVALORIE MD (PCP/Family) Primary Care Physician SHANNA STEVENS MD Nov 05, 2020 16:12
--- NOTE | 2020-11-05 16:16 | Diagnostic Imaging Report ---
INDICATION: Shortness of breath. EXAMINATION: Portable chest at 4:01 p.m. FINDINGS: There is a loop recorder projecting over the left lower chest. There is cardiomegaly with pulmonary vascular congestion. Lungs are clear. IMPRESSION: Cardiomegaly with pulmonary venous hypertension. Dictated by: Dictated on workstation # [id number]
[2020-11-05 16:24] LABS: ALBUMIN 4.1 GM/DL (3.2-4.5); BILIRUBIN,TOTAL 0.6 MG/DL (0.1-1.0); CALCIUM 9.4 MG/DL (8.5-10.1); CREATININE SERUM 1.6 MG/DL (0.60-1.30); MAGNESIUM 2.3 MG/DL (1.6-2.4); POTASSIUM 4.1 MMOL/L (3.6-5.0); TOTAL PROTEIN 6.6 GM/DL (6.4-8.2)
[2020-11-05 18:10] VITALS: BP 130/71
== END 2020-11-05 18:10 | disposition short-term general hospital (02) ==
LOC: EDUNIT# 15:33 → ER FS 15:34
DX: I11.0 Hypertensive heart disease with heart failure (principal); I50.43 Acute on chronic combined systolic (congestive) and diastolic (congestive) heart failure; I48.91 Unspecified atrial fibrillation; E78.00 Pure hypercholesterolemia, unspecified; Z85.828 Personal history of other malignant neoplasm of skin; Z87.438 Personal history of other diseases of male genital organs; Z87.891 Personal history of nicotine dependence; Z79.82 Long term (current) use of aspirin; Z79.01 Long term (current) use of anticoagulants; Z99.81 Dependence on supplemental oxygen
CPT/HCPCS: 36415; 71045; 80053; 83735; 83880; 85025; 93005; 93041

== ENCOUNTER → 2021-02-10 | Outpatient (CLI) | payer MEDICARE, OTHER ==
--- NOTE | 2021-02-10 19:57 | Diagnostic Imaging Report ---
EXAMINATION: Chest (PA and lateral). CLINICAL INDICATION: 75-year-old male, cough. COMPARISON: November 05, 2020. FINDINGS: There is a left-sided cardiac assist device with leads. The leads appear intact. Stable overall appearance of the cardiomediastinal silhouette. There is no identified pneumothorax. There is no pleural effusion. There is no identified focal airspace consolidation. There is cervical spine hardware. IMPRESSION: No identified acute cardiopulmonary abnormality. Dictated by: Dictated on workstation # [id number]
== END ==
LOC: RAD FS 15:13
PROVIDERS: ATTEND Family Medicine
DX: R05 Cough (principal)
CPT/HCPCS: 71046

== ENCOUNTER → 2021-10-24 | Outpatient (CLI) | payer MEDICARE, OTHER ==
[~2021-10-24] MED LIST changes: -AMIO200T6 PO; +AMIO200T65 PO; +METH-307 PO; -NF-METHI10 PO; +POTA-179 PO; -POTA20TA15 PO
--- NOTE | 2021-10-24 12:47 | Diagnostic Imaging Report ---
INDICATION: Right knee pain. TIME OF EXAM: 9:48 AM. TECHNIQUE: Three views of the right knee were obtained. FINDINGS: There are postop changes of total knee arthroplasty. The prosthetic elements are in good position. No fracture or loosening is seen. There is suprapatellar fullness, suggestive of a joint effusion. IMPRESSION: Postop changes of total knee arthroplasty. There is a small to moderate joint effusion. No acute bony abnormality is detected. Dictated by: Dictated on workstation # [id number]
== END ==
LOC: RAD FS 09:36
PROVIDERS: ATTEND Family Medicine
DX: M25.561 Pain in right knee (principal); M25.461 Effusion, right knee; Z96.651 Presence of right artificial knee joint
CPT/HCPCS: 73562

== ENCOUNTER 2021-11-09 15:49 | Emergency (ER) | payer MEDICARE, OTHER ==
[2021-11-09 16:09] LABS: BASOPHILS % (AUTO) 0 % (0-10); EOSINOPHILS % (AUTO) 1 % (0-10); HEMATOCRIT 36 % (40-54); HEMOGLOBIN 11.5 g/dL (13.3-17.7); LYMPHOCYTES % (AUTO) 17 % (12-44); MEAN CORPUSCULAR HEMOGLOBIN 29 pg (25-34); MEAN CORPUSCULAR HGB CONC 32 g/dL (32-36); MEAN CORPUSCULAR VOLUME 89 fL (80-99); MEAN PLATELET VOLUME 8.7 fL (9.0-12.2); MONOCYTES # (AUTO) 0.8 10^3/uL (0.0-1.0); MONOCYTES % (AUTO) 14 % (0-12); NEUTROPHILS # (AUTO) 4.1 10^3/uL (1.8-7.8); NEUTROPHILS % (AUTO) 68 % (42-75); PLATELET COUNT 185 10^3/uL (130-400)
--- NOTE | 2021-11-09 16:11 | ED Cardiac General ---
History of Present Illness General Chief Complaint: General Problems/Pain Stated Complaint: ALL OVER BODY SWELLING Source: patient Exam Limitations: no limitations History of Present Illness Date Seen by Provider: Nov 09, 2021 Time Seen by Provider: 15:52 Initial Comments 76-year-old male with past medical history of CHF on torsemide with implanted CardiacMEMS coming in due to concerns for heart failure exacerbation. He says his cardiacMEMS has been showing increased pressures over the past month. They have increased him from 20 mg of torsemide twice a day to now 100 mg twice a day over the past 4 weeks. They still are getting readings of elevated PA pressures and concerns for heart failure exacerbation. He was called today and told to go to the ER to be transferred to [facility] for admission. He says he is around 210 pounds when dry, and feels like he is around the 220s right now. Noticing some increasing lower extremity swelling, but it is not the worst ever then. He says he is not having a lot of chest pain or shortness of breath that he would normally have. He is otherwise denying any other acute complaints. Allergies and Home Medications Allergies Coded Allergies: No Known Drug Allergies (Unverified , 01/31/19) Patient Home Medication List Home Medication List Reviewed: Yes Acetaminophen (Acetaminophen) 325 Mg Tablet, 650 MG PO TID, (Reported) Entered as Reported by: DYLON PULLIAM on 07/28/20 1404 Amiodarone HCl (Amiodarone HCl) 200 Mg Tablet, 200 MG PO DAILY, (Reported) Entered as Reported by: DYLON PULLIAM on 07/28/20 1245 Apixaban (Eliquis) 2.5 Mg Tablet, 2.5 MG PO BID Prescribed by: HERMELINDA WHITLEY on 09/16/20 1144 Aspirin (Aspirin EC) 81 Mg Tablet.dr, 81 MG PO DAILY, (Reported) Entered as Reported by: DYLON PULLIAM on 07/28/20 1245 Calcium Carbonate (Calcium) 500 Mg Tablet, 1,000 MG PO DAILY, (Reported) Entered as Reported by: DYLON PULLIAM on 07/28/20 1245 Cetirizine HCl (Cetirizine HCl) 10 Mg Tablet, 10 MG PO DAILY PRN for ALLERGIES, (Reported) Entered as Reported by: DYLON PULLIAM on 07/28/20 1245 Cholecalciferol (Vitamin D3) (Vitamin D3) 25 Mcg Capsule, 25 MCG PO DAILY, (Reported) Entered as Reported by: DYLON PULLIAM on 07/28/20 124 Famotidine (Acid Intensive Care Unit Registered Nurse (FAMOTIDINE)) 20 Mg Tablet, 20 MG PO BID, (Reported) Entered as Reported by: DYLON PULLIAM on 07/28/20 124 Furosemide (Lasix) 80 Mg Tablet, 80 MG PO DAILY Prescribed by: NATHAN ELLINGTON on 09/16/20 1124 Gabapentin (Gabapentin) 600 Mg Tablet, 600 MG PO BID, (Reported) Entered as Reported by: DYLON PULLIAM on 07/28/20 124 Losartan Potassium (Losartan Potassium) 50 Mg Tablet, 50 MG PO DAILY, (Reported) Entered as Reported by: SAL HOANG on 09/10/20 112 Methimazole (Methimazole) 10 Mg Tab, 5 MG PO DAILY, (Reported) Entered as Reported by: DYLON PULLIAM on 07/28/20 124 Metolazone (Metolazone) 2.5 Mg Tablet, 2.5 MG PO DAILY Prescribed by: NATHAN ELLINGTON on 09/16/20 1124 Metoprolol Succinate (Metoprolol Succinate) 50 Mg Tab.er.24h, 25 MG PO DAILY, (Reported) Entered as Reported by: DYLON PULLIAM on 07/28/20 124 Potassium Chloride (Potassium Chloride) 20 Meq Tab.er.prt, 20 MEQ PO BID, (Reported) Entered as Reported by: SAL HOANG on 09/10/20 112 Simvastatin (Simvastatin) 40 Mg Tablet, 20 MG PO DAILY, (Reported) Entered as Reported by: DYLON PULLIAM on 07/28/20 124 Tamsulosin HCl (Flomax) 0.4 Mg Cap, 0.4 MG PO HS, (Reported) Entered as Reported by: DYLON PULLIAM on 07/28/20 124 Review of Systems Review of Systems Constitutional: No chills, No fever EENTM: No Blurred Vision Respiratory: Denies Cough, Denies Shortness of Air Cardiovascular: Denies Chest Pain Gastrointestinal: Denies Abdominal Pain Genitourinary: No Symptoms Reported Musculoskeletal: joint pain (Chronic right knee pain) Skin: no symptoms reported Psychiatric/Neurological: No Symptoms Reported Endocrine: No Symptoms Reported Hematologic/Lymphatic: No Symptoms Reported All Other Systems Reviewed Negative Unless Noted: Yes Past Czwjxab-Rvhfxn-Xhoqfn Hx Patient Social History Tobacco Use?: No Use of E-Cig and/or Vaping dev: No Alcohol Use?: No Pt feels they are or have been: No Immunizations Up To Date Tetanus Booster (TDap): Unknown Seasonal Allergies Seasonal Allergies: No Past Medical History Surgeries: Yes (LEFT LUNG LOBE REMOVED, 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, NECK SX X2, ) Lobectomy, Orthopedic Respiratory: Yes Chronic Bronchitis Cardiac: Yes (CHF) Atrial Fibrillation, Chronic Edema/Swelling, High Cholesterol, Hypertension, Peripheral Vascular Neurological: No Genitourinary: Yes Benign Prostatic Hyperpl, Prostate Problems Gastrointestinal: Yes Gastroesophageal Reflux Musculoskeletal: Yes Degenerate Disk Disease, Arthritis, Chronic Back Pain Endocrine: No HEENT: Yes Hearing Impairment: Bilateral Hearing Aide Cancer: Yes Skin Psychosocial: Yes Anxiety Integumentary: Yes Psoriasis Blood Disorders: No Family Medical History Arthritis 19 FATHER 19 MOTHER G8 BROTHER G8 SISTER Diabetes mellitus 19 FATHER 19 MOTHER G8 BROTHER G8 SISTER Hypertension 19 MOTHER G8 BROTHER G8 SISTER Respiratory disorder 19 FATHER (LUNG CA) G8 SISTER (LUNG CA) No Pertinent Family Hx Physical Exam Vital Signs Capillary Refill : Height, Weight, BMI Height: 5'5.00" Weight: 227lbs. 0.0oz. 102.106083mx; 42.00 BMI Method:Stated General Appearance: No Apparent Distress, WD/WN HEENT: PERRL/EOMI, Normal ENT Inspection, Pharynx Normal Neck: Full Range of Motion, Normal Inspection, Non Tender, Supple Respiratory: Chest Non Tender, No Accessory Muscle Use, No Respiratory Distress, Crackles Cardiovascular: Regular Rate, Rhythm, No Edema, Normal Peripheral Pulses Gastrointestinal: Normal Bowel Sounds, Non Tender, Soft Extremity: Normal Capillary Refill, Normal Inspection, Normal Range of Motion, Non Tender, No Calf Tenderness Neurologic/Psychiatric: Alert, No Motor/Sensory Deficits, Normal Mood/Affect Skin: Normal Color, Warm/Dry Lymphatic: No Adenopathy Progress/Results/Core Measures Results/Orders Lab Results Laboratory Tests Test 11/09/21 16:00 Range/Units White Blood Count 6.0 4.3-11.0 10^3/uL Red Blood Count 3.98 L 4.30-5.52 10^6/uL Hemoglobin 11.5 L 13.3-17.7 g/dL Hematocrit 36 L 40-54 % Mean Corpuscular Volume 89 80-99 fL Mean Corpuscular Hemoglobin 29 25-34 pg Mean Corpuscular Hemoglobin Concent 32 32-36 g/dL Red Cell Distribution Width 14.7 H 10.0-14.5 % Platelet Count 185 130-400 10^3/uL Mean Platelet Volume 8.7 L 9.0-12.2 fL Immature Granulocyte % (Auto) 0 % Neutrophils (%) (Auto) 68 42-75 % Lymphocytes (%) (Auto) 17 12-44 % Monocytes (%) (Auto) 14 H 0-12 % Eosinophils (%) (Auto) 1 0-10 % Basophils (%) (Auto) 0 0-10 % Neutrophils # (Auto) 4.1 1.8-7.8 10^3/uL Lymphocytes # (Auto) 1.0 1.0-4.0 10^3/uL Monocytes # (Auto) 0.8 0.0-1.0 10^3/uL Eosinophils # (Auto) 0.0 0.0-0.3 10^3/uL Basophils # (Auto) 0.0 0.0-0.1 10^3/uL Immature Granulocyte # (Auto) 0.0 0.0-0.1 10^3/uL Prothrombin Time 16.2 H 12.2-14.7 SEC INR Comment 1.3 0.8-1.4 Activated Partial Thromboplast Time 29 24-35 SEC Sodium Level 137 135-145 MMOL/L Potassium Level 3.3 L 3.6-5.0 MMOL/L Chloride Level 95 L 98-107 MMOL/L Carbon Dioxide Level 27 21-32 MMOL/L Anion Gap 15 H 5-14 MMOL/L Blood Urea Nitrogen 43 H 7-18 MG/DL Creatinine 2.01 H 0.60-1.30 MG/DL Estimat Glomerular Filtration Rate 33 BUN/Creatinine Ratio 21 Glucose Level 91 70-105 MG/DL Calcium Level 9.6 8.5-10.1 MG/DL Corrected Calcium 9.4 8.5-10.1 MG/DL Magnesium Level 2.7 H 1.6-2.4 MG/DL Total Bilirubin 0.7 0.1-1.0 MG/DL Aspartate Amino Transf (AST/SGOT) 17 5-34 U/L Alanine Aminotransferase (ALT/SGPT) 7 0-55 U/L Alkaline Phosphatase 136 40-136 U/L Troponin I < 0.30 <0.30 NG/ML Pro-B-Type Natriuretic Peptide 7550.0 H <75.0 PG/ML Total Protein 7.8 6.4-8.2 GM/DL Albumin 4.2 3.2-4.5 GM/DL My Orders Orders - AUDREY THOMAS MD Cbc With Automated Diff (11/09/21 16:02) Magnesium (11/09/21 16:02) Chest 1 View Ap/Pa Only (11/09/21 16:02) Ekg Tracing (11/09/21 16:02) Comprehensive Metabolic Panel (11/09/21 16:02) Protime With Inr (11/09/21 16:02) Partial Thromboplastin Time (11/09/21 16:02) O2 (11/09/21 16:02) Monitor-Rhythm Ecg Trace Only (11/09/21 16:02) Ed Iv/Invasive Line Start (11/09/21 16:02) Troponin I Fs (11/09/21 16:02) Probnp Fs (11/09/21 16:02) Tramadol Tablet (Ultram Tablet) (11/09/21 16:45) Potassium Chloride (Tablet) (K Dur Table (11/09/21 16:45) Furosemide Injection (Lasix Injection) (11/09/21 16:45) Potassium Cl 10meq/50ml Ivpb (Kcl 10 Meq (11/09/21 16:45) Progress Progress Note : Progress Note 76-year-old male with above history coming in because he was told he was volume overloaded from his CardiacMEMS. ABCs were intact and vitals were stable on presentation. Physical exam with crackles on bilateral lungs and lower extremity edema. He does appear volume up on exam, and his weight is above his dry weight by at least 15 to 20 pounds. He has been upping his home p.o. torsemide with out changes in the symptoms. An IV was placed and basic labs including cardiac biomarkers were ordered. His troponin is negative but his BNP is significantly elevated around 7500. His potassium is 3.3 so he was given oral as well as some IV potassium while we gave him 80 mg of IV Lasix. Chest x- ray consistent with pulmonary edema and cardiomegaly. I contacted [facility] to discuss transfer. Diagnostic Imaging Diagonstic Imaging: Xray (chest) Comments [facility]. [place], [place] NAME: PATRICIO CACERES REC#: [id number] PT STATUS: REG ER : 1945 PHYSICIAN: AUDREY THOMAS MD ADMIT DATE: 11/09/21/ER FS Signed Date of Exam:11/09/21 CHEST 1 VIEW AP/PA ONLY EXAMINATION: Chest 1 view HISTORY: Shortness of breath. COMPARISON: 11/05/2020. FINDINGS: Stable enlargement of the cardiac silhouette with left-sided cardiac device placement. There is a small left pleural effusion with pleural thickening which is unchanged from prior exams. Mild interstitial opacities within the lungs are unchanged. Degenerative changes of the thoracic spine. Osseous structures are otherwise intact. Cervical fusion hardware is present. IMPRESSION: 1. Stable cardiomegaly with mild interstitial opacities throughout the lungs which could be seen with pulmonary edema, atypical infection, or atelectasis. Dictated by: Dictated on workstation # [id number] Dict: 11/09/21 1615 Trans: 11/09/21 162 [id number] [id number] Interpreted by: JAI QUINTERO DO Electronically signed by: JAI QUINTERO DO 11/09/21 1622 Departure Impression Primary Impression: CHF exacerbation Qualified Codes: I50.43 - Acute on chronic combined systolic (congestive) and diastolic (congestive) heart failure Additional Impression: Volume overload Qualified Codes: E87.70 - Fluid overload, unspecified Disposition: XFER SHT-TRM HOSP Condition: Stable Transfer Transfer Reason: Patient preference (his flare breaker is at [facility]) Transfer Progress Notes Discussed the case with [facility] Transfer Facility: [facility] Departure-Patient Inst. Referrals: VALORIE MACKAY MD (PCP/Family) Primary Care Physician AUDREY THOMAS MD Nov 09, 2021 16:11
--- NOTE | 2021-11-09 16:21 | Diagnostic Imaging Report ---
EXAMINATION: Chest 1 view HISTORY: Shortness of breath. COMPARISON: 11/05/2020. FINDINGS: Stable enlargement of the cardiac silhouette with left-sided cardiac device placement. There is a small left pleural effusion with pleural thickening which is unchanged from prior exams. Mild interstitial opacities within the lungs are unchanged. Degenerative changes of the thoracic spine. Osseous structures are otherwise intact. Cervical fusion hardware is present. IMPRESSION: 1. Stable cardiomegaly with mild interstitial opacities throughout the lungs which could be seen with pulmonary edema, atypical infection, or atelectasis. Dictated by: Dictated on workstation # [id number]
[2021-11-09 16:24] LABS: INR 1.3 (0.8-1.4); PROTHROMBIN TIME PATIENT 16.2 SEC (12.2-14.7)
[2021-11-09 16:33] LABS: POTASSIUM 3.3 MMOL/L (3.6-5.0)
[2021-11-09 16:34] LABS: ALBUMIN 4.2 GM/DL (3.2-4.5); BILIRUBIN,TOTAL 0.7 MG/DL (0.1-1.0); CALCIUM 9.6 MG/DL (8.5-10.1); CREATININE SERUM 2.01 MG/DL (0.60-1.30); MAGNESIUM 2.7 MG/DL (1.6-2.4); TOTAL PROTEIN 7.8 GM/DL (6.4-8.2)
[2021-11-09] MEDS ORDERED: POTASSIUM CL 10MEQ/50ML IVPB 50 ML IV ONE (16:45)
[2021-11-09] MEDS ORDERED: KCL 20 MEQ TAB (K-DUR) PO ONE (16:45)
[2021-11-09] MEDS ORDERED: FUROSEMIDE 40 MG/4 ML INJ (LASIX) IVP ONE (16:45)
[2021-11-09 19:08] VITALS: BP 115/69
== END 2021-11-09 20:02 | disposition short-term general hospital (02) ==
LOC: EDUNIT# 15:49 → ER FS 15:51
DX: I50.9 Heart failure, unspecified (principal); E87.70 Fluid overload, unspecified
CPT/HCPCS: 36415; 71045; 80053; 83735; 83880; 84484; 85025; 85610; 85730; 93005; 93041

== ENCOUNTER → 2021-12-22 | Outpatient (CLI) | payer MEDICARE, OTHER ==
[2021-12-22 15:39] LABS: CALCIUM 9.9 MG/DL (8.5-10.1); CREATININE SERUM 1.76 MG/DL (0.60-1.30); POTASSIUM 4.1 MMOL/L (3.6-5.0)
[2021-12-23 11:23] LABS: MAGNESIUM 2.1 MG/DL (1.6-2.4)
== END ==
LOC: IHC 15:05
PROVIDERS: ATTEND Family Medicine
DX: I13.0 Hypertensive heart and chronic kidney disease with heart failure and stage 1 through stage 4 chronic kidney disease, or unspecified chronic kidney disease (principal); I50.43 Acute on chronic combined systolic (congestive) and diastolic (congestive) heart failure
CPT/HCPCS: 80048; 83735; 83880

== ENCOUNTER 2021-12-27 12:36 | Emergency (ER) | payer MEDICARE, OTHER ==
[2021-12-27] MEDS ORDERED: ASPIRIN 81 MG CHEW (CHILDREN'S ASA) PO ONE (13:00)
[2021-12-27 13:13] LABS: BASOPHILS % (AUTO) 0 % (0-10); EOSINOPHILS % (AUTO) 1 % (0-10); HEMATOCRIT 31 % (40-54); HEMOGLOBIN 9.7 g/dL (13.3-17.7); LYMPHOCYTES # (AUTO) 1.1 10^3/uL (1.0-4.0); LYMPHOCYTES % (AUTO) 22 % (12-44); MEAN CORPUSCULAR HEMOGLOBIN 29 pg (25-34); MEAN CORPUSCULAR HGB CONC 31 g/dL (32-36); MEAN CORPUSCULAR VOLUME 93 fL (80-99); MEAN PLATELET VOLUME 9.3 fL (9.0-12.2); MONOCYTES # (AUTO) 0.7 10^3/uL (0.0-1.0); MONOCYTES % (AUTO) 14 % (0-12); NEUTROPHILS # (AUTO) 3.3 10^3/uL (1.8-7.8); NEUTROPHILS % (AUTO) 63 % (42-75); PLATELET COUNT 208 10^3/uL (130-400); WHITE BLOOD COUNT 5.2 10^3/uL (4.3-11.0)
--- NOTE | 2021-12-27 13:14 | Diagnostic Imaging Report ---
HISTORY: Chest pain and left arm pain. TECHNIQUE: Frontal view of the chest. COMPARISON: 11/09/2021. FINDINGS: There is moderate cardiomegaly which appears stable. There is mild central vascular congestion. No pleural effusion or pneumothorax is seen. The left pacemaker leads appear stable. Multiple leads overlie the chest. IMPRESSION: 1. Cardiomegaly with central vascular congestion. This appears stable since the prior study. Dictated by: Dictated on workstation # [id number]
[2021-12-27 13:18] LABS: INR 1.4 (0.8-1.4); PROTHROMBIN TIME PATIENT 17.4 SEC (12.2-14.7)
[2021-12-27 13:24] LABS: CREATININE SERUM 1.72 MG/DL (0.60-1.30); POTASSIUM 3.8 MMOL/L (3.6-5.0)
[2021-12-27 13:25] LABS: ALBUMIN 3.8 GM/DL (3.2-4.5); BILIRUBIN,TOTAL 0.8 MG/DL (0.1-1.0); CALCIUM 9.3 MG/DL (8.5-10.1); MAGNESIUM 2.2 MG/DL (1.6-2.4); TOTAL PROTEIN 6.8 GM/DL (6.4-8.2)
--- NOTE | 2021-12-27 13:35 | ED General ---
General Chief Complaint: General Problems/Pain Stated Complaint: GEN WEAKNESS History of Present Illness Date Seen by Provider: December 27, 2021 Time Seen by Provider: 12:47 Initial Comments 76-year-old male with PMH of hypertension/congestive heart failure/renal disease stage III/atrial fibrillation/pacemaker/chronic hypokalemia, is brought in by EMS with complaints of left upper extremity pain which occurred today, and was sudden onset, frightening the patient that he may be having a heart attack. Patient denies actual chest pain, fever headache, nausea and vomiting, sweating, dysuria, diarrhea, shortness of breath. Pt's daughter states patient has had a 20 pound weight gain in the past 3 to 4 days with excessive swelling in his lower legs and abdomen. Patient's torsemide has been progressively increased from 40 mg twice a day to 60 mg twice a day, and patient's daughter states that at 1 point it was 100 mg twice a day. Allergies and Home Medications Allergies Coded Allergies: No Known Drug Allergies (Unverified , 01/31/19) Patient Home Medication List Home Medication List Reviewed: Yes Acetaminophen (Acetaminophen) 325 Mg Tablet, 650 MG PO TID, (Reported) Entered as Reported by: DYLON PULLIAM on 07/28/20 1404 Amiodarone HCl (Amiodarone HCl) 200 Mg Tablet, 200 MG PO DAILY, (Reported) Entered as Reported by: DYLON PULLIAM on 07/28/20 1245 Apixaban (Eliquis) 2.5 Mg Tablet, 2.5 MG PO BID Prescribed by: HERMELINDA WHITLEY on 09/16/20 1144 Aspirin (Aspirin EC) 81 Mg Tablet.dr, 81 MG PO DAILY, (Reported) Entered as Reported by: DYLON PULLIAM on 07/28/20 1245 Calcium Carbonate (Calcium) 500 Mg Tablet, 1,000 MG PO DAILY, (Reported) Entered as Reported by: DYLON PULLIAM on 07/28/20 1245 Cetirizine HCl (Cetirizine HCl) 10 Mg Tablet, 10 MG PO DAILY PRN for ALLERGIES, (Reported) Entered as Reported by: DYLON PULLIAM on 07/28/20 1245 Cholecalciferol (Vitamin D3) (Vitamin D3) 25 Mcg Capsule, 25 MCG PO DAILY, (Reported) Entered as Reported by: DYLON PULLIAM on 07/28/20 1245 Famotidine (Acid [employer]ation [employer] Supervisor (FAMOTIDINE)) 20 Mg Tablet, 20 MG PO BID, (Reported) Entered as Reported by: DYLON PULLIAM on 07/28/20 124 Furosemide (Lasix) 80 Mg Tablet, 80 MG PO DAILY Prescribed by: NATHAN ELLINGTON on 09/16/20 1124 Gabapentin (Gabapentin) 600 Mg Tablet, 600 MG PO BID, (Reported) Entered as Reported by: DYLON PULLIAM on 07/28/20 1245 Losartan Potassium (Losartan Potassium) 50 Mg Tablet, 50 MG PO DAILY, (Reported) Entered as Reported by: SAL HOANG on 09/10/20 1127 Methimazole (Methimazole) 10 Mg Tab, 5 MG PO DAILY, (Reported) Entered as Reported by: DYLON PULLIAM on 07/28/20 124 Metolazone (Metolazone) 2.5 Mg Tablet, 2.5 MG PO DAILY Prescribed by: NATHAN ELLINGTON on 09/16/20 1124 Metoprolol Succinate (Metoprolol Succinate) 50 Mg Tab.er.24h, 25 MG PO DAILY, (Reported) Entered as Reported by: DYLON PULLIAM on 07/28/20 124 Potassium Chloride (Potassium Chloride) 20 Meq Tab.er.prt, 20 MEQ PO BID, (Reported) Entered as Reported by: SAL HOANG on 09/10/20 112 Simvastatin (Simvastatin) 40 Mg Tablet, 20 MG PO DAILY, (Reported) Entered as Reported by: DYLON PULLIAM on 07/28/20 124 Tamsulosin HCl (Flomax) 0.4 Mg Cap, 0.4 MG PO HS, (Reported) Entered as Reported by: DYLON PULLIAM on 07/28/20 1245 Review of Systems Review of Systems Constitutional: no symptoms reported EENTM: no symptoms reported Respiratory: no symptoms reported Cardiovascular: other (left upper extremity pain) Gastrointestinal: no symptoms reported Genitourinary: no symptoms reported Musculoskeletal: no symptoms reported Skin: no symptoms reported Psychiatric/Neurological: No Symptoms Reported Hematologic/Lymphatic: No Symptoms Reported Immunological/Allergic: no symptoms reported Past Vpbwjhz-Kezllz-Mtoteg Hx Immunizations Up To Date Tetanus Booster (TDap): Unknown Seasonal Allergies Seasonal Allergies: No Past Medical History Surgeries: Yes (LEFT LUNG LOBE REMOVED, 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, NECK SX X2, ) Lobectomy, Orthopedic Respiratory: Yes Chronic Bronchitis Cardiac: Yes (CHF) Atrial Fibrillation, Chronic Edema/Swelling, High Cholesterol, Hypertension, Peripheral Vascular Neurological: No Genitourinary: Yes Benign Prostatic Hyperpl, Prostate Problems Gastrointestinal: Yes Gastroesophageal Reflux Musculoskeletal: Yes Degenerate Disk Disease, Arthritis, Chronic Back Pain Endocrine: No HEENT: Yes Hearing Impairment: Bilateral Hearing Aide Cancer: Yes Skin Psychosocial: Yes Anxiety Integumentary: Yes Psoriasis Blood Disorders: No Family Medical History Arthritis 19 FATHER 19 MOTHER G8 BROTHER G8 SISTER Diabetes mellitus 19 FATHER 19 MOTHER G8 BROTHER G8 SISTER Hypertension 19 MOTHER G8 BROTHER G8 SISTER Respiratory disorder 19 FATHER (LUNG CA) G8 SISTER (LUNG CA) No Pertinent Family Hx Physical Exam Vital Signs Vital Signs - First Documented 12/27/21 12:40 Temp 36.2 Pulse 70 Resp 18 Pulse Ox 96 O2 Delivery Room Air Capillary Refill : Height, Weight, BMI Height: 5'5.00" Weight: 227lbs. 0.0oz. 102.717889mn; 42.00 BMI Method:Stated General Appearance: No Apparent Distress, Chronically ill HEENT: PERRL/EOMI Neck: Full Range of Motion, Normal Inspection, Supple Respiratory: Chest Non Tender, Lungs Clear, Normal Breath Sounds, No Accessory Muscle Use, No Respiratory Distress Cardiovascular: Regular Rate, Rhythm, Other (severe bilateral pedal edema extending up to below knee with weeping and blisters and erythema. Not warm to touch.) Gastrointestinal: Normal Bowel Sounds, Non Tender, Soft Extremity: Normal Inspection, Normal Range of Motion, Non Tender, Pedal Edema, Other (No calf tenderness,rheumatic swelling of knees with crepitus) Neurologic/Psychiatric: Alert, Oriented x3, No Motor/Sensory Deficits, Normal Mood/Affect Progress/Results/Core Measures Suspected Sepsis SIRS Temperature: Pulse: Respiratory Rate: Laboratory Tests 12/27/21 12:52: White Blood Count 5.2 Blood Pressure / Mean: Laboratory Tests 12/27/21 12:52: Creatinine 1.72H, INR Comment 1.4, Platelet Count 208, Total Bilirubin 0.8 Results/Orders Lab Results Laboratory Tests Test 12/27/21 12:52 Range/Units White Blood Count 5.2 4.3-11.0 10^3/uL Red Blood Count 3.37 L 4.30-5.52 10^6/uL Hemoglobin 9.7 L 13.3-17.7 g/dL Hematocrit 31 L 40-54 % Mean Corpuscular Volume 93 80-99 fL Mean Corpuscular Hemoglobin 29 25-34 pg Mean Corpuscular Hemoglobin Concent 31 L 32-36 g/dL Red Cell Distribution Width 15.9 H 10.0-14.5 % Platelet Count 208 130-400 10^3/uL Mean Platelet Volume 9.3 9.0-12.2 fL Immature Granulocyte % (Auto) 0 % Neutrophils (%) (Auto) 63 42-75 % Lymphocytes (%) (Auto) 22 12-44 % Monocytes (%) (Auto) 14 H 0-12 % Eosinophils (%) (Auto) 1 0-10 % Basophils (%) (Auto) 0 0-10 % Neutrophils # (Auto) 3.3 1.8-7.8 10^3/uL Lymphocytes # (Auto) 1.1 1.0-4.0 10^3/uL Monocytes # (Auto) 0.7 0.0-1.0 10^3/uL Eosinophils # (Auto) 0.0 0.0-0.3 10^3/uL Basophils # (Auto) 0.0 0.0-0.1 10^3/uL Immature Granulocyte # (Auto) 0.0 0.0-0.1 10^3/uL Prothrombin Time 17.4 H 12.2-14.7 SEC INR Comment 1.4 0.8-1.4 Activated Partial Thromboplast Time 34 24-35 SEC D-Dimer 8.71 H 0.00-0.49 UG/ML Sodium Level 141 135-145 MMOL/L Potassium Level 3.8 3.6-5.0 MMOL/L Chloride Level 104 98-107 MMOL/L Carbon Dioxide Level 26 21-32 MMOL/L Anion Gap 11 5-14 MMOL/L Blood Urea Nitrogen 25 H 7-18 MG/DL Creatinine 1.72 H 0.60-1.30 MG/DL Estimat Glomerular Filtration Rate 40 BUN/Creatinine Ratio 15 Glucose Level 96 70-105 MG/DL Calcium Level 9.3 8.5-10.1 MG/DL Corrected Calcium 9.5 8.5-10.1 MG/DL Magnesium Level 2.2 1.6-2.4 MG/DL Total Bilirubin 0.8 0.1-1.0 MG/DL Aspartate Amino Transf (AST/SGOT) 14 5-34 U/L Alanine Aminotransferase (ALT/SGPT) 8 0-55 U/L Alkaline Phosphatase 128 40-136 U/L Troponin I < 0.30 <0.30 NG/ML Pro-B-Type Natriuretic Peptide 7860.0 H <75.0 PG/ML Total Protein 6.8 6.4-8.2 GM/DL Albumin 3.8 3.2-4.5 GM/DL My Orders Orders - RICK WINSTON MD Cbc With Automated Diff (12/27/21 12:57) Magnesium (12/27/21 12:57) Chest 1 View Ap/Pa Only (12/27/21 12:57) Ekg Tracing (12/27/21 12:57) Comprehensive Metabolic Panel (12/27/21 12:57) Protime With Inr (12/27/21 12:57) Partial Thromboplastin Time (12/27/21 12:57) O2 (12/27/21 12:57) Monitor-Rhythm Ecg Trace Only (12/27/21 12:57) Aspirin Chewable Tablet (Baby Aspirin Ch (12/27/21 13:00) Ed Iv/Invasive Line Start (12/27/21 12:57) Fibrin Degradation Products (12/27/21 12:57) Troponin I Fs (12/27/21 12:57) Probnp Fs (12/27/21 12:57) Us Venous Lower Ext Janes (12/27/21 12:58) Ct Angio Chest W (12/27/21 14:07) Iohexol Injection (Omnipaque 350 Mg/Ml 1 (12/27/21 14:30) Received Contrast (Hold Metformin- Contr (12/27/21 14:30) Ns (Ivpb) (Sodium Chloride 0.9% Ivpb Bag (12/27/21 14:30) Ct Abdomen/Pelvis Wo (12/27/21 14:42) Troponin I Fs (12/27/21 15:15) Furosemide Injection (Lasix Injection) (12/27/21 15:30) Medications Given in ED Current Medications Medications Dose Ordered Sig/Fay Route Start Time Stop Time Status Last Admin Dose Admin Furosemide 20 mg ONCE ONCE IVP 12/27/21 15:30 12/27/21 15:31 DC 12/27/21 15:56 20 MG Iohexol 100 ml ONCE ONCE IV 12/27/21 14:30 12/27/21 14:31 DC 12/27/21 14:33 100 ML Sodium Chloride 100 ml ONCE ONCE IV 12/27/21 14:30 12/27/21 14:31 DC 12/27/21 14:33 100 ML Vital Signs/I&O 12/27/21 12:40 Temp 36.2 Pulse 70 Resp 18 B/P (MAP) Pulse Ox 96 O2 Delivery Room Air Capillary Refill : Progress Note : Progress Note 1. ACS RULE OUT & ACUTE CHF EXACERBATION: - CXR/ CT ABD: cardiovascular congestion and mild ascites - Troponin x 2 - EKG - Labs unremarkable except BNP is 7,860 and s. creatinine is 1.72 with BUN of 25 - Lasix 20mg iv STAT; started small since pt has low BP. 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 Discussed with transfer physician: Dr. Rios and accepted 2. ELEVATED D-DIMER: - D-dimer: 8.71 - Doppler u/s of bilateral lower extremitie and CTA chest were both negative for a clot Diagnostic Imaging Diagonstic Imaging: Xray, CT, Ultrasound Plain Films/CT/US/NM/MRI: chest, abdomen, leg Comments [facility]. [place], [place] NAME: PATRICIO CACERES [facility] REC#: [id number] PT STATUS: REG ER : 1945 PHYSICIAN: RICK WINSTON MD ADMIT DATE: 12/27/21/ER FS Draft Date of Exam:12/27/21 CHEST 1 VIEW AP/PA ONLY HISTORY: Chest pain and left arm pain. TECHNIQUE: Frontal view of the chest. COMPARISON: 11/09/2021. FINDINGS: There is moderate cardiomegaly which appears stable. There is mild central vascular congestion. No pleural effusion or pneumothorax is seen. The left pacemaker leads appear stable. Multiple leads overlie the chest. IMPRESSION: 1. Cardiomegaly with central vascular congestion. This appears stable since the prior study. Dictated on workstation # [id number] Dict: 12/27/21 1310 Trans: 12/27/21 1313 [id number] Interpreted by: REBECCA GREGORY MD Electronically signed by: [facility]. [facility]. [place], [place] [facility] [id number] PT STATUS: REG ER : 1945 PHYSICIAN: RICK WINSTON MD ADMIT DATE: 12/27/21/ER FS Draft Date of Exam:12/27/21 US VENOUS LOWER EXT JANES PROCEDURE: US Venous Lower Ext Janes. TECHNIQUE: Multiple real-time grayscale images were obtained over the lower extremities in various projections, bilaterally. Additional duplex Doppler and color Doppler images were also obtained. INDICATION: Bilateral leg swelling and cellulitis. There is no evidence of right or left lower extremity DVT. Both lower extremity deep venous systems demonstrate normal compressibility with normal response to augmentation and Valsalva. No fluid collection or mass is detected. IMPRESSION: No evidence of right or left lower extremity DVT. Dictated on workstation # [id number] Dict: 12/27/21 1410 Trans: 12/27/21 1412 [facility] [id number] Interpreted by: EDIN THOMAS MD Electronically signed by: [place], [place] [facility] [id number] PT STATUS: REG ER : 1945 PHYSICIAN: RICK WINSTON MD ADMIT DATE: 12/27/21/ER FS Draft Date of Exam:12/27/21 CT ABDOMEN/PELVIS WO PROCEDURE: CT abdomen and pelvis without contrast. TECHNIQUE: Multiple contiguous axial images were obtained through the abdomen and pelvis without the use of intravenous contrast. Auto Exposure Controls were utilized during the CT exam to meet ALARA standards for radiation dose reduction. INDICATION: Distended abdomen. COMPARISON: None. FINDINGS: The lung bases demonstrate fibrotic change and are reported separately. The heart appears large. There is bilateral gynecomastia. Please refer to separately dictated CT of the chest. The liver demonstrates no focal lesions. There are a few small hypoattenuating foci in the right liver, which are too small to characterize. The contour may be mildly nodular. The spleen is normal in size. The pancreas appears normal. The adrenal glands appear normal. The kidneys demonstrate no masses or hydronephrosis. There is contrast excreting from the kidneys from the prior CTA exam. The bowel loops are nondistended without obstruction. The appendix appears normal. There is a small amount of ascites. No free air is seen. There is aortic atherosclerosis. No significant lymphadenopathy is appreciated. There are degenerative changes in the spine. IMPRESSION: 1. Questionable nodularity of the liver contour, could represent early cirrhotic changes. Hypoattenuating foci in the liver are too small to characterize. 2. Small amount of ascites. Dictated on workstation # [id number] Dict: 12/27/21 1459 Trans: 12/27/21 1508 [id number] Interpreted by: REBECCA GREGORY MD Electronically signed by: [facility] [place] [place] [place] NAME: PATRICIO CACERES [facility] REC#: [id number] PT STATUS: REG ER : 1945 PHYSICIAN: RICK WINSTON MD ADMIT DATE: 12/27/21/ER FS Draft Date of Exam:12/27/21 CT ANGIO CHEST W EXAMINATION: CT angiography of the chest. TECHNIQUE: Contrast enhanced thin section helical images were obtained through the chest with intravenous contrast timed for the optimal opacification of the arterial structures per CTA protocol. Post-processing, reconstructions and interpretation of angiographic images of the vessels was performed. 3D MIP reconstructions were performed and reviewed. All CT scans use one or more of the following dose optimizing techniques: automated exposure control, MA and/or KvP adjustment based on a patient size and exam type, or iterative reconstruction. HISTORY: Elevated D-dimer and chest pain. COMPARISON: None available. FINDINGS: Vascular: No filling defects are seen within the pulmonary arteries. There are linear peripheral calcifications seen within a segmental branch of the left lower lobe pulmonary artery which may be secondary to chronic old pulmonary embolus. Calcification of the aorta and coronary vessels. The thoracic aorta is normal in caliber. Thyroid: The thyroid is normal. Mediastinum: The heart size is enlarged without significant pericardial effusion. No suspicious lymphadenopathy. Lungs and airways: There is atelectasis or scarring within the lung bases. No pleural effusion or pneumothorax. The airways are normal. Upper abdomen: There is mild ascites. Musculoskeletal: Degenerative changes of the spine without suspicious osseous lesion or compression fracture. IMPRESSION: No findings of acute pulmonary embolus or other acute abnormality in the chest. Dictated on workstation # [id number] Dict: 12/27/21 1454 Trans: 12/27/21 1510 [id number] Interpreted by: JAI QUINTERO DO Electronically signed by: Consults Consults : Consults Notes [facility] [place] [place] NAME: PATRICIO CACERES [facility] REC#: [id number] PT STATUS: REG ER : 1945 PHYSICIAN: RICK WINSTON MD ADMIT DATE: 12/27/21/ER FS Draft Date of Exam:12/27/21 CT ABDOMEN/PELVIS WO PROCEDURE: CT abdomen and pelvis without contrast. TECHNIQUE: Multiple contiguous axial images were obtained through the abdomen and pelvis without the use of intravenous contrast. Auto Exposure Controls were utilized during the CT exam to meet ALARA standards for radiation dose reduction. INDICATION: Distended abdomen. COMPARISON: None. FINDINGS: The lung bases demonstrate fibrotic change and are reported separately. The heart appears large. There is bilateral gynecomastia. Please refer to separately dictated CT of the chest. The liver demonstrates no focal lesions. There are a few small hypoattenuating foci in the right liver, which are too small to characterize. The contour may be mildly nodular. The spleen is normal in size. The pancreas appears normal. The adrenal glands appear normal. The kidneys demonstrate no masses or hydronephrosis. There is contrast excreting from the kidneys from the prior CTA exam. The bowel loops are nondistended without obstruction. The appendix appears normal. There is a small amount of ascites. No free air is seen. There is aortic atherosclerosis. No significant lymphadenopathy is appreciated. There are degenerative changes in the spine. IMPRESSION: 1. Questionable nodularity of the liver contour, could represent early cirrhotic changes. Hypoattenuating foci in the liver are too small to characterize. 2. Small amount of ascites. Dictated on workstation # [id number] Dict: 12/27/21 1459 Trans: 12/27/21 1508 [id number] Interpreted by: REBECCA GREGORY MD Electronically signed by: Departure Impression Primary Impression: Acute exacerbation of CHF (congestive heart failure) Disposition: XFER [facility] HOSP Condition: Stable Admissions Time/Decision to Admit Time: 14:05 Transfer Transfer Reason: Patient preference Time Spoke to Accepting Phy: 15:00 Transfer Progress Notes Discussed with Dr Rios at [facility] Method of Transfer: EMS Departure-Patient Inst. Referrals: VALORIE MACKAY MD (PCP/Family) Primary Care Physician RICK WINSTON MD December 27, 2021 13:35
--- NOTE | 2021-12-27 14:12 | Diagnostic Imaging Report ---
PROCEDURE: US Venous Lower Ext Luis Miguel. TECHNIQUE: Multiple real-time grayscale images were obtained over the lower extremities in various projections, bilaterally. Additional duplex Doppler and color Doppler images were also obtained. INDICATION: Bilateral leg swelling and cellulitis. There is no evidence of right or left lower extremity DVT. Both lower extremity deep venous systems demonstrate normal compressibility with normal response to augmentation and Valsalva. No fluid collection or mass is detected. IMPRESSION: No evidence of right or left lower extremity DVT. Dictated by: Dictated on workstation # [id number]
[2021-12-27] MEDS ORDERED: NS 100 ML (IVPB) BAG IV ONE (14:30)
[2021-12-27] MEDS ORDERED: IOHEXOL 350 MG/ML 100 ML (OMNIPAQUE 350) VIAL IV ONE (14:30)
[2021-12-27] MEDS ORDERED: HOLD METFORMIN - RECEIVED CONTRAST 20 ML VIAL IV SCH (14:30)
--- NOTE | 2021-12-27 15:08 | Diagnostic Imaging Report ---
PROCEDURE: CT abdomen and pelvis without contrast. TECHNIQUE: Multiple contiguous axial images were obtained through the abdomen and pelvis without the use of intravenous contrast. Auto Exposure Controls were utilized during the CT exam to meet ALARA standards for radiation dose reduction. INDICATION: Distended abdomen. COMPARISON: None. FINDINGS: The lung bases demonstrate fibrotic change and are reported separately. The heart appears large. There is bilateral gynecomastia. Please refer to separately dictated CT of the chest. The liver demonstrates no focal lesions. There are a few small hypoattenuating foci in the right liver, which are too small to characterize. The contour may be mildly nodular. The spleen is normal in size. The pancreas appears normal. The adrenal glands appear normal. The kidneys demonstrate no masses or hydronephrosis. There is contrast excreting from the kidneys from the prior CTA exam. The bowel loops are nondistended without obstruction. The appendix appears normal. There is a small amount of ascites. No free air is seen. There is aortic atherosclerosis. No significant lymphadenopathy is appreciated. There are degenerative changes in the spine. IMPRESSION: 1. Questionable nodularity of the liver contour, could represent early cirrhotic changes. Hypoattenuating foci in the liver are too small to characterize. 2. Small amount of ascites. Dictated by: Dictated on workstation # [id number]
--- NOTE | 2021-12-27 15:11 | Diagnostic Imaging Report ---
EXAMINATION: CT angiography of the chest. TECHNIQUE: Contrast enhanced thin section helical images were obtained through the chest with intravenous contrast timed for the optimal opacification of the arterial structures per CTA protocol. Post-processing, reconstructions and interpretation of angiographic images of the vessels was performed. 3D MIP reconstructions were performed and reviewed. All CT scans use one or more of the following dose optimizing techniques: automated exposure control, MA and/or KvP adjustment based on a patient size and exam type, or iterative reconstruction. HISTORY: Elevated D-dimer and chest pain. COMPARISON: None available. FINDINGS: Vascular: No filling defects are seen within the pulmonary arteries. There are linear peripheral calcifications seen within a segmental branch of the left lower lobe pulmonary artery which may be secondary to chronic old pulmonary embolus. Calcification of the aorta and coronary vessels. The thoracic aorta is normal in caliber. Thyroid: The thyroid is normal. Mediastinum: The heart size is enlarged without significant pericardial effusion. No suspicious lymphadenopathy. Lungs and airways: There is atelectasis or scarring within the lung bases. No pleural effusion or pneumothorax. The airways are normal. Upper abdomen: There is mild ascites. Musculoskeletal: Degenerative changes of the spine without suspicious osseous lesion or compression fracture. IMPRESSION: No findings of acute pulmonary embolus or other acute abnormality in the chest. Dictated by: Dictated on workstation # [id number]
[2021-12-27] MEDS ORDERED: FUROSEMIDE 40 MG/4 ML INJ (LASIX) IVP ONE (15:30)
[2021-12-27 16:18] VITALS: BP 122/68
== END 2021-12-27 17:10 | disposition short-term general hospital (02) ==
LOC: EDUNIT# 12:36 → ER FS 12:37
DX: I13.0 Hypertensive heart and chronic kidney disease with heart failure and stage 1 through stage 4 chronic kidney disease, or unspecified chronic kidney disease (principal); I50.9 Heart failure, unspecified; N18.30 Chronic kidney disease, stage 3 unspecified
CPT/HCPCS: 36415; 71045; 71275; 74176; 80053; 83735; 83880; 84484; 85025; 85379; 85610; 85730; 93005; 93041; 93970; 96374; Q9967

== ENCOUNTER → 2022-01-27 | Outpatient (CLI) | payer MEDICARE, OTHER ==
[~2022-01-27] MED LIST changes: +ACET-2717 PO; -ACET650T41 PO
[2022-01-27 10:17] LABS: POTASSIUM 3.7 MMOL/L (3.6-5.0)
[2022-01-27 10:18] LABS: CALCIUM 9.3 MG/DL (8.5-10.1); CREATININE SERUM 1.44 MG/DL (0.60-1.30)
== END ==
LOC: IHC 09:22
DX: I50.43 Acute on chronic combined systolic (congestive) and diastolic (congestive) heart failure (principal)
CPT/HCPCS: 80048

== ENCOUNTER → 2022-02-01 | Outpatient (CLI) | payer MEDICARE, OTHER ==
[2022-02-01 10:26] LABS: CREATININE SERUM 1.59 MG/DL (0.60-1.30); POTASSIUM 3.3 MMOL/L (3.6-5.0)
[2022-02-01 10:27] LABS: CALCIUM 9.9 MG/DL (8.5-10.1)
== END ==
LOC: IHC 09:44
PROVIDERS: ATTEND Family Medicine
DX: I13.0 Hypertensive heart and chronic kidney disease with heart failure and stage 1 through stage 4 chronic kidney disease, or unspecified chronic kidney disease (principal); N17.9 Acute kidney failure, unspecified
CPT/HCPCS: 80048

== ENCOUNTER → 2022-02-10 | Outpatient (CLI) | payer MEDICARE, OTHER ==
[2022-02-10 14:20] LABS: CALCIUM 10.1 MG/DL (8.5-10.1); CREATININE SERUM 1.34 MG/DL (0.60-1.30); POTASSIUM 3.7 MMOL/L (3.6-5.0)
== END ==
LOC: IHC 13:44
PROVIDERS: ATTEND Internal Medicine
DX: I13.0 Hypertensive heart and chronic kidney disease with heart failure and stage 1 through stage 4 chronic kidney disease, or unspecified chronic kidney disease (principal); N18.9 Chronic kidney disease, unspecified; I50.9 Heart failure, unspecified
CPT/HCPCS: 80048

== ENCOUNTER 2022-04-29 16:10 | Emergency (ER) | payer MEDICARE, OTHER ==
[~2022-04-29] VITALS: Ht 165.1 cm; Wt 90.2 kg
--- NOTE | 2022-04-29 16:56 | Diagnostic Imaging Report ---
CLINICAL HISTORY: Right knee pain and swelling. COMPARISON: 10/24/2021. TECHNIQUE: 3 views of the right knee. FINDINGS: There is no acute fracture or dislocation of the right knee. Postsurgical changes of right total knee arthroplasty are visualized. No periprosthetic fracture or loosening. Small right knee joint effusion is present. There is nonspecific prepatellar soft tissue edema. IMPRESSION: 1. No acute fracture or dislocation in the right knee. 2. Stable right total knee arthroplasty changes. 3. Nonspecific prepatellar soft tissue edema. Dictated by: Dictated on workstation # [id number]
[2022-04-29 17:16] LABS: BASOPHILS % (AUTO) 0 % (0-10); EOSINOPHILS % (AUTO) 0 % (0-10); HEMATOCRIT 35 % (40-54); LYMPHOCYTES # (AUTO) 0.9 10^3/uL (1.0-4.0); LYMPHOCYTES % (AUTO) 14 % (12-44); MEAN CORPUSCULAR HEMOGLOBIN 29 pg (25-34); MEAN CORPUSCULAR HGB CONC 31 g/dL (32-36); MEAN CORPUSCULAR VOLUME 91 fL (80-99); MONOCYTES % (AUTO) 14 % (0-12); NEUTROPHILS # (AUTO) 4.8 10^3/uL (1.8-7.8); NEUTROPHILS % (AUTO) 71 % (42-75); PLATELET COUNT 275 10^3/uL (130-400); WHITE BLOOD COUNT 6.7 10^3/uL (4.3-11.0)
[2022-04-29 17:38] LABS: POTASSIUM 3.6 MMOL/L (3.6-5.0)
[2022-04-29 17:39] LABS: ALBUMIN 4.4 GM/DL (3.2-4.5); BILIRUBIN,TOTAL 0.6 MG/DL (0.1-1.0); CREATININE SERUM 1.6 MG/DL (0.60-1.30); TOTAL PROTEIN 7.3 GM/DL (6.4-8.2)
--- NOTE | 2022-04-29 18:40 | Diagnostic Imaging Report ---
CLINICAL INDICATION: Patient with pain, redness and swelling to the right knee x 6 days. Patient reports bump to right knee and drainage from wound. No history of trauma or injury. EXAM: CT scan of the right knee performed without IV contrast. Sagittal and coronal reformatted images were created. Auto Exposure Controls were utilized during the CT exam to meet ALARA standards for radiation dose reduction. COMPARISON: X-ray of the right knee dated 04/29/2022. FINDINGS: Right total knee arthroplasty is again seen with streak artifact obscuring adjacent bony structures. There is no acute fracture or dislocation seen. There is soft tissue swelling about the right knee and prepatellar region which is nonspecific. There is a moderate size knee effusion of unknown etiology. IMPRESSION: 1: There is a moderate-sized knee effusion and soft tissue swelling about the knee and prepatellar region of unknown etiology. Infectious process should be excluded. 2: Right total knee arthroplasty is seen. There is no fracture or bony destructive process seen. Dictated by: Dictated on workstation # [id number]
--- NOTE | 2022-04-29 18:57 | ED Integumentary General ---
General Chief Complaint: Skin/Wound Problems Stated Complaint: RT KNEE PAIN Nursing Triage Note: Patient presents to the ED with c/o pain, redness, swelling, and bumps on right knee. Reports symptoms began 6 days ago. States edema in lower extremity is normal on his lower leg but not his knee. Reports one of the bumps on his knee popped and started draining pus on Sunday. History of Present Illness Date Seen by Provider: Apr 29, 2022 Time Seen by Provider: 17:30 Initial Comments [id number] male with PMH of CHF/CKD 4/Left lung lobectomy/ A-Fib with pacemaker on Eliquis, is here with c/o right knee pain and swelling with blood formation draining green pus and weak and worsening in intensity, and spreading down the leg. Patient is in a wheelchair. Patient went to urgent care today and was sent here to the ER from urgent care. Denies fever, SOB, chest pain, nausea and vomiting. Allergies and Home Medications Allergies Coded Allergies: No Known Drug Allergies (Unverified , 01/31/19) Patient Home Medication List Home Medication List Reviewed: Yes Acetaminophen (Acetaminophen) 325 Mg Tablet, 650 MG PO TID, (Reported) Entered as Reported by: DYLON PULLIAM on 07/28/20 1404 Amiodarone HCl (Amiodarone HCl) 200 Mg Tablet, 200 MG PO DAILY, (Reported) Entered as Reported by: DYLON PULLIAM on 07/28/20 1245 Apixaban (Eliquis) 2.5 Mg Tablet, 2.5 MG PO BID Prescribed by: HERMELINDA WHITLEY on 09/16/20 1144 Aspirin (Aspirin EC) 81 Mg Tablet.dr, 81 MG PO DAILY, (Reported) Entered as Reported by: DYLON PULLIAM on 07/28/20 1245 Calcium Carbonate (Calcium) 500 Mg Tablet, 1,000 MG PO DAILY, (Reported) Entered as Reported by: DYLON PULLIAM on 07/28/20 1245 Cetirizine HCl (Cetirizine HCl) 10 Mg Tablet, 10 MG PO DAILY PRN for ALLERGIES, (Reported) Entered as Reported by: DYLON PULLIAM on 07/28/20 1245 Cholecalciferol (Vitamin D3) (Vitamin D3) 25 Mcg Capsule, 25 MCG PO DAILY, (Reported) Entered as Reported by: DYLON PULLIAM on 07/28/20 1245 Famotidine (Acid Sole Leveler (FAMOTIDINE)) 20 Mg Tablet, 20 MG PO BID, (Reported) Entered as Reported by: DYLON PULLIAM on 07/28/20 124 Furosemide (Lasix) 80 Mg Tablet, 80 MG PO DAILY Prescribed by: NATHAN ELLINGTON on 09/16/20 1124 Gabapentin (Gabapentin) 600 Mg Tablet, 600 MG PO BID, (Reported) Entered as Reported by: DYLON PULLIAM on 07/28/20 124 Losartan Potassium (Losartan Potassium) 50 Mg Tablet, 50 MG PO DAILY, (Reported) Entered as Reported by: SAL HOANG on 09/10/20 112 Methimazole (Methimazole) 10 Mg Tab, 5 MG PO DAILY, (Reported) Entered as Reported by: DYLON PULLIAM on 07/28/20 124 Metolazone (Metolazone) 2.5 Mg Tablet, 2.5 MG PO DAILY Prescribed by: NATHAN ELLINGTON on 09/16/20 1124 Metoprolol Succinate (Metoprolol Succinate) 50 Mg Tab.er.24h, 25 MG PO DAILY, (Reported) Entered as Reported by: DYLON PULLIAM on 07/28/20 124 Potassium Chloride (Potassium Chloride) 20 Meq Tab.er.prt, 20 MEQ PO BID, (Reported) Entered as Reported by: SAL HOANG on 09/10/20 112 Simvastatin (Simvastatin) 40 Mg Tablet, 20 MG PO DAILY, (Reported) Entered as Reported by: DYLON PULLIAM on 07/28/20 124 Tamsulosin HCl (Flomax) 0.4 Mg Cap, 0.4 MG PO HS, (Reported) Entered as Reported by: DYLON PULLIAM on 07/28/20 1245 Review of Systems Review of Systems Constitutional: no symptoms reported EENTM: no symptoms reported Respiratory: no symptoms reported Cardiovascular: no symptoms reported Gastrointestinal: no symptoms reported Musculoskeletal: joint pain, joint swelling Skin: no symptoms reported, change in color Psychiatric/Neurological: No Symptoms Reported Endocrine: No Symptoms Reported Hematologic/Lymphatic: No Symptoms Reported Past [id number]-[id number] Hx Patient Social History Tobacco Use?: Yes Substance use?: No Alcohol Use?: No Pt feels they are or have been: No Immunizations Up To Date Tetanus Booster (TDap): Unknown First/Initial COVID19 Vaccinat: 2020 Second COVID19 Vaccination Raffi: 2020 Third COVID19 Vaccination Date: 2020 Seasonal Allergies Seasonal Allergies: No Past Medical History Surgery/Hospitalization HX: A-FIB, CHF, HYPOTHYROIDISM, HTN, CKD stage 3; Bilateral knee replacement; pacemaker; Left shoulder replacement; carpal tunnel release; back surgery Surgeries: Yes (LEFT LUNG LOBE REMOVED, 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, NECK SX X2, ) Lobectomy, Orthopedic Respiratory: Yes Chronic Bronchitis Cardiac: Yes (CHF) Atrial Fibrillation, Chronic Edema/Swelling, High Cholesterol, Hypertension, Peripheral Vascular Neurological: No Genitourinary: Yes Benign Prostatic Hyperpl, Prostate Problems Gastrointestinal: Yes Gastroesophageal Reflux Musculoskeletal: Yes Degenerate Disk Disease, Arthritis, Chronic Back Pain Endocrine: No HEENT: Yes Hearing Impairment: Bilateral Hearing Aide Cancer: Yes Skin Psychosocial: Yes Anxiety Integumentary: Yes Psoriasis Blood Disorders: No Family Medical History Arthritis 19 FATHER 19 MOTHER G8 BROTHER G8 SISTER Diabetes mellitus 19 FATHER 19 MOTHER G8 BROTHER G8 SISTER Hypertension 19 MOTHER G8 BROTHER G8 SISTER Respiratory disorder 19 FATHER (LUNG CA) G8 SISTER (LUNG CA) No Pertinent Family Hx Physical Exam Vital Signs Vital Signs - First Documented 04/29/22 16:26 Temp 35.8 Pulse 78 Resp 16 B/P (MAP) 103/70 (81) Pulse Ox 98 O2 Delivery Room Air Capillary Refill : Less Than 3 Seconds General Appearance: WD/WN, no apparent distress HEENT: PERRL/EOMI Neck: full range of motion Cardiovascular: normal peripheral pulses, regular rate, rhythm, other (bilateral pitting pedal edema extending to knee) Respiratory: chest non-tender, lungs clear, normal breath sounds, no respi ratory distress Gastrointestinal: non tender, soft Extremities: inflammation (Right knee has erythema, swelling with multiple blebs/ blisters), pedal edema (bilateral), swelling (Bilateral lower leg swelling, but right greater than left), other (limited ROM of right knee due to swelling. Multiple blebs draining greenish yellow pus. Erythema and swelling of lower extremity and hot to touch, with scaly overlying skin.) Neurologic/Psychiatric: alert, normal mood/affect, oriented x 3 Skin Problem Character: abscess, bullous, drainage, erythema, scales, swelling, tenderness, thickening, warm Progress/Results/Core Measures Results/Orders Lab Results Laboratory Tests Test 04/29/22 17:10 Range/Units White Blood Count 6.7 4.3-11.0 10^3/uL Red Blood Count 3.84 L 4.30-5.52 10^6/uL Hemoglobin 11.0 L 13.3-17.7 g/dL Hematocrit 35 L 40-54 % Mean Corpuscular Volume 91 80-99 fL Mean Corpuscular Hemoglobin 29 25-34 pg Mean Corpuscular Hemoglobin Concent 31 L 32-36 g/dL Red Cell Distribution Width 14.8 H 10.0-14.5 % Platelet Count 275 130-400 10^3/uL Mean Platelet Volume 9.0 9.0-12.2 fL Immature Granulocyte % (Auto) 0 % Neutrophils (%) (Auto) 71 42-75 % Lymphocytes (%) (Auto) 14 12-44 % Monocytes (%) (Auto) 14 H 0-12 % Eosinophils (%) (Auto) 0 0-10 % Basophils (%) (Auto) 0 0-10 % Neutrophils # (Auto) 4.8 1.8-7.8 10^3/uL Lymphocytes # (Auto) 0.9 L 1.0-4.0 10^3/uL Monocytes # (Auto) 1.0 0.0-1.0 10^3/uL Eosinophils # (Auto) 0.0 0.0-0.3 10^3/uL Basophils # (Auto) 0.0 0.0-0.1 10^3/uL Immature Granulocyte # (Auto) 0.0 0.0-0.1 10^3/uL Erythrocyte Sedimentation Rate 53 H 0-30 MM/HR Sodium Level 138 135-145 MMOL/L Potassium Level 3.6 3.6-5.0 MMOL/L Chloride Level 97 L 98-107 MMOL/L Carbon Dioxide Level 28 21-32 MMOL/L Anion Gap 13 5-14 MMOL/L Blood Urea Nitrogen 30 H 7-18 MG/DL Creatinine 1.60 H 0.60-1.30 MG/DL Estimat Glomerular Filtration Rate 44 BUN/Creatinine Ratio 19 Glucose Level 82 70-105 MG/DL Lactic Acid Level 2.45 *H 0.50-2.00 MMOL/L Calcium Level 10.0 8.5-10.1 MG/DL Corrected Calcium 9.7 8.5-10.1 MG/DL Total Bilirubin 0.6 0.1-1.0 MG/DL Aspartate Amino Transf (AST/SGOT) 13 5-34 U/L Alanine Aminotransferase (ALT/SGPT) 6 0-55 U/L Alkaline Phosphatase 137 H 40-136 U/L C-Reactive Protein 2.90 H <0.50 MG/DL Total Protein 7.3 6.4-8.2 GM/DL Albumin 4.4 3.2-4.5 GM/DL My Orders Orders - RICK WINSTON MD Knee 3 View Right (04/29/22 16:33) Cbc With Automated Diff (04/29/22 16:48) Comprehensive Metabolic Panel (04/29/22 16:48) Lactic Acid Analyzer (04/29/22 16:48) Ua Culture If Indicated (04/29/22 16:48) Wound Culture (04/29/22 17:55) Ct Extremity Lower Right Wo (04/29/22 18:01) Erythrocyte Sedimentation Rate (04/29/22 19:07) Crp Fs (04/29/22 19:07) Vancomycin Injection (Vancomycin Injecti (04/29/22 19:15) Vancomycin Injection (Vancomycin Injecti (04/29/22 19:32) Ns (Ivpb) (Sodium Chloride 0.9%) (04/29/22 19:32) Ceftriaxone 1 Gm Pre-Mix (Rocephin 1 Gm (04/29/22 20:00) Medications Given in ED Current Medications Medications Dose Ordered Sig/Fay Route Start Time Stop Time Status Last Admin Dose Admin Ceftriaxone Sodium/Dextrose 50 ml @ 100 mls/hr ONCE ONCE IV 04/29/22 20:00 04/29/22 20:29 DC 04/29/22 20:41 100 MLS/HR Sodium Chloride 250 ml @ STK-MED ONCE .ROUTE 04/29/22 19:32 04/29/22 19:36 DC 04/29/22 19:36 250 MLS/HR Vancomycin HCl 1000 mg/Sodium Chloride 250 ml @ 250 mls/hr ONCE ONCE IV 04/29/22 19:15 04/29/22 20:21 DC 04/29/22 19:36 250 MLS/HR Vital Signs/I&O 04/29/22 04/29/22 16:26 21:01 Temp 35.8 Pulse 78 77 Resp 16 16 B/P (MAP) 103/70 (81) 109/73 Pulse Ox 98 99 O2 Delivery Room Air Room Air Blood Pressure Mean: 81 Progress Progress Note : Progress Note 1. RIGHT SEPTIC KNEE WITH CELLULITIS OF RIGHT LOWER EXTREMITY: SUSPICIOUS FOR OSTEOMYELITIS: - XR RIGHT KNEE:see report - CT RIGHT KNEE:see report - CRP is 2.9 and ESR is 53 - Likely osteomyeleitis - BLood cultures/ wound cultures sent - CBC : no white count but lactic acid os elevated: 2.40 - Vanco iv STAT in ER/ Ceftriaxone 1gm iv STAT - Discussed with [facility], Dr Israel, and accepted for transfer for admission Diagnostic Imaging Diagonstic Imaging: Xray, CT Plain Films/CT/US/NM/MRI: knee Comments [facility] [place], [place] NAME: [facility] REC#: [id number] PT STATUS: REG ER : 1945 PHYSICIAN: RICK WINSTON MD ADMIT DATE: 04/29/22/ER FS Draft Date of Exam:04/29/22 CT EXTREMITY LOWER RIGHT WO CLINICAL INDICATION: Patient with pain, redness and swelling to the right knee x 6 days. Patient reports bump to right knee and drainage from wound. No history of trauma or injury. EXAM: CT scan of the right knee performed without IV contrast. Sagittal and coronal reformatted images were created. Auto Exposure Controls were utilized during the CT exam to meet ALARA standards for radiation dose reduction. COMPARISON: X-ray of the right knee dated 04/29/2022. FINDINGS: Right total knee arthroplasty is again seen with streak artifact obscuring adjacent bony structures. There is no acute fracture or dislocation seen. There is soft tissue swelling about the right knee and prepatellar region which is nonspecific. There is a moderate size knee effusion of unknown etiology. IMPRESSION: 1: There is a moderate-sized knee effusion and soft tissue swelling about the knee and prepatellar region of unknown etiology. Infectious process should be excluded. 2: Right total knee arthroplasty is seen. There is no fracture or bony destructive process seen. Dictated on workstation # [id number] Dict: 04/29/22 1830 Trans: 04/29/22 1838 PJE [id number] Interpreted by: BRI SANCHEZ MD Electronically signed by: [facility] [facility] [place], [place] NAME: PATRICIO CACERES REC#: [id number] PT STATUS: REG ER : 1945 PHYSICIAN: RICK WINSTON MD ADMIT DATE: 04/29/22/ER FS Signed Date of Exam:04/29/22 KNEE 3 VIEW RIGHT CLINICAL HISTORY: Right knee pain and swelling. COMPARISON: 10/24/2021. TECHNIQUE: 3 views of the right knee. FINDINGS: There is no acute fracture or dislocation of the right knee. Postsurgical changes of right total knee arthroplasty are visualized. No periprosthetic fracture or loosening. Small right knee joint effusion is present. There is nonspecific prepatellar soft tissue edema. IMPRESSION: 1. No acute fracture or dislocation in the right knee. 2. Stable right total knee arthroplasty changes. 3. Nonspecific prepatellar soft tissue edema. Dictated by: Dictated on workstation # [id number] Dict: 04/29/22 1651 Trans: 04/29/22 170 PJE [id number] Interpreted by: HUY VANCE DO Electronically signed by: HUY VANCE DO 04/29/22 170 Departure Impression Primary Impression: Septic joint of right knee joint Qualified Codes: M00.9 - Pyogenic arthritis, unspecified Additional Impression: Cellulitis of right lower extremity Disposition: [facility] Condition: Stable Admissions Decision to Admit/Date: Apr 29, 2022 Time/Decision to Admit Time: 18:30 Transfer Transfer Reason: Exceeds level of care Time Spoke to Accepting Phy: 18:45 Transfer Progress Notes Discussed with DR. Israel Transfer Facility: [facility] Method of Transfer: EMS Departure-Patient Inst. Referrals: VALORIE MACKAY MD (PCP/Family) Primary Care Physician RICK WINSTON MD Apr 29, 2022 18:57
[2022-04-29] MEDS ORDERED: VANCOMYCIN INJECTION 1,000 MG in NS (IVPB) 250 ML IV ONE (19:15)
[2022-04-29] MEDS ORDERED: NS (IVPB) 250 ML ONE (19:32)
[2022-04-29] MEDS ORDERED: VANCOMYCIN 1000 MG/VIAL ONE (19:32)
[2022-04-29] MEDS ORDERED: cefTRIAXone 1 GM PRE-MIX 50 ML IV ONE (20:00)
[2022-04-29 21:01] VITALS: BP 109/73
== END 2022-04-29 21:01 ==
LOC: EDUNIT# 16:10 → ER FS 16:12
DX: M00.9 Pyogenic arthritis, unspecified (principal); L03.115 Cellulitis of right lower limb; I48.91 Unspecified atrial fibrillation; Z95.0 Presence of cardiac pacemaker; Z79.01 Long term (current) use of anticoagulants
CPT/HCPCS: 36415; 73562; 73700; 80053; 83605; 85025; 85652; 86141; 87070; 87205

== ENCOUNTER 2022-05-15 14:39 | Emergency (ER) | payer MEDICARE, OTHER ==
[~2022-05-15] VITALS: Ht 165 cm; Wt 90.0 kg
[2022-05-15 16:13] LABS: BASOPHILS % (AUTO) 0 % (0-10); EOSINOPHILS % (AUTO) 0 % (0-10); HEMATOCRIT 27 % (40-54); HEMOGLOBIN 8.3 g/dL (13.3-17.7); LYMPHOCYTES % (AUTO) 13 % (12-44); MEAN CORPUSCULAR HEMOGLOBIN 29 pg (25-34); MEAN CORPUSCULAR HGB CONC 31 g/dL (32-36); MEAN CORPUSCULAR VOLUME 93 fL (80-99); MEAN PLATELET VOLUME 9.2 fL (9.0-12.2); MONOCYTES # (AUTO) 1.2 10^3/uL (0.0-1.0); MONOCYTES % (AUTO) 15 % (0-12); NEUTROPHILS # (AUTO) 5.6 10^3/uL (1.8-7.8); NEUTROPHILS % (AUTO) 71 % (42-75); PLATELET COUNT 327 10^3/uL (130-400); WHITE BLOOD COUNT 7.8 10^3/uL (4.3-11.0)
[2022-05-15 16:38] LABS: ERYTHROCYTE SEDIMENTATION RATE 66 MM/HR (0-30); INR 1.4 (0.8-1.4); PROTHROMBIN TIME PATIENT 17.8 SEC (12.2-14.7)
[2022-05-15 16:40] LABS: BILIRUBIN,TOTAL 0.7 MG/DL (0.1-1.0); CALCIUM 9.5 MG/DL (8.5-10.1); CREATININE SERUM 2.26 MG/DL (0.60-1.30); TOTAL PROTEIN 6.9 GM/DL (6.4-8.2)
--- NOTE | 2022-05-15 18:32 | ED General ---
General Chief Complaint: Skin/Wound Problems Stated Complaint: WOUND CHECK Nursing Triage Note: Patient has been brought to the ER with cc of right knee swelling and concerned for post op infection. Patient reports surgery on his right knee on 05/03/22 to have infection "cleaned out of his knee". Patient has had and infection in his right knee since August. Family reports that the patient was to have had an antibiotic infusion in [place] this afternoon. He was brought to ER for evaluation for his knee. Source of Information: Patient Exam Limitations: No Limitations (CRICKET DAVIES MD) History of Present Illness Date Seen by Provider: May 15, 2022 Time Seen by Provider: 15:29 Initial Comments This 76-year-old gentleman presents to the emergency room accompanied by his daughter with concerns about progressive swelling, heat, erythema, and drainage about the right knee after undergoing incision and drainage for reported infected arthroplasty at [facility]. He was seen in this ER on April 29 and transferred to [facility] on May 03. The original arthroplasty was performed in 2011 at a [place] facility by an unknown provider. He reportedly has had problems with pain, swelling, and drainage from the knee since August. Daughter reports that patient was offered a 2 phased replacement of the arthroplasty which he elected to decline in favor of incision, drainage, and washout. He was scheduled to travel to [facility] today for an IV antibiotic infusion, weekly Dalvance. Because of the worsening symptoms, they contacted the orthopedic clinic of Dr. Dial and were referred to the emergency room. Patient has some comorbidities including congestive heart failure, chronic kidney disease, hypertension, atrial fibrillation on anticoagulation. Patient denies any fevers. He has had significant increase in swelling bilaterally, right greater than left. His sutures are pulling quite tight at this time and he is having active drainage. (CRICKET DAVIES MD) Allergies and Home Medications Allergies Coded Allergies: No Known Drug Allergies (Unverified , 01/31/19) Patient Home Medication List Home Medication List Reviewed: Yes (CRICKET DAVIES MD) Acetaminophen (Acetaminophen) 325 Mg Tablet, 650 MG PO TID, (Reported) Entered as Reported by: DYLON PULLIAM on 07/28/20 1404 Amiodarone HCl (Amiodarone HCl) 200 Mg Tablet, 200 MG PO DAILY, (Reported) Entered as Reported by: DYLON PULLIAM on 07/28/20 1245 Apixaban (Eliquis) 2.5 Mg Tablet, 2.5 MG PO BID Prescribed by: HERMELINDA WHITLEY on 09/16/20 1144 Aspirin (Aspirin EC) 81 Mg Tablet.dr, 81 MG PO DAILY, (Reported) Entered as Reported by: DYLON PULLIAM on 07/28/20 1245 Calcium Carbonate (Calcium) 500 Mg Tablet, 1,000 MG PO DAILY, (Reported) Entered as Reported by: DYLON PULLIAM on 07/28/20 1245 Cetirizine HCl (Cetirizine HCl) 10 Mg Tablet, 10 MG PO DAILY PRN for ALLERGIES, (Reported) Entered as Reported by: DYLON PULLIAM on 07/28/20 1245 Cholecalciferol (Vitamin D3) (Vitamin D3) 25 Mcg Capsule, 25 MCG PO DAILY, (Reported) Entered as Reported by: DYLON PULLIAM on 07/28/20 1245 Famotidine (Acid Automatic I Threading Machine Feeder (FAMOTIDINE)) 20 Mg Tablet, 20 MG PO BID, (Reported) Entered as Reported by: DYLON PULLIAM on 07/28/20 1245 Furosemide (Lasix) 80 Mg Tablet, 80 MG PO DAILY Prescribed by: NATHAN ELLINGTON on 09/16/20 1124 Gabapentin (Gabapentin) 600 Mg Tablet, 600 MG PO BID, (Reported) Entered as Reported by: DYLON PULLIAM on 07/28/20 1245 Losartan Potassium (Losartan Potassium) 50 Mg Tablet, 50 MG PO DAILY, (Reported) Entered as Reported by: SAL HOANG on 09/10/20 1127 Methimazole (Methimazole) 10 Mg Tab, 5 MG PO DAILY, (Reported) Entered as Reported by: DYLON PULLIAM on 07/28/20 1245 Metolazone (Metolazone) 2.5 Mg Tablet, 2.5 MG PO DAILY Prescribed by: NATHAN ELLINGTON on 09/16/20 1124 Metoprolol Succinate (Metoprolol Succinate) 50 Mg Tab.er.24h, 25 MG PO DAILY, (Reported) Entered as Reported by: DYLON PULLIAM on 07/28/20 1245 Potassium Chloride (Potassium Chloride) 20 Meq Tab.er.prt, 20 MEQ PO BID, (Reported) Entered as Reported by: SAL HOANG on 09/10/20 1127 Simvastatin (Simvastatin) 40 Mg Tablet, 20 MG PO DAILY, (Reported) Entered as Reported by: DYLON PULLIAM on 07/28/20 1245 Tamsulosin HCl (Flomax) 0.4 Mg Cap, 0.4 MG PO HS, (Reported) Entered as Reported by: DYLON PULLIAM on 07/28/20 1245 Review of Systems Review of Systems Constitutional: no symptoms reported EENTM: no symptoms reported Respiratory: no symptoms reported Cardiovascular: see HPI Gastrointestinal: no symptoms reported Genitourinary: no symptoms reported Musculoskeletal: see HPI Skin: see HPI Psychiatric/Neurological: No Symptoms Reported Hematologic/Lymphatic: No Symptoms Reported Immunological/Allergic: no symptoms reported (CRICKET DAVIES MD) Past Nuodohb-Dvmeki-Vhpzgo Hx Patient Social History Tobacco Use?: No Smokeless Tobacco Frequency: Light User Substance use?: No Alcohol Use?: No (CRICKET DAVIES MD) Immunizations Up To Date Tetanus Booster (TDap): Unknown First/Initial COVID19 Vaccinat: 2020 Second COVID19 Vaccination Raffi: 2020 Third COVID19 Vaccination Date: 2020 (CRICKET DAVIES MD) Seasonal Allergies Seasonal Allergies: No (CRICKET DAVIES MD) Past Medical History Surgery/Hospitalization HX: A-FIB, CHF, HYPOTHYROIDISM, HTN, CKD stage 3; Bilateral knee replacement; pacemaker; Left shoulder replacement; carpal tunnel release; back surgery Surgeries: Yes (LEFT LUNG LOBE REMOVED, 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, NECK SX X2) Cardiac (CardioMEMS), Joint Replacement (Right knee arthroplasty, I&D with washout of infected arthroplasty), Lobectomy, Orthopedic (Right knee arthroplasty, cervical spine fracture), Pacemaker Respiratory: Yes Chronic Bronchitis Cardiac: Yes (CHF) Atrial Fibrillation, Chronic Edema/Swelling, Coronary Artery Disease, High Cholesterol, Hypertension, Peripheral Vascular Neurological: No Genitourinary: Yes Benign Prostatic Hyperpl, Prostate Problems, Renal Failure (Chronic kidney disease) Gastrointestinal: Yes Gastroesophageal Reflux Musculoskeletal: Yes Degenerate Disk Disease, Arthritis, Chronic Back Pain, Fractures (Cervical spine) Endocrine: No HEENT: Yes Hearing Impairment: Bilateral Hearing Aide Cancer: Yes Skin Psychosocial: Yes Anxiety Integumentary: Yes Psoriasis Blood Disorders: No (CRICKET DAVIES MD) Family Medical History Arthritis 19 FATHER 19 MOTHER G8 BROTHER G8 SISTER Diabetes mellitus 19 FATHER 19 MOTHER G8 BROTHER G8 SISTER Hypertension 19 MOTHER G8 BROTHER G8 SISTER Respiratory disorder 19 FATHER (LUNG CA) G8 SISTER (LUNG CA) No Pertinent Family Hx (CRICKET DAVIES MD) Physical Exam Vital Signs Vital Signs - First Documented 05/15/22 14:53 Temp 36.4 Pulse 71 Resp 18 B/P (MAP) 105/59 (74) Pulse Ox 100 O2 Delivery Room Air (JULES CUELLAR DO) Vital Signs Capillary Refill : (CRICKET DAVIES MD) Height, Weight, BMI Height: 5'5.00" Weight: 227lbs. 0.0oz. 102.944996im; 33.00 BMI Method:Stated General Appearance: WD/WN, Mild Distress HEENT: PERRL/EOMI, Normal ENT Inspection Neck: Normal Inspection Respiratory: Lungs Clear, Normal Breath Sounds, No Accessory Muscle Use, No Respiratory Distress Cardiovascular: Regular Rate, Rhythm, Systolic Murmur, Other (Marked lower ext remity edema) Extremity: Swelling, Other (Marked lower extremity edema, right greater than left. Active bloody drainage coming from multiple points on the right knee incision and soaking through the fresh dressing. Right knee is very edematous, hot, and erythematous. 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 Norm as Tested Skin: Normal Color, Warm/Dry, Other (See above) (CRICKET DAVIES MD) Focused Exam Lactate Level 05/15/22 16:06: Lactic Acid Level 1.70 (JULES CUELLAR DO) Lactic Acid Level Laboratory Tests Test 05/15/22 16:06 Lactic Acid Level 1.70 MMOL/L (0.50-2.00) (JULES CUELLAR DO) Progress/Results/Core Measures Suspected Sepsis SIRS Temperature: Pulse: 71 Respiratory Rate: 18 Laboratory Tests 05/15/22 16:06: White Blood Count 7.8 Blood Pressure 105 /59 Mean: 74 05/15/22 16:06: Lactic Acid Level 1.70 Laboratory Tests 05/15/22 16:06: Creatinine 2.26H, INR Comment 1.4, Platelet Count 327, Total Bilirubin 0.7 (CRICKET DAVIES MD) Results/Orders Lab Results Laboratory Tests Test 05/15/22 16:06 Range/Units White Blood Count 7.8 4.3-11.0 10^3/uL Red Blood Count 2.85 L 4.30-5.52 10^6/uL Hemoglobin 8.3 L 13.3-17.7 g/dL Hematocrit 27 L 40-54 % Mean Corpuscular Volume 93 80-99 fL Mean Corpuscular Hemoglobin 29 25-34 pg Mean Corpuscular Hemoglobin Concent 31 L 32-36 g/dL Red Cell Distribution Width 15.6 H 10.0-14.5 % Platelet Count 327 130-400 10^3/uL Mean Platelet Volume 9.2 9.0-12.2 fL Immature Granulocyte % (Auto) 0 % Neutrophils (%) (Auto) 71 42-75 % Lymphocytes (%) (Auto) 13 12-44 % Monocytes (%) (Auto) 15 H 0-12 % Eosinophils (%) (Auto) 0 0-10 % Basophils (%) (Auto) 0 0-10 % Neutrophils # (Auto) 5.6 1.8-7.8 10^3/uL Lymphocytes # (Auto) 1.0 1.0-4.0 10^3/uL Monocytes # (Auto) 1.2 H 0.0-1.0 10^3/uL Eosinophils # (Auto) 0.0 0.0-0.3 10^3/uL Basophils # (Auto) 0.0 0.0-0.1 10^3/uL Immature Granulocyte # (Auto) 0.0 0.0-0.1 10^3/uL Erythrocyte Sedimentation Rate 66 H 0-30 MM/HR Prothrombin Time 17.8 H 12.2-14.7 SEC INR Comment 1.4 0.8-1.4 Activated Partial Thromboplast Time 33 24-35 SEC Sodium Level 139 135-145 MMOL/L Potassium Level 4.0 3.6-5.0 MMOL/L Chloride Level 100 98-107 MMOL/L Carbon Dioxide Level 26 21-32 MMOL/L Anion Gap 13 5-14 MMOL/L Blood Urea Nitrogen 43 H 7-18 MG/DL Creatinine 2.26 H 0.60-1.30 MG/DL Estimat Glomerular Filtration Rate 29 BUN/Creatinine Ratio 19 Glucose Level 109 H 70-105 MG/DL Lactic Acid Level 1.70 0.50-2.00 MMOL/L Calcium Level 9.5 8.5-10.1 MG/DL Corrected Calcium 9.5 8.5-10.1 MG/DL Total Bilirubin 0.7 0.1-1.0 MG/DL Aspartate Amino Transf (AST/SGOT) 15 5-34 U/L Alanine Aminotransferase (ALT/SGPT) 7 0-55 U/L Alkaline Phosphatase 110 40-136 U/L C-Reactive Protein 5.99 H <0.50 MG/DL Pro-B-Type Natriuretic Peptide 45739.0 H <450.0 PG/ML Total Protein 6.9 6.4-8.2 GM/DL Albumin 4.0 3.2-4.5 GM/DL (JULES CUELLAR DO) My Orders Orders - JULES CUELLAR DO Vancomycin Injection (Vancomycin Injecti (05/15/22 21:45) (JULES CUELLAR DO) Vital Signs/I&O 05/15/22 14:53 Temp 36.4 Pulse 71 Resp 18 B/P (MAP) 105/59 (74) Pulse Ox 100 O2 Delivery Room Air (JULES CUELLAR DO) Vital Signs/I&O Capillary Refill : (CRICKET DAVIES MD) Blood Pressure Mean: 74 Progress Note #1: Time: 18:42 Progress Note Vital signs are stable at this time. Patient does have notably elevated ESR and modestly elevated CRP. Examination of the knee does raise question of worsening infection. I am unaware of culture results or antibiotic selection from [facility] at this time. We have not yet administered antibiotic therapy. I have contacted [facility] in effort to arrange transfer. I am awaiting a call back. Progress Note #2: Time: 19:25 Progress Note Patient remained stable at this time and is resting quietly. I have discussed the case with the orthopedist cell operation supervisor at [facility]. Case was declined as the orthopedist, Dr. Arredondo, on-call is a hand surgeon and the other [facility] facilities are at capacity. Patient was to be receiving weekly Dalvance infusions. Dalvance or daptomycin is not available in this stand-alone ER at this time. I have requested the [facility] send me a copy of his culture results so that we may choose an appropriate antibiotic to treat him in the [facility]. I discussed the situation with patient and family. They would like to select an alternative hospital in the [place] area. I am presently awaiting a callback from the [facility] system regarding bed availability. Progress Note #3: Time: 20:05 Progress Note I have received a call from the [facility] transfer center with more detailed information about this patient's case. The cultures taken during surgery demonstrated no growth. I presume this was because the patient received antibiotics prior to the surgery. Blood cultures were negative. I spoke with Dr. Marie, orthopedist on-call for [facility]. He would like to converse with the [facility] team before determining if transfer to [facility] is the best option for this patient. Care is being transitioned to Dr. Cuellar at shift change. Verbal report has been given. (CRICKET DAVIES MD) Progress Note #1: Time: 21:05 Progress Note Called to check with [facility]. Still awating orthopedic surgeon to call back regarding conversation with orth from [facility]. Progress Note #2: Time: 22:10 Progress Note Spoke to Dr Weaver, resident at [facility] who accepts admission on behalf of attending, Dr Butler. Patient remained stable during ER stay. (JULES CUELLAR DO) Departure Communication (Admissions) Pt transferred to [facility] in stable condition. Required [facility] no availability at [facility] and patient refused to go [place] to [place]. (JULES CUELLAR DO) Impression Primary Impression: Infected prosthetic knee joint Qualified Codes: T84.59XD - Infection and inflammatory reaction due to other internal joint prosthesis, subsequent encounter; Z96.659 - Presence of unspecified artificial knee joint Additional Impressions: Acute kidney injury Lower extremity edema Anemia Qualified Codes: D64.9 - Anemia, unspecified Disposition: 02 XFER SHT-TRM HOSP Condition: Stable Transfer Transfer Reason: Exceeds level of care (CRICKET DAVIES MD) Departure-Patient Inst. Referrals: VALORIE MACKAY MD (PCP) Primary Care Physician Copy Copies To 1: VALORIE MACKAY MD, JOSHUA T MD May 15, 2022 18:32 JULES CUELLAR DO May 15, 2022 21:06
[2022-05-15] MEDS ORDERED: VANCOMYCIN INJECTION 1,000 MG in NS (IVPB) 250 ML IV ONE (21:45)
[2022-05-15 23:00] VITALS: BP 113/65
== END 2022-05-15 23:00 | disposition short-term general hospital (02) ==
LOC: EDUNIT# 14:39 → ER FS 14:40
DX: T84.59XA Infection and inflammatory reaction due to other internal joint prosthesis, initial encounter (principal); N17.9 Acute kidney failure, unspecified; D63.1 Anemia in chronic kidney disease; F17.290 Nicotine dependence, other tobacco product, uncomplicated
CPT/HCPCS: 36415; 80053; 83605; 83880; 85025; 85610; 85652; 85730; 86141; 87040

== ENCOUNTER 2023-03-06 05:48 | Emergency (ER) | payer MEDICARE, OTHER ==
[~2023-03-06] VITALS: Ht 165.1 cm; Wt 86.6 kg
[~2023-03-06 05:48] MED LIST changes: +POTA-330 PO; -POTA-51 PO; -POTA10CA43 PO; +POTA10CA44 PO
[2023-03-06] MEDS ORDERED: fentaNYL INJ 100 MCG/2 ML AMP IVP STA (06:04)
[2023-03-06 06:15] LABS: BASOPHILS % (AUTO) 0 % (0-10); EOSINOPHILS # (AUTO) 0.1 10^3/uL (0.0-0.3); EOSINOPHILS % (AUTO) 1 % (0-10); HEMATOCRIT 35 % (40-54); HEMOGLOBIN 10.8 g/dL (13.3-17.7); LYMPHOCYTES # (AUTO) 1.1 10^3/uL (1.0-4.0); LYMPHOCYTES % (AUTO) 15 % (12-44); MEAN CORPUSCULAR HEMOGLOBIN 31 pg (25-34); MEAN CORPUSCULAR HGB CONC 31 g/dL (32-36); MEAN CORPUSCULAR VOLUME 99 fL (80-99); MEAN PLATELET VOLUME 9.9 fL (9.0-12.2); MONOCYTES # (AUTO) 0.9 10^3/uL (0.0-1.0); MONOCYTES % (AUTO) 13 % (0-12); NEUTROPHILS # (AUTO) 5.1 10^3/uL (1.8-7.8); NEUTROPHILS % (AUTO) 71 % (42-75); PLATELET COUNT 182 10^3/uL (130-400); WHITE BLOOD COUNT 7.3 10^3/uL (4.3-11.0)
--- NOTE | 2023-03-06 06:17 | ED Lower Extremity ---
General Chief Complaint: General Problems/Pain Stated Complaint: RIGHT KNEE AND HIP PAIN Source: patient, EMS, old records Exam Limitations: physical impairment (hard of hearing) (SHANNA STEVENS MD) History of Present Illness Date Seen by Provider: Mar 06, 2023 Time Seen by Provider: 05:49 Initial Comments 77-year-old male presenting by EMS from home due to acute on chronic pain in the right knee and hip. He denies any fall or injury. He reports he does have sciatica at times with pain shooting down the leg but states this is different pain. He has had prior knee replacement and in April 2022 had a septic joint in the right knee and had to be treated with IV antibiotics and surgical debridement in [place] at [facility] Dr[facility] MACKAY. He has congestive heart failure with chronic pitting edema in bilateral lower extremities and wears oxygen at night. He also has chronic kidney disease and is on 3 different diuretics. He states that he was having pain and difficulty ambulating last night so he had his daughter help him to his recliner and he stayed there all night rather than going to his bed where he could elevate his legs better. This morning he was having increased pain and was unable to stand or walk due to the pain. He denies any fall or injury to trigger the symptoms for him. He states that the swelling in his legs is no worse than usual and is chronic for him. He reports that usually with his legs up overnight the swelling goes down but as soon as he gets up and starts moving the swelling comes right back. He denies fever, chills, nausea, vomiting, recent change in medicines. Onset: yesterday Severity: severe Pain/Injury Location: right hip, right knee Method of Injury: unknown Modifying Factors: Worse With Movement; Improves With Pain Medication (fentanyl 50 mcg IV by EMS has helped with his pain in the hip but he states the knee pain was still severe.) (SHANNA STEVENS MD) Allergies and Home Medications Allergies Coded Allergies: No Known Drug Allergies (Unverified , 03/06/23) Patient Home Medication List Home Medication List Reviewed: Yes (SHANNA STEVENS MD) Acetaminophen (Acetaminophen) 325 Mg Tablet, 650 MG PO TID, (Reported) Entered as Reported by: DYLON PULLIAM on 07/28/20 1404 Amiodarone HCl (Amiodarone HCl) 200 Mg Tablet, 200 MG PO DAILY, (Reported) Entered as Reported by: DYLON PULLIAM on 07/28/20 1245 Apixaban (Eliquis) 2.5 Mg Tablet, 2.5 MG PO BID Prescribed by: HERMELINDA WHITLEY on 09/16/20 1144 Aspirin (Aspirin EC) 81 Mg Tablet.dr, 81 MG PO DAILY, (Reported) Entered as Reported by: DYLON PULLIAM on 07/28/20 1245 Calcium Carbonate (Calcium) 500 Mg Tablet, 1,000 MG PO DAILY, (Reported) Entered as Reported by: DYLON PULLIAM on 07/28/20 1245 Cetirizine HCl (Cetirizine HCl) 10 Mg Tablet, 10 MG PO DAILY PRN for ALLERGIES, (Reported) Entered as Reported by: DYLON PULLIAM on 07/28/20 1245 Cholecalciferol (Vitamin D3) (Vitamin D3) 25 Mcg Capsule, 25 MCG PO DAILY, (Reported) Entered as Reported by: DYLON PULLIAM on 07/28/20 1245 Famotidine (Acid Playground Attendant (FAMOTIDINE)) 20 Mg Tablet, 20 MG PO BID, (Reported) Entered as Reported by: DYLON PULLIAM on 07/28/20 1245 Furosemide (Lasix) 80 Mg Tablet, 80 MG PO DAILY Prescribed by: NATHAN ELLINGTON on 09/16/20 1124 Gabapentin (Gabapentin) 600 Mg Tablet, 600 MG PO BID, (Reported) Entered as Reported by: DYLON PULLIAM on 07/28/20 1245 Losartan Potassium (Losartan Potassium) 50 Mg Tablet, 50 MG PO DAILY, (Reported) Entered as Reported by: SAL HOANG on 09/10/20 1127 Methimazole (Methimazole) 10 Mg Tab, 5 MG PO DAILY, (Reported) Entered as Reported by: DYLON PULLIAM on 07/28/20 1245 Metolazone (Metolazone) 2.5 Mg Tablet, 2.5 MG PO DAILY Prescribed by: NATHAN ELLINGTON on 09/16/20 1124 Metoprolol Succinate (Metoprolol Succinate) 50 Mg Tab.er.24h, 25 MG PO DAILY, (Reported) Entered as Reported by: DYLON PULLIAM on 07/28/20 1245 Potassium Chloride (Potassium Chloride) 20 Meq Tab.er.prt, 20 MEQ PO BID, (Reported) Entered as Reported by: SAL HOANG on 09/10/20 1127 Simvastatin (Simvastatin) 40 Mg Tablet, 20 MG PO DAILY, (Reported) Entered as Reported by: DYLON PULLIAM on 07/28/20 1245 Tamsulosin HCl (Flomax) 0.4 Mg Cap, 0.4 MG PO HS, (Reported) Entered as Reported by: DYLON PULLIAM on 07/28/20 1245 Review of Systems Constitutional: No chills, No fever EENTM: no symptoms reported Respiratory: no symptoms reported Cardiovascular: edema (chronic 3+pitting edema with some weeping) Gastrointestinal: no symptoms reported Genitourinary: frequency (due to diuretics) Musculoskeletal: see HPI Skin: see HPI, change in color (chronic erythema to BLE with his 3+ pitting edema with weeping) Psychiatric/Neurological: Anxiety (SHANNA STEVENS MD) Past Kqldpyl-Gbyijm-Kxzloj Hx Patient Social History Tobacco Use?: No Use of E-Cig and/or Vaping dev: No Substance use?: No Alcohol Use?: No Pt feels they are or have been: No (SHANNA STEVENS MD) Immunizations Up To Date Tetanus Booster (TDap): Unknown Influenza Vaccine Up-to-Date: Yes; Up-to-Date First/Initial COVID19 Vaccinat: "2 shots" Second COVID19 Vaccination Raffi: 2020 Third COVID19 Vaccination Date: 2020 (SHANNA STEVENS MD) Seasonal Allergies Seasonal Allergies: No (SHANNA STEVENS MD) Past Medical History Surgery/Hospitalization HX: A-FIB, CHF, HYPOTHYROIDISM, HTN, CKD stage 3; Bilateral knee replacement; pacemaker; Left shoulder replacement; carpal tunnel release; back surgery Surgeries: Yes (LEFT LUNG LOBE REMOVED, 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, NECK SX X2) Cardiac, Joint Replacement, Lobectomy, Orthopedic, Pacemaker Respiratory: Yes Chronic Bronchitis Cardiac: Yes (CHF) Atrial Fibrillation, Chronic Edema/Swelling, Coronary Artery Disease, High Cholesterol, Hypertension, Peripheral Vascular Neurological: No Genitourinary: Yes Benign Prostatic Hyperpl, Prostate Problems, Renal Failure Gastrointestinal: Yes Gastroesophageal Reflux Musculoskeletal: Yes Degenerate Disk Disease, Arthritis, Chronic Back Pain, Fractures Endocrine: No HEENT: Yes Hearing Impairment: Bilateral Hearing Aide Cancer: Yes Skin Psychosocial: Yes Anxiety Integumentary: Yes Psoriasis Blood Disorders: No (SHANNA STEVENS MD) Family Medical History Arthritis 19 FATHER 19 MOTHER G8 BROTHER G8 SISTER Diabetes mellitus 19 FATHER 19 MOTHER G8 BROTHER G8 SISTER Hypertension 19 MOTHER G8 BROTHER G8 SISTER Respiratory disorder 19 FATHER (LUNG CA) G8 SISTER (LUNG CA) No Pertinent Family Hx (SHANNA STEVENS MD) Physical Exam Vital Signs Vital Signs - First Documented 03/06/23 05:50 Temp 36.6 Pulse 88 Resp 24 B/P (MAP) 104/88 (93) Pulse Ox 98 O2 Delivery Room Air (AUDREY THOMAS MD) Vital Signs Capillary Refill : (SHANNA STEVENS MD) Height, Weight, BMI Height: 5'5.00" Weight: 227lbs. 0.0oz. 102.203872uh; 33.00 BMI Method:Stated General Appearance: other (chronically ill appearing, disheveled and wearing only an adult brief and safety socks with treads on them) HEENT: pharynx normal Cardiovascular: No normal peripheral pulses (1+ BLE dorsalis pedis pulses); regular rate, rhythm Respiratory: chest non-tender, lungs clear, normal breath sounds Gastrointestinal: normal bowel sounds, non tender, soft, no pulsatile mass Hips: right hip pain Knees: right knee joint effusion, right knee pain, right knee soft tissue tenderness, right knee swelling Neurologic/Psychiatric: alert, oriented x 3 Skin: warm/dry, other (erythema to BLE from chronic venous stasis changes and 3+ BLE pitting edema with weeping) (SHANNA STEVENS MD) Progress/Results/Core Measures Results/Orders Lab Results Laboratory Tests Test 03/06/23 05:50 Range/Units White Blood Count 7.3 4.3-11.0 10^3/uL Red Blood Count 3.53 L 4.30-5.52 10^6/uL Hemoglobin 10.8 L 13.3-17.7 g/dL Hematocrit 35 L 40-54 % Mean Corpuscular Volume 99 80-99 fL Mean Corpuscular Hemoglobin 31 25-34 pg Mean Corpuscular Hemoglobin Concent 31 L 32-36 g/dL Red Cell Distribution Width 14.5 10.0-14.5 % Platelet Count 182 130-400 10^3/uL Mean Platelet Volume 9.9 9.0-12.2 fL Immature Granulocyte % (Auto) 0 % Neutrophils (%) (Auto) 71 42-75 % Lymphocytes (%) (Auto) 15 12-44 % Monocytes (%) (Auto) 13 H 0-12 % Eosinophils (%) (Auto) 1 0-10 % Basophils (%) (Auto) 0 0-10 % Neutrophils # (Auto) 5.1 1.8-7.8 10^3/uL Lymphocytes # (Auto) 1.1 1.0-4.0 10^3/uL Monocytes # (Auto) 0.9 0.0-1.0 10^3/uL Eosinophils # (Auto) 0.1 0.0-0.3 10^3/uL Basophils # (Auto) 0.0 0.0-0.1 10^3/uL Immature Granulocyte # (Auto) 0.0 0.0-0.1 10^3/uL Sodium Level 139 135-145 MMOL/L Potassium Level 4.3 3.6-5.0 MMOL/L Chloride Level 96 L 98-107 MMOL/L Carbon Dioxide Level 28 21-32 MMOL/L Anion Gap 15 H 5-14 MMOL/L Blood Urea Nitrogen 54 H 7-18 MG/DL Creatinine 2.46 H 0.60-1.30 MG/DL Estimat Glomerular Filtration Rate 26 BUN/Creatinine Ratio 22 Glucose Level 126 H 70-105 MG/DL Lactic Acid Level 1.83 0.50-2.00 MMOL/L Calcium Level 10.3 H 8.5-10.1 MG/DL Corrected Calcium 9.9 8.5-10.1 MG/DL Total Bilirubin 0.8 0.1-1.0 MG/DL Aspartate Amino Transf (AST/SGOT) 16 5-34 U/L Alanine Aminotransferase (ALT/SGPT) 6 0-55 U/L Alkaline Phosphatase 116 40-136 U/L C-Reactive Protein 1.76 H <0.50 MG/DL Pro-B-Type Natriuretic Peptide 59567.0 H <450.0 PG/ML Total Protein 7.5 6.4-8.2 GM/DL Albumin 4.5 3.2-4.5 GM/DL (AUDREY THOMAS MD) My Orders Orders - AUDREY THOMAS MD Hydrocodone/Apap 5/325 Tablet (Lortab 5 (03/06/23 07:45) (AUDREY THOMAS MD) Vital Signs/I&O 03/06/23 05:50 Temp 36.6 Pulse 88 Resp 24 B/P (MAP) 104/88 (93) Pulse Ox 98 O2 Delivery Room Air (AUDREY THOMAS MD) Progress Progress Note #1: Progress Note Potential diagnosis of sciatica, arthritis pain, acute on chronic pain, acute on chronic congestive heart failure, electrolyte abnormality. Peripheral IV initiated by EMS. Send labs for complete blood count, comprehensive metabolic profile, proBNP, CRP, lactic acid. Repeat the fentanyl 50 mcg IV for pain since the 50 mcg he received from EMS had made a significant improvement in his pain. Try to keep his legs elevated. Obtain x-rays of the right knee and right hip. Progress Note #2: Time: 07:00 Progress Note Patient's labs did not show an elevated white blood cell count. His white blood cell count 7.3. His anemia showed a hemoglobin of 10.8 which is better than last fall. He has chronic renal insufficiency kidney disease that also appears chronic with a creatinine of 2.4. His CRP is elevated but is less than the 5.9 he had in April. His proBNP is 10,192 but is down from over 11,000 in April. I did not appreciate any acute fracture or displacement or joint eff usion of the right hip or knee on my personal interpretation and review of his x-rays. Patient received a repeat dose of fentanyl 50 mcg IV to supplement the dose received by EMS. Will see if he has pain controlled to where he can get up and ambulate. He states he normally ambulates with a walker. Care passed to at shift change. At this point on my review of his labs and xrays he does not have anything that would warrant admit for his pain. (SHANNA STEVENS MD) Progress Note : Progress Note Received the patient in signout pending the final reviews of the x-rays and final lab work. His white blood cell count is normal, CRP trending down, creatinine around his baseline, proBNP around his baseline as well. X-ray of the right knee with no significant acute changes on my interpretation. Right hip x-ray on my interpretation with arthritic changes, no fracture. I reassessed the patient, pain is significantly better. We will give him some oral hydrocodone for longer term pain control when he goes home. Otherwise well-appearing and I believe stable for discharge now that he is back to his baseline. He was sent home with strict return precautions. (AUDREY THOMAS MD) Diagnostic Imaging Diagonstic Imaging: Xray Plain Films/CT/US/NM/MRI: knee Diagonstic Imaging: Xray Plain Films/CT/US/NM/MRI: pelvis, hip (SHANNA STEVENS MD) Comments NAME: PATRICIO CACERES [facility] REC#: [id number] PT STATUS: REG ER : 1945 PHYSICIAN: SHANNA STEVENS MD ADMIT DATE: 03/06/23/ER FS Draft Date of Exam:03/06/23 KNEE 3 VIEW RIGHT EXAMINATION: Right knee radiograph EXAM DATE: 03/06/2023 6:27 AM COMPARISON: None available. HISTORY: Right knee pain TECHNIQUE: 3 views FINDINGS: Surgical changes from right knee arthroplasty. No acute fracture, dislocation, or destructive osseous process. There is a small right knee joint effusion. The soft tissues are normal. IMPRESSION: 1. Small right knee joint effusion without acute osseous abnormality. Dictated on workstation # [id number] Dict: 03/06/23730 Trans: 03/06/23 0732 [facility] [id number] Interpreted by: JAI QUINTERO DO Electronically signed by: NAME: PATRICIO CACERES [facility] REC#: [id number] PT STATUS: REG ER : 1945 PHYSICIAN: SHANNA STEVENS MD ADMIT DATE: 03/06/23/ER FS Draft Date of Exam:03/06/23 PELVIS WITH RIGHT HIP 2-3 VIEW EXAMINATION: Pelvis and right hip radiograph EXAM DATE: 03/06/2023 6:27 AM COMPARISON: None available. HISTORY: Right hip pain TECHNIQUE: 3 views FINDINGS: There is no acute fracture, dislocation, or destructive osseous process. There is mild bilateral hip joint space narrowing and small osteophytes. The soft tissues are normal. IMPRESSION: 1. Degenerative changes of the hips without acute osseous abnormality. Dictated on workstation # [id number] Dict: 03/06/2333 Trans: 03/06/23 0734 [facility] [id number] Interpreted by: JAI QUINTERO DO Electronically signed by: (AUDREY THOMAS MD) Departure Impression Primary Impression: Right knee pain Qualified Codes: M25.561 - Pain in right knee Additional Impressions: Right hip pain Bilateral lower extremity edema Disposition: 01 HOME, SELF-CARE Condition: Stable Departure-Patient Inst. Decision time for Depature: 07:50 (AUDREY THOMAS MD) Referrals: VALORIE MACKAY MD (PCP/Family) Primary Care Physician Patient Instructions: Knee Pain (DC), Hip Pain (DC) Add. Discharge Instructions: Fortunately it does not look like your joints are infected, but there is significant arthritis particularly in your right hip. The right knee replacement looks healthy at this time. Please follow back up with your regular doctor if you have persistent pain, you may need a referral to a orthopedic bone specialist. You may also benefit from formal physical therapy. Work/School Note: Family Work Note Patient Received Medical Care In the Emergency Department On: Mar 06, 2023 Patient Will Be Able to Return to Work/School On: Mar 07, 2023 SHANNA STEVENS MD Mar 06, 2023 06:17 AUDREY THOMAS MD Mar 06, 2023 07:35
[2023-03-06 06:53] LABS: BILIRUBIN,TOTAL 0.8 MG/DL (0.1-1.0); CALCIUM 10.3 MG/DL (8.5-10.1); CREATININE SERUM 2.46 MG/DL (0.60-1.30); POTASSIUM 4.3 MMOL/L (3.6-5.0)
[2023-03-06 06:54] LABS: ALBUMIN 4.5 GM/DL (3.2-4.5); TOTAL PROTEIN 7.5 GM/DL (6.4-8.2)
--- NOTE | 2023-03-06 07:32 | Diagnostic Imaging Report ---
EXAMINATION: Right knee radiograph EXAM DATE: 03/06/2023 6:27 AM COMPARISON: None available. HISTORY: Right knee pain TECHNIQUE: 3 views FINDINGS: Surgical changes from right knee arthroplasty. No acute fracture, dislocation, or destructive osseous process. There is a small right knee joint effusion. The soft tissues are normal. IMPRESSION: 1. Small right knee joint effusion without acute osseous abnormality. Dictated by: Dictated on workstation # [id number]
--- NOTE | 2023-03-06 07:35 | Diagnostic Imaging Report ---
EXAMINATION: Pelvis and right hip radiograph EXAM DATE: 03/06/2023 6:27 AM COMPARISON: None available. HISTORY: Right hip pain TECHNIQUE: 3 views FINDINGS: There is no acute fracture, dislocation, or destructive osseous process. There is mild bilateral hip joint space narrowing and small osteophytes. The soft tissues are normal. IMPRESSION: 1. Degenerative changes of the hips without acute osseous abnormality. Dictated by: Dictated on workstation # [id number]
[2023-03-06 07:44] VITALS: BP 113/70
[2023-03-06] MEDS ORDERED: HYDROcodone/APAP 5 MG/325 MG (LORTAB) TAB PO ONE (07:45)
== END 2023-03-06 07:45 | disposition home or self-care (01) ==
LOC: EDUNIT# 05:48 → ER FS 05:50
DX: M16.11 Unilateral primary osteoarthritis, right hip (principal); R60.0 Localized edema; M25.561 Pain in right knee; I13.0 Hypertensive heart and chronic kidney disease with heart failure and stage 1 through stage 4 chronic kidney disease, or unspecified chronic kidney disease; I50.9 Heart failure, unspecified; N18.30 Chronic kidney disease, stage 3 unspecified; Z96.651 Presence of right artificial knee joint; Z79.899 Other long term (current) drug therapy
CPT/HCPCS: 36415; 73502; 73562; 80053; 83605; 83880; 85025; 86141

== ENCOUNTER 2023-06-13 23:34 | Emergency (ER) | payer MEDICARE, OTHER ==
[~2023-06-13 23:34] MED LIST changes: +FAMO-356 PO; -FAMO20TA3 PO; -POTA10CA44 PO; +POTA10CA84 PO
--- NOTE | 2023-06-13 23:54 | ED Dyspnea ---
General Chief Complaint: Respiratory Problems Stated Complaint: SOB Source of Information: Patient History of Present Illness Date Seen by Provider: Jun 13, 2023 Time Seen by Provider: 23:34 Initial Comments 77 yo male presenting with complaint of increased shortness of breath with exertion tonight. He has chronic CHF and chronic swelling to BLE. He states he is taking lasix and took a dose before trying to go to bed tonight. He does not know what dose he takes or what all medicines he takes. His daughter prepares his medications for him. He felt like he was more short of breath as he was walking to his bed tonight. he also reports having a mild non-productive cough in the last 2-3 days. He had a Chest xray and tests done 06/07 with [facility] and reports it did not show fluid build up in his lungs. He denies any chest pain, nausea, abdominal pain, fever or chills. He does not feel that the swelling in his legs is any worse than usual. Timing/Duration: 1 Hour Severity: Mild Activities at Onset: Activity (walking to his bed) Prior Episodes/Possible Cause: Chronic Episodes, Frequent Episodes Modifying Factors: Worse With Activity Associated Symptoms: Cough, Edema Allergies and Home Medications Allergies Coded Allergies: No Known Drug Allergies (Unverified , 03/06/23) Patient Home Medication List Home Medication List Reviewed: Yes Acetaminophen (Acetaminophen) 325 Mg Tablet, 650 MG PO TID, (Reported) Entered as Reported by: DYLON PULLIAM on 07/28/20 1404 Amiodarone HCl (Amiodarone HCl) 200 Mg Tablet, 200 MG PO DAILY, (Reported) Entered as Reported by: DYLON PULLIAM on 07/28/20 1245 Apixaban (Eliquis) 2.5 Mg Tablet, 2.5 MG PO BID Prescribed by: HERMELINDA WHITLEY on 09/16/20 1144 Aspirin (Aspirin EC) 81 Mg Tablet.dr, 81 MG PO DAILY, (Reported) Entered as Reported by: DYLON PULLIAM on 07/28/20 1245 Bumetanide (Bumetanide) 2 Mg Tablet, 2 MG PO DAILY Prescribed by: SHANNA STEVENS on 06/14/23 0051 Calcium Carbonate (Calcium) 500 Mg Tablet, 1,000 MG PO DAILY, (Reported) Entered as Reported by: DYLON PULLIAM on 07/28/20 1245 Cetirizine HCl (Cetirizine HCl) 10 Mg Tablet, 10 MG PO DAILY PRN for ALLERGIES, (Reported) Entered as Reported by: DYLON PULLIAM on 07/28/20 124 Cholecalciferol (Vitamin D3) (Vitamin D3) 25 Mcg Capsule, 25 MCG PO DAILY, (Reported) Entered as Reported by: DYLON PULLIAM on 07/28/20 124 Famotidine (Acid Key Attendant (FAMOTIDINE)) 20 Mg Tablet, 20 MG PO BID, (Reported) Entered as Reported by: DYLON PULLIAM on 07/28/20 124 Furosemide (Lasix) 80 Mg Tablet, 80 MG PO DAILY Prescribed by: NATHAN ELLINGTON on 09/16/20 112 Gabapentin (Gabapentin) 600 Mg Tablet, 600 MG PO BID, (Reported) Entered as Reported by: DYLON PULLIAM on 07/28/20 124 Losartan Potassium (Losartan Potassium) 50 Mg Tablet, 50 MG PO DAILY, (Reported) Entered as Reported by: SAL HOANG on 09/10/20 112 Methimazole (Methimazole) 10 Mg Tab, 5 MG PO DAILY, (Reported) Entered as Reported by: DYLON PULLIAM on 07/28/20 124 Metolazone (Metolazone) 2.5 Mg Tablet, 2.5 MG PO DAILY Prescribed by: NATHAN ELLINGTON on 09/16/20 112 Metoprolol Succinate (Metoprolol Succinate) 50 Mg Tab.er.24h, 25 MG PO DAILY, (Reported) Entered as Reported by: DYLON PULLIAM on 07/28/20 124 Potassium Chloride (Potassium Chloride) 20 Meq Tab.er.prt, 20 MEQ PO BID, (Repo rted) Entered as Reported by: SAL HOANG on 09/10/20 112 Simvastatin (Simvastatin) 40 Mg Tablet, 20 MG PO DAILY, (Reported) Entered as Reported by: DYLON PULLIAM on 07/28/20 124 Tamsulosin HCl (Flomax) 0.4 Mg Cap, 0.4 MG PO HS, (Reported) Entered as Reported by: DYLON PULLIAM on 07/28/20 124 Review of Systems Review of Systems Constitutional: No chills, No fever EENTM: no symptoms reported Respiratory: see HPI Cardiovascular: No chest pain; edema (chronic edema and feels it is no worse than it has been in the last few months) Gastrointestinal: No nausea, No vomiting Genitourinary: No dysuria; hesitancy Musculoskeletal: no symptoms reported Skin: no symptoms reported Psychiatric/Neurological: No Symptoms Reported Past Uojokiq-Xsykfo-Owrjsm Hx Patient Social History Tobacco Use?: No Use of E-Cig and/or Vaping dev: No Substance use?: No Alcohol Use?: No Pt feels they are or have been: No Immunizations Up To Date Tetanus Booster (TDap): Unknown First/Initial COVID19 Vaccinat: "2 shots" Second COVID19 Vaccination Raffi: 2020 Third COVID19 Vaccination Date: 2020 Seasonal Allergies Seasonal Allergies: No Past Medical History Surgery/Hospitalization HX: A-FIB, CHF, HYPOTHYROIDISM, HTN, CKD stage 3; Bilateral knee replacement; pacemaker; Left shoulder replacement; carpal tunnel release; back surgery Surgeries: Yes (LEFT LUNG LOBE REMOVED, 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, NECK SX X2) Cardiac, Joint Replacement, Lobectomy, Orthopedic, Pacemaker Respiratory: Yes Chronic Bronchitis Cardiac: Yes (CHF) Atrial Fibrillation, Chronic Edema/Swelling, Coronary Artery Disease, High Cholesterol, Hypertension, Peripheral Vascular Neurological: No Genitourinary: Yes Benign Prostatic Hyperpl, Prostate Problems, Renal Failure Gastrointestinal: Yes Gastroesophageal Reflux Musculoskeletal: Yes Degenerate Disk Disease, Arthritis, Chronic Back Pain, Fractures Endocrine: No HEENT: Yes Hearing Impairment: Bilateral Hearing Aide Cancer: Yes Skin Psychosocial: Yes Anxiety Integumentary: Yes Psoriasis Blood Disorders: No Family Medical History Arthritis 19 FATHER 19 MOTHER G8 BROTHER G8 SISTER Diabetes mellitus 19 FATHER 19 MOTHER G8 BROTHER G8 SISTER Hypertension 19 MOTHER G8 BROTHER G8 SISTER Respiratory disorder 19 FATHER (LUNG CA) G8 SISTER (LUNG CA) No Pertinent Family Hx Physical Exam Vital Signs Vital Signs - First Documented 06/13/23 06/13/23 23:39 23:40 Temp 36.9 Pulse 106 Resp 22 B/P (MAP) 88/69 (75) Pulse Ox 100 O2 Delivery Nasal Cannula O2 Flow Rate 2.00 FiO2 100 Capillary Refill : Height, Weight, BMI Height: 5'5.00" Weight: 227lbs. 0.0oz. 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 Norm as Tested Skin: Warm/Dry Progress/Results/Core Measures Results/Orders Lab Results Laboratory Tests Test 06/13/23 23:42 Range/Units White Blood Count 7.8 4.3-11.0 10^3/uL Red Blood Count 3.29 L 4.30-5.52 10^6/uL Hemoglobin 9.6 L 13.3-17.7 g/dL Hematocrit 32 L 40-54 % Mean Corpuscular Volume 96 80-99 fL Mean Corpuscular Hemoglobin 29 25-34 pg Mean Corpuscular Hemoglobin Concent 31 L 32-36 g/dL Red Cell Distribution Width 15.1 H 10.0-14.5 % Platelet Count 214 130-400 10^3/uL Mean Platelet Volume 9.2 9.0-12.2 fL Immature Granulocyte % (Auto) 1 % Neutrophils (%) (Auto) 74 42-75 % Lymphocytes (%) (Auto) 13 12-44 % Monocytes (%) (Auto) 11 0-12 % Eosinophils (%) (Auto) 0 0-10 % Basophils (%) (Auto) 0 0-10 % Neutrophils # (Auto) 5.8 1.8-7.8 10^3/uL Lymphocytes # (Auto) 1.0 1.0-4.0 10^3/uL Monocytes # (Auto) 0.9 0.0-1.0 10^3/uL Eosinophils # (Auto) 0.0 0.0-0.3 10^3/uL Basophils # (Auto) 0.0 0.0-0.1 10^3/uL Immature Granulocyte # (Auto) 0.0 0.0-0.1 10^3/uL Prothrombin Time 16.3 H 12.2-14.7 SEC INR Comment 1.3 0.8-1.4 Activated Partial Thromboplast Time 32 24-35 SEC Sodium Level 137 135-145 MMOL/L Potassium Level 3.7 3.6-5.0 MMOL/L Chloride Level 96 L 98-107 MMOL/L Carbon Dioxide Level 26 21-32 MMOL/L Anion Gap 15 H 5-14 MMOL/L Blood Urea Nitrogen 51 H 7-18 MG/DL Creatinine 2.51 H 0.60-1.30 MG/DL Estimat Glomerular Filtration Rate 25 BUN/Creatinine Ratio 20 Glucose Level 196 H 70-105 MG/DL Calcium Level 9.4 8.5-10.1 MG/DL Corrected Calcium 9.7 8.5-10.1 MG/DL Magnesium Level 2.1 1.6-2.4 MG/DL Total Bilirubin 0.6 0.1-1.0 MG/DL Aspartate Amino Transf (AST/SGOT) 18 5-34 U/L Alanine Aminotransferase (ALT/SGPT) 8 0-55 U/L Alkaline Phosphatase 111 40-136 U/L Troponin I < 0.30 <0.30 NG/ML Pro-B-Type Natriuretic Peptide 27201.0 H <450.0 PG/ML Total Protein 6.8 6.4-8.2 GM/DL Albumin 3.6 3.2-4.5 GM/DL My Orders Orders - SHANNA STEVENS MD Cbc And Automated Diff (06/13/23 23:47) Magnesium (06/13/23 23:47) Chest 1 View Ap/Pa Only (06/13/23 23:47) Ekg Tracing (06/13/23 23:47) Comprehensive Metabolic Panel (06/13/23 23:47) Protime With Inr (06/13/23:47) Partial Thromboplastin Time (06/13/23 23:47) O2 (06/13/23 23:47) Monitor-Rhythm Ecg Trace Only (06/13/23 23:47) Ed Iv/Invasive Line Start (06/13/23 23:47) Troponin I Fs (06/13/23 23:47) Probnp Fs (06/13/23 23:47) Bumetanide Injection (Bumetanide Injecti (06/14/23 00:49) Bumetanide Injection (Bumetanide Injecti (06/14/23 00:53) Vital Signs/I&O 06/13/23 10 23:39 23:40 Temp 36.9 Pulse 106 Resp 22 B/P (MAP) 88/69 (75) Pulse Ox 100 100 O2 Delivery Nasal Cannula Nasal Cannula O2 Flow Rate 2.00 FiO2 100 Progress Progress Note #1: Progress Note Differential diagnosis CHF exacerbation, chronic dyspnea, myocardial infarction, acute on chronic renal failure, pneumonia. Obtain labs from peripheral IV access initiated by EMS. Send for Complete blood count, comprehensive metabolic profile, troponin, proBNP, magnesium, coagulation factors. 1 view chest xray to look for infiltrate or effusion. ECG to evaluate his rate and rhythm and look for ischemia. 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 Initially my interpretation of his telemetry shows paced rhythm with rate of 98. Initial blood pressure 88/69 and on repeat was 111/70. Continue on home oxygen at 2 Lpm. Progress Note #2: Time: 00:30 Progress Note On my personal review and interpretation of his 1 view chest xray I did not appreciate an infiltrate. He has chornic central venous congestion similar to prior imaging. He continues to be 100% on his home O2 of 2 Lpm by n.c. and is resting comfortably in the bed. Labs show he has no elevation of his WBC count as it is at 7.8. He has hemoglobin of 9.6 which is similar to his prior testing where he runs between 8 and 10. Comprehensive metabolic profile shows stable chronic renal insufficiency with Cr of 2.51 and BUN 51. Glucose elevated to 196. Magnesium normal at 2.1. Blood pressure stable at 109/41. Awaiting proBNP and troponin level. 0044 proBNP is elevated to 18,000. This is higher than his usual baseline of 10-12,000. His troponin is not elevated. With his increased proBNP but stable blood pressure and O2 sats 100% on his home O2 can give an additional dose of diuretic and increase his diuretic at home for next 3 days to try and help with extra fluid and shortness of breath. 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 Initial ECG Impression Date: Jun 13, 2023 Initial ECG Impression Time: 23:52 Initial ECG Rate: 99 Initial ECG Comparisson: Unchanged Comment Electronic ventricular pacemaker with a rate of [address] elevation. QT interval 427 ms with a QTc interval 483 ms. Overall appears similar to prior tracings in the system. Diagnostic Imaging Diagonstic Imaging: Xray Plain Films/CT/US/NM/MRI: chest Reviewed: Reviewed by Me Departure Impression Primary Impression: Dyspnea on exertion Additional Impression: Acute exacerbation of CHF (congestive heart failure) Qualified Codes: I50.9 - Heart failure, unspecified Disposition: 01 HOME, SELF-CARE Condition: Stable Departure-Patient Inst. Decision time for Depature: 00:51 Referrals: SELF,VALORIE SMITH (PCP/Family) Primary Care Physician Patient Instructions: Heart Failure ED, Shortness of Breath, Adult ED Add. Discharge Instructions: For the next 3 days take an additional 2 mg dose of Bumex on top of the dose you are already taking. 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 All discharge instructions reviewed with patient and/or family. Voiced understanding. Scripts Bumetanide (Bumetanide) 2 Mg Tablet 2 MG PO DAILY for CHF for 3 Days, #3 TAB 0 Refills Prov: SHANNA STEVENS MD 06/14/23 SHANNA TSEVENS MD Jun 13, 2023 23:54
[2023-06-14 00:06] LABS: BASOPHILS % (AUTO) 0 % (0-10); EOSINOPHILS % (AUTO) 0 % (0-10); HEMATOCRIT 32 % (40-54); HEMOGLOBIN 9.6 g/dL (13.3-17.7); LYMPHOCYTES % (AUTO) 13 % (12-44); MEAN CORPUSCULAR HEMOGLOBIN 29 pg (25-34); MEAN CORPUSCULAR HGB CONC 31 g/dL (32-36); MEAN CORPUSCULAR VOLUME 96 fL (80-99); MEAN PLATELET VOLUME 9.2 fL (9.0-12.2); MONOCYTES # (AUTO) 0.9 10^3/uL (0.0-1.0); MONOCYTES % (AUTO) 11 % (0-12); NEUTROPHILS # (AUTO) 5.8 10^3/uL (1.8-7.8); NEUTROPHILS % (AUTO) 74 % (42-75); PLATELET COUNT 214 10^3/uL (130-400); WHITE BLOOD COUNT 7.8 10^3/uL (4.3-11.0)
[2023-06-14 00:15] LABS: INR 1.3 (0.8-1.4); PROTHROMBIN TIME PATIENT 16.3 SEC (12.2-14.7)
[2023-06-14 00:23] LABS: BILIRUBIN,TOTAL 0.6 MG/DL (0.1-1.0); BUN/CREATININE RATIO 20; CALCIUM 9.4 MG/DL (8.5-10.1); CARBON DIOXIDE 26 MMOL/L (21-32); CHLORIDE 96 MMOL/L (98-107); CREATININE SERUM 2.51 MG/DL (0.60-1.30); GFR ESTIMATED 25; GLUCOSE 196 MG/DL (70-105); MAGNESIUM 2.1 MG/DL (1.6-2.4); POTASSIUM 3.7 MMOL/L (3.6-5.0); SODIUM 137 MMOL/L (135-145)
[2023-06-14 00:24] LABS: ALANINE AMINOTRANSFERASE 8 U/L (0-55); ALBUMIN 3.6 GM/DL (3.2-4.5); ALKALINE PHOSPHATASE 111 U/L (40-136); TOTAL PROTEIN 6.8 GM/DL (6.4-8.2)
[2023-06-14] MEDS ORDERED: BUMETANIDE INJ 1 MG/4 ML VIAL IV STA (00:49)
[2023-06-14] MEDS ORDERED: BUME2TAB7 PO (00:51)
[2023-06-14] MEDS ORDERED: BUMETANIDE INJ 2.5 MG/10 ML VIAL ONE (00:53)
[2023-06-14 01:25] VITALS: BP 97/55
--- NOTE | 2023-06-14 04:29 | Diagnostic Imaging Report ---
Indication: Shortness of breath Portable chest 11:57 PM There is a dual-chamber pacemaker. There is cardiomegaly with pulmonary vascular congestion. There are no infiltrates, effusions or pneumothoraces. IMPRESSION: Cardiomegaly with pulmonary venous hypertension. Dictated by: Dictated on workstation # [id number]
== END 2023-06-14 01:32 | disposition home or self-care (01) ==
LOC: EDUNIT# 23:34 → ER FS 23:38
DX: I13.0 Hypertensive heart and chronic kidney disease with heart failure and stage 1 through stage 4 chronic kidney disease, or unspecified chronic kidney disease (principal); I50.9 Heart failure, unspecified; N18.30 Chronic kidney disease, stage 3 unspecified; Z79.899 Other long term (current) drug therapy; Z95.0 Presence of cardiac pacemaker
CPT/HCPCS: 36415; 71045; 80053; 83735; 83880; 84484; 85025; 85610; 85730; 93005; 93041; 96374